=== PATIENT | female | born 1980 | race Two or more races ===

== ENCOUNTER 2023-05-02 18:25 | Observation (INO) | payer OTHER, SELFPAY ==
[2023-05-02 18:33] VITALS: BP 115/63; PULSE 69; RESP 18; TEMP 37.2; O2SAT 100; BMI 25.4
--- NOTE | 2023-05-02 18:43 | ED_ITS ---
HPI - Abdominal Pain General Chief Complaint: Abdominal Pain Stated Complaint: ABDOMINAL PAIN/THROWING UP Time Seen by Provider: 05/02/23 18:28 Source: patient Mode of arrival: Wheelchair Limitations: no limitations History of Present Illness HPI narrative: Patient complains of generalized abdominal pain, nausea and vomiting that began yesterday and worsened today. She lives in [place] and went to [place] ED this afternoon. She had an IV placed, got IVF and anti-emetics and had blood testing. She says that she got a CT but the said that she got abdominal xrays. They did not find anything requiring surgery but apparently offered admission and the patient declined. The said that as soon as the patient got into the car to go home, she vomited, so he brought the patient to our ED to be evaluated and treated. PSHx = cholecystectomy She denied prior history of similar symptoms - denied UC, Crohns, diverticulitis, other chronic GI conditions. Related Data Allergies Allergy/AdvReac Type Severity Reaction Status Date / Time codeine Allergy Intermediate Verified 05/02/23 18:36 ibuprofen Allergy Intermediate Verified 05/02/23 18:36 [facility] Social History Smoking status: Current every day smoker Exam Narrative Exam Narrative: Nurses notes and vital signs reviewed and patient is not hypoxic. AFEBRILE General: Uncomfortable. Skin: Warm, dry, no pallor noted. Eye: Pupils are equal, round and EOMI. No scleral icterus. Ears, Nose, Mouth, and Throat: Oral mucosa is dry Cardiovascular: Regular Rate and Rhythm without murmur, gallop or rub. Respiratory: No accessory muscle use or respiratory distress. Lungs are clear to auscultation, no wheezing, rales or rhonchi Back: No CVA tenderness Musculoskeletal: normal ROM, no calf or popliteal tenderness, no lower extremity edema/swelling GI: Abdomen is soft, non-distended. Normal bowel sounds. No masses appreciated. Diffuse tenderness to palpation. No rebound, guarding, or rigidity noted. Neurological: A&O x4. No cranial nerve dysfunction observed. No truncal ataxia. Moves all extremities. Sensation intact. Psychiatric: Cooperative and interactive. Normal mood and affect. Constitutional Vital Signs, click to edit/add: Last Vital Signs Temp 98.9 F 05/02/23 18:33 Pulse 69 05/02/23 18:33 Resp 18 05/02/23 18:33 BP 115/63 05/02/23 18:33 Pulse Ox 100 05/02/23 18:33 O2 Del Method Room Air 05/02/23 18:33 Course Vital Signs Vital signs: Vital Signs Temperature 98.9 F 05/02/23 18:33 Pulse Rate 69 05/02/23 18:33 Respiratory Rate 18 05/02/23 18:33 Blood Pressure 115/63 05/02/23 18:33 Pulse Oximetry 100 05/02/23 18:33 Oxygen Delivery Method Room Air 05/02/23 18:33 Temperature 98.9 F 05/02/23 18:33 Pulse Rate 69 05/02/23 18:33 Respiratory Rate 18 05/02/23 18:33 Blood Pressure 115/63 05/02/23 18:33 Pulse Oximetry 100 05/02/23 18:33 Oxygen Delivery Method Room Air 05/02/23 18:33 MDM - Abdominal Pain MDM Narrative Medical decision making narrative: I requested that we get a copy of the ED chart from [place]. In the meantime, peripheral IV was ordered to be established with blood to be drawn and sent for testing. She was ordered to receive NS IVF, IV Dilaudid and IV Zofran. Patient signed out to Dr Delgadillo at shift change. - DO Luz Marina Discharge Plan Discharge Chief Complaint: Abdominal Pain
[2023-05-02] MEDS: ONDANSETRON PF 4 MG/2 ML VIAL IV (19:18)
[2023-05-02] MEDS: 0.9 % SODIUM CHLORIDE 1,000 ML 999 ML IV (19:18)
[2023-05-02 19:20] LABS: Basophils Percent Auto 0.3 % (0.2-2.0); Eosinophils Percent Auto 0.1 % (0.9-7.0); Hematocrit 43.5 % (36.0-48.0); Hemoglobin 14.4 g/dL (12.0-16.0); Immature Granulocytes Abs Auto 0.08 10^3/uL (0.00-0.03); Immature Granulocytes Pct Auto 0.5 % (0.0-0.5); Lymphocytes Absolute Auto 2.1 10^3/uL (1.2-3.8); Lymphocytes Percent Auto 13.7 % (20.5-60.0); Mean Corpuscular HGB Conc 33.1 g/dL (29.9-35.2); Mean Corpuscular Hemoglobin 29.9 pg (26.7-34.0); Mean Corpuscular Volume 90.4 fL (81.0-99.0); Mean Platelet Volume 9.1 fL (9.5-13.5); Monocytes Absolute Auto 1.2 10^3/uL (0.3-0.8); Monocytes Percent Auto 7.7 % (1.7-12.0); Neutrophils Absolute Auto 11.9 10^3/uL (1.4-6.5); Neutrophils Percent Auto 77.7 % (43.0-75.0); Platelet Count 425 10^3/uL (150-450); Red Blood Count 4.81 10^6/uL (4.20-5.40); Red Cell Distribution Width 12.6 % (11.0-15.0); White Blood Count 15.4 10^3/uL (4.0-11.0)
[2023-05-02 19:37] LABS: Alanine Aminotransferase 20 U/L (14-59); Albumin Level 3.9 g/dL (3.4-5.0); Alkaline Phosphatase 64 U/L (46-116); Aspartate Amino Transferase 12 U/L (15-37); BUN Creatinine Ratio 18.8; Bilirubin Total 0.7 mg/dL (0.2-1.0); Calcium 8.8 mg/dL (8.5-10.1); Chloride 103 mmol/L (98-107); Estimated GFR (African America >60 (>=60); Estimated GFR (Non-African Ame >60 (>=60); Globulin 3.9 g/dL; Glucose 122 mg/dL (74-106); Sodium 141 mmol/L (136-145); Total Protein 7.8 g/dL (6.4-8.2)
[2023-05-02] MEDS: HYDROMORPHONE HCL 1 MG/ML CARTRIDGE IVP (19:55)
[2023-05-02 20:15] VITALS: BP 128/85; PULSE 64; RESP 18; TEMP 37.6; O2SAT 99
[2023-05-02 20:35] VITALS: BP 108/56
[2023-05-02] MEDS: POTASSIUM CHLORIDE/D5-0.9%NACL 1,000 ML 100 MEQ IV (20:52)
[2023-05-02 21:08] VITALS: BP 128/85; PULSE 65; RESP 20; TEMP 37.6; O2SAT 99; BMI 27.2
[2023-05-02 21:14] VITALS: PULSE 64; RESP 18; O2SAT 99
[2023-05-02] MEDS: MORPHINE SULFATE 2 MG/ML SYRINGE IV (23:05)
[2023-05-03] MEDS: ONDANSETRON PF 4 MG/2 ML VIAL IV (01:06)
[2023-05-03] MEDS: PROCHLORPERAZINE 10 MG/2 ML VIAL IV (02:55)
[2023-05-03] MEDS: MORPHINE SULFATE 2 MG/ML SYRINGE IV (02:55)
[2023-05-03 05:18] LABS: Basophils Absolute Auto 0.1 10^3/uL (0.0-0.1); Basophils Percent Auto 0.4 % (0.2-2.0); Hematocrit 39.2 % (36.0-48.0); Immature Granulocytes Abs Auto 0.05 10^3/uL (0.00-0.03); Immature Granulocytes Pct Auto 0.4 % (0.0-0.5); Lymphocytes Absolute Auto 2.3 10^3/uL (1.2-3.8); Lymphocytes Percent Auto 16.6 % (20.5-60.0); Mean Corpuscular HGB Conc 33.2 g/dL (29.9-35.2); Mean Corpuscular Hemoglobin 29.9 pg (26.7-34.0); Mean Corpuscular Volume 90.1 fL (81.0-99.0); Mean Platelet Volume 9.3 fL (9.5-13.5); Monocytes Absolute Auto 1.2 10^3/uL (0.3-0.8); Neutrophils Absolute Auto 10.1 10^3/uL (1.4-6.5); Neutrophils Percent Auto 73.6 % (43.0-75.0); Platelet Count 371 10^3/uL (150-450); Red Blood Count 4.35 10^6/uL (4.20-5.40); Red Cell Distribution Width 12.6 % (11.0-15.0); White Blood Count 13.7 10^3/uL (4.0-11.0)
[2023-05-03] MEDS: POTASSIUM CHLORIDE/D5-0.9%NACL 1,000 ML 125 MEQ IV (05:23)
[2023-05-03 05:43] LABS: Alanine Aminotransferase 17 U/L (14-59); Albumin Level 3.4 g/dL (3.4-5.0); Alkaline Phosphatase 52 U/L (46-116); Anion Gap 14.3; Aspartate Amino Transferase 13 U/L (15-37); BUN Creatinine Ratio 26.3; Bilirubin Total 0.7 mg/dL (0.2-1.0); Calcium 8.2 mg/dL (8.5-10.1); Carbon Dioxide 25.8 mmol/L (21.0-32.0); Chloride 106 mmol/L (98-107); Estimated GFR (African America >60 (>=60); Estimated GFR (Non-African Ame >60 (>=60); Globulin 3.3 g/dL; Glucose 156 mg/dL (74-106); Potassium 3.1 mmol/L (3.5-5.1); Sodium 143 mmol/L (136-145); Total Protein 6.7 g/dL (6.4-8.2)
[2023-05-03 05:46] VITALS: BP 137/82; PULSE 59; RESP 18; TEMP 37.4; O2SAT 100
[2023-05-03 06:30] LABS: Bilirubin Urine NEGATIVE (NEGATIVE); Blood Urine SMALL (NEGATIVE); Clarity Urine CLEAR (CLEAR); Color Urine YELLOW (YELLOW); Glucose Urine UA NEGATIVE (NEGATIVE); Ketones Urine 40 mg/dL (NEGATIVE); Leukocyte Esterase Urine TRACE (NEGATIVE); Nitrite Urine NEGATIVE (NEGATIVE); Protein Urine TRACE mg/dL (NEG/TRACE); pH Urine 7.5 (5.0-9.0)
[2023-05-03 06:33] LABS: Urine Microscopic Indicated YES
[2023-05-03 06:35] LABS: Bacteria Urine NONE SEEN #/HPF (NONE SEEN); RBC Urine 0-2 #/HPF (0-2); WBC Urine 0-2 #/HPF (NONE SEEN)
[2023-05-03 06:36] LABS: Cast Seen? NONE SEEN #/LPF (NONE SEEN); Crystals Seen? None Seen #/HPF (None Seen); Mucus Urine NONE SEEN (NONE SEEN); Squamous Epithelial Cell Urine MANY #/LPF (NONE/RARE)
[2023-05-03 06:42] LABS: Amphetamine Screen Urine NEGATIVE (NEGATIVE); Barbiturates Screen Urine NEGATIVE (NEGATIVE); Benzodiazepines Screen Urine NEGATIVE (NEGATIVE); Buprenorphine Screen Urine NEGATIVE (NEGATIVE); Cannabinoid Screen Urine POSITIVE (NEGATIVE); Cocaine Screen Urine NEGATIVE (NEGATIVE); Methadone Screen Urine NEGATIVE (NEGATIVE); Methamphetamines Screen Urine NEGATIVE (NEGATIVE); Opiate Screen Urine POSITIVE (NEGATIVE); Oxycodone Screen Urine NEGATIVE (NEGATIVE); Phencyclidine Screen Urine NEGATIVE (NEGATIVE); Tricyclic Antidepressant Urine NEGATIVE (NEGATIVE)
--- NOTE | 2023-05-03 06:44 | PC.NURSE ---
Patient called nurse into room, stating I have to sign out. My daughters were in a car accident. AMA paper signed iv removed.
--- NOTE | 2023-05-03 10:41 | P.HP_ITS ---
H&P: HPI History of Present Illness Chief complaint: ABDOMINAL PAIN/THROWING UP Narrative: 43 y/o female admitted with nausea and vomiting. Signed out AMA prior to being seen and history from chart. To ER in [place] earlier in day and given IV fluids and medication. CT and labs normal. Discharged home and had emesis on way home. To [facility] and again labs showed normal LFTs and lipase. WBC elevated likely from emesis. Records obtained from [place] and CT normal. Admitted for observation. Started IV fluids and zofran. [facility] Medical History (Updated 05/03/23 @ 10:44 by Garth Moses MD) Embolus ?I74.9 - Embolism and thrombosis of unspecified artery (ICD-10) Surgical History (Updated 05/03/23 @ 05:55 by Nona Enciso) History of cholecystectomy ?Z90.49 - Acquired absence of other specified parts of digestive tract (ICD- 10) Social History Smoking status: Current every day smoker Highest level of school completed/degree received: 9th grade Meds Home Medications and Allergies Allergies Allergy/AdvReac Type Severity Reaction Status Date / Time codeine Allergy Intermediate Verified 05/02/23 18:36 ibuprofen Allergy Intermediate Verified 05/02/23 18:36 Exam Constitutional Vital Signs, click to edit/add: Last Vital Signs Temp 99.3 F 05/03/23 05:46 Pulse 59 L 05/03/23 05:46 Resp 18 05/03/23 05:46 BP 137/82 05/03/23 05:46 Pulse Ox 100 05/03/23 05:46 O2 Del Method Room Air 05/03/23 05:46 Results Labs Labs: Short CBC 05/02/23 05/03/23 Range/Units 18:52 04:11 WBC 15.4 H 13.7 H (4.0-11.0) 10^3/uL Hgb 14.4 13.0 (12.0-16.0) g/dL Hct 43.5 39.2 (36.0-48.0) % Plt Count 425 371 (150-450) 10^3/uL BMP 05/02/23 05/03/23 18:52 04:11 Sodium 141 143 Potassium 3.0 L 3.1 L Chloride 103 106 Carbon Dioxide 27.0 25.8 BUN 9.0 10.0 Creatinine 0.48 L 0.38 L Glucose 122 H 156 H Calcium 8.8 8.2 L Liver Function 05/02/23 05/03/23 Range/Units 18:52 04:11 Total Bilirubin 0.7 0.7 (0.2-1.0) mg/dL AST 12 L 13 L (15-37) U/L ALT 20 17 (14-59) U/L Alkaline Phosphatase 64 52 (46-116) U/L Albumin 3.9 3.4 (3.4-5.0) g/dL Urine 05/02/23 Range/Units 06:20 Urine Color Yellow (YELLOW) Urine Clarity Clear (CLEAR) Urine pH 7.5 (5.0-9.0) Ur Specific [place]ner 1.020 (1.005-1.025) Urine Protein Trace (NEG/TRACE) mg/dL Urine Glucose (UA) Negative (NEGATIVE) mg/dL Assessment and Plan Assessment and Plan (1) Cyclic vomiting syndrome: Plan Drug screen positive for THC and likely cyclic vomiting. Was getting IV fluids and zofran. Patient informed nurse that her children were involved in MVA and she had to leave. Patient signed out AMA.
--- NOTE | 2023-05-04 10:06 | CM.DCFOLLOWU ---
Person spoke with: patient How are you feeling? much better How is your pain? no pain Did you understand your discharge instructions? N/A, left AMA due to her children being in a MVA Do you have any questions about your discharge instructions? N/A Were you given any prescriptions at discharge? no, Left AMA due to her children being in a MVA Were you able to get your prescriptions filled? N/A Do you understand how to take your medications as ordered? N/A Do you have any questions about your follow up appointment and do you plan to keep your follow up appointment? No questions Is there anything else that you would like to discuss? no Questions/Comments/Concerns/Other: Patient did ask about getting a doctor's excuse for work. Advised patient that I will look in to this and call her back to see if we are able to since she signed out AMA
== END 2023-05-03 06:54 | disposition left against medical advice (07) ==
LOC: ER 19:55 → ICU 20:46
PROVIDERS: Emergency Medicine; Nurse Practitioner Acute Care; Admitting Provider Family Medicine; Emergency Provider Internal Medicine; Visit Provider Family Medicine
DX: R11.15 Cyclical vomiting syndrome unrelated to migraine (principal); E87.6 Hypokalemia; F12.10 Cannabis abuse, uncomplicated; F17.210 Nicotine dependence, cigarettes, uncomplicated; Z90.49 Acquired absence of other specified parts of digestive tract; Z53.29 Procedure and treatment not carried out because of patient's decision for other reasons
CPT/HCPCS: 36415; 80053; 80307; 81001; 83690; 85025; 96361; 96365; 96366; 96375; 96376; 99285; G0378; J0780; J1170; J2270; J2405

== ENCOUNTER 2023-06-08 18:08 | Emergency (ER) | payer OTHER, SELFPAY ==
[2023-06-08 18:12] VITALS: BP 133/72; PULSE 88; RESP 18; TEMP 36.7; O2SAT 97; BMI 26.3
--- OUTSIDE RECORDS SUMMARY | 2023-06-08 18:17 | XMS_ITS | CCD ---
Author Name Unknown Address [address] [place] [address] Organization [facility] Care Team Providers Care [employer] Name Role Phone MARKER, DR FUENTES Consulting Unavailable [facility] Unavailable MARKER, DR FUENTES Admitting Unavailable MARKER, DR FUENTES Attending Unavailable AHDOOTMAKENZIE Consulting Unavailable PAY, DR TEIXEIRA Attending Unavailable PAY, DR TEIXEIRA Consulting Unavailable PAY, DR TEIXEIRA Admitting Unavailable [facility] Unavailable KARASIK, DR FENG Attending Unavailable KARASIK, DR FENG Admitting [facility]available [facility] [place] [facility] MISBAH BURK Attending Unavailable BHARGAVIMISBAH BRAGG Attending Unavailable BHARGAVIMISBAH BRAGG Referring Unavailable SERVICES, [facility] Unava ilable BHARGAVIMISBAH BRAGG Attending Unavailable BHARGAVIMISBAH BRAGG Referring Unavailable SERVICES, [facility] Unava ilable Allergies Allergy Classification Reported Allergen(s) Allergy Type Date of Onset Reaction(s) Facility NSAIDs (2 sources) Ibuprofen Drug Allergy 10-05-1997 [facility] Opioid Agonists (2 sources) traMADol Drug Allergy 09-26-2013 [facility] Unclassified (1 source) Tylenol-Codeine #3 Drug allergy (disorder) [facility] (1 source) Codeine; Translations: [CODEINE] Drug Allergy 05-02-2023 [facility] (1 source) Ibuprofen; Translations: [IBUPROFEN] Drug Allergy 08-29-2016 [facility] (1 source) traMADol; Translations: [TRAMADOL] Drug Allergy 08-29-2016 [facility] Problems Active Problems Problem Classification Problem Date Documented Da te Episodic/Chronic Abdominal pain (1 source) Abdominal pain Onset: 05-02-2023 Episodic Asthma (1 source) Unspecified asthma, uncomplicated; Translations: [UNSPECIFIED ASTHMA UNCOMPLICATED] Onset: 11-01-2020 Chronic Nausea and vomiting (3 sources) Nausea with vomiting, unspecified; Translations: [Nausea] Onset: 05-02-2023 Episodic Nonspecific chest pain (1 source) Other chest pain; Translations: [OTHER CHEST PAIN] Onset: 11-01-2020 Episodic Other lower respiratory disease (4 sources) Shortness of breath; Translations: [SHORTNESS OF BREATH] Onset: 10-30-2020 Episodic Substance-related disorders (1 source) Nicotine dependence, cigarettes, uncomplicated; Translations: [NICOTINE DEPEND CIGARETTES UNCOMP] Onset: 11-01-2020 Chronic Substance-related disorders (1 source) Cannabis use, unspecified, uncomplicated; Translations: [Cannabis use, unspecified, uncomplicated] Onset: 05-02-2023 Episodic Unclassified (1 source) Cyclical vomiting syndrome unrelated to migraine; Translations: [Cyclical vomiting syndrome unrelated to migraine] Onset: 05-02-2023 Unclassified (1 source) EMS Onset: 05-02-2023 Past or Other Problems Problem Classification Problem Date Documented Da te Episodic/Chronic Skin and subcutaneous tissue infections (4 sources) Cutaneous abscess of right lower limb; Translations: [CUTANEOUS ABSCESS RIGHT LOWER LIMB] Onset: 03-06-2020 Episodic Results Test Name Value Interpretation Reference Range Facil ity CBC AND AUTO DIFFon 05-02-19 ABSOLUTE BASOPHIL 0.0 X10E9/L Normal 0.0-0.2 [facility] Comment on above: Performed By: #### C BCA, CMP, 3040-3, 48583-6, 32010-8, 21719- 9 #### [facility] ([id number]) [address] [place] [address] 82741 ABSOLUTE NEUTROPHIL 11.9 X10E9/L High 1.5-6.6 [facility] Comment on above: Performed By: #### C BCA, CMP, 3040-3, 67926-2, 20920-0, 57074- 9 #### [facility] ([id number]) [address] [place] [address] [place] [address] Basophils/100 WBC (Bld) 0.2 % Normal [facility] Comment on above: Performed By: #### C MAIKEL, CMP, 3040-3, 66685-8, 87489-4, 28796- 9 #### [facility] ([id number]) [address] [place] [address] 45175 Eosinophils (Bld) [#/Vol] 0.0 10*3/uL Normal 0.0-0.4 [facility] Comment on above: Performed By: #### C MAIKEL, CMP, 3040-3, 95712-0, 71260-3, 55635- 9 #### [facility] ([id number]) [address] [place] [address] 04974 Eosinophils/100 WBC (Bld) 0.3 % Normal [facility] Comment on above: Performed By: #### C MAIKEL, CMP, 3040-3, 20466-0, 21392-2, 62036- 9 #### [facility] ([id number]) [address] [place] [address] 55352 Erythrocyte distribution width (RBC) [Ratio] 13.1 % Normal 11.5-15.0 [facility] Comment on above: Performed By: #### Arnie KO, CMP, 3040-3, 14362-4, 83854-7, 88181- 9 #### [facility] ([id number]) [address] [place] [address] 09285 Hematocrit (Bld) [Volume fraction] 44.1 % Normal 35-47 [facility] Comment on above: Performed By: #### Arnie KO, CMP, 3040-3, 12824-6, 35654-5, 63497- 9 #### [facility] ([id number]) [address] [place] [address] 10736 Hemoglobin (Bld) [Mass/Vol] 15.0 g/dL Normal 11.7-15.5 [facility] Comment on above: Performed By: #### C BCA, CMP, 3040-3, 82202-6, 56511-2, 85429- 9 #### [facility] ([id number]) [address] [place] [address] 67039 Lymphocytes (Bld) [#/Vol] 1.4 10*3/uL Normal 1.0-3.5 [facility] Comment on above: Performed By: #### C BCA, CMP, 3040-3, 22874-1, 09888-2, 70045- 9 #### [facility] ([id number]) [address] [place] [address] 87961 Lymphocytes/100 WBC (Bld) 9.8 % Normal [facility] Comment on above: Performed By: #### C BCA, CMP, 3040-3, 01963-5, 18178-5, 57646- 9 #### [facility] ([id number]) [address] [place] [address] 06420 MCH (RBC) [Entitic mass] 30.3 pg Normal 27-34 [facility] Comment on above: Performed By: #### C BCA, CMP, 3040-3, 36603-6, 34284-4, 71156- 9 #### [facility] ([id number]) [address] [place] [address] 19328 MCHC (RBC) [Mass/Vol] 34.0 g/dL Normal 32-36 [facility] Comment on above: Performed By: #### C BCA, CMP, 3040-3, 45523-5, 38228-0, 81848- 9 #### [facility] ([id number]) [address] [place] [address] 62559 MCV (RBC) [Entitic vol] 89 fL Normal 80-100 [facility] Comment on above: Performed By: #### C BCA, CMP, 3040-3, 40054-5, 88950-1, 07234- 9 #### [facility] ([id number]) [address] [place] [address] 76216 Monocytes (Bld) [#/Vol] 0.8 10*3/uL Normal 0-0.9 [facility] Comment on above: Performed By: #### C BCA, CMP, 3040-3, 65729-7, 59334-1, 87848- 9 #### [facility] ([id number]) [address] [place] [address] 00562 Monocytes/100 WBC (Bld) 5.4 % Normal [facility] Comment on above: Performed By: #### C BCA, CMP, 3040-3, 30807-6, 47918-8, 38285- 9 #### [facility] ([id number]) [address] [place] [address] 07320 Neutrophils/100 WBC (Bld) 84.3 % Normal [facility] Comment on above: Performed By: #### C BCA, CMP, 3040-3, 26602-9, 91719-2, 52972- 9 #### [facility] ([id number]) [address] [place] [address] 63191 Platelet mean volume (Bld) [Entitic vol] 6.9 fL Low 7-12 [facility] Comment on above: Performed By: #### C BCA, CMP, 3040-3, 40157-3, 56054-4, 25539- 9 #### [facility] ([id number]) [address] [place] [address] 11278 Platelets (Bld) [#/Vol] 433 10*3/uL Normal 150-450 [facility] Comment on above: Performed By: #### Arnie BCA, CMP, 3040-3, 18841-1, 54636-5, 33057- 9 #### [facility] ([id number]) [address] [place] [address] 79908 RBC COUNT 4.95 X10E12/L Normal 3.80-5.20 [facility] Comment on above: Performed By: #### C BCA, CMP, 3040-3, 76961-4, 92627-6, 70598- 9 #### [facility] ([id number]) [address] [place] [address] 11182 WBC (Bld) [#/Vol] 14.2 10*3/uL High 4.0-11.0 [facility] Comment on above: Performed By: #### C BCA, CMP, 3040-3, 72898-9, 13206-0, 98507- 9 #### [facility] ([id number]) [address] [place] [address] 23408 COMPREHENSIVE METABOLIC PANE Sumit 05-02-2023 Albumin [Mass/Vol] 4.5 g/dL Normal 3.2-5.3 [facility] Comment on above: Performed By: #### C BCA, CMP, 3040-3, 51452-5, 94308-1, 63824- 9 #### [facility] ([id number]) [address] [place] [address] 25829 ALP [Catalytic activity/Vol] 61 U/L Normal 39-130 [facility] Comment on above: Performed By: #### C BCA, CMP, 3040-3, 45409-7, 29691-6, 81326- 9 #### [facility] ([id number]) [address] [place] [address] 55300 ALT [Catalytic activity/Vol] 17 U/L Normal 0-31 [facility] Comment on above: Performed By: #### C BCA, CMP, 3040-3, 44344-3, 11788-0, 18385- 9 #### [facility] ([id number]) [address] [place] [address] 15442 Anion gap [Moles/Vol] 12 mmol/L Normal 5-15 [facility] Comment on above: Performed By: #### C BCA, CMP, 3040-3, 17474-8, 27879-7, 23270- 9 #### [facility] ([id number]) [address] [place] [address] 50147 AST [Catalytic activity/Vol] 21 U/L Normal 0-41 [facility] Comment on above: Performed By: #### C BCA, CMP, 3040-3, 42152-4, 11457-7, 07335- 9 #### [facility] ([id number]) [address] [place] [address] 31562 Bilirubin [Mass/Vol] 0.9 mg/dL Normal 0.3-1.2 [facility] Comment on above: Performed By: #### C BCA, CMP, 3040-3, 03567-2, 86589-2, 58075- 9 #### [facility] ([id number]) [address] [place] [address] 65260 Calcium [Mass/Vol] 8.9 mg/dL Normal 8.5-10.5 [facility] Comment on above: Performed By: #### C BCA, CMP, 3040-3, 98684-1, 70356-8, 45397- 9 #### [facility] ([id number]) [address] [place] [address] 84393 Chloride [Moles/Vol] 99 mmol/L Normal 98-109 [facility] Comment on above: Performed By: #### C BCA, CMP, 3040-3, 95996-9, 73846-2, 82508- 9 #### [facility] ([id number]) [address] [place] [address] 40735 CO2 [Moles/Vol] 23 mmol/L Normal 22-32 [facility] Comment on above: Performed By: #### C MAIKEL, CMP, 3040-3, 68805-1, 88334-4, 13071- 9 #### [facility] ([id number]) [address] [place] [address] 14742 Creatinine [Mass/Vol] 0.46 mg/dL Normal 0.40-1.00 [facility] Comment on above: Result Comment: METH OD TRACEABLE TO IDMS STANDARD Performed By: #### C MAIKEL, CMP, 3040-3, 61271-9, 45744-8, 94643-0 #### [facility] ([id number]) [address] [place] [address] 99383 eGFR (CKD-EPI) NON-RACE DEPENDENT >90 Normal >59 [facility] Comment on above: Result Comment: Reported eGFR is based on the CKD-EPI 2020 equation that does not use a race coefficient. Performed By: #### C MAIKEL, MICAH, 3040-3, 78284-6, 62301-2, 33342-9 #### [facility] ([id number]) [address] [place] [address] 44355 Glucose [Mass/Vol] 141 mg/dL High 65-99 [facility] Comment on above: Performed By: #### C MICAH KO, 3040-3, 77225-4, 70733-3, 76941- 9 #### [facility] ([id number]) [address] [place] [address] 25177 Potassium [Moles/Vol] 3.0 mmol/L Low 3.5-5.0 [facility] Comment on above: Performed By: #### C MAIKEL, CMP, 3040-3, 63439-4, 20118-6, 95109- 9 #### [facility] ([id number]) [address] [place] [address] 20755 Protein [Mass/Vol] 8.2 g/dL High 6.0-8.0 [facility] Comment on above: Performed By: #### C BCA, CMP, 3040-3, 75982-7, 04495-7, 07023- 9 #### [facility] ([id number]) [address] [place] [address] 53289 Sodium [Moles/Vol] 134 mmol/L Normal 134-146 [facility] Comment on above: Performed By: #### C BCA, CMP, 3040-3, 65540-2, 01619-8, 88657- 9 #### [facility] ([id number]) [address] [place] [address] 06264 Urea nitrogen [Mass/Vol] 14 mg/dL Normal 5-23 [facility] Comment on above: Performed By: #### C BCA, CMP, 3040-3, 52550-5, 11868-3, 25399- 9 #### [facility] ([id number]) [address] [place] [address] ABDOMEN AND PELVIS W CONT on 05-02-2023 CT ABDOMEN AND PELVIS W CONT CT ABDOMEN AND PELVIS W CONT Clinical history: Acute nonlocalized abdominal pain. Nausea vomiting. Technique: Spiral CT of the abdomen and pelvis was performed after the intravenous administration of contrast material. Sagittal and coronal reformatted imaging was performed. All CT scans at this facility use dose modulation, iterative reconstruction, and/or weight based dosing when appropriate to reduce radiation dose to as low as reasonably achievable. Comparisons: 05/22/2020. Findings: CT ABDOMEN: Minimal dependent atelectatic changes are present in the lung bases, left greater than right. There is no pneumoperitoneum. Changes of cholecystectomy again seen. The liver, spleen, adrenal glands and pancreas appear unremarkable. Fatty replacement of much of the pancreatic head and uncinate again seen. Kidneys are unremarkable. Renal collecting systems and ureters are not dilated. Abdominal aorta is not aneurysmal. There is no retroperitoneal nor mesenteric lymphadenopathy. No ascites. No dilated bowel loops. 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 No pelvic mass, fluid collection, nor lymphadenopathy. Appendix is normal. No acute fracture is identified. IMPRESSION: No acute finding in the abdomen nor pelvis. Finalized by Jalen Morales MD on 05/02/2023 12:53 PM Normal [facility] HCG ( test) IA.sawi d Ql (S)on 05-02-2023 SERUM Negative Normal NEG [facility] Comment on above: Performed By: #### C BCA, CMP, 3040-3, 49940-1, 60108-0, 84355- 9 #### [facility] ([id number]) [address] [place] [address] 81199 HCG ( test) Ql (U)o n 05-02-2023 Beta HCG ( test) Ql (U) Negative Normal NEG [facility] Comment on above: Performed By: #### 2 106-3 #### [facility] ([id number]) [address] [place] [address] 69254 LIPASEon 05-02-2023 Lipase [Catalytic activity/Vol] 22 U/L Normal 17-40 [facility] Comment on above: Performed By: #### C BCA, CMP, 3040-3, 44912-4, 69023-1, 50123- 9 #### [facility] ([id number]) [address] [place] [address] 75546 MAGNESIUMon 05-02-2023 Magnesium [Mass/Vol] 1.8 mg/dL Normal 1.8-2.6 [facility] Comment on above: Performed By: #### C BCA, CMP, 3040-3, 00719-7, 21739-9, 89996- 9 #### [facility] ([id number]) [address] [place] [address] 83468 TROPONIN Ion 05-02-2023 Troponin I.cardiac [Mass/Vol] 0.01 ng/mL Normal 0.00-0.04 [facility] Comment on above: Performed By: #### C BCA, CMP, 3040-3, 57932-4, 09968-5, 06949- 9 #### [facility] ([id number]) [address] [place] [address] [place] [address] URN MACROSCOPIC NURon 2023 BILIRUBIN TACO Negative Normal NEG [facility] Comment on above: Performed By: #### N UM #### [facility] ([id number]) [address] [place] [address] [place] [address] BLOOD/HGB TACO Small Abnormal NEG [facility] Comment on above: Performed By: #### N UM #### [facility] ([id number]) [address] [place] [address] [place] [address] GLUCOSE TACO Negative Normal NEG [facility] Comment on above: Performed By: #### N UM #### [facility] ([id number]) [address] [place] [address] [place] [address] KETONES TACO >=160 Abnormal NEG [facility] Comment on above: Performed By: #### N UM #### [facility] ([id number]) [address] [place] [address], [place] [address] LEUKOCYTE ESTERASE TACO Negative Normal NEG [facility] Comment on above: Performed By: #### N UM #### [facility] ([id number]) [address] [place] [address] [place] [address] NITRITE TACO Negative Normal NEG [facility] Comment on above: Performed By: #### N UM #### [facility] ([id number]) [address] [place] [address] [place] [address] PH TACO 6.0 Normal 5.0-8.5 [facility] Comment on above: Performed By: #### N UM #### [facility] ([id number]) [address] [place] [address] [place] [address] PROTEIN TACO Negative Normal NEG [facility] Comment on above: Performed By: #### N UM #### [facility] ([id number]) [address] [facility] [place] [address] SPECIFIC GRAVITY TACO <=1.005 Normal 1.003-1.035 [facility] Comment on above: Performed By: #### N UM #### [facility] ([id number]) [address] [facility], [place] [address] UROBILINOGEN TACO 0.2 eu/dL Normal <1.[address] [facility] Comment on above: Performed By: #### N UM #### [facility] ([id number]) [address] [facility], [place] [address] XR CHEST 1 VWon 05-02-2023 XR CHEST 1 VW XR CHEST 1 VW Portable chest: HISTORY: Cough and nausea. Single view of the chest was obtained. Cardiac and mediastinal contours are stable. There is no consolidation or effusion. No pneumothorax is seen. The osseous structures appear intact. IMPRESSION: No acute findings Finalized by Wolfgang Mcbride MD on 05/02/2023 11:43 AM Normal [facility] ASYMPTOMATIC COVID-19 ANTIGE Non 10-30-2020 EUA Statement SEE BELOW Normal [facility] Comment on above: Result Comment: This test has not been FDA cleared or approved, but has been authorized by the FDA under an Emergency Use Authorization (EUA) for use by authorized laboratories certified under CLIA that meet the requirements to perform moderate or high complexity testing. This test has been authorized only for the detection of proteins from SARS-CoV-2, not for any other viruses or pathogens. The emergency use of this test is authorized for the duration of the declaration that circumstances exist justifying the authorization of emergency use of in vitro diagnostic tests for detection and/or diagnosis of Covid-19 under section 564(b)(1) of the Act, 21 U.S.C. 360bbb-3(b)(1), unless the declaration is terminated or authorization is revoked sooner. Performed By: #### C VDAGA #### [facility] [address] [address] Ligia Burdick SARS-CoV-2 (COVID-19) RNA SHOAIB+probe Ql (Unsp spec) Negative Normal NEGATIVE [facility] Comment on above: Result Comment: Nega tive results are presumptive. They do not preclude infection and should not be used as the sole basis for treatment decisions. Additional confirmatory testing by a molecular method should be considered. Performed By: #### C VDAGA #### [facility] [address] [place] [address] Ligia Heavenly CBC AUTO DIFFon 10-30-2020 BASO # 0.1 103/ul Normal 0.0-0.1 [facility] Comment on above: Performed By: #### C BC #### [facility] [address] [place], [place] [address] Ligia Heavenly Basophils/100 WBC (Bld) 0.5 % Normal 0.2-2.0 [facility] Comment on above: Performed By: #### C BC #### [facility] [address] [place], [place] [address] Ligia Heavenly EO # 0.5 103/ul Normal 0.0-0.7 [facility] Comment on above: Performed By: #### C BC #### [facility] [address] [place], [place] [address] Ligia Heavenly Eosinophils/100 WBC (Bld) 5.2 % Normal 0.9-7.0 [facility] Comment on above: Performed By: #### C BC #### [facility] [address] [place], [place] [address] Ligia Heavenly Erythrocyte distribution width (RBC) [Ratio] 13.5 % Normal 11.0-15.0 [facility] Comment on above: Performed By: #### C BC #### [facility] [address] [place], [place] [address] Ligia Heavenly Hematocrit (Bld) [Volume fraction] 45.6 % Normal 36.0-48.0 [facility] Comment on above: Performed By: #### C BC #### [facility] [address] [place] [address] Ligia Heavenly Hemoglobin (Bld) [Mass/Vol] 15.0 g/dL Normal 12.0-16.0 [facility] Comment on above: Performed By: #### C BC #### [facility] [address] [id number] Ligia Heavenly IG # 0.03 10e3/ul Normal 0.00-0.03 [facility] Comment on above: Performed By: #### C BC #### [facility] [address] [address] Ligia Heavenly IG % 0.3 % Normal 0.0-0.5 [facility] Comment on above: Performed By: #### C BC #### [facility] [address] [place] [address] Ligia Heavenly LYMPH # 2.4 103/ul Normal 1.2-3.8 [facility] Comment on above: Performed By: #### C BC #### [facility] [address] [place] [address] Ligia Heavenly Lymphocytes/100 WBC (Bld) 23.5 % Normal 20.5-60.0 [facility] Comment on above: Performed By: #### C BC #### [facility] [address] [place], [place] [address] Ligia Heavenly MANUAL DIFF REQ NO Normal [facility] Comment on above: Performed By: #### C BC #### [facility] [address] [place], [place] [address] Ligia Heavenly MCH (RBC) [Entitic mass] 29.6 pg Normal 26.7-34.0 [facility] Comment on above: Performed By: #### C BC #### [facility] [address] [place] [address] Ligia Heavenly MCHC (RBC) [Mass/Vol] 32.9 g/dL Normal 29.9-35.2 [facility] Comment on above: Performed By: #### C BC #### [facility] [address] [place], [place] [address] Ligia Heavenly MCV (RBC) [Entitic vol] 90.1 fL Normal 81.0-99.0 [facility] Comment on above: Performed By: #### C BC #### [facility] [address] [address] Ligia Burdick MONO # 1.2 103/ul Critically high 0.3-0.8 [facility] Comment on above: Performed By: #### C BC #### [facility] [address] [place], [place] [address] Ligia Burdick Monocytes/100 WBC (Bld) 11.9 % Normal 1.7-12.0 [facility] Comment on above: Performed By: #### C BC #### [facility] [address] [place], [place] [address] Ligiaana Joen NEUT # 6.0 103/ul Normal 1.4-6.5 [facility] Comment on above: Performed By: #### C BC #### [facility] [address] [place] [address] Ligia Burdick Neutrophils/100 WBC (Bld) 58.6 % Normal 43.0-75.0 [facility] Comment on above: Performed By: #### C BC #### [facility] [address] [place] [address] Ligia Burdick Platelet mean volume (Bld) [Entitic vol] 9.4 fL Critically low 9.5-13.5 [facility] Comment on above: Performed By: #### C BC #### [facility] [address] [place], [place] [address] Ligiaana Joen PLT 283 103/ul Normal 150-450 [facility] Comment on above: Performed By: #### C BC #### [facility] [address] [place] [address] Ligia Heavenly RBC 5.06 106/ul Normal 4.20-5.40 [facility] Comment on above: Performed By: #### C BC #### [facility] [address] [place], [place] [address] Ligia Heavenly WBC 10.2 103/ul Normal 4.0-11.0 [facility] Comment on above: Performed By: #### C BC #### [facility] [address] [place], [place] [address] Ligia Joen D-DIMERon 10-30-2020 D-DIMER 0.32 mg/L FEU Normal 0.19-0.50 [facility] Comment on above: Performed By: #### D DIM #### [facility] [address] [place], [place] [address] Ligiaana Burdick D-DIMER COMMENTS SEE BELOW Normal [facility] Comment on above: Result Comment: Incr eases in D-Dimer concentration observed with thromboembolic events can be variable due to localization, size, and age of the thrombus. Therefore, a thromboembolic event cannot be diagnosed with certainty on the basis of the reference range. D-Dimers may also be elevated for a variety of disorders including: advanced age, , coronary disease, cancer, liver disease, infection, inflammation, hematoma, DIC, trauma, post-surgery, diabetes, thrombolytic or anticoagulant therapy, stress, and generalized hospitalization. Performed By: #### D DIM #### [facility] [address] [place], [place] [id number] Ligia Burdick LACTATE/LACTIC ACIDon 2020 Lactate [Moles/Vol] 1.6 mmol/L Normal 0.7-2.0 [facility] Comment on above: Performed By: #### L ACT #### [facility] [address] [place], [place] [id number] Ligia Burdick PROF 14(COMP METB)on 021 Albumin [Mass/Vol] 3.9 g/dL Normal 3.5-5.0 [facility] Comment on above: Performed By: #### H HONEY, CMP #### [facility] [address] [place], [place] [id number] Ligiaana Burdick Albumin/Globulin [Mass ratio] 1.0 {ratio} Normal [facility] Comment on above: Performed By: #### H HONEY, CMP #### [facility] [address] [place], [place] [id number] Ligia Heavenly ALP [Catalytic activity/Vol] 90 U/L Normal 38-126 [facility] Comment on above: Performed By: #### H HONEY, CMP #### [facility] [address] [place], [place] [id number] Ligia Heavenly ALT [Catalytic activity/Vol] 75 U/L Critically high 9-52 [facility] Comment on above: Performed By: #### H STROROE, CMP #### [facility] [address] [address] Ligia Heavenly Anion gap [Moles/Vol] 13.1 mmol/L Normal [facility] Comment on above: Performed By: #### H STROPN, CMP #### [facility] [address] [address] Ligia Heavenly AST [Catalytic activity/Vol] 43 U/L Critically high 14-36 [facility] Comment on above: Performed By: #### H STROROE, CMP #### [facility] [address] [address] Ligia Heavenly Bilirubin [Mass/Vol] 0.5 mg/dL Normal 0.2-1.3 [facility] Comment on above: Performed By: #### H HONEY, CMP #### [facility] [address] [place] [address] Ligia Heavenly Calcium [Mass/Vol] 8.7 mg/dL Normal 8.4-10.2 [facility] Comment on above: Performed By: #### H HONEY, CMP #### [facility] [address] [place] [address] Ligia Heavenly Chloride [Moles/Vol] 97 mmol/L Critically low 98-107 [facility] Comment on above: Performed By: #### H HONEY, CMP #### [facility] [address] [place] [address] Ligia Heavenly CO2 [Moles/Vol] 28.2 mmol/L Normal 22.0-30.0 [facility] Comment on above: Performed By: #### H STROPN, CMP #### [facility] [address] [place] [address] Ligia Heavenly Creatinine [Mass/Vol] 0.54 mg/dL Normal 0.52-1.04 [facility] Comment on above: Performed By: #### H STROPN, CMP #### [facility] [address] [address] Ligia Heavenly EGFR-AF MAURITANIAN Normal >=60 [facility] Comment on above: Performed By: #### H STROPN, CMP #### [facility] [address] [id number] Ligia Heavenly EGFR-NON AF MAURITANIAN Normal >=60 [facility] Comment on above: Performed By: #### H STROPN, CMP #### [facility] [address] [id number] Ligia Heavenly Globulin (S) [Mass/Vol] 4.0 g/dL Normal [facility] Comment on above: Performed By: #### H STROPN, CMP #### [facility] [address] [address] Ligia Heavenly Glucose [Mass/Vol] 113 mg/dL Critically high 74-106 [facility] Comment on above: Performed By: #### H STROPN, CMP #### [facility] [address] [address] Ligia Heavenly Potassium [Moles/Vol] 4.3 mmol/L Normal 3.4-5.0 [facility] Comment on above: Performed By: #### H STROPN, CMP #### [facility] [address] [address] Ligia Heavenly Protein [Mass/Vol] 7.9 g/dL Normal 6.1-8.2 [facility] Comment on above: Performed By: #### H STROPN, CMP #### [facility] [address] [address] Ligia Heavenly Sodium [Moles/Vol] 134 mmol/L Critically low 137-145 [facility] Comment on above: Performed By: #### H STROPN, CMP #### [facility] [address] [id number] Ligia Heavenly Urea nitrogen [Mass/Vol] 10.0 mg/dL Normal 7.0-17.0 [facility] Comment on above: Performed By: #### H STROPN, CMP #### [facility] [address] [id number] Ligia Heavenly Urea nitrogen/Creatinine [Mass ratio] 18.5 mg/mg Normal [facility] Comment on above: Performed By: #### H STROROE, CMP #### [facility] [address] [place], [place] [address] Ligia Burdick TROPONIN, HIGH SENSITIVITYon 10-30-2020 HSTROP >4.0 Normal 4.0-35.5 [facility] Comment on above: Result Comment: CUT- OFF POINTS HAVE BEEN ESTABLISHED BASED ON THE FOURTH UNIVERSAL DEFINITIONS OF MYOCARDIAL INFARCTION. THE UPPER REFERENCE LIMIT (URL) OF TROPONIN, DEFINED THE 99TH PERCENTILE OF cTnI DISTRIBUTION IN A REFERENCE POPULATION, HAS BEEN CONFIRMED THE DECISION THRESHOLD FOR MA DIAGNOSIS. Performed By: #### H STROROE, CMP #### [facility] [address] [place], [place] [address] Ligia Burdick XR CHEST 2 Von 10-30-2020 XR CHEST 2 V EXAM: XR CHEST 2 V HISTORY: COUGH COMPARISON: Chest x-ray dated 05/11/2016. TECHNIQUE: 2 views of the chest FINDINGS: No dense focal consolidation, pneumothorax or pleural effusion is seen. The heart size is normal. The visualized osseous structures appear unremarkable. IMPRESSION: No dense focal consolidation, pneumothorax or pleural effusion is seen. Electronically authenticated by: MAKENZIE ARREDONDO Date: 2020-10-29 23:52 Normal [facility] CULTURE WOUNDon 03-06-2020 CULTURE WOUND Specimen Comments: R HIP SWAB Culture Observations: Anaerobe present. Culture Observations: Evidence based practice by [facility] has demonstrated that Culture Observations: Finegoldia species are routinely susceptible to Piperacillin-Tazobact am, Culture Observations: Cefoxitin,Ertapenem,I mipenem,Metronidazole and Culture Observations: variably resistant to Clindamycin. Isolate 1 Finegoldia magna Moderate growth of Normal [facility] Comment on above: Performed By: #### W OUNDCX #### [facility] [address] [place], [place] [address] Ligia Burdick Encounters Encounter Date Encounter Type Care Provider Facility Start: 05-02-2023 End: 05-03-2023 Emergency department patient visit MISBAH BURK [facility] Start: 05-02-2023 End: 05-02-2023 Emergency department patient visit [facility] Start: 10-30-2020 End: 10-30-[address] FUENTES MARKER Facility:[facility] Start: 04-19-[address] JUNG KEEN Tyler lity:[facility] Start: 03-06-2020 End: 03-06-[address] TEIXEIRA PAY Facility:[facility] Payers Date Payer Category Payer Unknown [id number] 2.16.84 [id number] 1980 Unknown [id number] 2.16.84 [id number] 1980 Unknown [id number] 2.16.84 [id number] 1980 Unknown [id number] 2.16.84 [id number] 1982 Unknown [id number] 2.16.84 [id number] 1980 Unknown [id number] 2.16.84 [id number] 1957 Self-pay [id number] 1957 Unknown [id number] Summary Purpose Family History No Family History Records FoundNo Family History Records Found Advance Directives No Advanced Directives Records FoundNo Advanced Directives Records Found Additional Source Comments INFORMATION SOURCE (unrecogn ized section and content) DATE CREATED AUTHOR 11/02/2020 [facility] DATE CREATED AUTHOR 'S ORGANIZ ATION 05/03/2023 [facility] FOR RECORDS PERTAINING TO PATIENTS WHO ARE OR HAVE BEEN ENROLLED IN A CHEMICAL DEPENDENCY/SUBSTANCEABUSE PROGRAM, SOME INFORMATION MAY BE OMITTED. This clinical summary was aggregated from multiple sources. Caution should be exercised in using it in the provision of clinical care. This summary normalizes information from multiple sources, and as a consequence, information in this document may materially change the coding, format and clinical context of patient data. In addition, data may be omitted in some cases. CLINICAL DECISIONS SHOULD BE BASED ON THE PRIMARY CLINICAL RECORDS. [facility]. provides no warranty or guarantee of the accuracy or completeness of information in this document.
--- NOTE | 2023-06-08 19:33 | ED_ITS ---
HPI - General Adult General Chief complaint: Abdominal Pain Stated complaint: abdominal pain Time Seen by Provider: 06/08/23 19:28 Source: patient and family Mode of arrival: Wheelchair Limitations: no limitations History of Present Illness HPI narrative: This 43 year old female who was admitted to this facility approximately 6 weeks ago for cyclic vomiting presents for evaluation of epigastric abdominal pain wit h nausea and vomiting. The symptoms started last night. She states she has been having chills and sweats. She has vomited multiple times including 3 times in the waiting room while waiting to come back to a room. She has epigastric abdominal pain. She has not had any diarrhea. She denies any chest pain or shortness of breath.She denies the possibility of . She is status post cholecystectomy in the past. Related Data Home Medications Medication Instructions Recorded Confirmed No Known Home Medications 06/08/23 06/08/23 Allergies Allergy/AdvReac Type Severity Reaction Status Date / Time codeine Allergy Intermediate Verified 05/02/23 18:36 ibuprofen Allergy Intermediate Verified 05/02/23 18:36 Review of Systems ROS Status of ROS 10 or more systems reviewed and unremark able except as noted in history and below [facility] Medical History (Updated 06/08/23 @ 20:45 by Maya Holguin MD) Embolus ?I74.9 - Embolism and thrombosis of unspecified artery (ICD-10) Surgical History (Updated 05/03/23 @ 05:55 by Nona Enciso) History of cholecystectomy ?Z90.49 - Acquired absence of other specified parts of digestive tract (ICD- 10) Social History Smoking status: Current every day smoker Highest level of school completed/degree received: 9th grade Exam Narrative Exam Narrative: Nurses note and vital signs reviewed and patient is not hypoxic. General: Uncomfortable appearing female, no respiratory distress she appears flushed Skin: Skin is warm to the touch, slightly diaphoretic and flushed Head: Normocephalic, atraumatic Eye: Normal conjunctiva, no drainage, EOMI. PERRL. No sclerral icterus Ears, Nose, Mouth, and Throat: oral mucosa is moist. Cardiovascular: Regular Rate and Rhythm S1S2, Pulses are brisk and equal bilaterally Respiratory: Patient is in no distress, no accessory muscle use, lungs are clear to auscultation, no wheezing, rales or rhonchi Back: non-tender, no CVA tenderness bilaterally to percussion. GI: Abdomen is soft, nondistended with normal bowel sounds, there is epigastric abdominal tenderness to palpation, no peritoneal signs Musculoskeletal: The patient has no evidence of calf tenderness, no pitting edema, symmetrical pulses noted bilaterally Neurological: A&O x4, normal speech Psychiatric: anxious, moaning Constitutional Vital Signs, click to edit/add: Last Vital Signs Temp 98.1 F 06/08/23 18:12 Pulse 88 06/08/23 18:12 Resp 18 06/08/23 18:12 BP 133/72 06/08/23 18:12 Pulse Ox 97 06/08/23 18:12 O2 Del Method Room Air 06/08/23 18:12 Course Vital Signs Vital signs: Vital Signs Temperature 98.1 F 06/08/23 18:12 Pulse Rate 88 06/08/23 18:12 Respiratory Rate 18 06/08/23 18:12 Blood Pressure 133/72 06/08/23 18:12 Pulse Oximetry 97 06/08/23 18:12 Oxygen Delivery Method Room Air 06/08/23 18:12 Temperature 98.1 F 06/08/23 18:12 Pulse Rate 88 06/08/23 18:12 Respiratory Rate 18 06/08/23 18:12 Blood Pressure 133/72 06/08/23 18:12 Pulse Oximetry 97 06/08/23 18:12 Oxygen Delivery Method Room Air 06/08/23 18:12 Medical Decision Making [facility] Narrative Medical decision making narrative: This 43-year-old female with a history of cyclic vomiting who is s/p cholecystectomy presents for evaluation of nausea and vomiting that started last night. She had multiple episodes of vomiting overnight and stated she could not tolerate anything by mouth. She denies any chest pain or shortness of breath. She was having some chills. She has epigastric abdominal discomfort, the remainder of her abdominal exam was benign. An IV was placed and she was medicated with IV fluids, Zofran, Pepcid and 4 mg of morphine for her abdominal pain. Routine labs are reviewed. Her influenza testing is negative. Electrolytes are normal with the exception of a potassium of 3.1. She has a normal white count and hemoglobin. Lipase is normal and Positive hCG is negative for . On reevaluation she states she is feeling better. She is tolerating ice chips and requests to be discharged home. She will be discharged home with a prescription for Zofran and oral potassium replacement. Lab Data Labs: Lab Results 06/08/23 06/08/23 Range/Units 19:30 19:41 Sodium 134 L (136-145) mmol/L Potassium 3.1 L (3.5-5.1) mmol/L Chloride 94 L (98-107) mmol/L Carbon Dioxide 23.2 (21.0-32.0) mmol/L Anion Gap 19.9 BUN 20.0 H (7.0-18.0) mg/dL Creatinine 0.54 L (0.55-1.02) mg/dL Est GFR ( Amer) >60 (>=60) Est GFR (Non-Af Amer) >60 (>=60) BUN/Creatinine Ratio 37.0 Glucose 159 H (74-106) mg/dL Calcium 9.6 (8.5-10.1) mg/dL Total Bilirubin 0.9 (0.2-1.0) mg/dL AST 16 (15-37) U/L ALT 27 (14-59) U/L Alkaline Phosphatase 75 (46-116) U/L Total Protein 8.9 H (6.4-8.2) g/dL Albumin 4.5 (3.4-5.0) g/dL Globulin 4.4 g/dL Albumin/Globulin Ratio 1.0 Lipase 11.0 L (16.0-77.0) U/L Serum HCG, Qual Negative (NEGATIVE) Influenza Type A Ag Negative Influenza Type B Ag Negative Discharge Plan Discharge Chief Complaint: Abdominal Pain Clinical Impression: Gastroenteritis, Epigastric abdominal pain, Hypokalemia Patient Disposition: Home, Self-Care Time of Disposition Decision: 20:44 Condition: Good Prescriptions / Home Meds: No Action No Known Home Medications Instructions: Potassium Content of Foods List (ED), Hypokalemia (ED), Gastroenteritis (DC), Acute Nausea and Vomiting (ED), Epigastric Pain (ED) Stand Alone Forms: Portal Instructions Referrals: [facility] [Primary Care Provider] - 1 week
[2023-06-08] MEDS: 0.9 % SODIUM CHLORIDE 1,000 ML 1000 ML IV (19:53)
[2023-06-08] MEDS: FAMOTIDINE/PF 20 MG/2 ML VIAL IV (19:53)
[2023-06-08] MEDS: MORPHINE SULFATE 4 MG/ML VIAL IV (19:53)
[2023-06-08] MEDS: ONDANSETRON PF 4 MG/2 ML VIAL IV (19:53)
[2023-06-08 19:54] LABS: Alanine Aminotransferase 27 U/L (14-59); Albumin Level 4.5 g/dL (3.4-5.0); Alkaline Phosphatase 75 U/L (46-116); Anion Gap 19.9; Aspartate Amino Transferase 16 U/L (15-37); Bilirubin Total 0.9 mg/dL (0.2-1.0); Calcium 9.6 mg/dL (8.5-10.1); Carbon Dioxide 23.2 mmol/L (21.0-32.0); Chloride 94 mmol/L (98-107); Estimated GFR (African America >60 (>=60); Estimated GFR (Non-African Ame >60 (>=60); Globulin 4.4 g/dL; Glucose 159 mg/dL (74-106); Potassium 3.1 mmol/L (3.5-5.1); Sodium 134 mmol/L (136-145); Total Protein 8.9 g/dL (6.4-8.2)
[2023-06-08 19:55] LABS: HCG Qualitative NEGATIVE (NEGATIVE)
[2023-06-08 20:01] LABS: Influenza Virus A Antigen Negative; Influenza Virus B Antigen Negative; Internal Control Within Normal Limits
[2023-06-08 20:57] VITALS: BP 140/80; PULSE 60; RESP 18; O2SAT 97
== END 2023-06-08 21:00 | disposition home or self-care (01) ==
PROVIDERS: Emergency Provider Emergency Medicine
DX: E87.6 Hypokalemia (principal); K52.9 Noninfective gastroenteritis and colitis, unspecified; R10.13 Epigastric pain; Z90.49 Acquired absence of other specified parts of digestive tract
CPT/HCPCS: 36415; 80053; 80307; 81001; 83690; 84703; 87804; 96361; 96374; 96375; 99284; J2270; J2405

== ENCOUNTER 2023-06-09 23:21 | Emergency (ER) | payer OTHER, SELFPAY ==
[2023-06-09 23:26] VITALS: BP 108/67; PULSE 61; RESP 16; TEMP 36.9; O2SAT 97; BMI 26.3
[2023-06-09 23:32] VITALS: O2SAT 98
--- NOTE | 2023-06-09 23:43 | ED.ABDPAIN1 ---
HPI - Abdominal Pain General Chief Complaint: Abdominal Pain Stated Complaint: ABD PAIN Time Seen by Provider: 06/09/23 23:31 Source: patient Mode of arrival: ambulance Limitations: no limitations History of Present Illness HPI narrative: history of cyclical vomiting. Denies smoking marijuana. Seen last PM and treated for recurrent vomiting and discharged. Now returns stating she is not able to keep any thing down and has abdominal pain. No fever Related Data Home Medications Medication Instructions Recorded Confirmed No Known Home Medications 06/08/23 06/09/23 Allergies Allergy/AdvReac Type Severity Reaction Status Date / Time codeine Allergy Intermediate Verified 06/09/23 23:26 ibuprofen Allergy Intermediate Verified 06/09/23 23:26 Review of Systems ROS Status of ROS 10 or more systems reviewed and unremarkable except as noted in history and below [facility] Medical History (Updated 06/10/23 @ 01:52 by Hugo Delgadillo MD) Embolus ?I74.9 - Embolism and thrombosis of unspecified artery (ICD-10) Surgical History (Updated 05/03/23 @ 05:55 by Nona Enciso) History of cholecystectomy ?Z90.49 - Acquired absence of other specified parts of digestive tract (ICD-10) Social History Smoking status: Current every day smoker Highest level of school completed/degree received: 9th grade Exam Constitutional Vital Signs, click to edit/add: Last Vital Signs Temp 98.4 F 06/09/23 23:26 Pulse 61 06/09/23 23:26 Resp 16 06/09/23 23:26 BP 108/67 06/09/23 23:26 Pulse Ox 98 06/09/23 23:32 O2 Del Method Room Air 06/09/23 23:32 Common normals: average body habitus, oriented x3, no limitations, healthy appearing, alert and well nourished General appearance: in distress HENNV Common normals: normocephalic and head/scalp atraumatic Eye Common normals: PERRL, EOMs intact bilaterally and conjunctivae normal Respiratory Common normals: normal respiratory effort, no retractions, no use of accessory muscles and clear to auscultation bilaterally Cardio Common normals: regular rate, regular rhythm, S1 normal heart sound and S2 normal heart sound GI Common normals: Normal to inspection, nondistended, normoactive bowel sounds present, soft to palpation and non-tender Extremity Common normals: normal to inspection and full ROM Neuro Common normals: oriented x3, CN's II-XII intact bilaterally, moves all extremities and no focal motor deficits Psych Appearance: grossly normal Course Vital Signs Vital signs: Vital Signs Temperature 98.4 F 06/09/23 23:26 Pulse Rate 61 06/09/23 23:26 Respiratory Rate 16 06/09/23 23:26 Blood Pressure 108/67 06/09/23 23:26 Pulse Oximetry 97 06/09/23 23:26 Oxygen Delivery Method Room Air 06/09/23 23:26 Temperature 98.4 F 06/09/23 23:26 Pulse Rate 61 06/09/23 23:26 Respiratory Rate 16 06/09/23 23:26 Blood Pressure 108/67 06/09/23 23:26 Pulse Oximetry 98 06/09/23 23:32 Oxygen Delivery Method Room Air 06/09/23 23:32 MDM - Abdominal Pain MDM Narrative Medical decision making narrative: presents complaining of recurrent vomiting. when asked on admission she denied use of marijuana. Given zofran Enroute. Still felt nauseated. Given benadryl and reglan along with fluids in the department. Urine drug screen positive for marijuana and opiates. Patient then stated she had not used marijuana for one week. Her urine specimen was contaminated. Urine cx ordered. xray of the abdomen unremarkable. Patient re evaluated and stated she no longer felt nauseated but only had abdominal pain. Abdomen re examined and still benign. Patient informed I did not see any findings to support her need for pain medication. She then stated she was ready to go and requested zofran ODT prescription which was provided. Lab Data Labs: Lab Results 06/10/23 06/10/23 Range/Units 00:06 00:40 WBC 14.7 H (4.0-11.0) 10^3/uL RBC 5.20 (4.20-5.40) 10^6/uL Hgb 15.4 (12.0-16.0) g/dL Hct 46.2 (36.0-48.0) % MCV 88.8 (81.0-99.0) fL MCH 29.6 (26.7-34.0) pg MCHC 33.3 (29.9-35.2) g/dL RDW 12.5 (11.0-15.0) % Plt Count 359 (150-450) 10^3/uL MPV 9.7 (9.5-13.5) fL Seg Neuts % (Manual) 70.0 Band Neutrophils % 1.0 (0-5) % Lymphocytes % (Manual) 9.0 L (20.5-60.0) % Atypical Lymphs % (Man) 15.0 % Monocytes % (Manual) 5.0 (1.7-12.0) % Eosinophils % (Manual) 0.0 L (0.9-7.0) % Basophils % (Manual) 0.0 L (0.2-2.0) % Neutrophils # (Manual) 10.29 H (1.4-6.5) 10^3/uL Band Neutrophils # 0.1 (0.0-0.3) 10^3/uL Lymphocytes # (Manual) 1.32 (1.20-3.80) 10^3/uL Abs Atypical Lymphs Man 2.20 Monocytes # (Manual) 0.73 (0.30-0.80) 10^3/uL Eosinophils # (Manual) 0.00 (0.00-0.70) 10^3/uL Basophils # (Manual) 0.00 (0.00-0.10) 10^3/uL Sodium 138 (136-145) mmol/L Potassium 3.3 L (3.5-5.1) mmol/L Chloride 100 (98-107) mmol/L Carbon Dioxide 25.7 (21.0-32.0) mmol/L Anion Gap 15.6 BUN 14.0 (7.0-18.0) mg/dL Creatinine 0.43 L (0.55-1.02) mg/dL Est GFR ( Amer) >60 (>=60) Est GFR (Non-Af Amer) >60 (>=60) BUN/Creatinine Ratio 32.6 Glucose 101 (74-106) mg/dL Lactate 1.1 (0.4-2.0) mmol/L Calcium 8.9 (8.5-10.1) mg/dL Total Bilirubin 1.3 H (0.2-1.0) mg/dL AST 12 L (15-37) U/L ALT 18 (14-59) U/L Alkaline Phosphatase 62 (46-116) U/L Troponin I High Sens 5.6 (4.0-51.3) pg/mL Total Protein 8.0 (6.4-8.2) g/dL Albumin 4.1 (3.4-5.0) g/dL Globulin 3.9 g/dL Albumin/Globulin Ratio 1.1 Lipase 16.0 (16.0-77.0) U/L Urine Color Yellow (YELLOW) Urine Clarity Clear (CLEAR) Urine pH 6.5 (5.0-9.0) Ur Specific [place] 1.025 (1.005-1.025) Urine Protein 30 A (NEG/TRACE) mg/dL Urine Glucose (UA) Negative (NEGATIVE) mg/dL Urine Ketones >=80 A (NEGATIVE) mg/dL Urine Occult Blood Small A (NEGATIVE) Urine Nitrite Negative (NEGATIVE) Urine Bilirubin Negative (NEGATIVE) Urine Urobilinogen 2.0 A (0.2-1.0) EU/dL Ur Leukocyte Esterase Trace A (NEGATIVE) Urine RBC 0-2 (0-2) #/HPF Urine WBC 5-10 A (NONE SEEN) #/HPF Ur Squamous Epith Cells Moderate A (NONE/RARE) #/LPF Urine Crystals None seen (None Seen) #/HPF Urine Bacteria Moderate A (NONE SEEN) #/HPF Urine Casts None seen (NONE SEEN) #/LPF Urine Mucus Small A (NONE SEEN) Urine Trichomonas Seen A (NONE SEEN) Ur Culture Indicated? Yes Urine Opiates Screen Positive A (NEGATIVE) Ur Buprenorphine Scrn Negative (NEGATIVE) Ur Oxycodone Screen Negative (NEGATIVE) Urine Methadone Screen Negative (NEGATIVE) Ur Barbiturates Screen Negative (NEGATIVE) U Tricyclic Antidepress Negative (NEGATIVE) Ur Phencyclidine Scrn Negative (NEGATIVE) Ur Amphetamines Screen Negative (NEGATIVE) U Methamphetamines Scrn Negative (NEGATIVE) U Benzodiazepines Scrn Negative (NEGATIVE) Urine Cocaine Screen Negative (NEGATIVE) U Cannabinoids Screen Positive A (NEGATIVE) Discharge Plan Discharge Chief Complaint: Abdominal Pain Clinical Impression: Cyclic vomiting syndrome Patient Disposition: Home, Self-Care Prescriptions / Home Meds: No Action No Known Home Medications Instructions: Acute Nausea and Vomiting (ED) Stand Alone Forms: Portal Instructions Referrals: [facility] [Primary Care Provider] - 1 week Discharge Date/Time: 06/10/23 02:02
--- NOTE | 2023-06-09 23:46 | XR_ITS ---
The [address] [address] Patient Name: DAMION HOOPER MRN: [id number] date: 1980 Sex: F Assigned Patient Location: ER Current Patient Location: ED.MAIN Accession/Order Number: [id number] Exam Date: 06/09/2023 23:59 Report Date: 06/10/2023 20:55 At the request of: SHEMAR MENJIVAR Procedure: XR abdomen min 2V EXAM: KUB HISTORY: Low abdominal/suprapubic pain with nausea and vomiting. COMPARISON: None. TECHNIQUE: AP views of the abdomen and pelvis. FINDINGS: Prior cholecystectomy. No definite free intraperitoneal air, portal venous gas or pneumatosis. No dilated small or large bowel loops are identified. Soft tissues and osseous structures are grossly unremarkable. XR/XR abdomen min 2V IMPRESSION: Nonobstructive bowel gas pattern. Electronically authenticated by: LISA BEDOYA Date: 06/10/2023 20:55
[2023-06-09] MEDS: DIPHENHYDRAMINE HCL 50 MG/ML (1ML) VIAL 25 MG IV (23:57)
[2023-06-09] MEDS: 0.9 % SODIUM CHLORIDE 1,000 ML 999 ML IV (23:58)
[2023-06-09] MEDS: METOCLOPRAMIDE HCL 10 MG/2 ML VIAL IVP (23:58)
--- OUTSIDE RECORDS SUMMARY | 2023-06-10 00:03 | XMS_ITS | CCD ---
Author Name Unknown Address [address] [place] [address] Organization [facility] Care Team Providers Care Telephone Exchange Operator Name Role Phone MARKER, DR FUENTES Consulting Unavailable [facility] Unavailable MARKER, DR FUENTES Admitting Unavailable MARKER, DR FUENTES Attending Unavailable AHDOOTMAKENZIE Consulting Unavailable PAY, DR TEIXEIRA Attending Unavailable PAY, DR TEIXEIRA Consulting Unavailable PAY, DR TEIXEIRA Admitting Unavailable [facility] Unavailable KARASIK, DR FENG Attending Unavailable KARASIK, DR FENG Admitting [facility] MISBAH BURK Attending Unavailable BHARGAVIMISBAH BRAGG Attending Unavailable BHARGAVIMISBAH BRAGG Referring Unavailable SERVICES, [facility] Unava ilable BHARGAVIMISBAH BRAGG Attending Unavailable BHARGAVIMISBAH BRAGG Referring Unavailable SERVICES, [facility] Unava ilable Allergies Allergy Classification Reported Allergen(s) Allergy Type Date of Onset Reaction(s) Facility NSAIDs (2 sources) Ibuprofen Drug Allergy 10-05-1997 [facility] Opioid Agonists (2 sources) traMADol Drug Allergy 09-26-2013 [facility] Unclassified (1 source) Tylenol-Codeine #3 Drug allergy (disorder) [facility] (1 source) Codeine; Translations: [CODEINE] [...] ABSOLUTE BASOPHIL 0.0 X10E9/L Normal 0.0-0.2 [facility] Comment on above: Performed By: #### C BCA, CMP, 3040-3, 55795-1, 29805-7, 35639- 9 #### [facility] ([id number]) [address] [place] [address] 96371 ABSOLUTE NEUTROPHIL 11.9 X10E9/L High 1.5-6.6 [facility] Comment on above: Performed By: #### C BCA, CMP, 3040-3, 72060-7, 86661-4, 70279- 9 #### [facility] ([id number]) [address] [place] [address] [place] [address] Basophils/100 WBC (Bld) 0.2 % Normal [facility] Comment on above: Performed By: #### C MAIKEL, CMP, 3040-3, 92234-8, 18168-7, 70538- 9 #### [facility] ([id number]) [address] [place] [address] 71092 Eosinophils (Bld) [#/Vol] 0.0 10*3/uL Normal 0.0-0.4 [facility] Comment on above: Performed By: #### C MAIKEL, CMP, 3040-3, 56355-9, 21381-3, 31264- 9 #### [facility] ([id number]) [address] [place] [address] 45670 Eosinophils/100 WBC (Bld) 0.3 % Normal [facility] Comment on above: Performed By: #### C MAIKEL, CMP, 3040-3, 09795-1, 04659-5, 12321- 9 #### [facility] ([id number]) [address] [place] [address] 20233 Erythrocyte distribution width (RBC) [Ratio] 13.1 % Normal 11.5-15.0 [facility] Comment on above: Performed By: #### Arnie KO, CMP, 3040-3, 05688-8, 11597-8, 55518- 9 #### [facility] ([id number]) [address] [place] [address] 37840 Hematocrit (Bld) [Volume fraction] 44.1 % Normal 35-47 [facility] Comment on above: Performed By: #### Arnie KO, CMP, 3040-3, 98602-8, 46088-4, 87871- 9 #### [facility] ([id number]) [address] [place] [address] 33585 Hemoglobin (Bld) [Mass/Vol] 15.0 g/dL Normal 11.7-15.5 [facility] Comment on above: Performed By: #### C BCA, CMP, 3040-3, 73706-8, 67264-1, 03047- 9 #### [facility] ([id number]) [address] [place] [address] 81713 Lymphocytes (Bld) [#/Vol] 1.4 10*3/uL Normal 1.0-3.5 [facility] Comment on above: Performed By: #### C BCA, CMP, 3040-3, 19843-3, 74748-6, 32556- 9 #### [facility] ([id number]) [address] [place] [address] 07495 Lymphocytes/100 WBC (Bld) 9.8 % Normal [facility] Comment on above: Performed By: #### C BCA, CMP, 3040-3, 21077-4, 23070-1, 83835- 9 #### [facility] ([id number]) [address] [place] [address] 17513 MCH (RBC) [Entitic mass] 30.3 pg Normal 27-34 [facility] Comment on above: Performed By: #### C BCA, CMP, 3040-3, 74765-4, 39373-2, 71822- 9 #### [facility] ([id number]) [address] [place] [address] 98710 MCHC (RBC) [Mass/Vol] 34.0 g/dL Normal 32-36 [facility] Comment on above: Performed By: #### C BCA, CMP, 3040-3, 20685-4, 81914-7, 13527- 9 #### [facility] ([id number]) [address] [place] [address] 08380 MCV (RBC) [Entitic vol] 89 fL Normal 80-100 [facility] Comment on above: Performed By: #### C BCA, CMP, 3040-3, 89924-5, 87199-3, 29522- 9 #### [facility] ([id number]) [address] [place] [address] 48676 Monocytes (Bld) [#/Vol] 0.8 10*3/uL Normal 0-0.9 [facility] Comment on above: Performed By: #### C BCA, CMP, 3040-3, 82730-3, 52903-5, 18787- 9 #### [facility] ([id number]) [address] [place] [address] 95475 Monocytes/100 WBC (Bld) 5.4 % Normal [facility] Comment on above: Performed By: #### C BCA, CMP, 3040-3, 03736-0, 86418-2, 69113- 9 #### [facility] ([id number]) [address] [place] [address] 81242 Neutrophils/100 WBC (Bld) 84.3 % Normal [facility] Comment on above: Performed By: #### C BCA, CMP, 3040-3, 50882-5, 52430-8, 88140- 9 #### [facility] ([id number]) [address] [place] [address] 80368 Platelet mean volume (Bld) [Entitic vol] 6.9 fL Low 7-12 [facility] Comment on above: Performed By: #### C BCA, CMP, 3040-3, 69014-1, 69128-4, 99915- 9 #### [facility] ([id number]) [address] [place] [address] 41760 Platelets (Bld) [#/Vol] 433 10*3/uL Normal 150-450 [facility] Comment on above: Performed By: #### Arnie BCA, CMP, 3040-3, 45716-2, 92853-6, 97697- 9 #### [facility] ([id number]) [address] [place] [address] 95367 RBC COUNT 4.95 X10E12/L Normal 3.80-5.20 [facility] Comment on above: Performed By: #### C BCA, CMP, 3040-3, 92165-3, 72860-9, 15330- 9 #### [facility] ([id number]) [address] [place] [address] 45295 WBC (Bld) [#/Vol] 14.2 10*3/uL High 4.0-11.0 [facility] Comment on above: Performed By: #### C BCA, CMP, 3040-3, 44105-4, 90270-5, 32441- 9 #### [facility] ([id number]) [address] [place] [address] 03081 COMPREHENSIVE METABOLIC PANE Sumit 05-02-2023 Albumin [Mass/Vol] 4.5 g/dL Normal 3.2-5.3 [facility] Comment on above: Performed By: #### C BCA, CMP, 3040-3, 40507-1, 29583-9, 05156- 9 #### [facility] ([id number]) [address] [place] [address] 86583 ALP [Catalytic activity/Vol] 61 U/L Normal 39-130 [facility] Comment on above: Performed By: #### C BCA, CMP, 3040-3, 62102-3, 17652-0, 37929- 9 #### [facility] ([id number]) [address] [place] [address] 72353 ALT [Catalytic activity/Vol] 17 U/L Normal 0-31 [facility] Comment on above: Performed By: #### C BCA, CMP, 3040-3, 98656-1, 66840-9, 97367- 9 #### [facility] ([id number]) [address] [place] [address] 71131 Anion gap [Moles/Vol] 12 mmol/L Normal 5-15 [facility] Comment on above: Performed By: #### C BCA, CMP, 3040-3, 77465-3, 80000-4, 00054- 9 #### [facility] ([id number]) [address] [place] [address] 83895 AST [Catalytic activity/Vol] 21 U/L Normal 0-41 [facility] Comment on above: Performed By: #### C BCA, CMP, 3040-3, 77470-0, 70015-6, 28895- 9 #### [facility] ([id number]) [address] [place] [address] 05889 Bilirubin [Mass/Vol] 0.9 mg/dL Normal 0.3-1.2 [facility] Comment on above: Performed By: #### C BCA, CMP, 3040-3, 77341-7, 78512-4, 62115- 9 #### [facility] ([id number]) [address] [place] [address] 32287 Calcium [Mass/Vol] 8.9 mg/dL Normal 8.5-10.5 [facility] Comment on above: Performed By: #### C BCA, CMP, 3040-3, 55343-4, 67535-8, 86340- 9 #### [facility] ([id number]) [address] [place] [address] 03227 Chloride [Moles/Vol] 99 mmol/L Normal 98-109 [facility] Comment on above: Performed By: #### C BCA, CMP, 3040-3, 39449-6, 35249-0, 31503- 9 #### [facility] ([id number]) [address] [place] [address] 07363 CO2 [Moles/Vol] 23 mmol/L Normal 22-32 [facility] Comment on above: Performed By: #### C MAIKEL, CMP, 3040-3, 08015-2, 37189-0, 96419- 9 #### [facility] ([id number]) [address] [place] [address] 19211 Creatinine [Mass/Vol] 0.46 mg/dL Normal 0.40-1.00 [facility] Comment on above: Result Comment: METH OD TRACEABLE TO IDMS STANDARD Performed By: #### C MAIKEL, CMP, 3040-3, 91405-4, 18522-0, 74415-0 #### [facility] ([id number]) [address] [place] [address] 13568 eGFR (CKD-EPI) NON-RACE DEPENDENT >90 Normal >59 [facility] Comment on above: Result Comment: Reported eGFR is based on the CKD-EPI 2020 equation that does not use a race coefficient. Performed By: #### C MAIKEL, MICAH, 3040-3, 37350-5, 96445-3, 35050-3 #### [facility] ([id number]) [address] [place] [address] 99720 Glucose [Mass/Vol] 141 mg/dL High 65-99 [facility] Comment on above: Performed By: #### C MICAH KO, 3040-3, 06796-4, 33643-0, 09647- 9 #### [facility] ([id number]) [address] [place] [address] 02109 Potassium [Moles/Vol] 3.0 mmol/L Low 3.5-5.0 [facility] Comment on above: Performed By: #### C MAIKEL, CMP, 3040-3, 59734-2, 93773-0, 84582- 9 #### [facility] ([id number]) [address] [place] [address] 71361 Protein [Mass/Vol] 8.2 g/dL High 6.0-8.0 [facility] Comment on above: Performed By: #### C BCA, CMP, 3040-3, 56384-2, 00013-0, 06209- 9 #### [facility] ([id number]) [address] [place] [address] 13842 Sodium [Moles/Vol] 134 mmol/L Normal 134-146 [facility] Comment on above: Performed By: #### C BCA, CMP, 3040-3, 81779-5, 14808-5, 48456- 9 #### [facility] ([id number]) [address] [place] [address] 62730 Urea nitrogen [Mass/Vol] 14 mg/dL Normal 5-23 [facility] Comment on above: Performed By: #### C BCA, CMP, 3040-3, 72759-5, 01746-9, 81853- 9 #### [facility] ([id number]) [address] [place] [address] ABDOMEN AND PELVIS W CONT on [...] Morales MD on 05/02/2023 12:53 PM Normal [facility] HCG ( test) IA.sawi d Ql (S)on 05-02-2023 SERUM Negative Normal NEG [facility] Comment on above: Performed By: #### C BCA, CMP, 3040-3, 94619-0, 77693-1, 23816- 9 #### [facility] ([id number]) [address] [place] [address] 52546 HCG ( test) Ql (U)o n 05-02-2023 Beta HCG ( test) Ql (U) Negative Normal NEG [facility] Comment on above: Performed By: #### 2 106-3 #### [facility] ([id number]) [address] [place] [address] 60473 LIPASEon 05-02-2023 Lipase [Catalytic activity/Vol] 22 U/L Normal 17-40 [facility] Comment on above: Performed By: #### C BCA, CMP, 3040-3, 59053-3, 64988-9, 73512- 9 #### [facility] ([id number]) [address] [place] [address] 04984 MAGNESIUMon 05-02-2023 Magnesium [Mass/Vol] 1.8 mg/dL Normal 1.8-2.6 [facility] Comment on above: Performed By: #### C BCA, CMP, 3040-3, 81812-3, 24991-5, 86017- 9 #### [facility] ([id number]) [address] [place] [address] 13583 TROPONIN Ion 05-02-2023 Troponin I.cardiac [Mass/Vol] 0.01 ng/mL Normal 0.00-0.04 [facility] Comment on above: Performed By: #### C BCA, CMP, 3040-3, 40577-9, 44634-0, 23745- 9 #### [facility] ([id number]) [address] [place] [address] [place] [address] URN MACROSCOPIC NURon 2023 BILIRUBIN TACO Negative Normal NEG [facility] Comment on above: Performed By: #### N UM #### [facility] ([id number]) [address] [place] [address] [place] [address] BLOOD/HGB TACO Small Abnormal NEG [facility] Comment on above: Performed By: #### N UM #### [facility] ([id number]) [address] [place] [address] [place] [address] GLUCOSE TACO Negative Normal NEG [facility] Comment on above: Performed By: #### N UM #### [facility] ([id number]) [address] [place] [address] [place] [address] KETONES TACO >=160 Abnormal NEG [facility] Comment on above: Performed By: #### N UM #### [facility] ([id number]) [address] [place] [address], [place] [address] LEUKOCYTE ESTERASE TACO Negative Normal NEG [facility] Comment on above: Performed By: #### N UM #### [facility] ([id number]) [address] [place] [address] [place] [address] NITRITE TACO Negative Normal NEG [facility] Comment on above: Performed By: #### N UM #### [facility] ([id number]) [address] [place] [address] [place] [address] PH TACO 6.0 Normal 5.0-8.5 [facility] Comment on above: Performed By: #### N UM #### [facility] ([id number]) [address] [place] [address] [place] [address] PROTEIN TACO Negative Normal NEG [facility] Comment on above: Performed By: #### N UM #### [facility] ([id number]) [address] [facility], [place] [address] SPECIFIC GRAVITY TACO <=1.005 Normal 1.003-1.035 [facility] Comment on above: Performed By: #### N UM #### [facility] ([id number]) [address] [facility], [place] [address] UROBILINOGEN TACO 0.2 eu/dL Normal <1.1 [facility] Comment on above: Performed By: #### N UM #### [facility] ([id number]) [address] [facility], [place] [address] XR CHEST 1 VWon 05-02-2023 XR CHEST 1 VW XR CHEST 1 VW Portable chest: HISTORY: Cough and nausea. Single view of the chest was obtained. Cardiac and mediastinal contours are stable. There is no consolidation or effusion. No pneumothorax is seen. The osseous structures appear intact. IMPRESSION: No acute findings Finalized by Wolfgang Mcbride MD on 05/02/2023 11:43 AM Normal [facility] ASYMPTOMATIC COVID-19 ANTIGE Non 10-30-2020 EUA Statement SEE BELOW Normal [facility] Comment on above: Result Comment: This test [...] sooner. Performed By: #### C VDAGA #### [facility] [address] [address] Ligia Burdick SARS-CoV-2 (COVID-19) RNA SHOAIB+probe Ql (Unsp spec) Negative Normal NEGATIVE [facility] Comment on above: Result Comment: Nega tive results are presumptive. They do not preclude infection and should not be used as the sole basis for treatment decisions. Additional confirmatory testing by a molecular method should be considered. Performed By: #### C VDAGA #### [facility] [address] [place] [address] Ligia Heavenly CBC AUTO DIFFon 10-30-2020 BASO # 0.1 103/ul Normal 0.0-0.1 [facility] Comment on above: Performed By: #### C BC #### [facility] [address] [place], [place] [address] Ligia Heavenly Basophils/100 WBC (Bld) 0.5 % Normal 0.2-2.0 [facility] Comment on above: Performed By: #### C BC #### [facility] [address] [place], [place] [address] Ligia Heavenly EO # 0.5 103/ul Normal 0.0-0.7 [facility] Comment on above: Performed By: #### C BC #### [facility] [address] [place], [place] [address] Ligia Heavenly Eosinophils/100 WBC (Bld) 5.2 % Normal 0.9-7.0 [facility] Comment on above: Performed By: #### C BC #### [facility] [address] [place], [place] [address] Ligia Heavenly Erythrocyte distribution width (RBC) [Ratio] 13.5 % Normal 11.0-15.0 [facility] Comment on above: Performed By: #### C BC #### [facility] [address] [place], [place] [address] Ligia Heavenly Hematocrit (Bld) [Volume fraction] 45.6 % Normal 36.0-48.0 [facility] Comment on above: Performed By: #### C BC #### [facility] [address] [place] [address]66 Ligia Heavenly Hemoglobin (Bld) [Mass/Vol] 15.0 g/dL Normal 12.0-16.0 [facility] Comment on above: Performed By: #### C BC #### [facility] [address] [id number] Ligia Heavenly IG # 0.03 10e3/ul Normal 0.00-0.03 [facility] Comment on above: Performed By: #### C BC #### [facility] [address] [address] Ligia Heavenly IG % 0.3 % Normal 0.0-0.5 [facility] Comment on above: Performed By: #### C BC #### [facility] [address] [place] [address] Ligia Heavenly LYMPH # 2.4 103/ul Normal 1.2-3.8 [facility] Comment on above: Performed By: #### C BC #### [facility] [address] [place] [address] Ligia Heavenly Lymphocytes/100 WBC (Bld) 23.5 % Normal 20.5-60.0 [facility] Comment on above: Performed By: #### C BC #### [facility] [address] [place], [place] [address] Ligia Heavenly MANUAL DIFF REQ NO Normal [facility] Comment on above: Performed By: #### C BC #### [facility] [address] [place], [place] [address] Ligia Heavenly MCH (RBC) [Entitic mass] 29.6 pg Normal 26.7-34.0 [facility] Comment on above: Performed By: #### C BC #### [facility] [address] [place] [address] Ligia Heavenly MCHC (RBC) [Mass/Vol] 32.9 g/dL Normal 29.9-35.2 [facility] Comment on above: Performed By: #### C BC #### [facility] [address] [place], [place] [address] Ligia Heavenly MCV (RBC) [Entitic vol] 90.1 fL Normal 81.0-99.0 [facility] Comment on above: Performed By: #### C BC #### [facility] [address] [address] Ligia Burdick MONO # 1.2 103/ul Critically high 0.3-0.8 [facility] Comment on above: Performed By: #### C BC #### [facility] [address] [place], [place] [address] Ligia Burdick Monocytes/100 WBC (Bld) 11.9 % Normal 1.7-12.0 [facility] Comment on above: Performed By: #### C BC #### [facility] [address] [place], [place] [address] Ligiaana Joen NEUT # 6.0 103/ul Normal 1.4-6.5 [facility] Comment on above: Performed By: #### C BC #### [facility] [address] [place] [address] Ligia Burdick Neutrophils/100 WBC (Bld) 58.6 % Normal 43.0-75.0 [facility] Comment on above: Performed By: #### C BC #### [facility] [address] [place] [address] Ligia Burdick Platelet mean volume (Bld) [Entitic vol] 9.4 fL Critically low 9.5-13.5 [facility] Comment on above: Performed By: #### C BC #### [facility] [address] [place], [place] [address] Ligiaana Joen PLT 283 103/ul Normal 150-450 [facility] Comment on above: Performed By: #### C BC #### [facility] [address] [place] [address] Ligia Heavenly RBC 5.06 106/ul Normal 4.20-5.40 [facility] Comment on above: Performed By: #### C BC #### [facility] [address] [place], [place] [address] Lgiia Heavenly WBC 10.2 103/ul Normal 4.0-11.0 [facility] Comment on above: Performed By: #### C BC #### [facility] [address] [place], [place] [address] Ligia Joen D-DIMERon 10-30-2020 D-DIMER 0.32 mg/L FEU Normal 0.19-0.50 [facility] Comment on above: Performed By: #### D DIM #### [facility] [address] [place], [place] [address] Ligiaana Burdick D-DIMER COMMENTS SEE BELOW Normal [facility] Comment on above: Result Comment: Incr eases [...] hospitalization. Performed By: #### D DIM #### [facility] [address] [place], [place] [address] Ligia Burdick LACTATE/LACTIC ACIDon 2020 Lactate [Moles/Vol] 1.6 mmol/L Normal 0.7-2.0 [facility] Comment on above: Performed By: #### L ACT #### [facility] [address] [place], [place] [address] Ligia Burdick PROF 14(COMP METB)on 021 Albumin [Mass/Vol] 3.9 g/dL Normal 3.5-5.0 [facility] Comment on above: Performed By: #### H HONEY, CMP #### [facility] [address] [place], [place] [address] Ligiaana Burdick Albumin/Globulin [Mass ratio] 1.0 {ratio} Normal [facility] Comment on above: Performed By: #### H HONEY, CMP #### [facility] [address] [place], [place] [address] Ligia Heavenly ALP [Catalytic activity/Vol] 90 U/L Normal 38-126 [facility] Comment on above: Performed By: #### H HONEY, CMP #### [facility] [address] [place], [place] [address] Ligia Heavenly ALT [Catalytic activity/Vol] 75 U/L Critically high 9-52 [facility] Comment on above: Performed By: #### H STROROE, CMP #### [facility] [address] [address] Ligia Heavenly Anion gap [Moles/Vol] 13.1 mmol/L Normal [facility] Comment on above: Performed By: #### H STROPN, CMP #### [facility] [address] [address] Ligia Heavenly AST [Catalytic activity/Vol] 43 U/L Critically high 14-36 [facility] Comment on above: Performed By: #### H STROROE, CMP #### [facility] [address] [address] Ligia Heavenly Bilirubin [Mass/Vol] 0.5 mg/dL Normal 0.2-1.3 [facility] Comment on above: Performed By: #### H HONEY, CMP #### [facility] [address] [place] [address] Ligia Heavenly Calcium [Mass/Vol] 8.7 mg/dL Normal 8.4-10.2 [facility] Comment on above: Performed By: #### H HONEY, CMP #### [facility] [address] [place] [address] Ligia Heavenly Chloride [Moles/Vol] 97 mmol/L Critically low 98-107 [facility] Comment on above: Performed By: #### H HONEY, CMP #### [facility] [address] [place] [address] Ligia Heavenly CO2 [Moles/Vol] 28.2 mmol/L Normal 22.0-30.0 [facility] Comment on above: Performed By: #### H STROPN, CMP #### [facility] [address] [place] [address] Ligia Heavenly Creatinine [Mass/Vol] 0.54 mg/dL Normal 0.52-1.04 [facility] Comment on above: Performed By: #### H STROPN, CMP #### [facility] [address] [address] Ligia Heavenly EGFR-AF [facility] Normal >=[address] [facility] Comment on above: Performed By: #### H STROPN, CMP #### [facility] [address] [id number] Ligia Heavenly EGFR-NON AF [facility] Normal >=60 [facility] Comment on above: Performed By: #### H STROPN, CMP #### [facility] [address] [phone] Ligia Heavenly Globulin (S) [Mass/Vol] 4.0 g/dL Normal [facility] Comment on above: Performed By: #### H STROPN, CMP #### [facility] [address] [address] Ligia Heavenly Glucose [Mass/Vol] 113 mg/dL Critically high 74-106 [facility] Comment on above: Performed By: #### H STROPN, CMP #### [facility] [address] [address] Ligia Heavenly Potassium [Moles/Vol] 4.3 mmol/L Normal 3.4-5.0 [facility] Comment on above: Performed By: #### H STROPN, CMP #### [facility] [address] [address] Ligia Heavenly Protein [Mass/Vol] 7.9 g/dL Normal 6.1-8.2 [facility] Comment on above: Performed By: #### H STROPN, CMP #### [facility] [address] [address] Ligia Heavenly Sodium [Moles/Vol] 134 mmol/L Critically low 137-145 [facility] Comment on above: Performed By: #### H STROPN, CMP #### [facility] [address] [id number] Ligia Heavenly Urea nitrogen [Mass/Vol] 10.0 mg/dL Normal 7.0-17.0 [facility] Comment on above: Performed By: #### H STROPN, CMP #### [facility] [address] [id number] Ligia Heavenly Urea nitrogen/Creatinine [Mass ratio] 18.5 mg/mg Normal [facility] Comment on above: Performed By: #### H STROROE, CMP #### [facility] [address], [place] [address] Ligia Burdick TROPONIN, HIGH SENSITIVITYon 10-30-2020 HSTROP >4.0 Normal 4.0-35.5 [facility] Comment on above: Result Comment: CUT- OFF POINTS HAVE BEEN ESTABLISHED BASED ON THE FOURTH UNIVERSAL DEFINITIONS OF MYOCARDIAL INFARCTION. THE UPPER REFERENCE LIMIT (URL) OF TROPONIN, DEFINED THE 99TH PERCENTILE OF cTnI DISTRIBUTION IN A REFERENCE POPULATION, HAS BEEN CONFIRMED THE DECISION THRESHOLD FOR HI DIAGNOSIS. Performed By: #### H STROROE, CMP #### [facility] [address], [place] [address] Ligia Burdick XR CHEST 2 Von 10-30-2020 [...] MAKENZIE ARREDONDO Date: 2020-10-29 23:52 Normal [facility] CULTURE WOUNDon 03-06-2020 CULTURE WOUND Specimen Comments: R HIP SWAB Culture Observations: Anaerobe present. Culture Observations: Evidence based practice by [facility] has demonstrated that Culture Observations: Finegoldia species are routinely susceptible to Piperacillin-Tazobact am, Culture Observations: Cefoxitin,Ertapenem,I mipenem,Metronidazole and Culture Observations: variably resistant to Clindamycin. Isolate 1 Finegoldia magna Moderate growth of Normal [facility] Comment on above: Performed By: #### W OUNDCX #### [facility] [address], [place] [address] Ligia Burdick Encounters Encounter Date Encounter Type Care Provider Facility Start: 05-02-2023 End: 05-03-2023 Emergency department patient visit [facility] Start: 05-02-2023 End: 05-02-2023 Emergency department patient visit [facility] Start: 10-30-2020 End: 10-30-[address] FUENTES MARKER Facility:[facility] Start: 04-19-[address] JUNG KEEN Tyler lity:[facility] Start: 03-06-2020 End: 03-06-[address] TEIXEIRA PAY Facility:[facility] Payers Date Payer Category Payer Unknown [id number] 2.16.84 [id number] 1982 Unknown [id number] 2.16.84 [id number] 1982 Unknown [id number] 2.16.84 [id number] 1982 Unknown [id number] 2.16.84 [id number] 1982 Unknown [id number] 2.16.84 [id number] 1982 Unknown [id number] 2.16.84 [id number] 1959 Self-pay [id number] 1957 Unknown [id number] Summary Purpose Family History No Family History Records FoundNo Family History Records Found Advance Directives No Advanced Directives Records FoundNo Advanced Directives Records Found Additional Source Comments INFORMATION SOURCE (unrecogn ized section and content) DATE CREATED AUTHOR 11/02/2020 [facility] DATE CREATED AUTHOR 'S ORGANIZ ATION 05/03/2023 [facility] FOR RECORDS PERTAINING TO PATIENTS WHO ARE [...] BE BASED ON THE PRIMARY CLINICAL RECORDS. [facility] [employer] [facility]. provides no warranty or guarantee of the accuracy or completeness of information in this document.
[2023-06-10 00:22] LABS: Hematocrit 46.2 % (36.0-48.0); Hemoglobin 15.4 g/dL (12.0-16.0); Mean Corpuscular HGB Conc 33.3 g/dL (29.9-35.2); Mean Corpuscular Hemoglobin 29.6 pg (26.7-34.0); Mean Corpuscular Volume 88.8 fL (81.0-99.0); Mean Platelet Volume 9.7 fL (9.5-13.5); Platelet Count 359 10^3/uL (150-450); Red Cell Distribution Width 12.5 % (11.0-15.0); White Blood Count 14.7 10^3/uL (4.0-11.0)
[2023-06-10 00:44] LABS: Lactate/Lactic Acid 1.1 mmol/L (0.4-2.0)
--- NOTE | 2023-06-10 00:45 | PC.NURSE ---
Pt. had episode of emesis, Dr. Delgadillo notified. New orders received.
[2023-06-10 00:50] LABS: Alanine Aminotransferase 18 U/L (14-59); Albumin Globulin Ratio 1.1; Albumin Level 4.1 g/dL (3.4-5.0); Alkaline Phosphatase 62 U/L (46-116); Anion Gap 15.6; Aspartate Amino Transferase 12 U/L (15-37); BUN Creatinine Ratio 32.6; Bilirubin Total 1.3 mg/dL (0.2-1.0); Calcium 8.9 mg/dL (8.5-10.1); Carbon Dioxide 25.7 mmol/L (21.0-32.0); Chloride 100 mmol/L (98-107); Estimated GFR (African America >60 (>=60); Estimated GFR (Non-African Ame >60 (>=60); Globulin 3.9 g/dL; Glucose 101 mg/dL (74-106); Potassium 3.3 mmol/L (3.5-5.1); Sodium 138 mmol/L (136-145); Troponin I High Sensitivity 5.6 pg/mL (4.0-51.3)
[2023-06-10 00:54] LABS: Bilirubin Urine NEGATIVE (NEGATIVE); Blood Urine SMALL (NEGATIVE); Clarity Urine CLEAR (CLEAR); Color Urine YELLOW (YELLOW); Glucose Urine UA NEGATIVE (NEGATIVE); Ketones Urine >=80 mg/dL (NEGATIVE); Leukocyte Esterase Urine TRACE (NEGATIVE); Nitrite Urine NEGATIVE (NEGATIVE); Protein Urine 30 mg/dL (NEG/TRACE); Specific Gravity Urine 1.025 (1.005-1.025); pH Urine 6.5 (5.0-9.0)
[2023-06-10 00:55] LABS: Urine Microscopic Indicated YES
[2023-06-10 00:57] LABS: Band Neutrophils Absolute 0.1 10^3/uL (0.0-0.3); Segmented Neut Absolute Manual 10.29 10^3/uL (1.4-6.5)
[2023-06-10 00:58] LABS: Lymphocytes Absolute Manual 1.32 10^3/uL (1.20-3.80); Monocytes Absolute Manual 0.73 10^3/uL (0.30-0.80)
[2023-06-10] MEDS: ONDANSETRON PF 4 MG/2 ML VIAL IV (00:58)
[2023-06-10 01:02] LABS: Bacteria Urine MODERATE #/HPF (NONE SEEN); Cast Seen? NONE SEEN #/LPF (NONE SEEN); Crystals Seen? None Seen #/HPF (None Seen); Mucus Urine SMALL (NONE SEEN); RBC Urine 0-2 #/HPF (0-2); Squamous Epithelial Cell Urine MODERATE #/LPF (NONE/RARE); Trichomonas Urine SEEN (NONE SEEN); Urine Culture Indicated YES
[2023-06-10 01:04] LABS: Amphetamine Screen Urine NEGATIVE (NEGATIVE); Barbiturates Screen Urine NEGATIVE (NEGATIVE); Benzodiazepines Screen Urine NEGATIVE (NEGATIVE); Buprenorphine Screen Urine NEGATIVE (NEGATIVE); Cannabinoid Screen Urine POSITIVE (NEGATIVE); Cocaine Screen Urine NEGATIVE (NEGATIVE); Methadone Screen Urine NEGATIVE (NEGATIVE); Methamphetamines Screen Urine NEGATIVE (NEGATIVE); Opiate Screen Urine POSITIVE (NEGATIVE); Oxycodone Screen Urine NEGATIVE (NEGATIVE); Phencyclidine Screen Urine NEGATIVE (NEGATIVE); Tricyclic Antidepressant Urine NEGATIVE (NEGATIVE)
== END 2023-06-10 02:02 | disposition home or self-care (01) ==
PROVIDERS: Emergency Provider Internal Medicine
DX: R11.15 Cyclical vomiting syndrome unrelated to migraine (principal); R10.9 Unspecified abdominal pain; Z90.49 Acquired absence of other specified parts of digestive tract; F17.200 Nicotine dependence, unspecified, uncomplicated; F11.90 Opioid use, unspecified, uncomplicated
CPT/HCPCS: 36415; 74019; 80053; 80307; 81001; 83605; 83690; 84484; 85007; 85027; 87086; 96361; 96374; 96375; 99284

== ENCOUNTER 2023-07-27 19:03 | Emergency (ER) | payer OTHER, SELFPAY ==
[2023-07-27 19:05] VITALS: BP 136/75; PULSE 63; TEMP 37.9; O2SAT 98; BMI 28.1
--- OUTSIDE RECORDS SUMMARY | 2023-07-27 19:15 | XMS_ITS | CCD ---
Author Organization [facility] Care Team Providers Care Oracle Database Developer Name Role Phone MARKER, DR FUENTES Consulting Unavailable [facility] Care Unavailable MARKER, DR FUENTES Admitting Unavailable MARKER, DR FUENTES Attending Unavailable AHDOOTMAKENZIE Consulting Unavailable PAY, DR TEIXEIRA Attending Unavailable PAY, DR TEIXEIRA Consulting Unavailable PAY, DR TEIXEIRA Admitting Unavailable [facility] Care Unavailable KARASIK, DR FENG Attending Unavailable KARASIK, DR FENG Admitting Unavailable SERVICES, [facility] Unava ilable SABAS SHAW Attending Unavailable SERVICES, [facility] Unava ilable BHARGAVIMISBAH Attending Unavailable BHARGAVI, MISBAH Attending Unavailable BHARGAVI, AHMAD Referring Unavailable SERVICES, [facility] Un[facility] ilable BHARGAVI, AHSTACEYD Attending Unavailable BHARGAVI, AHMAD Referring Unavailable SERVICES, [facility] Unava ilable Allergies Allergy Classification Reported Allergen(s) Allergy Type Date of Onset Reaction(s) Facility NSAIDs (2 sources) Ibuprofen Drug Allergy 10-05-1997 [facility] Opioid Agonists (2 sources) traMADol Drug Allergy 09-26-2013 [facility] Unclassified (1 source) Tylenol-Codeine #3 Drug allergy (disorder) [facility] (1 source) Codeine; Translations: [CODEINE] Drug Allergy 05-02-2023 [facility] (1 source) Ibuprofen; Translations: [IBUPROFEN] Drug Allergy 08-29-2016 [facility] (1 source) traMADol; Translations: [TRAMADOL] Drug Allergy 08-29-2016 [facility] Problems Active Problems Problem Classification Problem Date Documented Da te Episodic/Chronic Abdominal pain (2 sources) Abdominal pain Onset: 07-26-2023 Episodic Asthma (1 source) Unspecified asthma, uncomplicated; [...] vomiting syndrome unrelated to migraine] Onset: 05-02-2023 Past or Other Problems Problem Classification Problem Date Documented Da te Episodic/Chronic Skin and subcutaneous tissue infections (4 sources) Cutaneous abscess of right lower limb; Translations: [CUTANEOUS ABSCESS RIGHT LOWER LIMB] Onset: 03-06-2020 Episodic Results Test Name Value Interpretation Reference Range Facil ity CBC AND AUTO DIFFon 07-26-19 ABSOLUTE BASOPHIL 0.1 X10E9/L Normal 0.0-0.2 [facility] Comment on above: Performed By: #### C BCA, CMP, 3040-3, 26980-3, 19875-1, 11306- 9 #### [facility] ([id number]) [address] [place] [address] 05497 ABSOLUTE NEUTROPHIL 9.8 X10E9/L High 1.5-6.6 [facility] Comment on above: Performed By: #### C BCA, CMP, 3040-3, 28127-8, 32564-6, 28994- 9 #### [facility] ([id number]) [address] [place] [address] 86844 Basophils/100 WBC (Bld) 0.6 % Normal [facility] Comment on above: Performed By: #### C BCA, CMP, 3040-3, 69056-6, 44340-4, 58439- 9 #### [facility] ([id number]) [address] [place] [address] 78359 Eosinophils (Bld) [#/Vol] 0.0 10*3/uL Normal 0.0-0.[address] [facility] Comment on above: Performed By: #### C BCA, CMP, 3040-3, 03905-4, 01285-7, 17009- 9 #### [facility] ([id number]) [address] [place] [address] 19753 Eosinophils/100 WBC (Bld) 0.1 % Normal [facility] Comment on above: Performed By: #### C BCA, CMP, 3040-3, 14524-7, 19357-8, 99786- 9 #### [facility] ([id number]) [address] [place] [address] 37308 Erythrocyte distribution width (RBC) [Ratio] 13.4 % Normal 11.5-15.[address] [facility] Comment on above: Performed By: #### C MAIKEL, CMP, 3040-3, 85519-5, 85711-5, 48293- 9 #### [facility] ([id number]) [address] [place] [address] 48941 Hematocrit (Bld) [Volume fraction] 44.6 % Normal 35-[address] [facility] Comment on above: Performed By: #### C BCA, CMP, 3040-3, 46061-7, 84041-2, 22743- 9 #### [facility] ([id number]) [address] [place] [address] 33007 Hemoglobin (Bld) [Mass/Vol] 15.0 g/dL Normal 11.7-15.[address] [facility] Comment on above: Performed By: #### C BCA, CMP, 3040-3, 72406-0, 62115-9, 15914- 9 #### [facility] ([id number]) [address] [place] [address] 42680 Lymphocytes (Bld) [#/Vol] 1.4 10*3/uL Normal 1.0-3.[address] [facility] Comment on above: Performed By: #### C BCA, CMP, 3040-3, 50830-1, 29253-9, 08458- 9 #### [facility] ([id number]) [address] [place] [address] 11362 Lymphocytes/100 WBC (Bld) 11.9 % Normal [facility] Comment on above: Performed By: #### C BCA, CMP, 3040-3, 30766-9, 24320-2, 91478- 9 #### [facility] ([id number]) [address] [place] [address] 71123 MCH (RBC) [Entitic mass] 30.2 pg Normal 27-[address] [facility] Comment on above: Performed By: #### C BCA, CMP, 3040-3, 38210-4, 42510-3, 78101- 9 #### [facility] ([id number]) [address] [place] [address] 20436 MCHC (RBC) [Mass/Vol] 33.7 g/dL Normal 32-[address] [facility] Comment on above: Performed By: #### C BCA, CMP, 3040-3, 10506-9, 83275-2, 70928- 9 #### [facility] ([id number]) [address] [place] [address] 29080 MCV (RBC) [Entitic vol] 90 fL Normal 80-[address] [facility] Comment on above: Performed By: #### C BCA, CMP, 3040-3, 76473-9, 83448-7, 98902- 9 #### [facility] ([id number]) [address] [place] [address] 77695 Monocytes (Bld) [#/Vol] 0.3 10*3/uL Normal 0-0.[address] [facility] Comment on above: Performed By: #### C BCA, CMP, 3040-3, 22922-8, 91530-9, 74906- 9 #### [facility] ([id number]) [address] [place] [address] 77352 Monocytes/100 WBC (Bld) 2.3 % Normal [facility] Comment on above: Performed By: #### C BCA, CMP, 3040-3, 93837-5, 51055-7, 14999- 9 #### [facility] ([id number]) [address] [place] [address] 36993 Neutrophils/100 WBC (Bld) 85.1 % Normal [facility] Comment on above: Performed By: #### C BCA, CMP, 3040-3, 85358-3, 69653-9, 29365- 9 #### [facility] ([id number]) [address] [place] [address] 96620 Platelet mean volume (Bld) [Entitic vol] 7.4 fL Normal 7-[address] [facility] Comment on above: Performed By: #### C BCA, CMP, 3040-3, 12033-5, 19032-0, 48895- 9 #### [facility] ([id number]) [address] [place] [address] 86848 Platelets (Bld) [#/Vol] 399 10*3/uL Normal 150-[address] [facility] Comment on above: Performed By: #### C BCA, CMP, 3040-3, 74328-9, 43292-6, 28145- 9 #### [facility] ([id number]) [address] [place] [address] 37712 RBC COUNT 4.97 X10E12/L Normal 3.80-5.[address] [facility] Comment on above: Performed By: #### C BCA, CMP, 3040-3, 89771-0, 71115-6, 41164- 9 #### [facility] ([id number]) [address] [place] [address] 58636 WBC (Bld) [#/Vol] 11.5 10*3/uL High 4.0-11.0 [facility] Comment on above: Performed By: #### C BCA, CMP, 3040-3, 82949-8, 41802-2, 72138- 9 #### [facility] ([id number]) [address] [place] [address] 22611 COMPREHENSIVE METABOLIC PANE Sumit 07-26-2023 Albumin [Mass/Vol] 4.1 g/dL Normal 3.2-5.3 [facility] Comment on above: Performed By: #### C BCA, CMP, 3040-3, 08854-6, 74129-8, 18031- 9 #### [facility] ([id number]) [address] [place] [address] 67976 ALP [Catalytic activity/Vol] 62 U/L Normal 39-[address] [facility] Comment on above: Performed By: #### C BCA, CMP, 3040-3, 96483-9, 00713-0, 08715- 9 #### [facility] ([id number]) [address] [place] [address] 85577 ALT [Catalytic activity/Vol] 12 U/L Normal 0-[address] [facility] Comment on above: Performed By: #### C BCA, CMP, 3040-3, 03083-8, 62770-5, 63737- 9 #### [facility] ([id number]) [address] [place] [address] 10644 Anion gap [Moles/Vol] 10 mmol/L Normal 5-[address] [facility] Comment on above: Performed By: #### C BCA, CMP, 3040-3, 77393-2, 11329-7, 24996- 9 #### [facility] ([id number]) [address] [place] [address] 70630 AST [Catalytic activity/Vol] 16 U/L Normal 0-[address] [facility] Comment on above: Performed By: #### C BCA, CMP, 3040-3, 86608-5, 39459-2, 42552- 9 #### [facility] ([id number]) [address] [place] [address] 48805 Bilirubin [Mass/Vol] 0.9 mg/dL Normal 0.3-1.[address] [facility] Comment on above: Performed By: #### C BCA, CMP, 3040-3, 71646-6, 99439-8, 67535- 9 #### [facility] ([id number]) [address] [place] [address] 17392 Calcium [Mass/Vol] 8.1 mg/dL Low 8.5-10.5 [facility] Comment on above: Performed By: #### C BCA, CMP, 3040-3, 75585-0, 78768-0, 61050- 9 #### [facility] ([id number]) [address] [place] [address] 77739 Chloride [Moles/Vol] 101 mmol/L Normal 98-[address] [facility] Comment on above: Performed By: #### C BCA, CMP, 3040-3, 27589-5, 75975-1, 86133- 9 #### [facility] ([id number]) [address] [place] [address] 76285 CO2 [Moles/Vol] 20 mmol/L Low 22-[address] [facility] Comment on above: Performed By: #### C BCA, CMP, 3040-3, 08100-6, 64597-9, 28537- 9 #### [facility] ([id number]) [address] [place] [address] 07539 Creatinine [Mass/Vol] 0.42 mg/dL Normal 0.40-1.[address] [facility] Comment on above: Result Comment: METH OD TRACEABLE TO IDMS STANDARD Performed By: #### C MAIKEL, CMP, 3040-3, 22231-1, 15259-7, 84450-0 #### [facility] ([id number]) [address] [place] [address] 64398 eGFR (CKD-EPI) NON-RACE DEPENDENT >90 Normal >[address] [facility] Comment on above: Result Comment: Reported eGFR is based on the CKD-EPI 2020 equation that does not use a race coefficient. Performed By: #### C MAIKEL, CMP, 3040-3, 37670-3, 63047-6, 37621-9 #### [facility] ([id number]) [address] [place] [address] 90529 Glucose [Mass/Vol] 140 mg/dL High 65-99 [facility] Comment on above: Performed By: #### C MAIKEL, CMP, 3040-3, 53983-6, 05001-0, 38310- 9 #### [facility] ([id number]) [address] [place] [address] 92324 Potassium [Moles/Vol] 3.2 mmol/L Low 3.5-5.[address] [facility] Comment on above: Performed By: #### C BCA, CMP, 3040-3, 84639-9, 85993-0, 55655- 9 #### [facility] ([id number]) [address] [place] [address] 88388 Protein [Mass/Vol] 7.3 g/dL Normal 6.0-8.0 [facility] Comment on above: Performed By: #### C BCA, CMP, 3040-3, 25976-5, 85736-6, 76332- 9 #### [facility] ([id number]) [address] [place] [address] 10254 Sodium [Moles/Vol] 131 mmol/L Low 134-146 [facility] Comment on above: Performed By: #### C BCA, CMP, 3040-3, 54279-3, 59231-2, 87328- 9 #### [facility] ([id number]) [address] [place] [address] 23465 Urea nitrogen [Mass/Vol] 12 mg/dL Normal 5-[address] [facility] Comment on above: Performed By: #### C BCA, CMP, 3040-3, 85577-2, 80957-0, 77158- 9 #### [facility] ([id number]) [address] [place] [address] 63087 LIPASEon 07-26-2023 Lipase [Catalytic activity/Vol] 19 U/L Normal 17-[address] [facility] Comment on above: Performed By: #### C BCA, CMP, 3040-3, 19001-0, 11549-7, 77431- 9 #### [facility] ([id number]) [address] [place] [address] 22800 Lactate (P cheryle) [Moles/Vol]o n 07-26-2023 LACTATE W/REFLEX 1.3 mmol/L Normal 0.4-2.0 [facility] Comment on above: Result Comment: Result did not trigger repeat Lactate, re-order if needed. Performed By: #### C BCA, CMP, 3040-3, 44359-1, 44868-4, 03045-3 #### [facility] ([id number]) [address] [place] [address] 39095 URN MACROSCOPIC NURon 2023 BILIRUBIN TACO Negative Normal NEG [facility] Comment on above: Performed By: #### C BCA, CMP, 3040-3, 84512-7, 98730-9, 54801- 9 #### [facility] ([id number]) [address] [place] [address] 29500 BLOOD/HGB TACO MODERATE Abnormal NEG [facility] Comment on above: Performed By: #### C BCA, CMP, 3040-3, 38044-5, 79198-6, 33901- 9 #### [facility] ([id number]) [address] [place] [address] 65961 GLUCOSE TACO Negative Normal NEG [facility] Comment on above: Performed By: #### C BCA, CMP, 3040-3, 01333-9, 30052-3, 06095- 9 #### [facility] ([id number]) [address] [place] [address] [place] [address] KETONES TACO >=160 Abnormal NEG [facility] Comment on above: Performed By: #### C BCA, CMP, 3040-3, 49293-6, 20397-5, 25709- 9 #### [facility] ([id number]) [address] [place] [address] 89567 LEUKOCYTE ESTERASE TACO Negative Normal NEG [facility] Comment on above: Performed By: #### C BCA, CMP, 3040-3, 39768-4, 89706-3, 96708- 9 #### [facility] ([id number]) [address] [place] [address] [place] [address] NITRITE TACO Negative Normal NEG [facility] Comment on above: Performed By: #### C BCA, CMP, 3040-3, 98242-8, 89655-5, 26843- 9 #### [facility] ([id number]) [address] [place] [address] 30644 PH TACO 6.0 Normal 5.0-8.[address] [facility] Comment on above: Performed By: #### C BCA, CMP, 3040-3, 14826-4, 52977-5, 15482- 9 #### [facility] ([id number]) [address] [place] [address] 03933 PROTEIN TACO 30 mg/dL Abnormal NEG [facility] Comment on above: Performed By: #### C BCA, CMP, 3040-3, 10810-2, 98467-3, 72398- 9 #### [facility] ([id number]) [address] [place] [address] 33274 SPECIFIC GRAVITY TAOC >=1.030 Normal 1.003-1.[address] [facility] Comment on above: Performed By: #### C BCA, CMP, 3040-3, 28885-5, 07979-7, 62144- 9 #### [facility] ([id number]) [address] [place] [address] 73808 UROBILINOGEN TACO 0.2 eu/dL Normal <1.1 [facility] Comment on above: Performed By: #### C BCA, CMP, 3040-3, 01363-4, 97232-2, 99846- 9 #### [facility] ([id number]) [address] [place] [address] 12277 CBC AND AUTO DIFFon 05-02-20 24 ABSOLUTE BASOPHIL 0.0 X10E9/L Normal 0.0-0.2 [facility] Comment on above: Performed By: #### C BCA, CMP, 3040-3, 46435-9, 89390-3, 76973- 9 #### [facility] ([id number]) [address] [place] [address] 96385 ABSOLUTE NEUTROPHIL 11.9 X10E9/L High 1.5-6.6 [facility] Comment on above: Performed By: #### C BCA, CMP, 3040-3, 01051-2, 12508-2, 31883- 9 #### [facility] ([id number]) [address] [place] [address] 31406 Basophils/100 WBC (Bld) 0.2 % Normal [facility] Comment on above: Performed By: #### C MAIKEL, CMP, 3040-3, 87918-3, 34290-0, 46100- 9 #### [facility] ([id number]) [address] [place] [address] 53183 Eosinophils (Bld) [#/Vol] 0.0 10*3/uL Normal 0.0-0.[address] [facility] Comment on above: Performed By: #### C MAIKEL, CMP, 3040-3, 49820-2, 95330-3, 41357- 9 #### [facility] ([id number]) [address] [place] [address] 19820 Eosinophils/100 WBC (Bld) 0.3 % Normal [facility] Comment on above: Performed By: #### Arnie KO, CMP, 0-3, 06055-8, 75118-7, 25378- 9 #### [facility] ([id number]) [address] [place] [address] 05739 Erythrocyte distribution width (RBC) [Ratio] 13.1 % Normal 11.5-15.[address] [facility] Comment on above: Performed By: #### Arnie KO, CMP, 3040-3, 09249-9, 47637-3, 05576- 9 #### [facility] ([id number]) [address] [place] [address] 11937 Hematocrit (Bld) [Volume fraction] 44.1 % Normal 35-[address] [facility] Comment on above: Performed By: #### Arnie BCA, CMP, 3040-3, 10698-1, 67705-3, 37070- 9 #### [facility] ([id number]) [address] [place] [address] 06311 Hemoglobin (Bld) [Mass/Vol] 15.0 g/dL Normal 11.7-15.[address] [facility] Comment on above: Performed By: #### C BCA, CMP, 3040-3, 04760-7, 99443-0, 66110- 9 #### [facility] ([id number]) [address] [place] [address] 37787 Lymphocytes (Bld) [#/Vol] 1.4 10*3/uL Normal 1.0-3.[address] [facility] Comment on above: Performed By: #### C BCA, CMP, 3040-3, 74975-0, 01891-6, 61933- 9 #### [facility] ([id number]) [address] [place] [address] 24744 Lymphocytes/100 WBC (Bld) 9.8 % Normal [facility] Comment on above: Performed By: #### C BCA, CMP, 3040-3, 00657-5, 06629-4, 08334- 9 #### [facility] ([id number]) [address] [place] [address] 09041 MCH (RBC) [Entitic mass] 30.3 pg Normal 27-[address] [facility] Comment on above: Performed By: #### C BCA, CMP, 3040-3, 44807-5, 24923-5, 06363- 9 #### [facility] ([id number]) [address] [place] [address] 04392 MCHC (RBC) [Mass/Vol] 34.0 g/dL Normal 32-[address] [facility] Comment on above: Performed By: #### C BCA, CMP, 3040-3, 72467-0, 21972-8, 03809- 9 #### [facility] ([id number]) [address] [place] [address] 69294 MCV (RBC) [Entitic vol] 89 fL Normal 80-[address] [facility] Comment on above: Performed By: #### C BCA, CMP, 3040-3, 34849-0, 22668-7, 28670- 9 #### [facility] ([id number]) [address] [place] [address] 29909 Monocytes (Bld) [#/Vol] 0.8 10*3/uL Normal 0-0.[address] [facility] Comment on above: Performed By: #### C BCA, CMP, 3040-3, 43869-5, 64327-0, 56345- 9 #### [facility] ([id number]) [address] [place] [address] 30371 Monocytes/100 WBC (Bld) 5.4 % Normal [facility] Comment on above: Performed By: #### C BCA, CMP, 3040-3, 06481-0, 86991-8, 24282- 9 #### [facility] ([id number]) [address] [place] [address] 22029 Neutrophils/100 WBC (Bld) 84.3 % Normal [facility] Comment on above: Performed By: #### C BCA, CMP, 3040-3, 25134-5, 62333-3, 70632- 9 #### [facility] ([id number]) [address] [place] [address] 36414 Platelet mean volume (Bld) [Entitic vol] 6.9 fL Low 7-[address] [facility] Comment on above: Performed By: #### C BCA, CMP, 3040-3, 86222-9, 02540-1, 80326- 9 #### [facility] ([id number]) [address] [place] [address] 40863 Platelets (Bld) [#/Vol] 433 10*3/uL Normal 150-[address] [facility] Comment on above: Performed By: #### C BCA, CMP, 3040-3, 16962-6, 23104-0, 26577- 9 #### [facility] ([id number]) [address] [place] [address] 76340 RBC COUNT 4.95 X10E12/L Normal 3.80-5.[address] [facility] Comment on above: Performed By: #### C BCA, CMP, 3040-3, 72794-7, 88227-5, 55474- 9 #### [facility] ([id number]) [address] [place] [address] 71662 WBC (Bld) [#/Vol] 14.2 10*3/uL High 4.0-11.0 [facility] Comment on above: Performed By: #### C BCA, CMP, 3040-3, 70092-5, 65185-6, 51733- 9 #### [facility] ([id number]) [address] [place] [address] 43965 COMPREHENSIVE METABOLIC PANE Sumit 05-02-2023 Albumin [Mass/Vol] 4.5 g/dL Normal 3.2-5.3 [facility] Comment on above: Performed By: #### C BCA, CMP, 3040-3, 22470-1, 45521-3, 66042- 9 #### [facility] ([id number]) [address] [place] [address] 19583 ALP [Catalytic activity/Vol] 61 U/L Normal 39-[address] [facility] Comment on above: Performed By: #### C BCA, CMP, 3040-3, 49163-7, 22407-9, 43196- 9 #### [facility] ([id number]) [address] [place] [address] 73754 ALT [Catalytic activity/Vol] 17 U/L Normal 0-[address] [facility] Comment on above: Performed By: #### C BCA, CMP, 3040-3, 33526-4, 54796-5, 91865- 9 #### [facility] ([id number]) [address] [place] [address] Anion gap [Moles/Vol] 12 mmol/L Normal 5-[address] [facility] Comment on above: Performed By: #### C BCA, CMP, 3040-3, 42664-1, 13462-3, 98318- 9 #### [facility] ([id number]) [address] [place] [address] 30238 AST [Catalytic activity/Vol] 21 U/L Normal 0-[address] [facility] Comment on above: Performed By: #### C BCA, CMP, 3040-3, 62897-4, 60765-0, 41423- 9 #### [facility] ([id number]) [address] [place] [address] 38729 Bilirubin [Mass/Vol] 0.9 mg/dL Normal 0.3-1.[address] [facility] Comment on above: Performed By: #### C BCA, CMP, 3040-3, 95677-4, 57296-8, 68271- 9 #### [facility] ([id number]) [address] [place] [address] 41049 Calcium [Mass/Vol] 8.9 mg/dL Normal 8.5-10.5 [facility] Comment on above: Performed By: #### C BCA, CMP, 3040-3, 39079-1, 64537-6, 36607- 9 #### [facility] ([id number]) [address] [place] [address] 21629 Chloride [Moles/Vol] 99 mmol/L Normal 98-[address] [facility] Comment on above: Performed By: #### C BCA, CMP, 3040-3, 13170-2, 50920-2, 02658- 9 #### [facility] ([id number]) [address] [place] [address] 09995 CO2 [Moles/Vol] 23 mmol/L Normal 22-[address] [facility] Comment on above: Performed By: #### C BCA, CMP, 3040-3, 91368-4, 45647-4, 69425- 9 #### [facility] ([id number]) [address] [place] [address] 61619 Creatinine [Mass/Vol] 0.46 mg/dL Normal 0.40-1.[address] [facility] Comment on above: Result Comment: METH OD TRACEABLE TO IDMS STANDARD Performed By: #### C MAIKEL, CMP, 3040-3, 66480-0, 52058-9, 09292-1 #### [facility] ([id number]) [address] [place] [address] 45858 eGFR (CKD-EPI) NON-RACE DEPENDENT >90 Normal >[address] [facility] Comment on above: Result Comment: Reported eGFR is based on the CKD-EPI 2020 equation that does not use a race coefficient. Performed By: #### C MAIKEL, CMP, 3040-3, 80076-1, 05791-0, 96260-1 #### [facility] ([id number]) [address] [place] [address] 38276 Glucose [Mass/Vol] 141 mg/dL High 65-99 [facility] Comment on above: Performed By: #### C MAIKEL, CMP, 3040-3, 69152-7, 29849-6, 85674- 9 #### [facility] ([id number]) [address] [place] [address] 99584 Potassium [Moles/Vol] 3.0 mmol/L Low 3.5-5.[address] [facility] Comment on above: Performed By: #### C BCA, CMP, 3040-3, 62191-0, 36688-1, 85014- 9 #### [facility] ([id number]) [address] [place] [address] 23936 Protein [Mass/Vol] 8.2 g/dL High 6.0-8.0 [facility] Comment on above: Performed By: #### C BCA, CMP, 3040-3, 13444-9, 86089-5, 92721- 9 #### [facility] ([id number]) [address] [place] [address] 30364 Sodium [Moles/Vol] 134 mmol/L Normal 134-146 [facility] Comment on above: Performed By: #### C BCA, CMP, 3040-3, 60525-1, 15406-5, 41045- 9 #### [facility] ([id number]) [address] [place] [address] 15778 Urea nitrogen [Mass/Vol] 14 mg/dL Normal 5-[address] [facility] Comment on above: Performed By: #### C BCA, CMP, 3040-3, 30454-3, 94619-0, 05158- 9 #### [facility] ([id number]) [address] [place] [address] ABDOMEN AND PELVIS W CONT on [...] Morales MD on 05/02/2023 12:53 PM Normal [facility] HCG ( test) IA.sawi d Ql (S)on 05-02-2023 SERUM Negative Normal NEG [facility] Comment on above: Performed By: #### C BCA, CMP, 3040-3, 84068-4, 38659-4, 83381- 9 #### [facility] ([id number]) [address] [place] [address] 41342 HCG ( test) Ql (U)o n 05-02-2023 Beta HCG ( test) Ql (U) Negative Normal NEG [facility] Comment on above: Performed By: #### 2 106-3 #### [facility] ([id number]) [address] [place] [address] 87069 LIPASEon 05-02-2023 Lipase [Catalytic activity/Vol] 22 U/L Normal 17-[address] [facility] Comment on above: Performed By: #### C BCA, CMP, 3040-3, 77544-7, 56197-3, 92325- 9 #### [facility] ([id number]) [address] [place] [address] 74647 MAGNESIUMon 05-02-2023 Magnesium [Mass/Vol] 1.8 mg/dL Normal 1.8-2.[address] [facility] Comment on above: Performed By: #### C BCA, CMP, 3040-3, 16447-3, 06557-0, 59818- 9 #### [facility] ([id number]) [address] [place] [address] 68766 TROPONIN Ion 05-02-2023 Troponin I.cardiac [Mass/Vol] 0.01 ng/mL Normal 0.00-0.[address] [facility] Comment on above: Performed By: #### C BCA, CMP, 3040-3, 77813-1, 45675-3, 00546- 9 #### [facility] ([id number]) [address] [place] [address], [place] [address] URN MACROSCOPIC NURon 2023 BILIRUBIN TACO Negative Normal NEG [facility] Comment on above: Performed By: #### N UM #### [facility] ([id number]) [address] [place] [address], [place] [address] BLOOD/HGB TACO Small Abnormal NEG [facility] Comment on above: Performed By: #### N UM #### [facility] ([id number]) [address] [place] [address] [place] [address] GLUCOSE TACO Negative Normal NEG [facility] Comment on above: Performed By: #### N UM #### [facility] ([id number]) [address] [place] [address] [place] [address] KETONES TACO >=160 Abnormal NEG [facility] Comment on above: Performed By: #### N UM #### [facility] ([id number]) [address] [place] [address], [place] [address] LEUKOCYTE ESTERASE TACO Negative Normal NEG [facility] Comment on above: Performed By: #### N UM #### [facility] ([id number]) [address] [place] [address] [place] [address] NITRITE TACO Negative Normal NEG [facility] Comment on above: Performed By: #### N UM #### [facility] ([id number]) [address] [place] [address] [place] [address] PH TACO 6.0 Normal 5.0-8.[address] [facility] Comment on above: Performed By: #### N UM #### [facility] ([id number]) [address] [place] [address] [place] [address] PROTEIN TACO Negative Normal NEG [facility] Comment on above: Performed By: #### N UM #### [facility] ([id number]) [address] [facility], [place] [address] SPECIFIC GRAVITY TACO <=1.005 Normal 1.003-1.[address] [facility] Comment on above: Performed By: #### N UM #### [facility] ([id number]) [address] [facility], [place] [address] UROBILINOGEN TACO 0.2 eu/dL Normal <1.1 [facility] Comment on above: Performed By: #### N UM #### [facility] ([id number]) [address] [facility], [place] [address] XR CHEST 1 VWon 05-02-2023 XR CHEST 1 VW XR CHEST 1 VW Portable chest: HISTORY: Cough and nausea. Single view of the chest was obtained. Cardiac and mediastinal contours are stable. There is no consolidation or effusion. No pneumothorax is seen. The osseous structures appear intact. IMPRESSION: No acute findings Finalized by Wolfgang Mcbride MD on 05/02/2023 11:43 AM Normal [facility] ASYMPTOMATIC COVID-19 ANTIGE Non 10-30-2020 EUA Statement SEE BELOW Normal [facility] Comment on above: Result Comment: This test [...] sooner. Performed By: #### C VDAGA #### [facility] [address] [place] [address] Ligiaana Joen SARS-CoV-2 (COVID-19) RNA SHOAIB+probe Ql (Unsp spec) Negative Normal NEGATIVE [facility] Comment on above: Result Comment: Nega tive results are presumptive. They do not preclude infection and should not be used as the sole basis for treatment decisions. Additional confirmatory testing by a molecular method should be considered. Performed By: #### C VDAGA #### [facility] [address] [place] [address] Ligia Heavenly CBC AUTO DIFFon 10-30-2020 BASO # 0.1 103/ul Normal 0.0-0.1 [facility] Comment on above: Performed By: #### C BC #### [facility] [address] [place], [place] [address] Ligia Heavenly Basophils/100 WBC (Bld) 0.5 % Normal 0.2-2.0 [facility] Comment on above: Performed By: #### C BC #### [facility] [address] [place] [address] Ligia Heavenly EO # 0.5 103/ul Normal 0.0-0.7 [facility] Comment on above: Performed By: #### C BC #### [facility] [address] [place], [place] [address] Ligia Heavenly Eosinophils/100 WBC (Bld) 5.2 % Normal 0.9-7.0 [facility] Comment on above: Performed By: #### C BC #### [facility] [address] [place], [place] [address] Ligia Heavenly Erythrocyte distribution width (RBC) [Ratio] 13.5 % Normal 11.0-15.0 [facility] Comment on above: Performed By: #### C BC #### [facility] [address] [place], [place] [address] Ligia Heavenly Hematocrit (Bld) [Volume fraction] 45.6 % Normal 36.0-48.0 [facility] Comment on above: Performed By: #### C BC #### [facility] [address] [place], [place] [address] Ligia Heavenly Hemoglobin (Bld) [Mass/Vol] 15.0 g/dL Normal 12.0-16.0 [facility] Comment on above: Performed By: #### C BC #### [facility] [address] [id number] Ligia Heavenly IG # 0.03 10e3/ul Normal 0.00-0.03 [facility] Comment on above: Performed By: #### C BC #### [facility] [address] [id number] Ligia Heavenly IG % 0.3 % Normal 0.0-0.5 [facility] Comment on above: Performed By: #### C BC #### [facility] [address] [address] Ligia Heavenly LYMPH # 2.4 103/ul Normal 1.2-3.8 [facility] Comment on above: Performed By: #### C BC #### [facility] [address] [place] [address] Ligia Heavenly Lymphocytes/100 WBC (Bld) 23.5 % Normal 20.5-60.0 [facility] Comment on above: Performed By: #### C BC #### [facility] [address] [place], [place] [address] Ligia Heavenly MANUAL DIFF REQ NO Normal [facility] Comment on above: Performed By: #### C BC #### [facility] [address] [place], [place] [address] Ligia Heavenly MCH (RBC) [Entitic mass] 29.6 pg Normal 26.7-34.0 [facility] Comment on above: Performed By: #### C BC #### [facility] [address] [place] [address] Ligia Heavenly MCHC (RBC) [Mass/Vol] 32.9 g/dL Normal 29.9-35.2 [facility] Comment on above: Performed By: #### C BC #### [facility] [address] [place], [place] [address] Ligia Heavenly MCV (RBC) [Entitic vol] 90.1 fL Normal 81.0-99.0 [facility] Comment on above: Performed By: #### C BC #### [facility] [address] [id number] Ligia Heavenly MONO # 1.2 103/ul Critically high 0.3-0.8 [facility] Comment on above: Performed By: #### C BC #### [facility] [address] [id number] Ligia Heavenly Monocytes/100 WBC (Bld) 11.9 % Normal 1.7-12.0 [facility] Comment on above: Performed By: #### C BC #### [facility] [address] [place], [place] [address] Ligia Heavenly NEUT # 6.0 103/ul Normal 1.4-6.5 [facility] Comment on above: Performed By: #### C BC #### [facility] [address] [place] [address] Ligia Heavenly Neutrophils/100 WBC (Bld) 58.6 % Normal 43.0-75.0 [facility] Comment on above: Performed By: #### C BC #### [facility] [address] [place], [place] [address] Ligiaana Joen Platelet mean volume (Bld) [Entitic vol] 9.4 fL Critically low 9.5-13.5 [facility] Comment on above: Performed By: #### C BC #### [facility] [address] [place], [place] [address] Ligia Heavenly PLT 283 103/ul Normal 150-450 [facility] Comment on above: Performed By: #### C BC #### [facility] [address] [place] [address] Ligia Heavenly RBC 5.06 106/ul Normal 4.20-5.40 [facility] Comment on above: Performed By: #### C BC #### [facility] [address] [place], [place] [address] Ligia Heavenly WBC 10.2 103/ul Normal 4.0-11.0 [facility] Comment on above: Performed By: #### C BC #### [facility] [address] [place], [place] [address] Ligia Heavenly D-DIMERon 10-30-2020 D-DIMER 0.32 mg/L FEU Normal 0.19-0.50 [facility] Comment on above: Performed By: #### D DIM #### [facility] [address] [place], [place] [address] Ligiaana Burdick D-DIMER COMMENTS SEE BELOW Normal [facility] Comment on above: Result Comment: Incr eases [...] hospitalization. Performed By: #### D DIM #### [facility] [address] [place], [place] [address] Ligia Burdick LACTATE/LACTIC ACIDon 2020 Lactate [Moles/Vol] 1.6 mmol/L Normal 0.7-2.0 [facility] Comment on above: Performed By: #### L ACT #### [facility] [address] [place], [place] [address] Ligia Burdick PROF 14(COMP METB)on 021 Albumin [Mass/Vol] 3.9 g/dL Normal 3.5-5.0 [facility] Comment on above: Performed By: #### H HONEY, CMP #### [facility] [address] [place], [place] [address] Ligiaana Burdick Albumin/Globulin [Mass ratio] 1.0 {ratio} Normal [facility] Comment on above: Performed By: #### H HONEY, CMP #### [facility] [address] [place], [place] [address] Ilgia Heavenly ALP [Catalytic activity/Vol] 90 U/L Normal 38-126 [facility] Comment on above: Performed By: #### H HONEY, CMP #### [facility] [address] [place], [place] [address] Ligia Burdick ALT [Catalytic activity/Vol] 75 U/L Critically high 9-52 [facility] Comment on above: Performed By: #### H STROPN, CMP #### [facility] [address] [place] [address] Ligia Heavenly Anion gap [Moles/Vol] 13.1 mmol/L Normal [facility] Comment on above: Performed By: #### H STROPN, CMP #### [facility] [address] [place] [address] Ligia Heavenly AST [Catalytic activity/Vol] 43 U/L Critically high 14-36 [facility] Comment on above: Performed By: #### H STROPN, CMP #### [facility] [address] [place] [address] Ligia Heavenly Bilirubin [Mass/Vol] 0.5 mg/dL Normal 0.2-1.3 [facility] Comment on above: Performed By: #### H STROROE, CMP #### [facility] [address] [place] [address] Ligia Heavenly Calcium [Mass/Vol] 8.7 mg/dL Normal 8.4-10.2 [facility] Comment on above: Performed By: #### H STROROE, CMP #### [facility] [address] [place] [address] Ligia Heavenly Chloride [Moles/Vol] 97 mmol/L Critically low 98-107 [facility] Comment on above: Performed By: #### H STROPN, CMP #### [facility] [address] [place] [address] Ligia Heavenly CO2 [Moles/Vol] 28.2 mmol/L Normal 22.0-30.0 [facility] Comment on above: Performed By: #### H STROPN, CMP #### [facility] [address] [place] [address] Ligia Heavenly Creatinine [Mass/Vol] 0.54 mg/dL Normal 0.52-1.04 [facility] Comment on above: Performed By: #### H STROPN, CMP #### [facility] [address] [place] [address] Ligia Heavenly EGFR-AF SWEDISH Normal >=60 [facility] Comment on above: Performed By: #### H STROPN, CMP #### [facility] [address] [address] Ligia Heavenly EGFR-NON AF SWEDISH Normal >=60 [facility] Comment on above: Performed By: #### H STROPN, CMP #### [facility] [address] [id number] Ligia Heavenly Globulin (S) [Mass/Vol] 4.0 g/dL Normal [facility] Comment on above: Performed By: #### H STROPN, CMP #### [facility] [address] [address] Ligia Heavenly Glucose [Mass/Vol] 113 mg/dL Critically high 74-106 [facility] Comment on above: Performed By: #### H STROROE, CMP #### [facility] [address] [address] Ligia Heavenly Potassium [Moles/Vol] 4.3 mmol/L Normal 3.4-5.0 [facility] Comment on above: Performed By: #### H STROPN, CMP #### [facility] [address] [address] Ligia Heavenly Protein [Mass/Vol] 7.9 g/dL Normal 6.1-8.2 [facility] Comment on above: Performed By: #### H STROPN, CMP #### [facility] [address] [address] Ligia Heavenly Sodium [Moles/Vol] 134 mmol/L Critically low 137-145 Th [facility] Comment on above: Performed By: #### H STROPN, CMP #### [facility] [address] [address] Ligia Heavenly Urea nitrogen [Mass/Vol] 10.0 mg/dL Normal 7.0-17.0 [facility] Comment on above: Performed By: #### H STROPN, CMP #### [facility] [address] [id number] Ligia Heavenly Urea nitrogen/Creatinine [Mass ratio] 18.5 mg/mg Normal [facility] Comment on above: Performed By: #### H STROROE, CMP #### [facility] [address] [place], [place] [address] Ligia Burdick TROPONIN, HIGH SENSITIVITYon 10-30-2020 HSTROP >4.0 Normal 4.0-35.5 [facility] Comment on above: Result Comment: CUT- OFF POINTS HAVE BEEN ESTABLISHED BASED ON THE FOURTH UNIVERSAL DEFINITIONS OF MYOCARDIAL INFARCTION. THE UPPER REFERENCE LIMIT (URL) OF TROPONIN, DEFINED THE 99TH PERCENTILE OF cTnI DISTRIBUTION IN A REFERENCE POPULATION, HAS BEEN CONFIRMED THE DECISION THRESHOLD FOR VA DIAGNOSIS. Performed By: #### H STROROE, CMP #### [facility] [address] [place], [place] [address] Ligia Burdick XR CHEST 2 Von 10-30-2020 [...] MAKENZIE ARREDONDO Date: 2020-10-29 23:52 Normal [facility] CULTURE WOUNDon 03-06-2020 CULTURE WOUND Specimen Comments: R HIP SWAB Culture Observations: Anaerobe present. Culture Observations: Evidence based practice by [facility] has demonstrated that Culture Observations: Finegoldia species are routinely susceptible to Piperacillin-Tazobact am, Culture Observations: Cefoxitin,Ertapenem,I mipenem,Metronidazole and Culture Observations: variably resistant to Clindamycin. Isolate 1 Finegoldia magna Moderate growth of Normal [facility] Comment on above: Performed By: #### W OUNDCX #### [facility] [address] [place], [place] [address] Ligia Burdick Encounters Encounter Date Encounter Type Care Provider Facility Start: 07-26-2023 End: 07-27-2023 Emergency department patient visit [facility] Start: 05-02-2023 End: 05-03-2023 Emergency department patient visit MISBAH BURK [facility] Start: 05-02-2023 End: 05-02-2023 Emergency department patient visit [facility] Start: 10-30-2020 End: 10-30-[address] ALFREDO RILEY Facility:[facility] Start: 04-19-[address] JUNG Scott lity:[facility] Start: 03-06-2020 End: 03-06-[address] PUNEET BARRIOS Facility:[facility] Payers Date Payer Category Payer Unknown [id number] 2.16.84 [id number] 1982 Unknown [id number] 2.16.84 [id number] 1982 Unknown [id number] 2.16.84 [id number] 1982 Unknown [id number] 2.16.8 [id number] 1982 Unknown [id number] 2.16.84 [id number] 1982 Unknown [id number] 2.16.84 [id number] 1982 Unknown [id number] 2.16.84 [id number] 1959 Self-pay [id number] 1957 Unknown [id number] Summary Purpose Family History No Family History Records FoundNo Family History Records Found Advance Directives No Advanced Directives Records FoundNo Advanced Directives Records Found Additional Source Comments INFORMATION SOURCE (unrecogn ized section and content) DATE CREATED AUTHOR 11/02/2020 [facility] DATE CREATED AUTHOR 'S ANTWONIZ ATDAGOBERTO 07/26/2023 [facility] FOR RECORDS PERTAINING TO PATIENTS WHO ARE [...] BE BASED ON THE PRIMARY CLINICAL RECORDS. [facility]. provides no warranty or guarantee of the accuracy or completeness of information in this document.
--- NOTE | 2023-07-27 19:23 | ED_ITS ---
HPI - Nausea/Vomiting/Diarrhea General Chief complaint: Nausea/Vomiting/Diarrhea Stated complaint: Nausea/Vomiting, Abdominal Pain Time Seen by Provider: 07/27/23 19:04 Source: patient Mode of arrival: Wheelchair History of Present Illness HPI Narrative: This 43 year old female with a history of cyclic vomiting syndrome who is seen in this emergency department In April 2023 and twice in May 2023 present for evaluation of nausea vomiting and epigastric abdominal pain that started last night. She has not had any diarrhea. She has not had a fever. She has not had a cough. She denies any chest pain or shortness of breath. I reviewed her labs from prior visits and she tested positive for opiates and marijuana. This test was done after she had been in this emergency department and received IV morphine.She denies the possibility of . Related Data Home Medications ?Medication ?Instructions ?Recorded ?Confirmed ondansetron 4 mg disintegrating 4 mg PO Q6H PRN nausea and vomiting 07/27/23 07/27/23 tablet prochlorperazine maleate 10 mg 10 mg PO BID 07/27/23 07/27/23 tablet Allergies Allergy/AdvReac Type Severity Reaction Status Date / Time codeine Allergy Intermediate Verified 06/09/23 23:26 ibuprofen Allergy Intermediate Verified 06/09/23 23:26 Review of Systems ROS Status of ROS 10 or more systems reviewed and unremark able except as noted in history and [facility] History (Updated 07/27/23 @ 22:47 by Maya Holguin MD) Embolus ?I74.9 - Embolism and thrombosis of unspecified artery (ICD-10) Surgical History (Updated 05/03/23 @ 05:55 by Nona Enciso) History of cholecystectomy ?Z90.49 - Acquired absence of other specified parts of digestive tract (ICD- 10) Social History Smoking status: Current every day smoker Highest level of school completed/degree received: 9th grade Exam Narrative Exam Narrative: Nurses note and vital signs reviewed; She has a low-grade fever and his tachypneic, chest normal pulse and she is not hypoxic with pulse ox of 98 percent on room air General: Nontoxic female, she is crying and holding her epigastrium, no respiratory distress, she is dry heaving during the exam Skin: Warm, dry, no pallor noted. There is no rash noted. Head: Normocephalic, atraumatic Eye: Normal conjunctiva, no drainage, EOMI. PERRL. No scleral icterus Ears, Nose, Mouth, and Throat: oral mucosa is moist. Nares patent. Cardiovascular: Regular Rate and Rhythm S1S2, pulses are brisk and equal bilaterally Respiratory: Patient is in no distress, no accessory muscle use, lungs are clear to auscultation, no wheezing, rales or rhonchi Back: non-tender, no CVA tenderness bilaterally to percussion. GI: Normal bowel sounds, soft, non-distended, epigastric and LUQ tenderness to palpation Musculoskeletal: The patient has no evidence of calf tenderness, no pitting edema, symmetrical pulses noted bilaterally Neurological: A&O x4, normal speech Psychiatric: Cooperative, crying, anxious Constitutional Vital Signs, click to edit/add: Last Vital Signs Temp 100.3 F 07/27/23 19:05 Pulse 63 07/27/23 19:05 Resp 22 H 07/27/23 19:05 BP 136/75 07/27/23 19:05 Pulse Ox 98 07/27/23 19:05 O2 Del Method Room Air 07/27/23 19:05 Course Vital Signs Vital signs: Vital Signs Temperature 100.3 F 07/27/23 19:05 Pulse Rate 63 07/27/23 19:05 Respiratory Rate 22 H 07/27/23 19:05 Blood Pressure 136/75 07/27/23 19:05 Pulse Oximetry 98 07/27/23 19:05 Oxygen Delivery Method Room Air 07/27/23 19:05 Temperature 100.3 F 07/27/23 19:05 Pulse Rate 63 07/27/23 19:05 Respiratory Rate 22 H 07/27/23 19:05 Blood Pressure 136/75 07/27/23 19:05 Pulse Oximetry 98 07/27/23 19:05 Oxygen Delivery Method Room Air 07/27/23 19:05 MDM - Nausea/Vomiting/Diarrhea MDM Narrative Medical decision making narrative: This 43-year-old female with a history of cyclic vomiting syndrome and ongoing marijuana use presents for evaluation of epigastric abdominal pain with nausea and vomiting. She has not had any diarrhea. She does admit that she has some rectal pain. She was noted to have a low-grade fever upon arrival. She had been having nausea and vomiting since yesterday. She was seen yesterday at [facility] and prescribed Zofran and Compazine. Her states that earlier today she started having strange movements of her jaw and mouth. She had an episode of this emergency Department as well that was consistent with tardive dyskinesia. She was given a dose of IV Benadryl with clinical improvement. She has had IV fluids, Zofran, Pepcid and morphine in this emergency department in the past without any significant side effects. An IV was placed and she was medicated as recently stated. She has no elevated white count at 20. Potassium is mildly low at 3.1. She has no BUN/creatinine. Chest x-ray was negative for acute findings, influenza testing was negative and CT scan of abdomen and pelvis was ordered due to the low-grade fever and elevated white count and it shows a proctitis. She was then given IV Unasyn, oral potassium and D5 LR to help clear her ketosis and help her recover. She was encouraged to quit using marijuana at all costs and follow closely with his family physician. Medical Records Medical records narrative: The [address] [address] XRay Report Signed Patient: DAMION HOOPER MR#: [id number] : 1980 Acct:[id number] Age/Sex: 43 / F ADM Date: 07/27/23 Loc: ER Attending Dr: Ordering Physician: Maya Holguin Date of Service: 07/27/23 Procedure(s): XR chest 2V Accession Number(s): [id number] cc: [facility] ; Maya Holguin~ The [address] [address] Patient Name: DAMION HOOPER MRN: [id number] date: 1980 Sex: F Assigned Patient Location: ER Current Patient Location: ER Accession/Order Number: [id number] Exam Date: 07/27/2023 20:17 Report Date: 07/27/2023 20:48 At the request of: MAYA HOLGUIN Procedure: XR chest 2V EXAM: XR chest 2V TECHNIQUE: PA and lateral view of the chest HISTORY: fever, cough COMPARISON: None. FINDINGS: The heart and mediastinum are unremarkable. The lung gentile are clear of any acute infiltrate, effusion or mass. No acute bony abnormality. XR/XR chest 2V IMPRESSION: No acute pulmonary disease. The [address] [address] [address] Scan Report Signed Patient: DAMION HOOPER MR#: [id number] : 1980 Acct:[id number] Age/Sex: 43 / F ADM Date: 07/27/23 Loc: ER Attending Dr: Ordering Physician: Maya Holguin Date of Service: 07/27/23 Procedure(s): CT abdomen pelvis w con Accession Number(s): [id number] cc: [facility] The [address] [address] Patient Name: DAMION HOOPER MRN: [id number] date: 1980 Sex: F Assigned Patient Location: ER Current Patient Location: ER Accession/Order Number: [id number] Exam Date: 07/27/2023 20:20 Report Date: 07/27/2023 20:54 At the request of: MAYA HOLGUIN Procedure: CT abdomen pelvis w con EXAM: CT abdomen pelvis w con TECHNIQUE: Axial CT images were obtained of the abdomen and pelvis with intravenous contrast. Sagittal and coronal reformatted images were also obtained. Dose reduction techniques were achieved by using automated exposure control and/or adjustment of mA and/or kV according to patient size and/or use of iterative reconstruction technique. HISTORY: fever, abd pain COMPARISON: 04/30/2014 FINDINGS: Lower chest: The lower lungs are clear. Liver: The liver is homogeneous with normal contours and normal size. Gallbladder: Status post cholecystectomy. No significant biliary dilatation. Pancreas: The pancreas is homogeneous without evidence for mass lesion or inflammation. Spleen: The spleen is unremarkable without evidence for mass lesion. Adrenal glands: The adrenal glands are unremarkable Kidneys and bladder: The kidneys are unremarkable with no evidence for mass lesion, hydronephrosis or inflammation. The ureters demonstrate normal caliber. The urinary bladder is unremarkable. GI Tract: Stomach is unremarkable. Visualized small bowel is unremarkable without evidence for obstruction or active inflammation. The appendix is unremarkable.Wall thickening of the rectosigmoid colon with [infiltration of pericolonic fat. Reproductive: Stable small cystic spaces of the myometrium of uterus. Lymph nodes: No retroperitoneal or abdominal lymphadenopathy. Vascular: The aorta is not dilated. Peritoneum: No free intraperitoneal air or fluid. No acute inflammation. Abdominal wall: Unremarkable without acute abnormality. Evaluation somewhat limited by breathing motion artifact throughout much of the exam. CT/CT abdomen pelvis w con IMPRESSION: Findings suggest an inflammatory or infectious proctocolitis. Electronically authenticated by: ZOILA CRISOSTOMO Date: 07/27/2023 20:54 Lab Data Attestation: I reviewed the patient's lab results. Labs: Lab Results 07/27/23 07/27/23 07/27/23 Range/Units 19:27 19:30 20:33 WBC 20.6 H (4.0-11.0) 10^3/uL RBC 5.01 (4.20-5.40) 10^6/uL Hgb 15.1 (12.0-16.0) g/dL Hct 44.8 (36.0-48.0) % MCV 89.4 (81.0-99.0) fL MCH 30.1 (26.7-34.0) pg MCHC 33.7 (29.9-35.2) g/dL RDW 12.4 (11.0-15.0) % Plt Count 378 (150-450) 10^3/uL MPV 9.5 (9.5-13.5) fL Neut % (Auto) 80.7 H (43.0-75.0) % Lymph % (Auto) 11.7 L (20.5-60.0) % Scurry % (Auto) 7.0 (1.7-12.0) % Eos % (Auto) 0.0 L (0.9-7.0) % Baso % (Auto) 0.2 (0.2-2.0) % Neut # (Auto) 16.6 H (1.4-6.5) 10^3/uL Lymph # (Auto) 2.4 (1.2-3.8) 10^3/uL Scurry # (Auto) 1.5 H (0.3-0.8) 10^3/uL Eos # (Auto) 0.0 (0.0-0.7) 10^3/uL Baso # (Auto) 0.1 (0.0-0.1) 10^3/uL Abs Immat Gran (auto) 0.09 H (0.00-0.03) 10^3/uL Imm/Tot Granulo (auto) 0.4 (0.0-0.5) % Sodium 135 L (136-145) mmol/L Potassium 3.1 L (3.5-5.1) mmol/L Chloride 98 (98-107) mmol/L Carbon Dioxide 26.4 (21.0-32.0) mmol/L Anion Gap 13.7 BUN 10.0 (7.0-18.0) mg/dL Creatinine 0.39 L (0.55-1.02) mg/dL Est GFR ( Amer) >60 (>=60) Est GFR (Non-Af Amer) >60 (>=60) BUN/Creatinine Ratio 25.6 Glucose 118 H (74-106) mg/dL Calcium 9.2 (8.5-10.1) mg/dL Total Bilirubin 0.9 (0.2-1.0) mg/dL AST 16 (15-37) U/L ALT 15 (14-59) U/L Alkaline Phosphatase 75 (46-116) U/L Total Protein 7.8 (6.4-8.2) g/dL Albumin 4.3 (3.4-5.0) g/dL Globulin 3.5 g/dL Albumin/Globulin Ratio 1.2 Lipase 16.0 (16.0-77.0) U/L Urine Color Yellow (YELLOW) Urine Clarity Clear (CLEAR) Urine pH 6.5 (5.0-9.0) Ur Specific Sutton 1.010 (1.005-1.025) Urine Protein Trace (NEG/TRACE) mg/dL Urine Glucose (UA) Negative (NEGATIVE) mg/dL Urine Ketones >=80 A (NEGATIVE) mg/dL Urine Occult Blood Moderate A (NEGATIVE) Urine Nitrite Negative (NEGATIVE) Urine Bilirubin Negative (NEGATIVE) Urine Urobilinogen 1.0 (0.2-1.0) EU/dL Ur Leukocyte Esterase Negative (NEGATIVE) Urine RBC 0-2 (0-2) #/HPF Urine WBC 0-2 A (NONE SEEN) #/HPF Ur Squamous Epith Cells Few A (NONE/RARE) #/LPF Urine Crystals None seen (None Seen) #/HPF Urine Bacteria None seen (NONE SEEN) #/HPF Urine Casts None seen (NONE SEEN) #/LPF Urine Mucus Small A (NONE SEEN) Urine Trichomonas Seen A (NONE SEEN) Urine Opiates Screen Positive A (NEGATIVE) Ur Buprenorphine Scrn Negative (NEGATIVE) Ur Oxycodone Screen Negative (NEGATIVE) Urine Methadone Screen Negative (NEGATIVE) Ur Barbiturates Screen Negative (NEGATIVE) U Tricyclic Antidepress Negative (NEGATIVE) Ur Phencyclidine Scrn Negative (NEGATIVE) Ur Amphetamines Screen Negative (NEGATIVE) U Methamphetamines Scrn Negative (NEGATIVE) U Benzodiazepines Scrn Negative (NEGATIVE) Urine Cocaine Screen Negative (NEGATIVE) U Cannabinoids Screen Positive A (NEGATIVE) Influenza Type A Ag Negative Influenza Type B Ag Negative Discharge Plan Discharge Stand Alone Forms: Portal Instructions Chief Complaint: Nausea/Vomiting/Diarrhea Clinical Impression: Acute proctitis, Cyclic vomiting syndrome, Hypokalemia, Marijuana abuse, continuous Patient Disposition: Home, Self-Care Time of Disposition Decision: 21:13 Condition: Good Prescriptions / Home Meds: No Action ondansetron 4 mg tablet,disintegrating 4 mg PO Q6H PRN (Reason: nausea and vomiting) prochlorperazine maleate 10 mg tablet 10 mg PO BID Print Language: Belarusian Instructions: Proctitis (ED), Potassium Content of Foods List (ED), Hypokalemia (ED), Cyclic Vomiting Syndrome (ED) Referrals: [facility] [Primary Care Provider] - 1 week
[2023-07-27 19:38] LABS: Basophils Absolute Auto 0.1 10^3/uL (0.0-0.1); Basophils Percent Auto 0.2 % (0.2-2.0); Hematocrit 44.8 % (36.0-48.0); Hemoglobin 15.1 g/dL (12.0-16.0); Immature Granulocytes Abs Auto 0.09 10^3/uL (0.00-0.03); Immature Granulocytes Pct Auto 0.4 % (0.0-0.5); Lymphocytes Absolute Auto 2.4 10^3/uL (1.2-3.8); Lymphocytes Percent Auto 11.7 % (20.5-60.0); Mean Corpuscular HGB Conc 33.7 g/dL (29.9-35.2); Mean Corpuscular Hemoglobin 30.1 pg (26.7-34.0); Mean Corpuscular Volume 89.4 fL (81.0-99.0); Mean Platelet Volume 9.5 fL (9.5-13.5); Monocytes Absolute Auto 1.5 10^3/uL (0.3-0.8); Neutrophils Absolute Auto 16.6 10^3/uL (1.4-6.5); Neutrophils Percent Auto 80.7 % (43.0-75.0); Platelet Count 378 10^3/uL (150-450); Red Blood Count 5.01 10^6/uL (4.20-5.40); Red Cell Distribution Width 12.4 % (11.0-15.0); White Blood Count 20.6 10^3/uL (4.0-11.0)
[2023-07-27] MEDS: 0.9 % SODIUM CHLORIDE 1,000 ML 1000 ML IV (19:40)
[2023-07-27] MEDS: ONDANSETRON PF 4 MG/2 ML VIAL IV ×2 (19:41→23:13)
[2023-07-27] MEDS: FAMOTIDINE/PF 20 MG/2 ML VIAL IV (19:41)
[2023-07-27] MEDS: MORPHINE SULFATE 4 MG/ML VIAL IV (19:41)
[2023-07-27 19:52] LABS: Influenza Virus A Antigen Negative; Influenza Virus B Antigen Negative; Internal Control Within Normal Limits
--- NOTE | 2023-07-27 19:53 | XR_ITS ---
The [address] [address] Patient Name: DAMION HOOPER MRN: [id number] date: 1980 Sex: F Assigned Patient Location: ER Current Patient Location: Accession/Order Number: [id number] Exam Date: 07/27/2023 20:17 Report Date: 07/27/2023 20:48 At the request of: ALFREDO MARKER Procedure: XR chest 2V EXAM: XR chest 2V TECHNIQUE: PA and lateral view of the chest HISTORY: fever, cough COMPARISON: None. FINDINGS: The heart and mediastinum are unremarkable. The lung gentile are clear of any acute infiltrate, effusion or mass. No acute bony abnormality. XR/XR chest 2V IMPRESSION: No acute pulmonary disease. Electronically authenticated by: ZOILA CRISOSTOMO Date: 07/27/2023 20:48
--- NOTE | 2023-07-27 19:53 | CT_ITS ---
[address] [address] Patient Name: DAMION HOOPER MRN: [id number] date: 1980 Sex: F Assigned Patient Location: ER Current Patient Location: Accession/Order Number: [id number] Exam Date: 07/27/2023 20:20 Report Date: 07/27/2023 20:54 At the request of: ALFREDO MARKER Procedure: CT abdomen pelvis w con EXAM: CT abdomen pelvis w con TECHNIQUE: Axial CT images were obtained of the abdomen and pelvis with intravenous contrast. Sagittal and coronal reformatted images were also obtained. Dose reduction techniques were achieved by using automated exposure control and/or adjustment of mA and/or kV according to patient size and/or use of iterative reconstruction technique. HISTORY: fever, abd pain COMPARISON: 04/30/2014 FINDINGS: Lower chest: The lower lungs are clear. Liver: The liver is homogeneous with normal contours and normal size. Gallbladder: Status post cholecystectomy. No significant biliary dilatation. Pancreas: The pancreas is homogeneous without evidence for mass lesion or inflammation. Spleen: The spleen is unremarkable without evidence for mass lesion. Adrenal glands: The adrenal glands are unremarkable Kidneys and bladder: The kidneys are unremarkable with no evidence for mass lesion, hydronephrosis or inflammation. The ureters demonstrate normal caliber. The urinary bladder is unremarkable. GI Tract: Stomach is unremarkable. Visualized small bowel is unremarkable without evidence for obstruction or active inflammation. The appendix is unremarkable.Wall thickening of the rectosigmoid colon with [infiltration of pericolonic fat. Reproductive: Stable small cystic spaces of the myometrium of uterus. Lymph nodes: No retroperitoneal or abdominal lymphadenopathy. Vascular: The aorta is not dilated. Peritoneum: No free intraperitoneal air or fluid. No acute inflammation. Abdominal wall: Unremarkable without acute abnormality. Evaluation somewhat limited by breathing motion artifact throughout much of the exam. CT/CT abdomen pelvis w con IMPRESSION: Findings suggest an inflammatory or infectious proctocolitis. Electronically authenticated by: ZOILA CRISOSTOMO Date: 07/27/2023 20:54
[2023-07-27 19:55] LABS: Alanine Aminotransferase 15 U/L (14-59); Albumin Globulin Ratio 1.2; Albumin Level 4.3 g/dL (3.4-5.0); Alkaline Phosphatase 75 U/L (46-116); Anion Gap 13.7; Aspartate Amino Transferase 16 U/L (15-37); BUN Creatinine Ratio 25.6; Bilirubin Total 0.9 mg/dL (0.2-1.0); Calcium 9.2 mg/dL (8.5-10.1); Carbon Dioxide 26.4 mmol/L (21.0-32.0); Chloride 98 mmol/L (98-107); Estimated GFR (African America >60 (>=60); Estimated GFR (Non-African Ame >60 (>=60); Globulin 3.5 g/dL; Glucose 118 mg/dL (74-106); Potassium 3.1 mmol/L (3.5-5.1); Sodium 135 mmol/L (136-145); Total Protein 7.8 g/dL (6.4-8.2)
[2023-07-27] MEDS: DIPHENHYDRAMINE HCL 50 MG/ML (1ML) VIAL 25 MG IV (20:34)
[2023-07-27] MEDS: ACETAMINOPHEN 325 MG TABLET 650 MG PO (20:34)
[2023-07-27 20:40] LABS: Bilirubin Urine NEGATIVE (NEGATIVE); Blood Urine MODERATE (NEGATIVE); Clarity Urine CLEAR (CLEAR); Color Urine YELLOW (YELLOW); Glucose Urine UA NEGATIVE (NEGATIVE); Ketones Urine >=80 mg/dL (NEGATIVE); Leukocyte Esterase Urine NEGATIVE (NEGATIVE); Nitrite Urine NEGATIVE (NEGATIVE); Protein Urine TRACE mg/dL (NEG/TRACE); pH Urine 6.5 (5.0-9.0)
[2023-07-27 20:48] LABS: Bacteria Urine NONE SEEN #/HPF (NONE SEEN); Cast Seen? NONE SEEN #/LPF (NONE SEEN); Crystals Seen? None Seen #/HPF (None Seen); Mucus Urine SMALL (NONE SEEN); RBC Urine 0-2 #/HPF (0-2); Squamous Epithelial Cell Urine FEW #/LPF (NONE/RARE); Trichomonas Urine SEEN (NONE SEEN); WBC Urine 0-2 #/HPF (NONE SEEN)
[2023-07-27 20:49] LABS: Amphetamine Screen Urine NEGATIVE (NEGATIVE); Barbiturates Screen Urine NEGATIVE (NEGATIVE); Benzodiazepines Screen Urine NEGATIVE (NEGATIVE); Buprenorphine Screen Urine NEGATIVE (NEGATIVE); Cannabinoid Screen Urine POSITIVE (NEGATIVE); Cocaine Screen Urine NEGATIVE (NEGATIVE); Methadone Screen Urine NEGATIVE (NEGATIVE); Methamphetamines Screen Urine NEGATIVE (NEGATIVE); Opiate Screen Urine POSITIVE (NEGATIVE); Oxycodone Screen Urine NEGATIVE (NEGATIVE); Phencyclidine Screen Urine NEGATIVE (NEGATIVE); Tricyclic Antidepressant Urine NEGATIVE (NEGATIVE)
[2023-07-27] MEDS: AMPICILLIN SODIUM/SULBACTAM NA 3 GM in 0.9 % SODIUM CHLORIDE 100 ML IV (21:28)
[2023-07-27] MEDS: POTASSIUM CHLORIDE 10 MEQ ER TABLET 20 MEQ PO (21:29)
[2023-07-27] MEDS: DEXTROSE 5%-LACTATED RINGERS 1,000 ML 500 ML IV (22:04)
== END 2023-07-27 23:24 | disposition home or self-care (01) ==
PROVIDERS: Emergency Provider Emergency Medicine
DX: E87.6 Hypokalemia (principal); K62.89 Other specified diseases of anus and rectum; R11.15 Cyclical vomiting syndrome unrelated to migraine; F12.10 Cannabis abuse, uncomplicated; Z79.899 Other long term (current) drug therapy; Z90.49 Acquired absence of other specified parts of digestive tract; F17.210 Nicotine dependence, cigarettes, uncomplicated
CPT/HCPCS: 36415; 71046; 74177; 80053; 80307; 81001; 83690; 85025; 87804; 96361; 96365; 96375; 96376; 99285; Q9967

== ENCOUNTER 2023-10-05 23:49 | Emergency (ER) | payer OTHER, SELFPAY ==
--- OUTSIDE RECORDS SUMMARY | 2023-10-05 23:54 | XMS_ITS | CCD ---
Author Organization [facility] Care Team Providers Care Personnel Manager Name Role Phone MARKER, DR FUENTES Consulting Unavailable [facility] Unavailable MARKER, DR FUENTES Admitting Unavailable MARKER, DR FUENTES Attending Unavailable AHDOOTMAKENZIE Consulting Unavailable PAY, DR TEIXEIRA Attending Unavailable PAY, DR TEIXEIRA Consulting Unavailable PAY, DR TEIXEIRA Admitting Unavailable [facility] Unavailable KARASIK, DR FENG Attending Unavailable KARASIK, DR FENG Admitting Unavailable SERVICES, [facility] SABAS SHAW Attending Unavailable SERVICES, [facility] HAL SINGH Attending Unavailable ANDREW VILLATORO Admitting Unavailable SERVICES, [facility] MISBAH BURK Attending Unavailable MISBAH BURK Attending Unavailable MISBAH BURK Referring Unavailable SERVICES, [facility] MISBAH BURK Attending Unavailable MISBAH BURK Referring Unavailable SERVICES, [facility] Allergies Allergy Classification Reported Allergen(s) Allergy Type Date of Onset Reaction(s) Facility NSAIDs (2 sources) Ibuprofen Drug Allergy 10-05-1997 [facility] Opioid Agonists (2 sources) traMADol Drug Allergy 09-26-2013 [facility] Unclassified (1 source) Tylenol-Codeine #3 Drug allergy (disorder) [facility] (1 source) Codeine; Translations: [CODEINE] Drug Allergy 05-02-2023 [facility] (1 source) Ibuprofen; Translations: [IBUPROFEN] Drug Allergy 08-29-2016 [facility] (1 source) Prochlorperazine ; Translations: [PROCHLORPERAZIN E] Drug Allergy 09-25-2023 [facility] (1 source) traMADol; Translations: [TRAMADOL] Drug Allergy 08-29-2016 [facility] Problems Active Problems Problem Classification Problem Date Documented Da te Episodic/Chronic Abdominal pain (2 sources) Abdominal pain Onset: 07-26-2023 Episodic Asthma (1 source) Unspecified asthma, uncomplicated; Translations: [UNSPECIFIED ASTHMA UNCOMPLICATED] Onset: 11-01-2020 Chronic Fluid and electrolyte disorders (2 sources) Hypokalemia; Translations: [Hypo-osmolality and hyponatremia] Onset: 09-25-2023 Episodic Nausea and vomiting (3 sources) Nausea with vomiting, unspecified; Translations: [Nausea] Onset: 05-02-2023 Episodic Nonspecific chest pain (1 source) Other chest pain; Translations: [OTHER CHEST PAIN] Onset: 11-01-2020 Episodic Other lower respiratory disease (4 sources) Shortness of breath; Translations: [SHORTNESS OF BREATH] Onset: 10-30-2020 Episodic Substance-related disorders (2 sources) Nicotine dependence, cigarettes, uncomplicated; Translations: [Cannabis abuse with other cannabis-induced disorder] Onset: 11-01-2020 Chronic Unclassified (1 source) Cyclical vomiting syndrome unrelated to migraine; Translations: [Cyclical vomiting syndrome unrelated to migraine] Onset: 05-02-2023 Past or Other Problems Problem Classification Problem Date Documented Da te Episodic/Chronic Skin and subcutaneous tissue infections (4 sources) Cutaneous abscess of right lower limb; Translations: [CUTANEOUS ABSCESS RIGHT LOWER LIMB] Onset: 03-06-2020 Episodic Substance-related disorders (1 source) Cannabis use, unspecified, uncomplicated; Translations: [Cannabis use, unspecified, uncomplicated] Onset: 05-02-2023 Episodic Results Test Name Value Interpretation Reference Range Facility CBC AND AUTO DIFFon 09-27-19 ABSOLUTE BASOPHIL 0.1 X10E9/L Normal 0.0-0.2 [facility] Comment on above: Performed By: #### C BCA, CMP, 3040-3, 30580-4, 42781-5, 59213- 9 #### [facility] ([id number]) [address] [place] [address], [place] [address] ABSOLUTE NEUTROPHIL 10.5 X10E9/L High 1.5-6.6 [facility] Comment on above: Performed By: #### C BCA, CMP, 3040-3, 23448-2, 40534-2, 88991- 9 #### [facility] ([id number]) [address] [place] [address] 51861 Basophils/100 WBC (Bld) 0.9 % Normal [facility] Comment on above: Performed By: #### C BCA, CMP, 3040-3, 06564-0, 71566-2, 43164- 9 #### [facility] ([id number]) [address] [place] [address] 41809 Eosinophils (Bld) [#/Vol] 0.0 10*3/uL Normal 0.0-0.4 [facility] Comment on above: Performed By: #### C BCA, CMP, 3040-3, 12169-2, 76492-5, 63197- 9 #### [facility] ([id number]) [address] [place] [address] 34037 Eosinophils/100 WBC (Bld) 0.0 % Normal [facility] Comment on above: Performed By: #### C MAIKEL, CMP, 3040-3, 44638-2, 85231-1, 14649- 9 #### [facility] ([id number]) [address] [place] [address] 93310 Erythrocyte distribution width (RBC) [Ratio] 13.0 % Normal 11.5-15.0 [facility] Comment on above: Performed By: #### C BCA, CMP, 3040-3, 33223-5, 85831-4, 86395- 9 #### [facility] ([id number]) [address] [place] [address] 37152 Hematocrit (Bld) [Volume fraction] 43.4 % Normal 35-47 [facility] Comment on above: Performed By: #### C BCA, CMP, 3040-3, 35215-4, 48565-4, 24025- 9 #### [facility] ([id number]) [address] [place] [address] 63981 Hemoglobin (Bld) [Mass/Vol] 14.5 g/dL Normal 11.7-15.5 [facility] Comment on above: Performed By: #### C BCA, CMP, 3040-3, 15224-0, 36544-8, 96142- 9 #### [facility] ([id number]) [address] [place] [address] 83748 Lymphocytes (Bld) [#/Vol] 2.9 10*3/uL Normal 1.0-3.5 [facility] Comment on above: Performed By: #### C BCA, CMP, 3040-3, 16161-3, 25912-7, 30884- 9 #### [facility] ([id number]) [address] [place] [address] 99396 Lymphocytes/100 WBC (Bld) 19.6 % Normal [facility] Comment on above: Performed By: #### C BCA, CMP, 3040-3, 08099-7, 90603-4, 33206- 9 #### [facility] ([id number]) [address] [place] [address] 19454 MCH (RBC) [Entitic mass] 29.7 pg Normal 27-34 [facility] Comment on above: Performed By: #### C BCA, CMP, 3040-3, 40796-9, 58542-1, 01912- 9 #### [facility] ([id number]) [address] [place] [address] 27129 MCHC (RBC) [Mass/Vol] 33.3 g/dL Normal 32-36 [facility] Comment on above: Performed By: #### C BCA, CMP, 3040-3, 83580-4, 00692-5, 25633- 9 #### [facility] ([id number]) [address] [place] [address] 17466 MCV (RBC) [Entitic vol] 89 fL Normal 80-100 [facility] Comment on above: Performed By: #### C BCA, CMP, 3040-3, 21437-2, 17854-5, 93165- 9 #### [facility] ([id number]) [address] [place] [address] 83555 Monocytes (Bld) [#/Vol] 1.2 10*3/uL High 0-0.9 [facility] Comment on above: Performed By: #### C BCA, CMP, 3040-3, 91997-9, 46350-5, 99928- 9 #### [facility] ([id number]) [address] [place] [address] 86624 Monocytes/100 WBC (Bld) 8.4 % Normal [facility] Comment on above: Performed By: #### C BCA, CMP, 3040-3, 61400-6, 29488-5, 12164- 9 #### [facility] ([id number]) [address] [place] [address] 63451 Neutrophils/100 WBC (Bld) 71.1 % Normal [facility] Comment on above: Performed By: #### Arnie BCA, CMP, 3040-3, 13032-4, 75122-5, 93733- 9 #### [facility] ([id number]) [address] [place] [address] 85195 Platelet mean volume (Bld) [Entitic vol] 8.0 fL Normal 7-12 [facility] Comment on above: Performed By: #### C BCA, CMP, 3040-3, 78630-9, 75838-7, 97788- 9 #### [facility] ([id number]) [address] [place] [address] 76973 Platelets (Bld) [#/Vol] 412 10*3/uL Normal 150-450 [facility] Comment on above: Performed By: #### C BCA, CMP, 3040-3, 07443-0, 05151-0, 79217- 9 #### [facility] ([id number]) [address] [place] [address] 58698 RBC COUNT 4.86 X10E12/L Normal 3.80-5.20 [facility] Comment on above: Performed By: #### C BCA, CMP, 3040-3, 72914-7, 11111-4, 37850- 9 #### [facility] ([id number]) [address] [place] [address] 37058 WBC (Bld) [#/Vol] 14.8 10*3/uL High 4.0-11.0 [facility] Comment on above: Performed By: #### C BCA, CMP, 3040-3, 13352-2, 67461-1, 99552- 9 #### [facility] ([id number]) [address] [place] [address] 35322 COMPREHENSIVE METABOLIC PANE Sumit 09-27-2023 Albumin [Mass/Vol] 4.2 g/dL Normal 3.2-5.3 [facility] Comment on above: Performed By: #### C BCA, CMP, 3040-3, 78856-2, 70518-2, 62995- 9 #### [facility] ([id number]) [address] [place] [address] 85499 ALP [Catalytic activity/Vol] 63 U/L Normal 39-130 [facility] Comment on above: Performed By: #### C BCA, CMP, 3040-3, 27447-9, 54102-4, 75450- 9 #### [facility] ([id number]) [address] [place] [address] 09987 ALT [Catalytic activity/Vol] 28 U/L Normal 0-31 [facility] Comment on above: Performed By: #### C BCA, CMP, 3040-3, 80260-7, 74164-8, 58189- 9 #### [facility] ([id number]) [address] [place] [address] 07525 Anion gap [Moles/Vol] 12 mmol/L Normal 5-15 [facility] Comment on above: Performed By: #### C BCA, CMP, 3040-3, 04737-0, 77804-9, 25471- 9 #### [facility] ([id number]) [address] [place] [address] 53652 AST [Catalytic activity/Vol] 23 U/L Normal 0-41 [facility] Comment on above: Performed By: #### C BCA, CMP, 3040-3, 93411-8, 48071-2, 99019- 9 #### [facility] ([id number]) [address] [place] [address] 72383 Bilirubin [Mass/Vol] 1.5 mg/dL High 0.3-1.2 [facility] Comment on above: Performed By: #### C BCA, CMP, 3040-3, 20307-6, 14448-3, 36996- 9 #### [facility] ([id number]) [address] [place] [address] 18764 Calcium [Mass/Vol] 8.5 mg/dL Normal 8.5-10.5 [facility] Comment on above: Performed By: #### C BCA, CMP, 3040-3, 56347-3, 13951-5, 46396- 9 #### [facility] ([id number]) [address] [place] [address] 70725 Chloride [Moles/Vol] 104 mmol/L Normal 98-109 [facility] Comment on above: Performed By: #### C BCA, CMP, 3040-3, 57721-9, 99697-8, 36045- 9 #### [facility] ([id number]) [address] [place] [address] 76390 CO2 [Moles/Vol] 21 mmol/L Low 22-32 [facility] Comment on above: Performed By: #### C BCA, CMP, 3040-3, 50088-3, 79897-0, 17850- 9 #### [facility] ([id number]) [address] [place] [address] 33559 Creatinine [Mass/Vol] 0.35 mg/dL Low 0.40-1.00 [facility] Comment on above: Result Comment: METH OD TRACEABLE TO IDMS STANDARD Performed By: #### C MAIKEL, CMP, 3040-3, 49314-2, 04343-8, 60940-3 #### [facility] ([id number]) [address] [place] [address] 73255 eGFR (CKD-EPI) NON-RACE DEPENDENT >90 Normal >59 [facility] Comment on above: Result Comment: Reported eGFR is based on the CKD-EPI 2020 equation that does not use a race coefficient. Performed By: #### C MAIKEL, CMP, 3040-3, 41638-9, 75943-9, 56613-0 #### [facility] ([id number]) [address] [place] [address] 76203 Glucose [Mass/Vol] 101 mg/dL High 65-99 [facility] Comment on above: Performed By: #### C BCA, CMP, 3040-3, 19057-1, 77299-5, 73676- 9 #### [facility] ([id number]) [address] [place] [address] 34314 Potassium [Moles/Vol] 3.3 mmol/L Low 3.5-5.0 [facility] Comment on above: Performed By: #### C BCA, CMP, 3040-3, 13217-4, 43417-9, 28918- 9 #### [facility] ([id number]) [address] [place] [address] 37119 Protein [Mass/Vol] 7.5 g/dL Normal 6.0-8.0 [facility] Comment on above: Performed By: #### C BCA, CMP, 3040-3, 83536-3, 15749-1, 60637- 9 #### [facility] ([id number]) [address] [place] [address] 81273 Sodium [Moles/Vol] 137 mmol/L Normal 134-146 [facility] Comment on above: Performed By: #### C BCA, CMP, 3040-3, 77692-2, 32077-5, 69133- 9 #### [facility] ([id number]) [address] [place] [address] 89735 Urea nitrogen [Mass/Vol] 9 mg/dL Normal 5-23 [facility] Comment on above: Performed By: #### C BCA, CMP, 3040-3, 79114-0, 80825-3, 48504- 9 #### [facility] ([id number]) [address] [place] [address] 37405 Glucose Glucometer (BldC) [M ass/Vol]on 09-27-2023 Glucose [Mass/Vol] 116 mg/dL High 65-99 [facility] MAGNESIUMon 09-27-2023 Magnesium [Mass/Vol] 2.2 mg/dL Normal 1.8-2.6 [facility] Comment on above: Performed By: #### C BCA, CMP, 3040-3, 35727-4, 24141-2, 58394- 9 #### [facility] ([id number]) [address] [place] [address] 40429 PHOSPHORUSon 09-27-2023 Phosphate [Mass/Vol] 2.3 mg/dL Low 2.4-4.9 [facility] Comment on above: Performed By: #### C BCA, CMP, 3040-3, 61128-9, 33713-1, 79265- 9 #### [facility] ([id number]) [address] [place] [address] 66486 Phosphate [Mass/Vol] 2.0 mg/dL Low 2.4-4.9 [facility] Comment on above: Performed By: #### C BCA, CMP, 3040-3, 61436-1, 33029-6, 03273- 9 #### [facility] ([id number]) [address] [place] [address] 11117 POTASSIUMon 09-27-2023 Potassium [Moles/Vol] 3.7 mmol/L Normal 3.5-5.0 [facility] Comment on above: Performed By: #### C BCA, CMP, 3040-3, 41630-3, 18420-8, 63903- 9 #### [facility] ([id number]) [address] [place] [address] 12603 CBC AND AUTO DIFFon 09-26-19 24 ABSOLUTE BASOPHIL 0.1 X10E9/L Normal 0.0-0.2 [facility] Comment on above: Performed By: #### C BCA, CMP, 3040-3, 47327-7, 91627-7, 69143- 9 #### [facility] ([id number]) [address] [place] [address] 27747 ABSOLUTE NEUTROPHIL 15.9 X10E9/L High 1.5-6.6 [facility] Comment on above: Performed By: #### C BCA, CMP, 3040-3, 92553-6, 97761-3, 05666- 9 #### [facility] ([id number]) [address] [place] [address] 80081 Basophils/100 WBC (Bld) 0.3 % Normal [facility] Comment on above: Performed By: #### C BCA, CMP, 3040-3, 19805-7, 63766-8, 40748- 9 #### [facility] ([id number]) [address] [place] [address] 77366 Eosinophils (Bld) [#/Vol] 0.0 10*3/uL Normal 0.0-0.4 [facility] Comment on above: Performed By: #### C BCA, CMP, 3040-3, 45944-0, 96497-8, 33865- 9 #### [facility] ([id number]) [address] [place] [address] 04275 Eosinophils/100 WBC (Bld) 0.0 % Normal [facility] Comment on above: Performed By: #### C BCA, CMP, 3040-3, 33902-5, 35868-2, 11428- 9 #### [facility] ([id number]) [address] [place] [address] 21793 Erythrocyte distribution width (RBC) [Ratio] 13.1 % Normal 11.5-15.0 [facility] Comment on above: Performed By: #### C BCA, CMP, 3040-3, 75619-6, 93553-0, 60699- 9 #### [facility] ([id number]) [address] [place] [address] 58396 Hematocrit (Bld) [Volume fraction] 41.0 % Normal 35-47 [facility] Comment on above: Performed By: #### C BCA, CMP, 3040-3, 14618-6, 59714-1, 64677- 9 #### [facility] ([id number]) [address] [place] [address] 85280 Hemoglobin (Bld) [Mass/Vol] 13.7 g/dL Normal 11.7-15.5 [facility] Comment on above: Performed By: #### C BCA, CMP, 3040-3, 68589-4, 64063-2, 44534- 9 #### [facility] ([id number]) [address] [place] [address] 02855 Lymphocytes (Bld) [#/Vol] 2.5 10*3/uL Normal 1.0-3.5 [facility] Comment on above: Performed By: #### C BCA, CMP, 3040-3, 14042-8, 02353-0, 98885- 9 #### [facility] ([id number]) [address] [place] [address] 46996 Lymphocytes/100 WBC (Bld) 12.7 % Normal [facility] Comment on above: Performed By: #### C BCA, CMP, 3040-3, 86939-7, 18937-6, 58109- 9 #### [facility] ([id number]) [address] [place] [address] 91371 MCH (RBC) [Entitic mass] 29.7 pg Normal 27-34 [facility] Comment on above: Performed By: #### C BCA, CMP, 3040-3, 99981-7, 14586-0, 68125- 9 #### [facility] ([id number]) [address] [place] [address] 45034 MCHC (RBC) [Mass/Vol] 33.4 g/dL Normal 32-36 [facility] Comment on above: Performed By: #### C BCA, CMP, 3040-3, 57075-1, 37284-6, 83173- 9 #### [facility] ([id number]) [address] [place] [address] 77559 MCV (RBC) [Entitic vol] 89 fL Normal 80-100 [facility] Comment on above: Performed By: #### C BCA, CMP, 3040-3, 19967-8, 27491-5, 19115- 9 #### [facility] ([id number]) [address] [place] [address] 60259 Monocytes (Bld) [#/Vol] 1.4 10*3/uL High 0-0.9 [facility] Comment on above: Performed By: #### C BCA, CMP, 3040-3, 39584-3, 68748-2, 75453- 9 #### [facility] ([id number]) [address] [place] [address] 81486 Monocytes/100 WBC (Bld) 7.2 % Normal [facility] Comment on above: Performed By: #### C BCA, CMP, 3040-3, 30268-9, 23419-1, 11547- 9 #### [facility] ([id number]) [address] [place] [address] 47732 Neutrophils/100 WBC (Bld) 79.8 % Normal [facility] Comment on above: Performed By: #### C BCA, CMP, 3040-3, 94815-6, 03335-5, 17651- 9 #### [facility] ([id number]) [address] [place] [address] 04417 Platelet mean volume (Bld) [Entitic vol] 8.1 fL Normal 7-12 [facility] Comment on above: Performed By: #### C BCA, CMP, 3040-3, 82977-4, 74549-1, 57982- 9 #### [facility] ([id number]) [address] [place] [address] 93221 Platelets (Bld) [#/Vol] 372 10*3/uL Normal 150-450 [facility] Comment on above: Performed By: #### C BCA, CMP, 3040-3, 66240-9, 31627-6, 49430- 9 #### [facility] ([id number]) [address] [place] [address] 69769 RBC COUNT 4.60 X10E12/L Normal 3.80-5.20 [facility] Comment on above: Performed By: #### C BCA, CMP, 3040-3, 27660-5, 79510-0, 06705- 9 #### [facility] ([id number]) [address] [place] [address] 86938 WBC (Bld) [#/Vol] 19.9 10*3/uL High 4.0-11.0 [facility] Comment on above: Performed By: #### C BCA, CMP, 3040-3, 34722-8, 39303-6, 36701- 9 #### [facility] ([id number]) [address] [place] [address] 36759 COMPREHENSIVE METABOLIC PANE [facility] 09-26-2023 Albumin [Mass/Vol] 4.1 g/dL Normal 3.2-5.3 [facility] Comment on above: Performed By: #### C BCA, CMP, 3040-3, 68034-4, 94931-5, 36823- 9 #### [facility] ([id number]) [address] [place] [address] 63302 ALP [Catalytic activity/Vol] 63 U/L Normal 39-130 [facility] Comment on above: Performed By: #### C BCA, CMP, 3040-3, 28658-1, 71266-1, 07432- 9 #### [facility] ([id number]) [address] [place] [address] 52766 ALT [Catalytic activity/Vol] 17 U/L Normal 0-31 [facility] Comment on above: Performed By: #### C BCA, CMP, 3040-3, 65085-3, 47123-7, 01202- 9 #### [facility] ([id number]) [address] [place] [address] 53578 Anion gap [Moles/Vol] 12 mmol/L Normal 5-15 [facility] Comment on above: Performed By: #### C BCA, CMP, 3040-3, 17417-8, 07294-3, 62206- 9 #### [facility] ([id number]) [address] [place] [address] 60476 AST [Catalytic activity/Vol] 18 U/L Normal 0-41 [facility] Comment on above: Performed By: #### C BCA, CMP, 3040-3, 62773-3, 66821-1, 71339- 9 #### [facility] ([id number]) [address] [place] [address] 50269 Bilirubin [Mass/Vol] 1.4 mg/dL High 0.3-1.2 [facility] Comment on above: Performed By: #### C BCA, CMP, 3040-3, 15159-0, 81430-4, 36384- 9 #### [facility] ([id number]) [address] [place] [address] 34424 Calcium [Mass/Vol] 8.2 mg/dL Low 8.5-10.5 [facility] Comment on above: Performed By: #### C BCA, CMP, 3040-3, 44210-0, 61761-5, 84781- 9 #### [facility] ([id number]) [address] [place] [address] 19680 Chloride [Moles/Vol] 102 mmol/L Normal 98-109 [facility] Comment on above: Performed By: #### C BCA, CMP, 3040-3, 27934-4, 97531-6, 24495- 9 #### [facility] ([id number]) [address] [place] [address] 19051 CO2 [Moles/Vol] 20 mmol/L Low 22-32 [facility] Comment on above: Performed By: #### C BCA, CMP, 3040-3, 55213-5, 94498-9, 66642- 9 #### [facility] ([id number]) [address] [place] [address] 28403 Creatinine [Mass/Vol] 0.32 mg/dL Low 0.40-1.00 [facility] Comment on above: Result Comment: METH OD TRACEABLE TO IDMS STANDARD Performed By: #### C BCA, CMP, 3040-3, 92836-6, 84075-5, 96130-4 #### [facility] ([id number]) [address] [place] [address] 30031 eGFR (CKD-EPI) NON-RACE DEPENDENT >90 Normal >59 [facility] Comment on above: Result Comment: Reported eGFR is based on the CKD-EPI 2020 equation that does not use a race coefficient. Performed By: #### C MAIKEL, CMP, 3040-3, 11384-9, 79212-2, 89104-9 #### [facility] ([id number]) [address] [place] [address] 90101 Glucose [Mass/Vol] 99 mg/dL Normal 65-99 [facility] Comment on above: Performed By: #### C MAIKEL, CMP, 3040-3, 90503-0, 41090-6, 65408- 9 #### [facility] ([id number]) [address] [place] [address] 41174 Potassium [Moles/Vol] 3.2 mmol/L Low 3.5-5.0 [facility] Comment on above: Performed By: #### C BCA, CMP, 3040-3, 33354-5, 73256-3, 16395- 9 #### [facility] ([id number]) [address] [place] [address] 13632 Protein [Mass/Vol] 7.3 g/dL Normal 6.0-8.0 [facility] Comment on above: Performed By: #### C BCA, CMP, 3040-3, 78988-3, 77931-9, 95116- 9 #### [facility] ([id number]) [address] [place] [address] 96883 Sodium [Moles/Vol] 134 mmol/L Normal 134-146 [facility] Comment on above: Performed By: #### C BCA, CMP, 3040-3, 92984-5, 87096-6, 39324- 9 #### [facility] ([id number]) [address] [place] [address] 26487 Urea nitrogen [Mass/Vol] 10 mg/dL Normal 5-23 [facility] Comment on above: Performed By: #### C BCA, CMP, 3040-3, 33402-0, 84444-4, 62313- 9 #### [facility] ([id number]) [address] [place] [address] 94870 DRUG SCREEN, URINEon 024 AMPHETAMINE/METHAMP Negative Normal NEG [facility] Comment on above: Result Comment: AMPH /METH screening cut off = 1000 ng/mL Performed By: #### C BCA, CMP, 3040-3, 28983-0, 56397-0, 13280-9 #### [facility] ([id number]) [address] [place] [address] 96850 BARBITURATES Negative Normal NEG [facility] Comment on above: Result Comment: Anitra iturates screening cut off value = 200 ng/mL Performed By: #### C BCA, CMP, 3040-3, 24878-3, 06296-0, 64397-0 #### [facility] ([id number]) [address] [place] [address] 40462 BENZODIAZEPINES Negative Normal NEG [facility] Comment on above: Result Comment: Art odiazepines screening cut off value = 200 ng/mL Performed By: #### C BCA, CMP, 3040-3, 09611-8, 57472-3, 84358-7 #### [facility] ([id number]) [address] [place] [address] 44917 CANNABINOIDS Positive Abnormal NEG [facility] Comment on above: Result Comment: Conf irmation available upon request. Cannabinoids/THC screening cut off value = 50 ng/mL Performed By: #### C BCA, CMP, 3040-3, 01396-1, 39711-7, 53293-4 #### [facility] ([id number]) [address] [place] [address] 65711 COCAINE METABOLITE Negative Normal NEG [facility] Comment on above: Result Comment: Coca ine screening cut off value = 300 ng/mL Performed By: #### C BCA, CMP, 3040-3, 56075-6, 90136-4, 56825-2 #### [facility] ([id number]) [address] [place] [address] ECSTASY Negative Normal NEG [facility] Comment on above: Result Comment: Ecst asy screening cut off value = 500 ng/mL This report is intended for use in clinical monitoring or management of patients. Performed By: #### C BCA, CMP, 3040-3, 41234-1, 75455-3, 98342-4 #### [facility] ([id number]) [address] [place], [place] [id number] METHADONE Negative Normal NEG [facility] Comment on above: Result Comment: Meth adone screening cut off value = 300 ng/mL. Performed By: #### C BCA, CMP, 3040-3, 11795-8, 83936-1, 21083-8 #### [facility] ([id number]) [address] [place] [address] 30227 OPIATES Positive Abnormal NEG [facility] Comment on above: Result Comment: Conf irmation available upon request. Opiates screening cut off value = 300 ng/mL NOTE: This test is used for the detection of codeine, hydrocodone (>1000 ng/mL), morphine and hydromorphone (>900 ng/mL) in urine. Performed By: #### C BCA, CMP, 3040-3, 73770-9, 78498-8, 08049-0 #### [facility] ([id number]) [address] [place] [address] 19088 OXYCODONE Negative Normal NEG [facility] Comment on above: Result Comment: Oxyc odone screening cut off value = 300 ng/mL NOTE: This test is used for the detection of oxycodone and oxymorphone in urine. Performed By: #### C BCA, CMP, 3040-3, 32162-5, 08438-5, 60460-9 #### [facility] ([id number]) [address] [place] [address] 05924 PHENCYCLIDINE Negative Normal NEG [facility] Comment on above: Result Comment: Phen cyclidine screening cut off value = 25 ng/mL Performed By: #### C BCA, CMP, 3040-3, 01952-3, 18776-6, 95470-1 #### [facility] ([id number]) [address] [place] [address] 42622 MAGNESIUMon 09-26-2023 Magnesium [Mass/Vol] 2.1 mg/dL Normal 1.8-2.6 [facility] Comment on above: Performed By: #### C BCA, CMP, 3040-3, 44696-9, 32290-7, 53375- 9 #### [facility] ([id number]) [address] [place] [address] 39704 PHOSPHORUSon 09-26-2023 Phosphate [Mass/Vol] 1.9 mg/dL Low 2.4-4.9 [facility] Comment on above: Performed By: #### C BCA, CMP, 3040-3, 25579-4, 09239-6, 28782- 9 #### [facility] ([id number]) [address] [place] [address] 00226 BLOOD CULTUREon 09-25-2023 Bacteria identified Aer cx Nom (Bld) SPECIMEN NOTES SUBOPTIMAL VOLUME OF BLOOD COLLECTED, RESULTS MAY BE AFFECTED. CULTURE RESULTS NO GROWTH 5 DAYS Normal [facility] Comment on above: Performed By: #### C BCA, CMP, 3040-3, 08574-2, 03789-2, 70843- 9 #### [facility] ([id number]) [address] [place] [address] 86905 Bacteria identified Aer cx Nom (Bld) CULTURE RESULTS NO GROWTH 5 DAYS Normal [facility] CBC AND AUTO DIFFon 09-25-19 ABSOLUTE BASOPHIL 0.1 X10E9/L Normal 0.0-0.2 [facility] Comment on above: Performed By: #### C MAIKEL, CMP, 3040-3, 09602-8, 10260-7, 14356- 9 #### [facility] ([id number]) [address] [place] [address] 56504 ABSOLUTE NEUTROPHIL 14.0 X10E9/L High 1.5-6.6 [facility] Comment on above: Performed By: #### C MAIKEL, CMP, 3040-3, 99388-7, 89997-6, 34076- 9 #### [facility] ([id number]) [address] [place] [address] 18331 Basophils/100 WBC (Bld) 0.5 % Normal [facility] Comment on above: Performed By: #### C BCA, CMP, 3040-3, 61780-8, 58023-2, 55565- 9 #### [facility] ([id number]) [address] [place] [address] 34942 Eosinophils (Bld) [#/Vol] 0.0 10*3/uL Normal 0.0-0.4 [facility] Comment on above: Performed By: #### C BCA, CMP, 3040-3, 69380-6, 17990-0, 20438- 9 #### [facility] ([id number]) [address] [place] [address] 03781 Eosinophils/100 WBC (Bld) 0.1 % Normal [facility] Comment on above: Performed By: #### C BCA, CMP, 3040-3, 91425-3, 38364-1, 20910- 9 #### [facility] ([id number]) [address] [place] [address] 41344 Erythrocyte distribution width (RBC) [Ratio] 13.1 % Normal 11.5-15.0 [facility] Comment on above: Performed By: #### C BCA, CMP, 3040-3, 50282-6, 25560-6, 25835- 9 #### [facility] ([id number]) [address] [place] [address] 53267 Hematocrit (Bld) [Volume fraction] 45.4 % Normal 35-47 [facility] Comment on above: Performed By: #### C BCA, CMP, 3040-3, 42689-3, 95335-8, 06628- 9 #### [facility] ([id number]) [address] [place] [address] 28204 Hemoglobin (Bld) [Mass/Vol] 15.6 g/dL High 11.7-15.5 [facility] Comment on above: Performed By: #### C BCA, CMP, 3040-3, 93734-3, 13279-2, 17898- 9 #### [facility] ([id number]) [address] [place] [address] 86761 Lymphocytes (Bld) [#/Vol] 2.1 10*3/uL Normal 1.0-3.5 [facility] Comment on above: Performed By: #### C BCA, CMP, 3040-3, 22721-1, 45977-2, 32865- 9 #### [facility] ([id number]) [address] [place] [address] 90529 Lymphocytes/100 WBC (Bld) 11.9 % Normal [facility] Comment on above: Performed By: #### C MAIKEL, CMP, 3040-3, 22859-0, 42817-7, 96058- 9 #### [facility] ([id number]) [address] [place] [address] 43314 MCH (RBC) [Entitic mass] 30.3 pg Normal 27-34 [facility] Comment on above: Performed By: #### C MAIKEL, CMP, 3040-3, 73115-1, 53777-8, 49260- 9 #### [facility] ([id number]) [address] [place] [address] 30590 MCHC (RBC) [Mass/Vol] 34.3 g/dL Normal 32-36 [facility] Comment on above: Performed By: #### C MAIKEL, CMP, 3040-3, 19121-3, 61446-7, 07837- 9 #### [facility] ([id number]) [address] [place] [address] 81599 MCV (RBC) [Entitic vol] 88 fL Normal 80-100 [facility] Comment on above: Performed By: #### Arnie KO, CMP, 3040-3, 20507-9, 74560-9, 11961- 9 #### [facility] ([id number]) [address] [place] [address] 84909 Monocytes (Bld) [#/Vol] 1.3 10*3/uL High 0-0.9 [facility] Comment on above: Performed By: #### Arnie KO, CMP, 3040-3, 02790-5, 35046-7, 19816- 9 #### [facility] ([id number]) [address] [place] [address] 93962 Monocytes/100 WBC (Bld) 7.3 % Normal [facility] Comment on above: Performed By: #### C BCA, CMP, 3040-3, 54485-5, 51326-9, 76091- 9 #### [facility] ([id number]) [address] [place] [address] 08299 Neutrophils/100 WBC (Bld) 80.2 % Normal [facility] Comment on above: Performed By: #### C BCA, CMP, 3040-3, 16471-7, 44582-6, 30035- 9 #### [facility] ([id number]) [address] [place] [address] 33471 Platelet mean volume (Bld) [Entitic vol] 7.7 fL Normal 7-12 [facility] Comment on above: Performed By: #### C BCA, CMP, 3040-3, 54009-4, 81009-2, 23670- 9 #### [facility] ([id number]) [address] [place] [address] 96850 Platelets (Bld) [#/Vol] 440 10*3/uL Normal 150-450 [facility] Comment on above: Performed By: #### C BCA, CMP, 3040-3, 69083-3, 02039-1, 45661- 9 #### [facility] ([id number]) [address] [place] [address] 42478 RBC COUNT 5.14 X10E12/L Normal 3.80-5.20 [facility] Comment on above: Performed By: #### C BCA, CMP, 3040-3, 30616-3, 46076-9, 65322- 9 #### [facility] ([id number]) [address] [place] [address] 42263 WBC (Bld) [#/Vol] 17.4 10*3/uL High 4.0-11.0 [facility] Comment on above: Performed By: #### C BCA, CMP, 3040-3, 39701-1, 36724-1, 47384- 9 #### [facility] ([id number]) [address] [place] [address] 44367 COMPREHENSIVE METABOLIC PANE Sumit 09-25-2023 Albumin [Mass/Vol] 4.8 g/dL Normal 3.2-5.3 [facility] Comment on above: Performed By: #### C BCA, CMP, 3040-3, 31269-4, 26752-1, 33688- 9 #### [facility] ([id number]) [address] [place] [address] 91104 ALP [Catalytic activity/Vol] 80 U/L Normal 39-130 [facility] Comment on above: Performed By: #### C BCA, CMP, 3040-3, 41769-3, 68618-8, 74083- 9 #### [facility] ([id number]) [address] [place] [address] 13453 ALT [Catalytic activity/Vol] 23 U/L Normal 0-31 [facility] Comment on above: Performed By: #### C BCA, CMP, 3040-3, 25318-6, 87497-8, 74148- 9 #### [facility] ([id number]) [address] [place] [address] 24672 Anion gap [Moles/Vol] 15 mmol/L Normal 5-15 [facility] Comment on above: Performed By: #### C BCA, CMP, 3040-3, 06616-3, 31390-2, 21127- 9 #### [facility] ([id number]) [address] [place] [address] 44604 AST [Catalytic activity/Vol] 22 U/L Normal 0-41 [facility] Comment on above: Performed By: #### C BCA, CMP, 3040-3, 72571-9, 00858-9, 22409- 9 #### [facility] ([id number]) [address] [place] [address] 25740 Bilirubin [Mass/Vol] 1.0 mg/dL Normal 0.3-1.2 [facility] Comment on above: Performed By: #### C BCA, CMP, 3040-3, 23900-7, 74556-0, 81825- 9 #### [facility] ([id number]) [address] [place] [address] 29509 Calcium [Mass/Vol] 9.0 mg/dL Normal 8.5-10.5 [facility] Comment on above: Performed By: #### C BCA, CMP, 3040-3, 14859-8, 78153-7, 55697- 9 #### [facility] ([id number]) [address] [place] [address] 53378 Chloride [Moles/Vol] 92 mmol/L Low 98-109 [facility] Comment on above: Performed By: #### C BCA, CMP, 3040-3, 25439-9, 54555-1, 66676- 9 #### [facility] ([id number]) [address] [place] [address] 00115 CO2 [Moles/Vol] 23 mmol/L Normal 22-32 [facility] Comment on above: Performed By: #### C BCA, CMP, 3040-3, 28966-5, 26864-4, 58024- 9 #### [facility] ([id number]) [address] [place] [address] 02592 Creatinine [Mass/Vol] 0.45 mg/dL Normal 0.40-1.00 [facility] Comment on above: Result Comment: METH OD TRACEABLE TO IDMS STANDARD Performed By: #### C BCA, CMP, 3040-3, 16061-4, 41892-2, 25651-5 #### [facility] ([id number]) [address] [place] [address] 07222 eGFR (CKD-EPI) NON-RACE DEPENDENT >90 Normal >59 [facility] Comment on above: Result Comment: Reported eGFR is based on the CKD-EPI 2020 equation that does not use a race coefficient. Performed By: #### C MAIKEL, CMP, 3040-3, 20857-7, 62182-9, 64454-8 #### [facility] ([id number]) [address] [place] [address] 20516 Glucose [Mass/Vol] 151 mg/dL High 65-99 [facility] Comment on above: Performed By: #### C MAIKEL, MICAH, 3040-3, 62703-2, 61150-7, 86933- 9 #### [facility] ([id number]) [address] [place] [address] 17046 Potassium [Moles/Vol] 2.6 mmol/L Critically low 3.5-5.0 [facility] Comment on above: Performed By: #### C MAIKEL, CMP, 3040-3, 89546-2, 09532-0, 61093- 9 #### [facility] ([id number]) [address] [place] [address] 49200 Protein [Mass/Vol] 8.7 g/dL High 6.0-8.0 [facility] Comment on above: Performed By: #### C MAIKEL, CMP, 3040-3, 03943-1, 01316-4, 73363- 9 #### [facility] ([id number]) [address] [place] [address] 43497 Sodium [Moles/Vol] 130 mmol/L Low 134-146 [facility] Comment on above: Performed By: #### C MAIKEL, CMP, 3040-3, 33863-5, 16913-5, 20531- 9 #### [facility] ([id number]) [address] [place] [address] 11047 Urea nitrogen [Mass/Vol] 17 mg/dL Normal 5-23 [facility] Comment on above: Performed By: #### C BCA, CMP, 3040-3, 41844-2, 38984-7, 91246- 9 #### [facility] ([id number]) [address] [place] [address] CT ABDOMEN AND PELVIS WO CON Ton 09-25-2023 CT ABDOMEN AND PELVIS WO CONT CT ABDOMEN AND PELVIS WO CONT CLINICAL INFORMATION: Abdominal pain, acute, nonlocalized. TECHNIQUE: CT Abdomen and Pelvis without intravenous contrast. All CT scans at this facility use dose modulation, iterative reconstruction, and/or weight based dosing when appropriate to reduce radiation dose to as low as reasonably achievable. COMPARISON: Comparison is made with 05/02/2023. FINDINGS: Noncontrast CT of the abdomen and pelvis demonstrates that the lung bases, liver, cholecystectomy clips, spleen, pancreas, adrenal glands, and kidneys are unremarkable. There is no renal calculus, hydronephrosis, or obvious ureteral dilatation. There is no bowel dilatation. The appendix appears unremarkable. There is no free intraperitoneal air, free intraperitoneal fluid, or obvious adenopathy. Some fluid attenuation within the uterus may be fluid within a bicornuate uterus. There is no obvious abscess or inflammatory change within the soft tissues. There is no obvious hernia or bony abnormality. Diverticuli are noted, especially within the sigmoid colon. IMPRESSION: * There is no obvious acute abdominal abnormality or significant change since 05/02/2023. 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 If there is a high index of clinical suspicion of pelvic pathology, ultrasound may be useful. Finalized by Ash Ramsay MD on 09/25/2023 6:01 PM Normal [facility] DRUG SCREEN, URINEon 024 AMPHETAMINE/METHAMP Negative Normal NEG [facility] Comment on above: Result Comment: AMPH /METH screening cut off = 1000 ng/mL Performed By: #### C BCA, CMP, 3040-3, 27200-6, 43092-1, 90893-1 #### [facility] ([id number]) [address] [place] [address] 78279 BARBITURATES Negative Normal NEG [facility] Comment on above: Result Comment: Anitra iturates screening cut off value = 200 ng/mL Performed By: #### C BCA, CMP, 3040-3, 69475-1, 46121-5, 48700-6 #### [facility] ([id number]) [address] [place] [address] 29019 BENZODIAZEPINES Negative Normal NEG [facility] Comment on above: Result Comment: Art odiazepines screening cut off value = 200 ng/mL Performed By: #### C BCA, CMP, 3040-3, 96313-3, 57428-7, 39727-0 #### [facility] ([id number]) [address] [place] [address] 09332 CANNABINOIDS Positive Abnormal NEG [facility] Comment on above: Result Comment: Conf irmation available upon request. Cannabinoids/THC screening cut off value = 50 ng/mL Performed By: #### C BCA, CMP, 3040-3, 15047-4, 82148-5, 60694-6 #### [facility] ([id number]) [address] [place] [address] 96121 COCAINE METABOLITE Negative Normal NEG [facility] Comment on above: Result Comment: Coca ine screening cut off value = 300 ng/mL Performed By: #### C BCA, CMP, 3040-3, 76801-0, 71224-9, 46695-9 #### [facility] ([id number]) [address] [place] [address] 81895 ECSTASY Negative Normal NEG [facility] Comment on above: Result Comment: Ecst asy screening cut off value = 500 ng/mL This report is intended for use in clinical monitoring or management of patients. Performed By: #### C BCA, CMP, 3040-3, 22944-2, 93355-8, 02947-7 #### [facility] ([id number]) [address] [place] [address] 07067 METHADONE Negative Normal NEG [facility] Comment on above: Result Comment: Meth adone screening cut off value = 300 ng/mL. Performed By: #### C BCA, CMP, 3040-3, 92023-5, 21243-4, 83229-6 #### [facility] ([id number]) [address] [place] [address] 23053 OPIATES Negative Normal NEG [facility] Comment on above: Result Comment: Opia gricelda screening cut off value = 300 ng/mL NOTE: This test is used for the detection of codeine, hydrocodone (>1000 ng/mL), morphine and hydromorphone (>900 ng/mL) in urine. Performed By: #### C MAIKEL, CMP, 3040-3, 65795-4, 56563-6, 83812-4 #### [facility] ([id number]) [address] [place] [address] 74148 OXYCODONE Negative Normal NEG [facility] Comment on above: Result Comment: Oxyc odone screening cut off value = 300 ng/mL NOTE: This test is used for the detection of oxycodone and oxymorphone in urine. Performed By: #### C BCA, CMP, 3040-3, 08882-2, 54598-1, 39630-5 #### [facility] ([id number]) [address] [place] [address] 00181 PHENCYCLIDINE Negative Normal NEG [facility] Comment on above: Result Comment: Phen cyclidine screening cut off value = 25 ng/mL Performed By: #### C BCA, CMP, 3040-3, 62710-5, 04373-3, 26225-8 #### [facility] ([id number]) [address] [place] [address] 48957 LIPASEon 09-25-2023 Lipase [Catalytic activity/Vol] 22 U/L Normal 17-40 [facility] Comment on above: Performed By: #### C MAIKEL, CMP, 3040-3, 59212-1, 31583-7, 15126- 9 #### [facility] ([id number]) [address] [place] [address] 62998 Lactate (P cheryle) [Moles/Vol]o n 09-25-2023 LACTATE W/REFLEX 1.2 mmol/L Normal 0.4-2.0 [facility] Comment on above: Result Comment: Result did not trigger repeat Lactate, re-order if needed. Performed By: #### C MAIKEL, CMP, 3040-3, 27152-9, 60988-6, 51929-9 #### [facility] ([id number]) [address] [place] [address] 30000 PHOSPHORUSon 09-25-2023 Phosphate [Mass/Vol] 2.0 mg/dL Low 2.4-4.9 [facility] Comment on above: Performed By: #### C MAIKEL, CMP, 3040-3, 26025-1, 42743-7, 51290- 9 #### [facility] ([id number]) [address] [place] [address] 28334 POTASSIUMon 09-25-2023 Potassium [Moles/Vol] 3.1 mmol/L Low 3.5-5.0 [facility] Comment on above: Performed By: #### C MAIKEL, CMP, 3040-3, 08051-2, 50907-6, 11449- 9 #### [facility] ([id number]) [address] [place] [address] 58159 Potassium [Moles/Vol] 2.8 mmol/L Low 3.5-5.0 [facility] Comment on above: Performed By: #### C MAIKEL, CMP, 3040-3, 84549-6, 60940-2, 29646- 9 #### [facility] ([id number]) [address] [place] [address] 31302 Procalcitonin IA [Mass/Vol]o n 09-25-2023 PROCALCITONIN <0.05 Normal <0.05 [facility] Comment on above: Result Comment: NOTE <0.50 ng/mL - Low risk of severe sepsis and/or septic shock. <2.00 ng/mL - Recommend retesting within 6-24 hours. >2.00 ng/mL - High risk of sepsis and/or septic shock. Performed By: #### C BCA, CMP, 3040-3, 67247-5, 34071-7, 04777-6 #### [facility] ([id number]) [address] [place] [address] 65656 URINALYSISon 09-25-2023 Bilirubin Ql (U) Negative Normal NEG [facility] Comment on above: Performed By: #### C BCA, CMP, 3040-3, 63719-1, 57141-2, 09798- 9 #### [facility] ([id number]) [address] [place] [address] 02192 BLOOD/HGB MODERATE Abnormal NEG [facility] Comment on above: Performed By: #### C BCA, CMP, 3040-3, 87122-5, 49748-2, 15018- 9 #### [facility] ([id number]) [address] [place] [address] 43100 Color (U) YELLOW Normal YELLOW [facility] Comment on above: Performed By: #### C BCA, CMP, 3040-3, 35178-9, 46551-1, 48875- 9 #### [facility] ([id number]) [address] [place] [address] 29803 Glucose Ql (U) Negative Normal NEG [facility] Comment on above: Performed By: #### C BCA, CMP, 3040-3, 18931-9, 04880-0, 23400- 9 #### [facility] ([id number]) [address] [place] [address] 85250 Ketones Ql (U) >80 Abnormal NEG [facility] Comment on above: Performed By: #### C BCA, CMP, 3040-3, 02108-9, 59951-6, 71898- 9 #### [facility] ([id number]) [address] [place] [address] 70036 Leukocyte esterase Test strip Ql (U) Negative Normal NEG [facility] Comment on above: Performed By: #### C BCA, CMP, 3040-3, 82828-3, 44294-5, 81787- 9 #### [facility] ([id number]) [address] [place] [address] 02506 Nitrite Ql (U) Negative Normal NEG [facility] Comment on above: Performed By: #### C BCA, CMP, 3040-3, 34638-5, 32242-3, 62801- 9 #### [facility] ([id number]) [address] [place] [address] 49093 pH (U) 6.5 [pH] Normal 5.0-8.5 [facility] Comment on above: Performed By: #### C BCA, CMP, 3040-3, 97060-8, 60465-1, 53856- 9 #### [facility] ([id number]) [address] [place] [address] 46095 Protein Ql (U) Negative Normal [facility] Comment on above: Performed By: #### C BCA, CMP, 3040-3, 03333-4, 45506-5, 44882- 9 #### [facility] ([id number]) [address] [place] [address] 85248 R.B.CELLS 5 to 10 Normal 0-5 [facility] Comment on above: Performed By: #### C BCA, CMP, 3040-3, 95495-5, 21399-1, 66302- 9 #### [facility] ([id number]) [address] [place] [address] 18164 Specific gravity (U) [Rel density] 1.010 Normal 1.003-1.035 [facility] Comment on above: Performed By: #### C MAIKEL, [facility], 3040-3, 04030-2, 25082-7, 67933- 9 #### [facility] ([id number]) [address] [place] [address] 31096 SQUAMOUS EPITHELIUM 2 to 5 Normal 0-5 [facility] Comment on above: Performed By: #### C MAIKEL, [facility], 3040-3, 80402-3, 90383-7, 48532- 9 #### [facility] ([id number]) [address] [place] [address] 12278 TURBIDITY CLEAR Normal CLEAR [facility] Comment on above: Performed By: #### Arnie KO, [facility], 3040-3, 90113-4, 54351-0, 13362- 9 #### [facility] ([id number]) [address] [place] [address] 56793 Urobilinogen Qn (U) 0.2 {Kingsley'U}/dL Normal <1.1 [facility] Comment on above: Performed By: #### Arnie KO, [facility], 3040-3, 48387-2, 55575-1, 26905- 9 #### [facility] ([id number]) [address] [place] [address] 19846 W.B.CELLS 0 /hpf Normal 0-5 [facility] Comment on above: Performed By: #### Arnie KO, MICAH, 3040-3, 64061-7, 28455-5, 16743- 9 #### [facility] ([id number]) [address] [place] [address] 99198 URINE CULTUREon 09-25-2023 Bacteria identified Cx Nom (U) CULTURE RESULTS 50-100,000 ORGANISMS/ML NORMAL UROGENITAL MINOR Normal [facility] Comment on above: Performed By: #### C BCA, CMP, 3040-3, 13039-0, 33508-0, 40505- 9 #### [facility] ([id number]) [address] [place] [address] 71920 CBC AND AUTO DIFFon 07-26-19 ABSOLUTE BASOPHIL 0.1 X10E9/L Normal 0.0-0.2 [facility] Comment on above: Performed By: #### C BCA, CMP, 3040-3, 13018-6, 06402-9, 88572- 9 #### [facility] ([id number]) [address] [place] [address] 34771 ABSOLUTE NEUTROPHIL 9.8 X10E9/L High 1.5-6.6 [facility] Comment on above: Performed By: #### C BCA, CMP, 3040-3, 05552-7, 92171-8, 59536- 9 #### [facility] ([id number]) [address] [place] [address] 22734 Basophils/100 WBC (Bld) 0.6 % Normal [facility] Comment on above: Performed By: #### C BCA, CMP, 3040-3, 92745-8, 99917-5, 00248- 9 #### [facility] ([id number]) [address] [place] [address] 48044 Eosinophils (Bld) [#/Vol] 0.0 10*3/uL Normal 0.0-0.4 [facility] Comment on above: Performed By: #### C BCA, CMP, 3040-3, 33560-2, 75857-7, 63903- 9 #### [facility] ([id number]) [address] [place] [address] 80592 Eosinophils/100 WBC (Bld) 0.1 % Normal [facility] Comment on above: Performed By: #### C BCA, CMP, 3040-3, 01949-3, 73036-3, 56054- 9 #### [facility] ([id number]) [address] [place] [address] 17434 Erythrocyte distribution width (RBC) [Ratio] 13.4 % Normal 11.5-15.0 [facility] Comment on above: Performed By: #### C BCA, CMP, 3040-3, 77096-5, 46738-0, 87071- 9 #### [facility] ([id number]) [address] [place] [address] 69315 Hematocrit (Bld) [Volume fraction] 44.6 % Normal 35-47 [facility] Comment on above: Performed By: #### C BCA, CMP, 3040-3, 69986-4, 02832-1, 06997- 9 #### [facility] ([id number]) [address] [place] [address] 02825 Hemoglobin (Bld) [Mass/Vol] 15.0 g/dL Normal 11.7-15.5 [facility] Comment on above: Performed By: #### C BCA, CMP, 3040-3, 66076-4, 22228-4, 34752- 9 #### [facility] ([id number]) [address] [place] [address] 34773 Lymphocytes (Bld) [#/Vol] 1.4 10*3/uL Normal 1.0-3.5 [facility] Comment on above: Performed By: #### C BCA, CMP, 3040-3, 97830-7, 27699-9, 02532- 9 #### [facility] ([id number]) [address] [place] [address] 66716 Lymphocytes/100 WBC (Bld) 11.9 % Normal [facility] Comment on above: Performed By: #### C BCA, CMP, 3040-3, 70208-6, 42050-8, 31007- 9 #### [facility] ([id number]) [address] [place] [address] 94506 MCH (RBC) [Entitic mass] 30.2 pg Normal 27-34 [facility] Comment on above: Performed By: #### C BCA, CMP, 3040-3, 16065-7, 91459-5, 91139- 9 #### [facility] ([id number]) [address] [place] [address] 78096 MCHC (RBC) [Mass/Vol] 33.7 g/dL Normal 32-36 [facility] Comment on above: Performed By: #### C BCA, CMP, 3040-3, 87941-2, 13682-9, 31757- 9 #### [facility] ([id number]) [address] [place] [address] 92399 MCV (RBC) [Entitic vol] 90 fL Normal 80-100 [facility] Comment on above: Performed By: #### C BCA, CMP, 3040-3, 11975-7, 77762-4, 31807- 9 #### [facility] ([id number]) [address] [place] [address] 18066 Monocytes (Bld) [#/Vol] 0.3 10*3/uL Normal 0-0.9 [facility] Comment on above: Performed By: #### C BCA, CMP, 3040-3, 12957-0, 30702-2, 56686- 9 #### [facility] ([id number]) [address] [place] [address] 15487 Monocytes/100 WBC (Bld) 2.3 % Normal [facility] Comment on above: Performed By: #### C BCA, CMP, 3040-3, 45428-3, 38363-4, 32174- 9 #### [facility] ([id number]) [address] [place] [address] 34104 Neutrophils/100 WBC (Bld) 85.1 % Normal [facility] Comment on above: Performed By: #### C BCA, CMP, 3040-3, 19913-9, 26288-3, 42204- 9 #### [facility] ([id number]) [address] [place] [address] 80258 Platelet mean volume (Bld) [Entitic vol] 7.4 fL Normal 7-12 [facility] Comment on above: Performed By: #### C BCA, CMP, 3040-3, 84498-5, 34815-0, 62874- 9 #### [facility] ([id number]) [address] [place] [address] 48684 Platelets (Bld) [#/Vol] 399 10*3/uL Normal 150-450 [facility] Comment on above: Performed By: #### C BCA, CMP, 3040-3, 75651-7, 19172-3, 96318- 9 #### [facility] ([id number]) [address] [place] [address] 86205 RBC COUNT 4.97 X10E12/L Normal 3.80-5.20 [facility] Comment on above: Performed By: #### C BCA, CMP, 3040-3, 17974-3, 07836-8, 29616- 9 #### [facility] ([id number]) [address] [place] [address] 77118 WBC (Bld) [#/Vol] 11.5 10*3/uL High 4.0-11.0 [facility] Comment on above: Performed By: #### C BCA, CMP, 3040-3, 60048-8, 33365-6, 73941- 9 #### [facility] ([id number]) [address] [place] [address] 41443 COMPREHENSIVE METABOLIC PANE Sumit 07-26-2023 Albumin [Mass/Vol] 4.1 g/dL Normal 3.2-5.3 [facility] Comment on above: Performed By: #### C BCA, CMP, 3040-3, 73794-7, 42234-2, 45402- 9 #### [facility] ([id number]) [address] [place] [address] 55516 ALP [Catalytic activity/Vol] 62 U/L Normal 39-130 [facility] Comment on above: Performed By: #### C BCA, CMP, 3040-3, 84654-5, 68076-6, 02515- 9 #### [facility] ([id number]) [address] [place] [address] 91167 ALT [Catalytic activity/Vol] 12 U/L Normal 0-31 [facility] Comment on above: Performed By: #### C BCA, CMP, 3040-3, 90655-4, 57808-0, 82399- 9 #### [facility] ([id number]) [address] [place] [address] 89535 Anion gap [Moles/Vol] 10 mmol/L Normal 5-15 [facility] Comment on above: Performed By: #### C BCA, CMP, 3040-3, 15609-2, 00480-6, 00556- 9 #### [facility] ([id number]) [address] [place] [address] 86348 AST [Catalytic activity/Vol] 16 U/L Normal 0-41 [facility] Comment on above: Performed By: #### C BCA, CMP, 3040-3, 26320-3, 72634-7, 87919- 9 #### [facility] ([id number]) [address] [place] [address] 79831 Bilirubin [Mass/Vol] 0.9 mg/dL Normal 0.3-1.2 [facility] Comment on above: Performed By: #### C BCA, CMP, 3040-3, 74954-6, 17982-5, 48250- 9 #### [facility] ([id number]) [address] [place] [address] 05450 Calcium [Mass/Vol] 8.1 mg/dL Low 8.5-10.5 [facility] Comment on above: Performed By: #### C BCA, CMP, 3040-3, 94922-1, 11672-4, 96559- 9 #### [facility] ([id number]) [address] [place] [address] 07896 Chloride [Moles/Vol] 101 mmol/L Normal 98-109 [facility] Comment on above: Performed By: #### C BCA, CMP, 3040-3, 78548-9, 12961-6, 53451- 9 #### [facility] ([id number]) [address] [place] [address] 84282 CO2 [Moles/Vol] 20 mmol/L Low 22-32 [facility] Comment on above: Performed By: #### C BCA, CMP, 3040-3, 65448-5, 14811-5, 86922- 9 #### [facility] ([id number]) [address] [place] [address] 02730 Creatinine [Mass/Vol] 0.42 mg/dL Normal 0.40-1.00 [facility] Comment on above: Result Comment: METH OD TRACEABLE TO IDMS STANDARD Performed By: #### C BCA, CMP, 3040-3, 43495-3, 92696-8, 20227-0 #### [facility] ([id number]) [address] [place] [address] 82958 eGFR (CKD-EPI) NON-RACE DEPENDENT >90 Normal >59 [facility] Comment on above: Result Comment: Reported eGFR is based on the CKD-EPI 2020 equation that does not use a race coefficient. Performed By: #### C BCA, CMP, 3040-3, 49168-4, 52466-5, 57103-3 #### [facility] ([id number]) [address] [place] [address] 61902 Glucose [Mass/Vol] 140 mg/dL High 65-99 [facility] Comment on above: Performed By: #### C BCA, CMP, 3040-3, 78054-5, 69183-7, 68606- 9 #### [facility] ([id number]) [address] [place] [address] 43162 Potassium [Moles/Vol] 3.2 mmol/L Low 3.5-5.0 [facility] Comment on above: Performed By: #### C MAIKEL, CMP, 3040-3, 35043-8, 79244-7, 50590- 9 #### [facility] ([id number]) [address] [place] [address] 41769 Protein [Mass/Vol] 7.3 g/dL Normal 6.0-8.0 [facility] Comment on above: Performed By: #### C BCA, CMP, 3040-3, 86299-0, 21398-8, 53500- 9 #### [facility] ([id number]) [address] [place] [address] 15964 Sodium [Moles/Vol] 131 mmol/L Low 134-146 [facility] Comment on above: Performed By: #### C BCA, CMP, 3040-3, 46750-8, 85816-0, 66631- 9 #### [facility] ([id number]) [address] [place] [address] 79653 Urea nitrogen [Mass/Vol] 12 mg/dL Normal 5-23 [facility] Comment on above: Performed By: #### C BCA, CMP, 3040-3, 91133-3, 38624-9, 79537- 9 #### [facility] ([id number]) [address] [place] [address] 52120 LIPASEon 07-26-2023 Lipase [Catalytic activity/Vol] 19 U/L Normal 17-40 [facility] Comment on above: Performed By: #### C MAIKEL, CMP, 3040-3, 94081-7, 86901-5, 10798- 9 #### [facility] ([id number]) [address] [place] [address] 83352 Lactate (P cheryle) [Moles/Vol]o n 07-26-2023 LACTATE W/REFLEX 1.3 mmol/L Normal 0.4-2.0 [facility] Comment on above: Result Comment: Result did not trigger repeat Lactate, re-order if needed. Performed By: #### C BCA, CMP, 3040-3, 62122-6, 65158-7, 67038-3 #### [facility] ([id number]) [address] [place] [address] 70697 URN MACROSCOPIC NURon 2023 BILIRUBIN TACO Negative Normal NEG [facility] Comment on above: Performed By: #### C MAIKEL, CMP, 3040-3, 60726-6, 75515-9, 26970- 9 #### [facility] ([id number]) [address] [place] [address] 95349 BLOOD/HGB TACO MODERATE Abnormal NEG [facility] Comment on above: Performed By: #### C BCA, CMP, 3040-3, 68254-4, 32839-1, 38482- 9 #### [facility] ([id number]) [address] [place] [address] 07516 GLUCOSE TACO Negative Normal NEG [facility] Comment on above: Performed By: #### C BCA, CMP, 3040-3, 00410-9, 24085-1, 73883- 9 #### [facility] ([id number]) [address] [place] [address] 94390 KETONES TACO >=160 Abnormal NEG [facility] Comment on above: Performed By: #### C BCA, CMP, 3040-3, 81290-1, 70226-6, 64162- 9 #### [facility] ([id number]) [address] [place] [address] 30670 LEUKOCYTE ESTERASE TACO Negative Normal NEG [facility] Comment on above: Performed By: #### C BCA, CMP, 3040-3, 95286-5, 41603-8, 02816- 9 #### [facility] ([id number]) [address] [place] [address] 94127 NITRITE TACO Negative Normal NEG [facility] Comment on above: Performed By: #### C BCA, CMP, 3040-3, 95711-2, 42454-2, 92889- 9 #### [facility] ([id number]) [address] [place] [address] 38107 PH TACO 6.0 Normal 5.0-8.5 [facility] Comment on above: Performed By: #### C BCA, CMP, 3040-3, 84559-9, 45443-4, 72847- 9 #### [facility] ([id number]) [address] [place] [address] 40434 PROTEIN TACO 30 mg/dL Abnormal NEG [facility] Comment on above: Performed By: #### C BCA, CMP, 3040-3, 51064-0, 02672-6, 17466- 9 #### [facility] ([id number]) [address] [place] [address] 11646 SPECIFIC GRAVITY TACO >=1.030 Normal 1.003-1.035 [facility] Comment on above: Performed By: #### C BCA, CMP, 3040-3, 97792-7, 37079-3, 24246- 9 #### [facility] ([id number]) [address] [place] [address] 63401 UROBILINOGEN TACO 0.2 eu/dL Normal <1.1 [facility] Comment on above: Performed By: #### C BCA, CMP, 3040-3, 57637-7, 20662-7, 13390- 9 #### [facility] ([id number]) [address] [place] [address] 82938 CBC AND AUTO DIFFon 05-02-19 ABSOLUTE BASOPHIL 0.0 X10E9/L Normal 0.0-0.2 [facility] Comment on above: Performed By: #### C BCA, CMP, 3040-3, 31402-6, 82503-1, 83311- 9 #### [facility] ([id number]) [address] [place] [address] 32614 ABSOLUTE NEUTROPHIL 11.9 X10E9/L High 1.5-6.6 [facility] Comment on above: Performed By: #### C BCA, CMP, 3040-3, 13449-6, 61276-8, 04081- 9 #### [facility] ([id number]) [address] [place] [address] 56146 Basophils/100 WBC (Bld) 0.2 % Normal [facility] Comment on above: Performed By: #### C BCA, CMP, 3040-3, 32635-7, 27503-7, 81627- 9 #### [facility] ([id number]) [address] [place] [address] 68516 Eosinophils (Bld) [#/Vol] 0.0 10*3/uL Normal 0.0-0.4 [facility] Comment on above: Performed By: #### C BCA, CMP, 3040-3, 28343-8, 11389-4, 30347- 9 #### [facility] ([id number]) [address] [place] [address] 86563 Eosinophils/100 WBC (Bld) 0.3 % Normal [facility] Comment on above: Performed By: #### C MAIKEL, CMP, 3040-3, 07692-3, 70383-4, 55625- 9 #### [facility] ([id number]) [address] [place] [address] 17365 Erythrocyte distribution width (RBC) [Ratio] 13.1 % Normal 11.5-15.0 [facility] Comment on above: Performed By: #### Arnie KO, [facility], 3040-3, 06622-3, 44217-5, 77248- 9 #### [facility] ([id number]) [address] [place] [address] 45821 Hematocrit (Bld) [Volume fraction] 44.1 % Normal 35-47 [facility] Comment on above: Performed By: #### C MAIKEL, [facility], 3040-3, 71684-8, 40958-0, 15419- 9 #### [facility] ([id number]) [address] [place] [address] 96434 Hemoglobin (Bld) [Mass/Vol] 15.0 g/dL Normal 11.7-15.5 [facility] Comment on above: Performed By: #### Arnie KO, CMP, 3040-3, 71359-1, 87148-0, 60274- 9 #### [facility] ([id number]) [address] [place] [address] 60023 Lymphocytes (Bld) [#/Vol] 1.4 10*3/uL Normal 1.0-3.5 [facility] Comment on above: Performed By: #### C MAIKEL, CMP, 3040-3, 42245-7, 55285-2, 60106- 9 #### [facility] ([id number]) [address] [place] [address] 47121 Lymphocytes/100 WBC (Bld) 9.8 % Normal [facility] Comment on above: Performed By: #### C BCA, CMP, 3040-3, 26204-1, 73048-1, 63048- 9 #### [facility] ([id number]) [address] [place] [address] 00088 MCH (RBC) [Entitic mass] 30.3 pg Normal 27-34 [facility] Comment on above: Performed By: #### C BCA, CMP, 3040-3, 92707-8, 12901-2, 91847- 9 #### [facility] ([id number]) [address] [place] [address] 16862 MCHC (RBC) [Mass/Vol] 34.0 g/dL Normal 32-36 [facility] Comment on above: Performed By: #### C BCA, CMP, 3040-3, 94788-7, 56101-5, 13698- 9 #### [facility] ([id number]) [address] [place] [address] 05305 MCV (RBC) [Entitic vol] 89 fL Normal 80-100 [facility] Comment on above: Performed By: #### C BCA, CMP, 3040-3, 07258-9, 99026-1, 49754- 9 #### [facility] ([id number]) [address] [place] [address] 18492 Monocytes (Bld) [#/Vol] 0.8 10*3/uL Normal 0-0.9 [facility] Comment on above: Performed By: #### C BCA, CMP, 3040-3, 46683-8, 21743-2, 01386- 9 #### [facility] ([id number]) [address] [place] [address] 29128 Monocytes/100 WBC (Bld) 5.4 % Normal [facility] Comment on above: Performed By: #### C BCA, CMP, 3040-3, 07124-9, 94788-1, 20561- 9 #### [facility] ([id number]) [address] [place] [address] 85922 Neutrophils/100 WBC (Bld) 84.3 % Normal [facility] Comment on above: Performed By: #### C BCA, CMP, 3040-3, 18795-8, 15466-9, 38711- 9 #### [facility] ([id number]) [address] [place] [address] 68608 Platelet mean volume (Bld) [Entitic vol] 6.9 fL Low 7-12 [facility] Comment on above: Performed By: #### C BCA, CMP, 3040-3, 39275-3, 04709-9, 88668- 9 #### [facility] ([id number]) [address] [place] [address] 05575 Platelets (Bld) [#/Vol] 433 10*3/uL Normal 150-450 [facility] Comment on above: Performed By: #### C BCA, CMP, 3040-3, 45316-7, 55666-7, 95817- 9 #### [facility] ([id number]) [address] [place] [address] 91281 RBC COUNT 4.95 X10E12/L Normal 3.80-5.20 [facility] Comment on above: Performed By: #### C BCA, CMP, 3040-3, 38158-7, 12766-8, 02377- 9 #### [facility] ([id number]) [address] [place] [address] 56832 WBC (Bld) [#/Vol] 14.2 10*3/uL High 4.0-11.0 [facility] Comment on above: Performed By: #### C BCA, CMP, 3040-3, 17650-9, 00647-3, 61526- 9 #### [facility] ([id number]) [address] [place] [address] 93608 COMPREHENSIVE METABOLIC PANE Sumit 05-02-2023 Albumin [Mass/Vol] 4.5 g/dL Normal 3.2-5.3 [facility] Comment on above: Performed By: #### C BCA, CMP, 3040-3, 25251-2, 83685-4, 39340- 9 #### [facility] ([id number]) [address] [place] [address] 92630 ALP [Catalytic activity/Vol] 61 U/L Normal 39-130 [facility] Comment on above: Performed By: #### C BCA, CMP, 3040-3, 94292-8, 56770-3, 86958- 9 #### [facility] ([id number]) [address] [place] [address] 99959 ALT [Catalytic activity/Vol] 17 U/L Normal 0-31 [facility] Comment on above: Performed By: #### C BCA, CMP, 3040-3, 86086-0, 77165-2, 93629- 9 #### [facility] ([id number]) [address] [place] [address] 27089 Anion gap [Moles/Vol] 12 mmol/L Normal 5-15 [facility] Comment on above: Performed By: #### C BCA, CMP, 3040-3, 14283-6, 03750-9, 22751- 9 #### [facility] ([id number]) [address] [place] [address] 34015 AST [Catalytic activity/Vol] 21 U/L Normal 0-41 [facility] Comment on above: Performed By: #### C BCA, CMP, 3040-3, 13762-2, 53363-0, 88850- 9 #### [facility] ([id number]) [address] [place] [address], [place] [address] Bilirubin [Mass/Vol] 0.9 mg/dL Normal 0.3-1.2 [facility] Comment on above: Performed By: #### C BCA, CMP, 3040-3, 47361-9, 13127-6, 34509- 9 #### [facility] ([id number]) [address] [place] [address] 74157 Calcium [Mass/Vol] 8.9 mg/dL Normal 8.5-10.5 [facility] Comment on above: Performed By: #### C BCA, CMP, 3040-3, 87927-8, 68318-9, 52402- 9 #### [facility] ([id number]) [address] [place] [address] 75154 Chloride [Moles/Vol] 99 mmol/L Normal 98-109 [facility] Comment on above: Performed By: #### C BCA, CMP, 3040-3, 24871-8, 21556-2, 01190- 9 #### [facility] ([id number]) [address] [place] [address] 76331 CO2 [Moles/Vol] 23 mmol/L Normal 22-32 [facility] Comment on above: Performed By: #### C BCA, CMP, 3040-3, 93432-1, 99742-9, 75128- 9 #### [facility] ([id number]) [address] [place] [address] 83100 Creatinine [Mass/Vol] 0.46 mg/dL Normal 0.40-1.00 [facility] Comment on above: Result Comment: METH OD TRACEABLE TO IDMS STANDARD Performed By: #### C BCA, CMP, 3040-3, 20867-4, 76881-4, 59720-7 #### [facility] ([id number]) [address] [place] [address] 63401 eGFR (CKD-EPI) NON-RACE DEPENDENT >90 Normal >59 [facility] Comment on above: Result Comment: Reported eGFR is based on the CKD-EPI 2020 equation that does not use a race coefficient. Performed By: #### C MAIKEL, CMP, 3040-3, 49830-8, 78408-1, 78509-4 #### [facility] ([id number]) [address] [place] [address] 70905 Glucose [Mass/Vol] 141 mg/dL High 65-99 [facility] Comment on above: Performed By: #### C MAIKEL, CMP, 3040-3, 18922-1, 24811-4, 83185- 9 #### [facility] ([id number]) [address] [place] [address] 42006 Potassium [Moles/Vol] 3.0 mmol/L Low 3.5-5.0 [facility] Comment on above: Performed By: #### C MAIKEL, CMP, 3040-3, 44263-8, 62906-7, 91673- 9 #### [facility] ([id number]) [address] [place] [address] 90788 Protein [Mass/Vol] 8.2 g/dL High 6.0-8.0 [facility] Comment on above: Performed By: #### C MAIKEL, CMP, 3040-3, 76116-1, 67863-6, 16022- 9 #### [facility] ([id number]) [address] [place] [address] 98377 Sodium [Moles/Vol] 134 mmol/L Normal 134-146 [facility] Comment on above: Performed By: #### C BCA, CMP, 3040-3, 11453-5, 29186-1, 74666- 9 #### [facility] ([id number]) [address] [place] [address] 00553 Urea nitrogen [Mass/Vol] 14 mg/dL Normal 5-23 [facility] Comment on above: Performed By: #### C BCA, CMP, 3040-3, 44974-3, 19185-8, 30901- 9 #### [facility] ([id number]) [address] [place] [address] CT ABDOMEN AND PELVIS W CONT on [...] Morales MD on 05/02/2023 12:53 PM Normal [facility] HCG ( test) IA.rapi d Ql (S)on 05-02-2023 SERUM Negative Normal NEG [facility] Comment on above: Performed By: #### C BCA, CMP, 3040-3, 99792-9, 10192-8, 14594- 9 #### [facility] ([id number]) [address] [place] [address] 82260 HCG ( test) Ql (U)o n 05-02-2023 Beta HCG ( test) Ql (U) Negative Normal NEG [facility] Comment on above: Performed By: #### 2 106-3 #### [facility] ([id number]) [address] [place] [address] 36985 LIPASEon 05-02-2023 Lipase [Catalytic activity/Vol] 22 U/L Normal 17-40 [facility] Comment on above: Performed By: #### C BCA, CMP, 3040-3, 00416-9, 11621-8, 58584- 9 #### [facility] ([id number]) [address] [place] [address] 35537 MAGNESIUMon 05-02-2023 Magnesium [Mass/Vol] 1.8 mg/dL Normal 1.8-2.6 [facility] Comment on above: Performed By: #### C BCA, CMP, 3040-3, 96143-5, 39803-3, 88780- 9 #### [facility] ([id number]) [address] [place] [address] 02400 TROPONIN Ion 05-02-2023 Troponin I.cardiac [Mass/Vol] 0.01 ng/mL Normal 0.00-0.04 [facility] Comment on above: Performed By: #### C BCA, CMP, 3040-3, 24056-7, 29259-5, 42886- 9 #### [facility] ([id number]) [address] [place] [address] 26044 URN MACROSCOPIC NURon 2023 BILIRUBIN TACO Negative Normal NEG [facility] Comment on above: Performed By: #### N UM #### [facility] ([id number]) [address] [place] [address] 52997 BLOOD/HGB TACO Small Abnormal NEG [facility] Comment on above: Performed By: #### N UM #### [facility] ([id number]) [address] [place] [address] 36298 GLUCOSE TACO Negative Normal NEG [facility] Comment on above: Performed By: #### N UM #### [facility] ([id number]) [address] [place] [address] 21061 KETONES TACO >=160 Abnormal NEG [facility] Comment on above: Performed By: #### N UM #### [facility] ([id number]) [address] [place] [address] 90348 LEUKOCYTE ESTERASE TACO Negative Normal NEG [facility] Comment on above: Performed By: #### N UM #### [facility] ([id number]) [address] [place] [address] [id number] NITRITE TACO Negative Normal NEG [facility] Comment on above: Performed By: #### N UM #### [facility] ([id number]) [address] [place] [address] [id number] PH TACO 6.0 Normal 5.0-8.5 [facility] Comment on above: Performed By: #### N UM #### [facility] ([id number]) [address] [place] [address] 53826 PROTEIN TACO Negative Normal NEG [facility] Comment on above: Performed By: #### N UM #### [facility] ([id number]) [address] [place] [address] 46572 SPECIFIC GRAVITY TACO <=1.005 Normal 1.003-1.035 [facility] Comment on above: Performed By: #### N UM #### [facility] ([id number]) [address] [place] [address] [id number] UROBILINOGEN TACO 0.2 eu/dL Normal <1.1 [facility] Comment on above: Performed By: #### N UM #### [facility] ([id number]) [address] [place] [address] [id number] XR CHEST 1 VWon 05-02-2023 XR CHEST 1 VW XR CHEST 1 VW Portable chest: HISTORY: Cough and nausea. Single view of the chest was obtained. Cardiac and mediastinal contours are stable. There is no consolidation or effusion. No pneumothorax is seen. The osseous structures appear intact. IMPRESSION: No acute findings Finalized by Wolfgang Mcbride MD on 05/02/2023 11:43 AM Normal [facility] ASYMPTOMATIC COVID-19 ANTIGE Non 10-30-2020 EUA Statement SEE BELOW Normal [facility] Comment on above: Result Comment: This [...] sooner. Performed By: #### C VDAGA #### [facility] [address] [place] [address] Ligia Burdick SARS-CoV-2 (COVID-19) RNA SHOAIB+probe Ql (Unsp spec) Negative Normal NEGATIVE [facility] Comment on above: Result Comment: Nega tive results are presumptive. They do not preclude infection and should not be used as the sole basis for treatment decisions. Additional confirmatory testing by a molecular method should be considered. Performed By: #### C VDAGA #### [facility] [address] [place], [place] [address] Ligia Burdick CBC AUTO DIFFon 10-30-2020 BASO # 0.1 103/ul Normal 0.0-0.1 [facility] Comment on above: Performed By: #### C BC #### [facility] [address] [place], [place] [address] Ligia Burdick Basophils/100 WBC (Bld) 0.5 % Normal 0.2-2.0 [facility] Comment on above: Performed By: #### C BC #### [facility] [address] [place], [place] [id number] Ligia Heavenly EO # 0.5 103/ul Normal 0.0-0.7 [facility] Comment on above: Performed By: #### C BC #### [facility] [address] [place], [place] [id number] Ligia Heavenly Eosinophils/100 WBC (Bld) 5.2 % Normal 0.9-7.0 [facility] Comment on above: Performed By: #### C BC #### [facility] [address] [place] [address] Ligia Heavenly Erythrocyte distribution width (RBC) [Ratio] 13.5 % Normal 11.0-15.0 [facility] Comment on above: Performed By: #### C BC #### [facility] [address] [place] [address] Ligia Heavenly Hematocrit (Bld) [Volume fraction] 45.6 % Normal 36.0-48.0 [facility] Comment on above: Performed By: #### C BC #### [facility] [address] [place] [address] Ligia Heavenly Hemoglobin (Bld) [Mass/Vol] 15.0 g/dL Normal 12.0-16.0 [facility] Comment on above: Performed By: #### C BC #### [facility] [address] [place] [address] Ligia Heavenly IG # 0.03 10e3/ul Normal 0.00-0.03 [facility] Comment on above: Performed By: #### C BC #### [facility] [address] [place] [address] Ligia Heavenly IG % 0.3 % Normal 0.0-0.5 [facility] Comment on above: Performed By: #### C BC #### [facility] [address] [place] [address] Ligia Heavenly LYMPH # 2.4 103/ul Normal 1.2-3.8 [facility] Comment on above: Performed By: #### C BC #### [facility] [address] [place] [id number] Ligia Heavenly Lymphocytes/100 WBC (Bld) 23.5 % Normal 20.5-60.0 [facility] Comment on above: Performed By: #### C BC #### [facility] [address] [place] [id number] Ligia Heavenly MANUAL DIFF REQ NO Normal [facility] Comment on above: Performed By: #### C BC #### [facility] [address] [place], [place] [id number] Ligia Heavenly MCH (RBC) [Entitic mass] 29.6 pg Normal 26.7-34.0 [facility] Comment on above: Performed By: #### C BC #### [facility] [address] [place], [place] [id number] Ligia Heavenly MCHC (RBC) [Mass/Vol] 32.9 g/dL Normal 29.9-35.2 [facility] Comment on above: Performed By: #### C BC #### [facility] [address] [place], [place] [id number] Ligia Heavenly MCV (RBC) [Entitic vol] 90.1 fL Normal 81.0-99.0 [facility] Comment on above: Performed By: #### C BC #### [facility] [address] [place], [place] [id number] Ligia Heavenly MONO # 1.2 103/ul Critically high 0.3-0.8 [facility] Comment on above: Performed By: #### C BC #### [facility] [address] [place], [place] [id number] Ligia Heavenly Monocytes/100 WBC (Bld) 11.9 % Normal 1.7-12.0 [facility] Comment on above: Performed By: #### C BC #### [facility] [address] [place], [place] [id number] Ligia Heavenly NEUT # 6.0 103/ul Normal 1.4-6.5 [facility] Comment on above: Performed By: #### C BC #### [facility] [address] [place] [address] Ligia Burdick Neutrophils/100 WBC (Bld) 58.6 % Normal 43.0-75.0 [facility] Comment on above: Performed By: #### C BC #### [facility] [address] [place], [place] [id number] Ligia Burdick Platelet mean volume (Bld) [Entitic vol] 9.4 fL Critically low 9.5-13.5 [facility] Comment on above: Performed By: #### C BC #### [facility] [address] [place], [place] [id number] Ligia Burdick PLT 283 103/ul Normal 150-450 [facility] Comment on above: Performed By: #### C BC #### [facility] [address] [place] [address] Ligia Burdick RBC 5.06 106/ul Normal 4.20-5.40 [facility] Comment on above: Performed By: #### C BC #### [facility] [address] [place] [address] Ligia Burdick WBC 10.2 103/ul Normal 4.0-11.0 [facility] Comment on above: Performed By: #### C BC #### [facility] [address] [place], [place] [id number] Ligia Burdick D-DIMERon 10-30-2020 D-DIMER 0.32 mg/L FEU Normal 0.19-0.[address] [facility] Comment on above: Performed By: #### D DIM #### [facility] [address] [place] [address] Ligiaana Burdick D-DIMER COMMENTS SEE BELOW Normal [facility] Comment on above: Result Comment: Incr eases [...] hospitalization. Performed By: #### D DIM #### [facility] [address] [id number] Ligia Heavenly LACTATE/LACTIC ACIDon 2020 Lactate [Moles/Vol] 1.6 mmol/L Normal 0.7-2.0 [facility] Comment on above: Performed By: #### L ACT #### [facility] [address] [id number] Ligia Burdick PROF 14(COMP METB)on Albumin [Mass/Vol] 3.9 g/dL Normal 3.5-5.0 [facility] Comment on above: Performed By: #### H HONEY, CMP #### [facility] [address] [id number] Ligia Heavenly Albumin/Globulin [Mass ratio] 1.0 {ratio} Normal [facility] Comment on above: Performed By: #### H HONEY, CMP #### [facility] [address] [id number] Ligia Heavenly ALP [Catalytic activity/Vol] 90 U/L Normal 38-126 [facility] Comment on above: Performed By: #### H HONEY, CMP #### [facility] [address] [place], [place] [id number] Ligia Heavenly ALT [Catalytic activity/Vol] 75 U/L Critically high 9-52 [facility] Comment on above: Performed By: #### H HONEY, CMP #### [facility] [address] [id number] Ligia Heavenly Anion gap [Moles/Vol] 13.1 mmol/L Normal [facility] Comment on above: Performed By: #### H HONEY, CMP #### [facility] [address] [place], [place] [id number] Ligia Heavenly AST [Catalytic activity/Vol] 43 U/L Critically high 14-36 [facility] Comment on above: Performed By: #### H HONEY, CMP #### [facility] [address] [id number] Ligia Heavenly Bilirubin [Mass/Vol] 0.5 mg/dL Normal 0.2-1.3 [facility] Comment on above: Performed By: #### H STROPN, CMP #### [facility] [address] [address] Ligia Heavenly Calcium [Mass/Vol] 8.7 mg/dL Normal 8.4-10.2 [facility] Comment on above: Performed By: #### H STROPN, CMP #### [facility] [address] [place] [address] Ligia Heavenly Chloride [Moles/Vol] 97 mmol/L Critically low 98-107 [facility] Comment on above: Performed By: #### H STROROE, CMP #### [facility] [address] [place] [address] Ligia Heavenly CO2 [Moles/Vol] 28.2 mmol/L Normal 22.0-30.0 [facility] Comment on above: Performed By: #### H STROPN, CMP #### [facility] [address] [place] [address] Ligia Heavenly Creatinine [Mass/Vol] 0.54 mg/dL Normal 0.52-1.04 [facility] Comment on above: Performed By: #### H STROROE, CMP #### [facility] [address] [place] [address] Ligia Heavenly EGFR-AF BELGIAN Normal >=60 [facility] Comment on above: Performed By: #### H STROPN, CMP #### [facility] [address] [place] [address] Ligia Heavenly EGFR-NON AF BELGIAN Normal >=60 [facility] Comment on above: Performed By: #### H STROPN, CMP #### [facility] [address] [place] [address] Ligia Heavenly Globulin (S) [Mass/Vol] 4.0 g/dL Normal [facility] Comment on above: Performed By: #### H STROPN, CMP #### [facility] [address] [place] [address] Ligia Heavenly Glucose [Mass/Vol] 113 mg/dL Critically high 74-106 [facility] Comment on above: Performed By: #### H STROPN, CMP #### [facility] [address] [address] Ligia Heavenly Potassium [Moles/Vol] 4.3 mmol/L Normal 3.4-5.0 [facility] Comment on above: Performed By: #### H STROPN, CMP #### [facility] [address] [id number] Ligia Heavenly Protein [Mass/Vol] 7.9 g/dL Normal 6.1-8.2 [facility] Comment on above: Performed By: #### H STROPN, CMP #### [facility] [address] [place] [address] Ligia Heavenly Sodium [Moles/Vol] 134 mmol/L Critically low 137-145 [facility] Comment on above: Performed By: #### H STROPN, CMP #### [facility] [address] [place] [address] Ligia Heavenly Urea nitrogen [Mass/Vol] 10.0 mg/dL Normal 7.0-17.0 [facility] Comment on above: Performed By: #### H STROROE, CMP #### [facility] [address] [place] [address] Ligia Ehavenly Urea nitrogen/Creatinine [Mass ratio] 18.5 mg/mg Normal [facility] Comment on above: Performed By: #### H STROPN, CMP #### [facility] [address] [place] [address] Ligia Heavenly TROPONIN, HIGH SENSITIVITYon 10-30-2020 HSTROP >4.0 Normal 4.0-35.5 [facility] Comment on above: Result Comment: CUT- OFF POINTS HAVE BEEN ESTABLISHED BASED ON THE FOURTH UNIVERSAL DEFINITIONS OF MYOCARDIAL INFARCTION. THE UPPER REFERENCE LIMIT (URL) OF TROPONIN, DEFINED THE 99TH PERCENTILE OF cTnI DISTRIBUTION IN A REFERENCE POPULATION, HAS BEEN CONFIRMED THE DECISION THRESHOLD FOR OK DIAGNOSIS. Performed By: #### H STROPN, CMP #### [facility] [address] [place], [place] [id number] Ligia Heavenly XR CHEST 2 Von 10-30-2020 XR CHEST [...] MAKENZIE ARREDONDO Date: 2020-10-29 23:52 Normal [facility] CULTURE WOUNDon 03-06-2020 CULTURE WOUND Specimen Comments: R HIP SWAB Culture Observations: Anaerobe present. Culture Observations: Evidence based practice by [facility] has demonstrated that Culture Observations: Finegoldia species are routinely susceptible to Piperacillin-Tazobac mireles, Culture Observations: Cefoxitin,Ertapenem, Imipenem,Metronidazo le and Culture Observations: variably resistant to Clindamycin. Isolate 1 Farhatia magna Moderate growth of Normal [facility] Comment on above: Performed By: #### W OUNDCX #### [facility] [address] [address] Ligia Burdick Encounters Encounter Date Encounter Type Care Provider Facility Start: 09-25-2023 End: 09-27-2023 ambulatory [facility] Start: 07-26-2023 End: 07-26-2023 Emergency department patient visit [facility] Start: 05-02-2023 End: 05-03-2023 Emergency department patient visit [facility] Start: 05-02-2023 End: 05-02-2023 Emergency department patient visit [facility] Start: 10-30-2020 End: 10-30-[address] FUENTES MARKER Facility:[facility] Start: 04-19-[address] JUNG KEEN [facility]ity:[facility] Start: 03-06-2020 End: 03-06-[address] TEIXEIRA PAY Facility:[facility] Payers Date Payer Category Payer Unknown [id number] 2.16.84 [id number] 1980 Unknown [id number] 2.16.84 [id number] 1980 Unknown [id number] 2.16.84 [id number] 1982 Unknown [id number] 2.16.8 [id number] 1982 Unknown [id number] 2.16.8 [id number] 1982 Unknown [id number] 2.16.84 [id number] 1982 Unknown [id number] 2.16.84 [id number] 1982 Unknown [id number] 2.16.84 [id number] 1957 Self-pay [id number] 1957 Unknown [id number] Summary Purpose Family History No Family History Records FoundNo Family History Records Found Advance Directives No Advanced Directives Records FoundNo Advanced Directives Records Found Additional Source Comments INFORMATION SOURCE (unrecogn ized section and content) DATE CREATED AUTHOR [facility]02/2020 [facility] DATE CREATED AUTHOR AUTHOR'S ORGANIZ ATDAGOBERTO 10/02/2023 [facility] FOR RECORDS PERTAINING TO PATIENTS WHO ARE [...] BE BASED ON THE PRIMARY CLINICAL RECORDS. [employer] provides no warranty or guarantee of the accuracy or completeness of information in this document.
[2023-10-06 00:12] VITALS: BP 124/86; PULSE 83; TEMP 36.8; O2SAT 98; BMI 27.3
--- NOTE | 2023-10-06 00:38 | ED.DENTAL1 ---
HPI - Dental/Oral General Chief complaint: Dental/Oral Stated complaint: RIGHT SIDE FACE/EAR PAIN Time Seen by Provider: 10/06/23 00:08 Source: patient Mode of arrival: walk-in History of Present Illness HPI Narrative: This 43-year-old female presents for evaluation of dental pain. The patient has a broken and decayed tooth #28. She states it has been broken for a period of time but just started bothering her. She has pain in the right dental area radiating into her right ear. She does have a dental appointment in 1 month in [facility]. She denies any difficulty breathing or swallowing. She has no chest pain or shortness of breath. Related Data Home Medications ?Medication ?Instructions ?Recorded ?Confirmed ondansetron 4 mg disintegrating 4 mg PO Q6H PRN nausea and vomiting 07/27/23 07/27/23 tablet prochlorperazine maleate 10 mg 10 mg PO BID 07/27/23 07/27/23 tablet Allergies Allergy/AdvReac Type Severity Reaction Status Date / Time codeine Allergy Intermediate Verified 06/09/23 23:26 ibuprofen Allergy Intermediate Verified 06/09/23 23:26 Review of Systems ROS Status of ROS 10 or more systems reviewed and unremarkable except as noted in history and below [facility] Medical History (Updated 10/06/23 @ 00:43 by Maya Holguin MD) Embolus ?I74.9 - Embolism and thrombosis of unspecified artery (ICD-10) Surgical History (Updated 05/03/23 @ 05:55 by Nona Enciso) History of cholecystectomy ?Z90.49 - Acquired absence of other specified parts of digestive tract (ICD-10) Social History Smoking status: Current every day smoker Highest level of school completed/degree received: 9th grade Exam Narrative Exam Narrative: Vital signs and Nursing Notes reviewed: No signs or The patient is afebrile with a normal pulse, normal blood pressure, she is not hypoxic with pulse ox of 98% on room air General: Awake, alert, oriented, mildly uncomfortable appearing female holding the right side of her jaw. No respiratory distress HEENT: Normocephalic atraumatic, mucous membranes are moist and pink, eyes are clear, normal conjunctiva, vision is grossly intact, tooth #24 is broken at the posterior aspect of the tooth with moderate decay noted. There is mild gingival erythema without any periapical abscess. There is no sign of necrotizing gingivitis. There is no pooling of secretions. Tympanic membrane was cerumen impacted and unable to be visualized. Neck: Supple, no meningeal signs, no anterior or posterior cervical lymphadenopathy Chest: Lungs are clear to auscultation with good air entry, there is no wheezing rhonchi or rales appreciated no accessory muscle use, patient is speaking in complete sentences-no chest wall tenderness to palpation CVS: Regular rate and rhythm S1-S2, no murmurs rubs or gallops, pulses are brisk and equal bilaterally Extremities: Moving all extremities, no lower extremity tenderness or swelling noted, negative Homans' sign, pulses are brisk and equal bilaterally Skin: Normal in appearance without rash,pallor, petechiae or purpura Neuro: No focal deficits Constitutional Vital Signs, click to edit/add: Last Vital Signs Temp 98.3 F 10/06/23 00:12 Pulse 83 10/06/23 00:12 Resp 16 10/06/23 00:12 BP 124/86 10/06/23 00:12 Pulse Ox 98 10/06/23 00:12 O2 Del Method Room Air 10/06/23 00:12 Course Vital Signs Vital signs: Vital Signs Temperature 98.3 F 10/06/23 00:12 Pulse Rate 83 10/06/23 00:12 Respiratory Rate 16 10/06/23 00:12 Blood Pressure 124/86 10/06/23 00:12 Pulse Oximetry 98 10/06/23 00:12 Oxygen Delivery Method Room Air 10/06/23 00:12 Temperature 98.3 F 10/06/23 00:12 Pulse Rate 83 10/06/23 00:12 Respiratory Rate 16 10/06/23 00:12 Blood Pressure 124/86 10/06/23 00:12 Pulse Oximetry 98 10/06/23 00:12 Oxygen Delivery Method Room Air 10/06/23 00:12 MDM - Dental/Oral MDM Narrative Medical decision making narrative: This 43-year-old female who is seen here frequently for hyperemesis syndrome presents for evaluation of dental pain. She has pain and a broken tooth #24 with radiation into her right ear. She has a dental appointment in 1 month. There is no periapical abscess appreciated. There is no florid dental infection. No sign of any necrotizing gingivitis. The tooth was tender to percussion and she was given a dose of Hewitt in the emergency department and a dose of amoxicillin. She will be discharged home with 2 Hewitt and a prescription for amoxicillin to use for the next 10 days. Discharge Plan Discharge Stand Alone Forms: Portal Instructions Chief Complaint: Dental/Oral Clinical Impression: Toothache, Dental caries, Fracture of tooth Patient Disposition: Home, Self-Care Time of Disposition Decision: 00:43 Condition: Good Prescriptions / Home Meds: No Action ondansetron 4 mg tablet,disintegrating 4 mg PO Q6H PRN (Reason: nausea and vomiting) prochlorperazine maleate 10 mg tablet 10 mg PO BID Print Language: [place] Islander Instructions: Toothache (ED) Referrals: [facility] [Primary Care Provider] - 1 week
[2023-10-06] MEDS: ONDANSETRON 4 MG RAPDIS TABLET SL (01:00)
[2023-10-06] MEDS: HYDROCODONE/ACET 5-325 MG TABLET 2 TAB PO (01:00)
[2023-10-06] MEDS: AMOXICILLIN 500 MG CAPSULE PO (01:00)
[2023-10-06] MEDS: BENZOCAINE 30 ML, lidocaine HCL 15 ML MM (01:01)
[2023-10-06] MEDS: HYDROCODONE/ACET 5-325 MG TABLET 1 TAB PO (01:01)
== END 2023-10-06 01:05 | disposition home or self-care (01) ==
PROVIDERS: Emergency Provider Emergency Medicine
DX: S02.5XXA Fracture of tooth (traumatic), initial encounter for closed fracture (principal); K02.9 Dental caries, unspecified; K08.89 Other specified disorders of teeth and supporting structures; X58.XXXA Exposure to other specified factors, initial encounter; F17.200 Nicotine dependence, unspecified, uncomplicated
CPT/HCPCS: 99284; Q0162

== ENCOUNTER 2024-02-01 16:13 | Observation (INO) | payer SELFPAY ==
[2024-02-01] VITALS (38 sets, daily range): BP systolic 103–151; BP diastolic 59–106; PULSE 66–116; TEMP 36.3–36.8; O2SAT 93–100; BMI 27.4; BMI 27.0
--- NOTE | 2024-02-01 16:43 | ECG_ITS ---
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
--- NOTE | 2024-02-01 16:49 | ED.GENADUL1 ---
HPI HPI - General Adult General Chief complaint: Abdominal Pain Stated complaint: Abdominal Pain Time Seen by Provider: 02/01/24 16:41 Source: patient Mode of arrival: ambulance History of Present Illness HPI narrative: Patient is a 43-year-old female who is presenting with acute onset of periumbilical pain with no radiation that started approxi-1 hour prior to arrival. Patient lives at home with family. No heavy lifting, twisting or turning. Patient does not have her gallbladder, she does have her appendix. Patient has her gallbladder, ovaries and uterus. Patient states there is no way that she is , she does not want a test before she has a CT of the abdomen pelvis. This was witnessed by Neha ACOSTA and Bernice Pointworthy. Patient has no fever or chills. Patient has no symptoms this morning. Patient states she is having a normal bowel movement and no urinary symptoms. No flank pain or back pain. No other acute complaints no fall, no trauma.. No headache, neck pain, chest pain, shortness of breath, fever, chills. All systems are negative except as noted/marked. All systems reviewed and otherwise negative. Nurses note and vital signs reviewed and patient is not hypoxic. General: The patient appears mild to severe distress with moaning, yelling secondary to pain. Patient is resting uncomfortably on cart. Patient is not toxic, lethargic, or listless Skin: Warm, dry, no pallor noted. There is no rash noted. No petechiae, purpura. Head: Normocephalic, atraumatic Eye: Normal conjunctiva, no drainage, EOMI. PERRL Ears, Nose, Mouth, and Throat: oral mucosa is moist. Nares patent. Mouth without vesicles. Cardiovascular: Regular Rate and Rhythm, no murmur, gallop, rub Respiratory: Patient is in no distress, no accessory muscle use, lungs are clear to auscultation, no wheezing, rales or rhonchi Back: non-tender, no CVA tenderness bilaterally to percussion. No CT LS midline pain GI: Patient's abdomen is not rigid firm or distended, no tympany, however patient is having severe periumbilical tenderness to palpation, moderate right lower quadrant tenderness to palpation, no flank pain bilateral, no suprapubic tenderness to palpation. Otherwise no midepigastric, right upper quadrant or left upper quadrant tenderness to palpation, no masses appreciated. No rebound, guarding, or rigidity noted. No distention Musculoskeletal: Patient has full range of motion of all of the extremities, no motor, sensory, or focal neurological deficits Neurological: A&O x4, normal speech Psychiatric: Cooperative Related Data Home Medications ?Medication ?Instructions ?Recorded ?Confirmed ondansetron 4 mg disintegrating 4 mg PO Q6H PRN nausea and vomiting 07/27/23 07/27/23 tablet prochlorperazine maleate 10 mg 10 mg PO BID 07/27/23 07/27/23 tablet Allergies Allergy/AdvReac Type Severity Reaction Status Date / Time codeine Allergy Intermediate Verified 06/09/23 23:26 ibuprofen Allergy Intermediate Verified 06/09/23 23:26 Opioid HPI Opioid Management Most Recent Opioid Data: Last Pain Scale 10 02/01/24 17:02 02/01/24 Last MAR Pain Assessment 02/01/24 17:02 Ur Phencyclidine Scrn Negative (NEGATIVE) 02/01/24 18:45 02/01/24 PFSH PFSH Medical History (Updated 02/01/24 @ 19:58 by Marcus Moran MD) Embolus ?I74.9 - Embolism and thrombosis of unspecified artery (ICD-10) Surgical History (Updated 05/03/23 @ 05:55 by Nona Enciso) History of cholecystectomy ?Z90.49 - Acquired absence of other specified parts of digestive tract (ICD-10) Social History Smoking status: Current every day smoker Highest level of school completed/degree received: 9th grade Exam Constitutional Vital Signs, click to edit/add: Last Vital Signs Temp 97.3 F L 02/01/24 16:14 Pulse 74 02/01/24 18:40 Resp 19 02/01/24 18:40 BP 128/85 02/01/24 18:31 Pulse Ox 97 02/01/24 18:31 O2 Del Method Room Air 02/01/24 17:06 Course Vital Signs Vital signs: Vital Signs Temperature 97.3 F L 02/01/24 16:14 Pulse Rate 69 02/01/24 16:14 Respiratory Rate 22 H 02/01/24 16:14 Blood Pressure 120/89 02/01/24 16:14 Pulse Oximetry 96 02/01/24 16:14 Oxygen Delivery Method Room Air 02/01/24 16:14 Temperature 97.3 F L 02/01/24 16:14 Pulse Rate 74 02/01/24 18:40 Respiratory Rate 19 02/01/24 18:40 Blood Pressure 128/85 02/01/24 18:31 Pulse Oximetry 97 02/01/24 18:31 Oxygen Delivery Method Room Air 02/01/24 17:06 Medical Decision Making MDM Narrative Medical decision making narrative: Patient initially was displaying pain out of proportion, yelling, moaning, very histrionic. IV, labs, and a CT of the abdomen pelvis with IV contrast without waiting for any lab work to return will be done. 1709 patient returned from x-ray, patient was feeling better after Dilaudid has been given to her. See 1 L of normal saline that was started by EMS staff. Patient was given a dose of Zofran and Toradol from EMS staff. Patient was given 1 mg of Dilaudid from [place] before CT of the abdomen pelvis. Patient is starting to intermittently have moaning again, patient was given IM 20 mg of Bentyl. We have called [place] [facility] at 1700 to have a stat read done on the CT, [facility] [place] [facility] to get a stat read on this reading. 1899 patient will be admitted for intractable abdominal pain nausea. Patient CT report shows no significant acute findings. Patient's lab work shows no significant findings, patient was given oral potassium to drink and IV magnesium. After doing a chart review, it is seen the patient has been admitted several times in the past for cyclic nausea and vomiting secondary to marijuana use. I did speak to hospitalist Lis WALDEN and patient will be admitted for observation to . She asked that I order a urine drug screen which I did as well. 1929 patient is having intractable pain, intermittent moaning and yelling, possible intestinal cramping. Patient was given a dose of 2 mg Valium IV. Lab Data Lab results reviewed: Yes I reviewed the patient's lab results Labs: Lab Results 02/01/24 02/01/24 02/01/24 Range/Units 16:32 17:14 18:45 WBC 12.4 H (4.0-11.0) 10^3/uL RBC 4.55 (4.20-5.40) 10^6/uL Hgb 13.6 (12.0-16.0) g/dL Hct 40.7 (36.0-48.0) % MCV 89.5 (81.0-99.0) fL MCH 29.9 (26.7-34.0) pg MCHC 33.4 (29.9-35.2) g/dL RDW 13.0 (11.0-15.0) % Plt Count 411 (150-450) 10^3/uL MPV 9.5 (9.5-13.5) fL Neut % (Auto) 85.0 H (43.0-75.0) % Lymph % (Auto) 12.0 L (20.5-60.0) % [place] % (Auto) 2.4 (1.7-12.0) % Eos % (Auto) 0.0 L (0.9-7.0) % Baso % (Auto) 0.4 (0.2-2.0) % Neut # (Auto) 10.6 H (1.4-6.5) 10^3/uL Lymph # (Auto) 1.5 (1.2-3.8) 10^3/uL [place] # (Auto) 0.3 (0.3-0.8) 10^3/uL Eos # (Auto) 0.0 (0.0-0.7) 10^3/uL Baso # (Auto) 0.1 (0.0-0.1) 10^3/uL Abs Immat Gran (auto) 0.03 (0.00-0.03) 10^3/uL Imm/Tot Granulo (auto) 0.2 (0.0-0.5) % PT 11.4 (9.0-11.6) sec INR 1.08 APTT 28.7 (22.3-36.2) sec VBG pH 7.442 H (7.330-7.430) VBG pCO2 37.5 L (40.0-52.0) mmHg Sodium 137 (136-145) mmol/L Potassium 3.4 L (3.5-5.1) mmol/L Chloride 101 (98-107) mmol/L Carbon Dioxide 24.1 (21.0-32.0) mmol/L Anion Gap 15.3 BUN 10.0 (7.0-18.0) mg/dL Creatinine 0.38 L (0.55-1.02) mg/dL Est GFR ( Amer) >60 (>=60 mL/min/1.73m^2) Est GFR (Non-Af Amer) >60 (>=60 mL/min/1.73m^2) BUN/Creatinine Ratio 26.3 Glucose 141 H (74-106) mg/dL Lactate 1.6 (0.4-2.0) mmol/L Calcium 8.6 (8.5-10.1) mg/dL Magnesium 1.7 L (1.8-2.4) mg/dL Total Bilirubin 0.4 (0.2-1.0) mg/dL AST 17 (15-37) U/L ALT 26 (14-59) U/L Alkaline Phosphatase 75 (46-116) U/L Troponin I High Sens 7.2 (4.0-51.3) pg/mL Total Protein 7.1 (6.4-8.2) g/dL Albumin 3.5 (3.4-5.0) g/dL Globulin 3.6 g/dL Albumin/Globulin Ratio 1.0 Lipase 11.0 L (16.0-77.0) U/L Urine HCG, Qual Negative (NEGATIVE) Urine Opiates Screen Positive A (NEGATIVE) Ur Buprenorphine Scrn Negative (NEGATIVE) Ur Oxycodone Screen Negative (NEGATIVE) Urine Methadone Screen Negative (NEGATIVE) Ur Barbiturates Screen Negative (NEGATIVE) U Tricyclic Antidepress Negative (NEGATIVE) Ur Phencyclidine Scrn Negative (NEGATIVE) Ur Amphetamines Screen Negative (NEGATIVE) U Methamphetamines Scrn Negative (NEGATIVE) U Benzodiazepines Scrn Negative (NEGATIVE) Urine Cocaine Screen Negative (NEGATIVE) U Cannabinoids Screen Positive A (NEGATIVE) Imaging Data CT scan - pelvis: Radiologist's impression: ITS Impressions Abdomen/Pelvis CT 02/01/24 16:56 IMPRESSION: 1. Normal appendix. No inflammatory changes within the abdomen or the pelvis. No evidence of bowel obstruction or significant ileus. 2. 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 This could be further assessed with ultrasonography if clinically warranted. Electronically authenticated by: RUDDY CARABALLO Date: 02/01/2024 18:31 Discharge Plan Discharge Chief Complaint: Abdominal Pain Clinical Impression: Marijuana abuse, continuous, Hypokalemia, Abdominal pain, Nausea & vomiting, Hypomagnesemia Prescriptions / Home Meds: No Action ondansetron 4 mg tablet,disintegrating 4 mg PO Q6H PRN (Reason: nausea and vomiting) prochlorperazine maleate 10 mg tablet 10 mg PO BID Print Language: Hungarian Referrals: EROS GREEN [Physician] - 1 week
--- NOTE | 2024-02-01 16:56 | CT_ITS ---
The [address] [address] Patient Name: DAMION HOOPER MRN: [id number] date: 1980 Sex: F Assigned Patient Location: ER Current Patient Location: Accession/Order Number: [id number] Exam Date: 02/01/2024 16:48 Report Date: 02/01/2024 18:31 At the request of: PUNEET BARRIOS Procedure: CT abdomen pelvis w con EXAM: CT abdomen pelvis w con HISTORY: Severe abdominal pain. Vomiting. COMPARISON: 07/27/2023. TECHNIQUE: Enhanced helical acquisition obtained through the abdomen and the pelvis. FINDINGS: Dependent atelectasis within the included lung bases. The pleural spaces are clear. Prior cholecystectomy. No significant biliary ductal dilatation. The liver, spleen, pancreas, adrenal glands and the kidneys are unremarkable. No enlarged lymph nodes within the abdomen or the pelvis. 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 Normal appendix. Moderate stool burden within the colon. Small fat-containing umbilical hernia. CT/CT abdomen pelvis w con IMPRESSION: 1. Normal appendix. No inflammatory changes within the abdomen or the pelvis. No evidence of bowel obstruction or significant ileus. 2. 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 This could be further assessed with ultrasonography if clinically warranted. Electronically authenticated by: RUDDY CARABALLO Date: 02/01/2024 18:31
[2024-02-01 16:58] LABS: Basophils Absolute Auto 0.1 10^3/uL (0.0-0.1); Basophils Percent Auto 0.4 % (0.2-2.0); Hematocrit 40.7 % (36.0-48.0); Hemoglobin 13.6 g/dL (12.0-16.0); Immature Granulocytes Abs Auto 0.03 10^3/uL (0.00-0.03); Immature Granulocytes Pct Auto 0.2 % (0.0-0.5); Lymphocytes Absolute Auto 1.5 10^3/uL (1.2-3.8); Mean Corpuscular HGB Conc 33.4 g/dL (29.9-35.2); Mean Corpuscular Hemoglobin 29.9 pg (26.7-34.0); Mean Corpuscular Volume 89.5 fL (81.0-99.0); Mean Platelet Volume 9.5 fL (9.5-13.5); Monocytes Absolute Auto 0.3 10^3/uL (0.3-0.8); Monocytes Percent Auto 2.4 % (1.7-12.0); Neutrophils Absolute Auto 10.6 10^3/uL (1.4-6.5); Platelet Count 411 10^3/uL (150-450); Red Blood Count 4.55 10^6/uL (4.20-5.40); White Blood Count 12.4 10^3/uL (4.0-11.0)
[2024-02-01 17:00] LABS: PCO2 VBG 37.5 mmHg (40.0-52.0); pH VBG 7.442 (7.330-7.430)
--- OUTSIDE RECORDS SUMMARY | 2024-02-01 17:01 | XMS_ITS | CCD ---
Author Organization [facility] RF nano ion [facility] Care Team Providers Care Backpackers Manager Name Role Phone MARKER, DR FUENTES Consulting Unavailable [facility] Care Unavailable MARKER, DR FUENTES Admitting Unavailable MARKER, DR FUENTES Attending Unavailable AHDOOTMAKENZIE Consulting Unavailable PAY, DR TEIXEIRA Attending Unavailable PAY, DR TEIXEIRA Consulting Unavailable PAY, DR TEIXEIRA Admitting Unavailable [facility] Primary Care Unavailable KARASIK, DR FENG Attending Unavailable KARASIK, DR FENG Admitting Unavailable SERVICES, [facility] Unava ilable SABAS SHAW Attending Unavailable SERVICES, [facility] HAL SINGH Attending Unavailable ANDREW VILLATORO Admitting Unavailable SERVICES, [facility] DANISH AGUILAR Attending Unavailable ANMAURICE Admitting Unavailable AGUILAR, DANISH Attending Unavailable AGUILARDANISH CHAVEZ Referring Unavailable SERVICES, [facility] Un[facility] SERVICES, [facility] BHARGAVI AHMAD Attending Unavailable BHARGAVI, YOOND Attending Unavailable BHARGAVI, AHMAD Referring Unavailable SERVICES, [facility] BHARGAVI, AHMAD Attending Unavailable BHARGAVI, AHMAD Referring Unavailable SERVICES, [facility] Allergies Allergy Classification Reported Allergen(s) Allergy Type Date of Onset Reaction(s) Facility NSAIDs (2 sources) Ibuprofen Drug Allergy 10-05-1997 [facility] Opioid Agonists (2 sources) traMADol Drug Allergy 09-26-2013 [facility] Unclassified (1 source) Tylenol-Codeine #3 Drug allergy (disorder) [facility] (1 source) Codeine; Translations: [CODEINE] Drug Allergy 05-02-2023 [facility] (1 source) Ibuprofen; Translations: [IBUPROFEN] Drug Allergy 08-29-2016 [facility] (1 source) Prochlorperazine ; Translations: [PROCHLORPERAZIN E] Drug Allergy 09-25-2023 [facility] (1 source) traMADol; Translations: [TRAMADOL] Drug Allergy 08-29-2016 [facility] Problems Active Problems Problem Classification Problem Date Documented Da te Episodic/Chronic Asthma (1 source) Unspecified asthma, uncomplicated; Translations: [UNSPECIFIED ASTHMA UNCOMPLICATED] Onset: 11-01-2020 Chronic Fluid and electrolyte disorders (2 sources) Hypokalemia; Translations: [Hypo-osmolality and hyponatremia] Onset: 09-25-2023 Episodic Nausea and vomiting (3 sources) Vomiting; Translations: [Nausea with vomiting, unspecified] Onset: 05-02-2023 Episodic Nonspecific chest pain (1 [...] (2 sources) Abdominal pain Onset: 07-26-2023 Episodic Skin and subcutaneous tissue infections (4 sources) Cutaneous abscess of right lower limb; Translations: [CUTANEOUS ABSCESS RIGHT LOWER LIMB] Onset: 03-06-2020 Episodic Substance-related disorders (1 source) Cannabis use, unspecified, uncomplicated; Translations: [Cannabis use, unspecified, uncomplicated] Onset: 05-02-2023 Episodic Results Test Name Value Interpretation Reference Range Facility CBC AND AUTO DIFFon 12-23-19 ABSOLUTE BASOPHIL 0.1 X10E9/L Normal 0.0-0.2 [facility] Comment on above: Performed By: #### C BCA, CMP, 3040-3, 26743-3, 05191-5, 18924- 9 #### [facility] ([id number]) [address] [place] [address] 67916 ABSOLUTE NEUTROPHIL 11.9 X10E9/L High 1.5-6.6 [facility] Comment on above: Performed By: #### C BCA, CMP, 3040-3, 17591-2, 64683-4, 29273- 9 #### [facility] ([id number]) [address] [place] [address] 40515 Basophils/100 WBC (Bld) 0.6 % Normal [facility] Comment on above: Performed By: #### C BCA, CMP, 3040-3, 38944-6, 14461-1, 91849- 9 #### [facility] ([id number]) [address] [place] [address] 36335 Eosinophils (Bld) [#/Vol] 0.0 10*3/uL Normal 0.0-0.4 [facility] Comment on above: Performed By: #### C BCA, CMP, 3040-3, 26849-6, 39708-0, 63403- 9 #### [facility] ([id number]) [address] [place] [address] 05842 Eosinophils/100 WBC (Bld) 0.0 % Normal [facility] Comment on above: Performed By: #### C BCA, CMP, 3040-3, 65190-4, 96698-0, 40924- 9 #### [facility] ([id number]) [address] [place] [address] 38885 Erythrocyte distribution width (RBC) [Ratio] 12.9 % Normal 11.5-15.0 [facility] Comment on above: Performed By: #### C BCA, CMP, 3040-3, 38451-2, 34037-7, 90119- 9 #### [facility] ([id number]) [address] [place] [address] 01738 Hematocrit (Bld) [Volume fraction] 43.5 % Normal 35-47 [facility] Comment on above: Performed By: #### C BCA, CMP, 3040-3, 97207-6, 59108-0, 58855- 9 #### [facility] ([id number]) [address] [place] [address] 75067 Hemoglobin (Bld) [Mass/Vol] 14.6 g/dL Normal 11.7-15.5 [facility] Comment on above: Performed By: #### C BCA, CMP, 3040-3, 52095-3, 46379-2, 23605- 9 #### [facility] ([id number]) [address] [place] [address] 11187 Lymphocytes (Bld) [#/Vol] 2.6 10*3/uL Normal 1.0-3.5 [facility] Comment on above: Performed By: #### C BCA, CMP, 3040-3, 24983-4, 35249-2, 54328- 9 #### [facility] ([id number]) [address] [place] [address] 88442 Lymphocytes/100 WBC (Bld) 16.3 % Normal [facility] Comment on above: Performed By: #### Arnie BCA, CMP, 3040-3, 25448-7, 61768-9, 83710- 9 #### [facility] ([id number]) [address] [place] [address] 34908 MCH (RBC) [Entitic mass] 29.6 pg Normal 27-34 [facility] Comment on above: Performed By: #### C BCA, CMP, 3040-3, 26459-3, 88092-5, 10000- 9 #### [facility] ([id number]) [address] [place] [address] 85366 MCHC (RBC) [Mass/Vol] 33.5 g/dL Normal 32-36 [facility] Comment on above: Performed By: #### C BCA, CMP, 3040-3, 97845-9, 44396-2, 84168- 9 #### [facility] ([id number]) [address] [place] [address] 93787 MCV (RBC) [Entitic vol] 88 fL Normal 80-100 [facility] Comment on above: Performed By: #### C BCA, CMP, 3040-3, 64974-3, 85176-6, 32155- 9 #### [facility] ([id number]) [address] [place] [address] 35164 Monocytes (Bld) [#/Vol] 1.1 10*3/uL High 0-0.9 [facility] Comment on above: Performed By: #### C BCA, CMP, 3040-3, 98098-0, 08206-7, 96099- 9 #### [facility] ([id number]) [address] [place] [address] 40984 Monocytes/100 WBC (Bld) 6.9 % Normal [facility] Comment on above: Performed By: #### C BCA, CMP, 3040-3, 00753-1, 65128-6, 47944- 9 #### [facility] ([id number]) [address] [place] [address] 06799 Neutrophils/100 WBC (Bld) 76.2 % Normal [facility] Comment on above: Performed By: #### C BCA, CMP, 3040-3, 54739-3, 85119-7, 16502- 9 #### [facility] ([id number]) [address] [place] [address] 01546 Platelet mean volume (Bld) [Entitic vol] 7.5 fL Normal 7-12 [facility] Comment on above: Performed By: #### C BCA, CMP, 3040-3, 91359-6, 38177-7, 22767- 9 #### [facility] ([id number]) [address] [place] [address] 08510 Platelets (Bld) [#/Vol] 426 10*3/uL Normal 150-450 [facility] Comment on above: Performed By: #### C BCA, CMP, 3040-3, 59319-8, 52659-4, 72286- 9 #### [facility] ([id number]) [address] [place] [address] 44818 RBC COUNT 4.92 X10E12/L Normal 3.80-5.20 [facility] Comment on above: Performed By: #### C BCA, CMP, 3040-3, 65131-2, 81940-1, 71494- 9 #### [facility] ([id number]) [address] [place] [address] 77390 WBC (Bld) [#/Vol] 15.6 10*3/uL High 4.0-11.0 [facility] Comment on above: Performed By: #### C BCA, CMP, 3040-3, 93918-1, 57723-0, 91493- 9 #### [facility] ([id number]) [address] [place] [address] 23200 COMPREHENSIVE METABOLIC PANE Sumit 12-23-2023 Albumin [Mass/Vol] 4.2 g/dL Normal 3.2-5.3 [facility] Comment on above: Performed By: #### C BCA, CMP, 3040-3, 88307-6, 27775-6, 18071- 9 #### [facility] ([id number]) [address] [place] [address] 82252 ALP [Catalytic activity/Vol] 68 U/L Normal 39-130 [facility] Comment on above: Performed By: #### C BCA, CMP, 3040-3, 69890-8, 60729-8, 44168- 9 #### [facility] ([id number]) [address] [place] [address] 55398 ALT [Catalytic activity/Vol] 30 U/L Normal 0-31 [facility] Comment on above: Performed By: #### C BCA, CMP, 3040-3, 51167-6, 57985-3, 68231- 9 #### [facility] ([id number]) [address] [place] [address] 54532 Anion gap [Moles/Vol] 15 mmol/L Normal 5-15 [facility] Comment on above: Performed By: #### C BCA, CMP, 3040-3, 12580-9, 40290-6, 31754- 9 #### [facility] ([id number]) [address] [place] [address] 84239 AST [Catalytic activity/Vol] 19 U/L Normal 0-41 [facility] Comment on above: Performed By: #### C BCA, CMP, 3040-3, 11103-4, 36708-8, 56086- 9 #### [facility] ([id number]) [address] [place] [address] 71589 Bilirubin [Mass/Vol] 1.3 mg/dL High 0.3-1.2 [facility] Comment on above: Performed By: #### C BCA, CMP, 3040-3, 45787-1, 90669-7, 17957- 9 #### [facility] ([id number]) [address] [place] [address] 10130 Calcium [Mass/Vol] 8.6 mg/dL Normal 8.5-10.5 [facility] Comment on above: Performed By: #### C BCA, CMP, 3040-3, 41962-7, 23539-6, 12248- 9 #### [facility] ([id number]) [address] [place] [address] 08408 Chloride [Moles/Vol] 101 mmol/L Normal 98-109 [facility] Comment on above: Performed By: #### C BCA, CMP, 3040-3, 53326-0, 18621-2, 91468- 9 #### [facility] ([id number]) [address] [place] [address] 08087 CO2 [Moles/Vol] 19 mmol/L Low 22-32 [facility] Comment on above: Performed By: #### C BCA, CMP, 3040-3, 92368-4, 73873-7, 60172- 9 #### [facility] ([id number]) [address] [place] [address] 29977 Creatinine [Mass/Vol] 0.42 mg/dL Normal 0.40-1.00 [facility] Comment on above: Result Comment: METH OD TRACEABLE TO IDMS STANDARD Performed By: #### C BCA, CMP, 3040-3, 61679-2, 04579-9, 93782-0 #### [facility] ([id number]) [address] [place] [address] 30158 eGFR (CKD-EPI) NON-RACE DEPENDENT >90 Normal >59 [facility] Comment on above: Result Comment: Reported eGFR is based on the CKD-EPI 2020 equation that does not use a race coefficient. Performed By: #### C BCA, CMP, 3040-3, 56436-1, 49436-9, 54696-7 #### [facility] ([id number]) [address] [place] [address] 09150 Glucose [Mass/Vol] 97 mg/dL Normal 65-99 [facility] Comment on above: Performed By: #### C BCA, CMP, 3040-3, 99811-5, 41119-3, 23217- 9 #### [facility] ([id number]) [address] [place] [address] 09364 Potassium [Moles/Vol] 3.1 mmol/L Low 3.5-5.0 [facility] Comment on above: Performed By: #### C BCA, CMP, 3040-3, 63091-7, 91855-2, 26851- 9 #### [facility] ([id number]) [address] [place] [address] 86639 Protein [Mass/Vol] 7.6 g/dL Normal 6.0-8.0 [facility] Comment on above: Performed By: #### C BCA, CMP, 3040-3, 82338-6, 73362-1, 92765- 9 #### [facility] ([id number]) [address] [place] [address] 96178 Sodium [Moles/Vol] 135 mmol/L Normal 134-146 [facility] Comment on above: Performed By: #### C BCA, CMP, 3040-3, 97228-2, 83965-0, 65955- 9 #### [facility] ([id number]) [address] [place] [address] 27143 Urea nitrogen [Mass/Vol] 10 mg/dL Normal 5-23 [facility] Comment on above: Performed By: #### C BCA, CMP, 3040-3, 41179-0, 67051-1, 13800- 9 #### [facility] ([id number]) [address] [place] [address] 67331 MAGNESIUMon 12-23-2023 Magnesium [Mass/Vol] 2.1 mg/dL Normal 1.8-2.6 [facility] Comment on above: Performed By: #### C BCA, CMP, 3040-3, 53999-6, 34328-7, 31877- 9 #### [facility] ([id number]) [address] [place] [address] 22054 CBC AND AUTO DIFFon 12-22-19 24 ABSOLUTE BASOPHIL 0.0 X10E9/L Normal 0.0-0.2 [facility] Comment on above: Performed By: #### C BCA, CMP, 3040-3, 69928-3, 52382-1, 90176- 9 #### [facility] ([id number]) [address] [place] [address] 18620 ABSOLUTE NEUTROPHIL 12.9 X10E9/L High 1.5-6.6 [facility] Comment on above: Performed By: #### C BCA, CMP, 3040-3, 04969-3, 24572-3, 87198- 9 #### [facility] ([id number]) [address] [place] [address] 43367 Basophils/100 WBC (Bld) 0.3 % Normal [facility] Comment on above: Performed By: #### C BCA, CMP, 3040-3, 51427-4, 76121-5, 21489- 9 #### [facility] ([id number]) [address] [place] [address] 89298 Eosinophils (Bld) [#/Vol] 0.0 10*3/uL Normal 0.0-0.4 [facility] Comment on above: Performed By: #### C BCA, CMP, 3040-3, 99748-6, 96445-5, 99583- 9 #### [facility] ([id number]) [address] [place] [address] 73462 Eosinophils/100 WBC (Bld) 0.0 % Normal [facility] Comment on above: Performed By: #### C BCA, CMP, 3040-3, 11848-3, 25797-4, 71267- 9 #### [facility] ([id number]) [address] [place] [address] 49548 Erythrocyte distribution width (RBC) [Ratio] 12.8 % Normal 11.5-15.0 [facility] Comment on above: Performed By: #### C BCA, CMP, 3040-3, 24293-5, 13316-7, 18498- 9 #### [facility] ([id number]) [address] [place] [address] 23694 Hematocrit (Bld) [Volume fraction] 41.6 % Normal 35-47 [facility] Comment on above: Performed By: #### C BCA, CMP, 3040-3, 44967-6, 51195-1, 58793- 9 #### [facility] ([id number]) [address] [place] [address] 25354 Hemoglobin (Bld) [Mass/Vol] 13.7 g/dL Normal 11.7-15.5 [facility] Comment on above: Performed By: #### C BCA, CMP, 3040-3, 14092-7, 23180-8, 56331- 9 #### [facility] ([id number]) [address] [place] [address] 80679 Lymphocytes (Bld) [#/Vol] 2.1 10*3/uL Normal 1.0-3.5 [facility] Comment on above: Performed By: #### C BCA, CMP, 3040-3, 51038-7, 14720-8, 11121- 9 #### [facility] ([id number]) [address] [place] [address] 89448 Lymphocytes/100 WBC (Bld) 12.9 % Normal [facility] Comment on above: Performed By: #### C BCA, CMP, 3040-3, 09386-8, 27645-0, 59140- 9 #### [facility] ([id number]) [address] [place] [address] 15304 MCH (RBC) [Entitic mass] 29.3 pg Normal 27-34 [facility] Comment on above: Performed By: #### C BCA, CMP, 3040-3, 03867-6, 08212-7, 43154- 9 #### [facility] ([id number]) [address] [place] [address] 00529 MCHC (RBC) [Mass/Vol] 32.9 g/dL Normal 32-36 [facility] Comment on above: Performed By: #### C BCA, CMP, 3040-3, 86474-1, 59210-0, 57730- 9 #### [facility] ([id number]) [address] [place] [address] 72974 MCV (RBC) [Entitic vol] 89 fL Normal 80-100 [facility] Comment on above: Performed By: #### C BCA, CMP, 3040-3, 37087-2, 08863-6, 46334- 9 #### [facility] ([id number]) [address] [place] [address] 68944 Monocytes (Bld) [#/Vol] 1.1 10*3/uL High 0-0.9 [facility] Comment on above: Performed By: #### C BCA, CMP, 3040-3, 92776-5, 34972-2, 11691- 9 #### [facility] ([id number]) [address] [place] [address] 76383 Monocytes/100 WBC (Bld) 7.0 % Normal [facility] Comment on above: Performed By: #### C BCA, CMP, 3040-3, 92611-8, 09652-5, 02439- 9 #### [facility] ([id number]) [address] [place] [address] 83232 Neutrophils/100 WBC (Bld) 79.8 % Normal [facility] Comment on above: Performed By: #### C BCA, CMP, 3040-3, 79856-6, 44813-2, 91364- 9 #### [facility] ([id number]) [address] [place] [address] 42308 Platelet mean volume (Bld) [Entitic vol] 7.8 fL Normal 7-12 [facility] Comment on above: Performed By: #### C BCA, CMP, 3040-3, 11866-5, 39476-3, 92302- 9 #### [facility] ([id number]) [address] [place] [address] 32423 Platelets (Bld) [#/Vol] 374 10*3/uL Normal 150-450 [facility] Comment on above: Performed By: #### C BCA, CMP, 3040-3, 11150-1, 06222-8, 11730- 9 #### [facility] ([id number]) [address] [place] [address] 29221 RBC COUNT 4.68 X10E12/L Normal 3.80-5.20 [facility] Comment on above: Performed By: #### C BCA, CMP, 3040-3, 76866-9, 19453-3, 71991- 9 #### [facility] ([id number]) [address] [place] [address] 61396 WBC (Bld) [#/Vol] 16.2 10*3/uL High 4.0-11.0 [facility] Comment on above: Performed By: #### C BCA, CMP, 3040-3, 15651-5, 23162-5, 20091- 9 #### [facility] ([id number]) [address] [place] [address] 76667 COMPREHENSIVE METABOLIC PANE Sumit 12-22-2023 Albumin [Mass/Vol] 4.2 g/dL Normal 3.2-5.3 [facility] Comment on above: Performed By: #### C BCA, CMP, 3040-3, 36848-0, 36615-0, 42965- 9 #### [facility] ([id number]) [address] [place] [address] 90780 ALP [Catalytic activity/Vol] 72 U/L Normal 39-130 [facility] Comment on above: Performed By: #### C BCA, CMP, 3040-3, 36959-2, 71445-1, 85721- 9 #### [facility] ([id number]) [address] [place] [address] 51082 ALT [Catalytic activity/Vol] 35 U/L High 0-31 [facility] Comment on above: Performed By: #### C BCA, CMP, 3040-3, 41112-6, 78213-1, 11024- 9 #### [facility] ([id number]) [address] [place] [address] 92811 Anion gap [Moles/Vol] 12 mmol/L Normal 5-15 [facility] Comment on above: Performed By: #### C BCA, CMP, 3040-3, 14597-7, 84878-7, 01247- 9 #### [facility] ([id number]) [address] [place] [address] 68527 AST [Catalytic activity/Vol] 26 U/L Normal 0-41 [facility] Comment on above: Performed By: #### C BCA, CMP, 3040-3, 54839-7, 21208-1, 24918- 9 #### [facility] ([id number]) [address] [place] [address] 18805 Bilirubin [Mass/Vol] 1.1 mg/dL Normal 0.3-1.2 [facility] Comment on above: Performed By: #### C BCA, CMP, 3040-3, 40342-2, 96513-2, 78903- 9 #### [facility] ([id number]) [address] [place] [address] 85519 Calcium [Mass/Vol] 8.5 mg/dL Normal 8.5-10.5 [facility] Comment on above: Performed By: #### C BCA, CMP, 3040-3, 79650-4, 72525-4, 22006- 9 #### [facility] ([id number]) [address] [place] [address] 35060 Chloride [Moles/Vol] 98 mmol/L Normal 98-109 [facility] Comment on above: Performed By: #### C BCA, CMP, 3040-3, 96257-7, 88822-8, 28460- 9 #### [facility] ([id number]) [address] [place] [address] 41297 CO2 [Moles/Vol] 23 mmol/L Normal 22-32 [facility] Comment on above: Performed By: #### C BCA, CMP, 3040-3, 27713-4, 39052-7, 68630- 9 #### [facility] ([id number]) [address] [place] [address] 19222 Creatinine [Mass/Vol] 0.39 mg/dL Low 0.40-1.00 [facility] Comment on above: Result Comment: METH OD TRACEABLE TO IDMS STANDARD Performed By: #### C BCA, CMP, 3040-3, 51924-9, 43093-0, 75340-0 #### [facility] ([id number]) [address] [place] [address] 08036 eGFR (CKD-EPI) NON-RACE DEPENDENT >90 Normal >59 [facility] Comment on above: Result Comment: Reported eGFR is based on the CKD-EPI 2021 equation that does not use a race coefficient. Performed By: #### C BCA, CMP, 3040-3, 04233-0, 05975-6, 07679-0 #### [facility] ([id number]) [address] [place] [address] 23906 Glucose [Mass/Vol] 115 mg/dL High 65-99 [facility] Comment on above: Performed By: #### C BCA, CMP, 3040-3, 01441-8, 62890-7, 31061- 9 #### [facility] ([id number]) [address] [place] [address] 89230 Potassium [Moles/Vol] 2.9 mmol/L Low 3.5-5.0 [facility] Comment on above: Performed By: #### C BCA, CMP, 3040-3, 31161-6, 91228-3, 80307- 9 #### [facility] ([id number]) [address] [place] [address] 87039 Protein [Mass/Vol] 7.6 g/dL Normal 6.0-8.0 [facility] Comment on above: Performed By: #### C BCA, CMP, 3040-3, 96463-6, 07561-8, 92335- 9 #### [facility] ([id number]) [address] [place] [address] 64391 Sodium [Moles/Vol] 133 mmol/L Low 134-146 [facility] Comment on above: Performed By: #### C BCA, CMP, 3040-3, 49817-5, 98226-3, 63822- 9 #### [facility] ([id number]) [address] [place] [address] 95944 Urea nitrogen [Mass/Vol] 9 mg/dL Normal 5-23 [facility] Comment on above: Performed By: #### C BCA, CMP, 3040-3, 94005-6, 21281-1, 79574- 9 #### [facility] ([id number]) [address] [place] [address] 06446 Glucose Glucometer (dC) [M ass/Vol]on 12-22-2023 Glucose [Mass/Vol] 93 mg/dL Normal 65-99 [facility] Glucose [Mass/Vol] 103 mg/dL High 65-99 [facility] Glucose [Mass/Vol] 94 mg/dL Normal 65-99 [facility] MAGNESIUMon 12-22-2023 Magnesium [Mass/Vol] 2.0 mg/dL Normal 1.8-2.6 [facility] Comment on above: Performed By: #### C BCA, CMP, 3040-3, 62705-6, 80041-0, 37549- 9 #### [facility] ([id number]) [address] [place] [address] POTASSIUMon 12-22-2023 Potassium [Moles/Vol] 3.3 mmol/L Low 3.5-5.0 [facility] Comment on above: Performed By: #### C BCA, CMP, 3040-3, 55471-8, 16827-9, 24538- 9 #### [facility] ([id number]) [address] [place] [address] 79872 CBC AND AUTO DIFFon 12-21-19 ABSOLUTE BASOPHIL 0.1 X10E9/L Normal 0.0-0.2 [facility] Comment on above: Performed By: #### C BCA, CMP, 3040-3, 79435-4, 87317-5, 41240- 9 #### [facility] ([id number]) [address] [place] [address] 11459 ABSOLUTE NEUTROPHIL 8.2 X10E9/L High 1.5-6.6 [facility] Comment on above: Performed By: #### C BCA, CMP, 3040-3, 19133-6, 51784-2, 60036- 9 #### [facility] ([id number]) [address] [place] [address] 13187 Basophils/100 WBC (Bld) 0.6 % Normal [facility] Comment on above: Performed By: #### C BCA, CMP, 3040-3, 04868-7, 90669-2, 45185- 9 #### [facility] ([id number]) [address] [place] [address] Eosinophils (Bld) [#/Vol] 0.0 10*3/uL Normal 0.0-0.4 [facility] Comment on above: Performed By: #### C MAIKEL, CMP, 3040-3, 74108-8, 38407-2, 13702- 9 #### [facility] ([id number]) [address] [place] [address] 89587 Eosinophils/100 WBC (Bld) 0.2 % Normal [facility] Comment on above: Performed By: #### C MAIKEL, [facility], 3040-3, 52170-7, 37583-8, 75902- 9 #### [facility] ([id number]) [address] [place] [address] 71657 Erythrocyte distribution width (RBC) [Ratio] 13.3 % Normal 11.5-15.0 [facility] Comment on above: Performed By: #### C MAIKEL, [facility], 3040-3, 46156-9, 45378-1, 02553- 9 #### [facility] ([id number]) [address] [place] [address] 59386 Hematocrit (Bld) [Volume fraction] 46.3 % Normal 35-47 [facility] Comment on above: Performed By: #### Arnie KO, CMP, 3040-3, 05809-9, 04303-7, 58160- 9 #### [facility] ([id number]) [address] [place] [address] 03965 Hemoglobin (Bld) [Mass/Vol] 15.2 g/dL Normal 11.7-15.5 [facility] Comment on above: Performed By: #### C MAIKEL, CMP, 3040-3, 93325-8, 37272-6, 82265- 9 #### [facility] ([id number]) [address] [place] [address] 83841 Lymphocytes (Bld) [#/Vol] 3.3 10*3/uL Normal 1.0-3.5 [facility] Comment on above: Performed By: #### C BCA, CMP, 3040-3, 39991-1, 12205-0, 97177- 9 #### [facility] ([id number]) [address] [place] [address] 88034 Lymphocytes/100 WBC (Bld) 26.8 % Normal [facility] Comment on above: Performed By: #### C BCA, CMP, 3040-3, 12102-4, 98925-5, 24835- 9 #### [facility] ([id number]) [address] [place] [address] 10139 MCH (RBC) [Entitic mass] 29.6 pg Normal 27-34 [facility] Comment on above: Performed By: #### C BCA, CMP, 3040-3, 10295-8, 75629-5, 04540- 9 #### [facility] ([id number]) [address] [place] [address] 39844 MCHC (RBC) [Mass/Vol] 32.9 g/dL Normal 32-36 [facility] Comment on above: Performed By: #### C BCA, CMP, 3040-3, 97400-9, 68113-0, 83481- 9 #### [facility] ([id number]) [address] [place] [address] 41776 MCV (RBC) [Entitic vol] 90 fL Normal 80-100 [facility] Comment on above: Performed By: #### C BCA, CMP, 3040-3, 72787-8, 73936-6, 80822- 9 #### [facility] ([id number]) [address] [place] [address] 15034 Monocytes (Bld) [#/Vol] 0.7 10*3/uL Normal 0-0.9 [facility] Comment on above: Performed By: #### C BCA, CMP, 3040-3, 31474-2, 58897-3, 88275- 9 #### [facility] ([id number]) [address] [place] [address] 95134 Monocytes/100 WBC (Bld) 5.9 % Normal [facility] Comment on above: Performed By: #### C BCA, CMP, 3040-3, 72094-0, 70804-2, 63669- 9 #### [facility] ([id number]) [address] [place] [address] 27817 Neutrophils/100 WBC (Bld) 66.5 % Normal [facility] Comment on above: Performed By: #### C BCA, CMP, 3040-3, 45357-7, 73209-2, 94321- 9 #### [facility] ([id number]) [address] [place] [address] 74628 Platelet mean volume (Bld) [Entitic vol] 7.5 fL Normal 7-12 [facility] Comment on above: Performed By: #### C BCA, CMP, 3040-3, 23435-8, 23790-2, 04500- 9 #### [facility] ([id number]) [address] [place] [address] 46618 Platelets (Bld) [#/Vol] 484 10*3/uL High 150-450 [facility] Comment on above: Performed By: #### C BCA, CMP, 3040-3, 76679-8, 73030-3, 84936- 9 #### [facility] ([id number]) [address] [place] [address] 15280 RBC COUNT 5.15 X10E12/L Normal 3.80-5.20 [facility] Comment on above: Performed By: #### Arnie BCA, CMP, 3040-3, 78210-0, 98208-7, 35907- 9 #### [facility] ([id number]) [address] [place] [address] 62003 WBC (Bld) [#/Vol] 12.3 10*3/uL High 4.0-11.0 [facility] Comment on above: Performed By: #### C BCA, CMP, 3040-3, 99392-8, 93627-2, 95354- 9 #### [facility] ([id number]) [address] [place] [address] 13759 COMPREHENSIVE METABOLIC PANE Sumit 12-21-2023 Albumin [Mass/Vol] 4.5 g/dL Normal 3.2-5.3 [facility] Comment on above: Performed By: #### C BCA, CMP, 3040-3, 44310-7, 78903-7, 14252- 9 #### [facility] ([id number]) [address] [place] [address] 51200 ALP [Catalytic activity/Vol] 84 U/L Normal 39-130 [facility] Comment on above: Performed By: #### C BCA, CMP, 3040-3, 91395-0, 83206-6, 44072- 9 #### [facility] ([id number]) [address] [place] [address] 58497 ALT [Catalytic activity/Vol] 56 U/L High 0-31 [facility] Comment on above: Performed By: #### C BCA, CMP, 3040-3, 24939-0, 76445-1, 92893- 9 #### [facility] ([id number]) [address] [place] [address] 97348 Anion gap [Moles/Vol] 14 mmol/L Normal 5-15 [facility] Comment on above: Performed By: #### C BCA, CMP, 3040-3, 98980-2, 55858-0, 43946- 9 #### [facility] ([id number]) [address] [place] [address] 02864 AST [Catalytic activity/Vol] 78 U/L High 0-41 [facility] Comment on above: Performed By: #### C BCA, CMP, 3040-3, 95000-7, 50222-8, 70773- 9 #### [facility] ([id number]) [address] [place] [address] 46648 Bilirubin [Mass/Vol] 0.8 mg/dL Normal 0.3-1.2 [facility] Comment on above: Performed By: #### C BCA, CMP, 3040-3, 57953-9, 85917-8, 14775- 9 #### [facility] ([id number]) [address] [place] [address] 76003 Calcium [Mass/Vol] 9.0 mg/dL Normal 8.5-10.5 [facility] Comment on above: Performed By: #### C BCA, CMP, 3040-3, 06965-5, 51810-5, 96217- 9 #### [facility] ([id number]) [address] [place] [address] 43155 Chloride [Moles/Vol] 101 mmol/L Normal 98-109 [facility] Comment on above: Performed By: #### C BCA, CMP, 3040-3, 04121-6, 24223-1, 67304- 9 #### [facility] ([id number]) [address] [place] [address] 90010 CO2 [Moles/Vol] 20 mmol/L Low 22-32 [facility] Comment on above: Performed By: #### C BCA, CMP, 3040-3, 74424-7, 41851-1, 05402- 9 #### [facility] ([id number]) [address] [place] [address] 06883 Creatinine [Mass/Vol] 0.47 mg/dL Normal 0.40-1.00 [facility] Comment on above: Result Comment: METH OD TRACEABLE TO IDMS STANDARD Performed By: #### C MAIKEL, MICAH, 3040-3, 42501-2, 95383-2, 24307-2 #### [facility] ([id number]) [address] [place] [address] 03611 eGFR (CKD-EPI) NON-RACE DEPENDENT >90 Normal >59 [facility] Comment on above: Result Comment: Reported eGFR is based on the CKD-EPI 2020 equation that does not use a race coefficient. Performed By: #### C MAIKEL, MICAH, 3040-3, 72020-6, 85398-0, 82418-5 #### [facility] ([id number]) [address] [place] [address] 06403 Glucose [Mass/Vol] 182 mg/dL High 65-99 [facility] Comment on above: Performed By: #### C MAIKEL, MICAH, 3040-3, 19126-3, 87042-6, 64135- 9 #### [facility] ([id number]) [address] [place] [address] 13756 Potassium [Moles/Vol] 3.2 mmol/L Low 3.5-5.0 [facility] Comment on above: Performed By: #### C MAIKEL, MICAH, 3040-3, 99142-5, 94751-9, 58707- 9 #### [facility] ([id number]) [address] [place] [address] 85548 Protein [Mass/Vol] 8.2 g/dL High 6.0-8.0 [facility] Comment on above: Performed By: #### C MAIKEL, CMP, 3040-3, 56793-0, 47680-9, 21471- 9 #### [facility] ([id number]) [address] [place] [address] 74808 Sodium [Moles/Vol] 135 mmol/L Normal 134-146 [facility] Comment on above: Performed By: #### C BCA, CMP, 3040-3, 65043-0, 75510-5, 44845- 9 #### [facility] ([id number]) [address] [place] [address] Urea nitrogen [Mass/Vol] 19 mg/dL Normal 5-23 [facility] Comment on above: Performed By: #### C BCA, CMP, 3040-3, 75046-7, 45924-5, 20922- 9 #### [facility] ([id number]) [address] [place] [address] CT ABDOMEN AND PELVIS W CONT on 12-21-2023 CT ABDOMEN AND PELVIS W CONT CT ABDOMEN AND PELVIS W CONT CT ABDOMEN AND PELVIS W CONT CLINICAL HISTORY: Abdominal pain, vomiting COMPARISON: 09/25/2023 TECHNIQUE: * CT abdomen and pelvis was performed with the administration of intravenous contrast. Coronal and sagittal reformatted images were generated and reviewed. Automated exposure control was utilized. * All CT scans at this facility use dose modulation, iterative reconstruction, and/or weight based dosing when appropriate to reduce radiation dose to as low as reasonably achievable. FINDINGS: Minimal basilar dependent atelectasis. No pleural or pericardial effusion. No intra-abdominal free air or free fluid. Small hiatal hernia. Noncirrhotic liver morphology with no focal hepatic lesion. Cholecystectomy. Spleen, pancreas, and adrenal glands appear unremarkable. No nephrolithiasis, hydronephrosis, or suspicious renal lesion. No pelvic free fluid. Similar appearance of the uterus, with fundal fluid-attenuating structures measuring up to 2.0 cm. These correlate with anechoic lesions seen on ultrasound dated 01/12/2015, and possibly reflect cystic fibroids. No adnexal asymmetry. No obstruction. Normal appendix. The large bowel is underdistended, though demonstrates microcystic subjective pancolonic wall thickening. No abdominal or pelvic lymphadenopathy. Nonaneurysmal abdominal aorta. No acute osseous abnormality. IMPRESSION: * Somewhat subjective pancolonic wall thickening, likely due to underdistention, however warranting correlation with any clinical colitis. * No convincing acute abnormality otherwise. * Small hiatal hernia. Approved by Resident: Michelet Ruiz MD on 12/21/2023 5:57 AM I, Trent Trivedi MD have personally reviewed the image(s) and agree with and/or edited the report Finalized by Trent Trivedi MD on 12/21/2023 6:15 AM Normal [facility] DRUG SCREEN, URINEon 024 AMPHETAMINE/METHAMP Negative Normal NEG [facility] Comment on above: Result Comment: AMPH /METH screening cut off = 1000 ng/mL Performed By: #### C BCA, CMP, 3040-3, 50379-7, 82503-1, 73497-3 #### [facility] ([id number]) [address] [place], [place] [id number] BARBITURATES Negative Normal NEG [facility] Comment on above: Result Comment: Anitra iturates screening cut off value = 200 ng/mL Performed By: #### C BCA, CMP, 3040-3, 65080-6, 04369-6, 29828-8 #### [facility] ([id number]) [address] [place] [address] 75089 BENZODIAZEPINES Negative Normal NEG [facility] Comment on above: Result Comment: Art odiazepines screening cut off value = 200 ng/mL Performed By: #### C BCA, CMP, 3040-3, 96613-8, 32969-8, 55290-1 #### [facility] ([id number]) [address] [place] [address] 02347 CANNABINOIDS Positive Abnormal NEG [facility] Comment on above: Result Comment: Conf irmation available upon request. Cannabinoids/THC screening cut off value = 50 ng/mL Performed By: #### C BCA, CMP, 3040-3, 23897-3, 98266-9, 88048-8 #### [facility] ([id number]) [address] [place] [address] 99878 COCAINE METABOLITE Negative Normal NEG [facility] Comment on above: Result Comment: Coca ine screening cut off value = 300 ng/mL Performed By: #### C BCA, CMP, 3040-3, 73605-8, 42822-3, 51937-4 #### [facility] ([id number]) [address] [place] [address] 53945 ECSTASY Negative Normal NEG [facility] Comment on above: Result Comment: Ecst asy screening cut off value = 500 ng/mL This report is intended for use in clinical monitoring or management of patients. Performed By: #### C BCA, CMP, 3040-3, 14926-9, 46990-2, 05689-6 #### [facility] ([id number]) [address] [place] [address] 28387 METHADONE Negative Normal NEG [facility] Comment on above: Result Comment: Meth adone screening cut off value = 300 ng/mL. Performed By: #### C BCA, CMP, 3040-3, 57340-6, 30165-6, 44179-9 #### [facility] ([id number]) [address] [place] [address] 95322 OPIATES Negative Normal NEG [facility] Comment on above: Result Comment: Opia gricelda screening cut off value = 300 ng/mL NOTE: This test is used for the detection of codeine, hydrocodone (>1000 ng/mL), morphine and hydromorphone (>900 ng/mL) in urine. Performed By: #### C BCA, CMP, 3040-3, 55081-7, 54356-6, 39198-5 #### [facility] ([id number]) [address] [place] [address] 61880 OXYCODONE Negative Normal NEG [facility] Comment on above: Result Comment: Oxyc odone screening cut off value = 300 ng/mL NOTE: This test is used for the detection of oxycodone and oxymorphone in urine. Performed By: #### C BCA, CMP, 3040-3, 48670-7, 49405-4, 15917-9 #### [facility] ([id number]) [address] [place] [address] 42896 PHENCYCLIDINE Negative Normal NEG [facility] Comment on above: Result Comment: Phen cyclidine screening cut off value = 25 ng/mL Performed By: #### C BCA, CMP, 3040-3, 82240-0, 63458-3, 08657-9 #### [facility] ([id number]) [address] [place] [address] 84583 Glucose Glucometer (BldC) [M ass/Vol]on 12-21-2023 Glucose [Mass/Vol] 118 mg/dL High 65-99 [facility] Glucose [Mass/Vol] 129 mg/dL High 65-99 [facility] Glucose [Mass/Vol] 138 mg/dL High 65-99 [facility] HCG ( test) Ql (U)o n 12-21-2023 Beta HCG ( test) Ql (U) Negative Normal NEG [facility] Comment on above: Performed By: #### C BCA, CMP, 3040-3, 63819-2, 34723-9, 35070- 9 #### [facility] ([id number]) [address] [place] [address] 10796 LIPASEon 12-21-2023 Lipase [Catalytic activity/Vol] 49 U/L High 17-40 [facility] Comment on above: Performed By: #### C BCA, CMP, 3040-3, 55343-0, 70281-7, 02673- 9 #### [facility] ([id number]) [address] [place] [address] 94989 MAGNESIUMon 12-21-2023 Magnesium [Mass/Vol] 2.3 mg/dL Normal 1.8-2.6 [facility] Comment on above: Performed By: #### C BCA, CMP, 3040-3, 42961-6, 21269-9, 99273- 9 #### [facility] ([id number]) [address] [place] [address] 42252 Magnesium [Mass/Vol] 1.7 mg/dL Low 1.8-2.6 [facility] Comment on above: Performed By: #### C BCA, CMP, 3040-3, 07753-5, 64939-3, 27837- 9 #### [facility] ([id number]) [address] [place] [address] 85608 POTASSIUMon 12-21-2023 Potassium [Moles/Vol] 3.6 mmol/L Normal 3.5-5.0 [facility] Comment on above: Performed By: #### C BCA, CMP, 3040-3, 49343-7, 35711-9, 81343- 9 #### [facility] ([id number]) [address] [place] [address] 11131 THYROID PROFILEon 12-21-2023 Free T4 [Mass/Vol] 1.14 ng/dL Normal 0.61-1.60 [facility] Comment on above: Performed By: #### C BCA, CMP, 3040-3, 74657-6, 05674-5, 67802- 9 #### [facility] ([id number]) [address] [place] [address] 89543 TSH 0.28 uIU/mL Low 0.49-4.67 [facility] Comment on above: Performed By: #### C BCA, CMP, 3040-3, 34065-6, 91527-2, 57159- 9 #### [facility] ([id number]) [address] [place] [address] 56206 URN MACROSCOPIC NURon 2023 BILIRUBIN TACO Small Abnormal NEG [facility] Comment on above: Performed By: #### C BCA, CMP, 3040-3, 20859-1, 53738-2, 48803- 9 #### [facility] ([id number]) [address] [place] [address] 86708 BLOOD/HGB TACO MODERATE Abnormal NEG [facility] Comment on above: Performed By: #### C BCA, CMP, 3040-3, 03368-3, 88852-3, 68724- 9 #### [facility] ([id number]) [address] [place] [address] 79845 GLUCOSE TACO Negative Normal NEG [facility] Comment on above: Performed By: #### C BCA, CMP, 3040-3, 09148-4, 84494-6, 70874- 9 #### [facility] ([id number]) [address] [place] [address] 19486 KETONES TACO >=160 Abnormal NEG [facility] Comment on above: Performed By: #### C BCA, CMP, 3040-3, 66787-6, 99149-6, 70009- 9 #### [facility] ([id number]) [address] [place] [address] 98559 LEUKOCYTE ESTERASE TACO Negative Normal NEG [facility] Comment on above: Performed By: #### C BCA, CMP, 3040-3, 20004-2, 91195-3, 81596- 9 #### [facility] ([id number]) [address] [place] [address] 54919 NITRITE TACO Negative Normal NEG [facility] Comment on above: Performed By: #### C BCA, CMP, 3040-3, 96714-4, 95717-7, 25334- 9 #### [facility] ([id number]) [address] [place] [address] 37700 PH TACO 6.0 Normal 5.0-8.5 [facility] Comment on above: Performed By: #### C BCA, CMP, 3040-3, 81422-2, 71421-2, 80717- 9 #### [facility] ([id number]) [address] [place] [address] 08745 PROTEIN TACO 100 mg/dL Abnormal NEG [facility] Comment on above: Performed By: #### C BCA, CMP, 3040-3, 53213-9, 73750-0, 42106- 9 #### [facility] ([id number]) [address] [place] [address] 32832 SPECIFIC GRAVITY TACO >=1.030 Normal 1.003-1.035 [facility] Comment on above: Performed By: #### C BCA, CMP, 3040-3, 84289-1, 37005-3, 24121- 9 #### [facility] ([id number]) [address] [place] [address] 86769 UROBILINOGEN TACO 0.2 eu/dL Normal <1.1 [facility] Comment on above: Performed By: #### C BCA, CMP, 3040-3, 52735-3, 70250-5, 72639- 9 #### [facility] ([id number]) [address] [place] [address] 27857 CBC AND AUTO DIFFon 09-26- 24 ABSOLUTE BASOPHIL 0.1 X10E9/L Normal 0.0-0.2 [facility] Comment on above: Performed By: #### C BCA, CMP, 3040-3, 10599-7, 79283-4, 70625- 9 #### [facility] ([id number]) [address] [place] [address] 88691 ABSOLUTE NEUTROPHIL 10.5 X10E9/L High 1.5-6.6 [facility] Comment on above: Performed By: #### C BCA, CMP, 3040-3, 66675-6, 28647-5, 84203- 9 #### [facility] ([id number]) [address] [place] [address] 80932 Basophils/100 WBC (Bld) 0.9 % Normal [facility] Comment on above: Performed By: #### C BCA, CMP, 3040-3, 94787-2, 67331-1, 49667- 9 #### [facility] ([id number]) [address] [place] [address] 85379 Eosinophils (Bld) [#/Vol] 0.0 10*3/uL Normal 0.0-0.4 [facility] Comment on above: Performed By: #### C BCA, CMP, 3040-3, 58492-2, 99600-2, 89028- 9 #### [facility] ([id number]) [address] [place] [address] 52937 Eosinophils/100 WBC (Bld) 0.0 % Normal [facility] Comment on above: Performed By: #### Arnie BCA, CMP, 3040-3, 61511-9, 07992-0, 93061- 9 #### [facility] ([id number]) [address] [place] [address] 96656 Erythrocyte distribution width (RBC) [Ratio] 13.0 % Normal 11.5-15.0 [facility] Comment on above: Performed By: #### Arnie BCA, CMP, 3040-3, 33169-4, 63679-6, 74820- 9 #### [facility] ([id number]) [address] [place] [address] 11093 Hematocrit (Bld) [Volume fraction] 43.4 % Normal 35-47 [facility] Comment on above: Performed By: #### C BCA, CMP, 3040-3, 10107-9, 33916-8, 73439- 9 #### [facility] ([id number]) [address] [place] [address] 75520 Hemoglobin (Bld) [Mass/Vol] 14.5 g/dL Normal 11.7-15.5 [facility] Comment on above: Performed By: #### C BCA, CMP, 3040-3, 60591-6, 74152-9, 73642- 9 #### [facility] ([id number]) [address] [place] [address] 06939 Lymphocytes (Bld) [#/Vol] 2.9 10*3/uL Normal 1.0-3.5 [facility] Comment on above: Performed By: #### C BCA, CMP, 3040-3, 57334-5, 28519-5, 51824- 9 #### [facility] ([id number]) [address] [place] [address] 37001 Lymphocytes/100 WBC (Bld) 19.6 % Normal [facility] Comment on above: Performed By: #### C BCA, CMP, 3040-3, 06128-8, 26289-9, 66394- 9 #### [facility] ([id number]) [address] [place] [address] 80144 MCH (RBC) [Entitic mass] 29.7 pg Normal 27-34 [facility] Comment on above: Performed By: #### C BCA, CMP, 3040-3, 30480-7, 98716-3, 90585- 9 #### [facility] ([id number]) [address] [place] [address] 94598 MCHC (RBC) [Mass/Vol] 33.3 g/dL Normal 32-36 [facility] Comment on above: Performed By: #### C BCA, CMP, 3040-3, 47841-0, 66791-1, 12935- 9 #### [facility] ([id number]) [address] [place] [address] 03961 MCV (RBC) [Entitic vol] 89 fL Normal 80-100 [facility] Comment on above: Performed By: #### C BCA, CMP, 3040-3, 00726-6, 50382-8, 38501- 9 #### [facility] ([id number]) [address] [place] [address] 00756 Monocytes (Bld) [#/Vol] 1.2 10*3/uL High 0-0.9 [facility] Comment on above: Performed By: #### C BCA, CMP, 3040-3, 75553-4, 26091-2, 59697- 9 #### [facility] ([id number]) [address] [place] [address] 62492 Monocytes/100 WBC (Bld) 8.4 % Normal [facility] Comment on above: Performed By: #### Arnie BCA, CMP, 3040-3, 30687-9, 08263-5, 68839- 9 #### [facility] ([id number]) [address] [place] [address] 98593 Neutrophils/100 WBC (Bld) 71.1 % Normal [facility] Comment on above: Performed By: #### Arnie BCA, CMP, 3040-3, 21622-5, 40682-9, 83317- 9 #### [facility] ([id number]) [address] [place] [address] 66772 Platelet mean volume (Bld) [Entitic vol] 8.0 fL Normal 7-12 [facility] Comment on above: Performed By: #### Arnie BCA, CMP, 3040-3, 07748-1, 62668-8, 37671- 9 #### [facility] ([id number]) [address] [place] [address] 40499 Platelets (Bld) [#/Vol] 412 10*3/uL Normal 150-450 [facility] Comment on above: Performed By: #### Arnie BCA, CMP, 3040-3, 57766-4, 72773-1, 56450- 9 #### [facility] ([id number]) [address] [place] [address] 21116 RBC COUNT 4.86 X10E12/L Normal 3.80-5.20 [facility] Comment on above: Performed By: #### C BCA, CMP, 3040-3, 18260-6, 43796-1, 36131- 9 #### [facility] ([id number]) [address] [place] [address] 43057 WBC (Bld) [#/Vol] 14.8 10*3/uL High 4.0-11.0 [facility] Comment on above: Performed By: #### C BCA, CMP, 3040-3, 62353-0, 62850-8, 08356- 9 #### [facility] ([id number]) [address] [place] [address] 62518 COMPREHENSIVE METABOLIC PANE Sumit 09-27-2023 Albumin [Mass/Vol] 4.2 g/dL Normal 3.2-5.3 [facility] Comment on above: Performed By: #### C BCA, CMP, 3040-3, 30261-4, 29639-6, 84788- 9 #### [facility] ([id number]) [address] [place] [address] 95713 ALP [Catalytic activity/Vol] 63 U/L Normal 39-130 [facility] Comment on above: Performed By: #### C BCA, CMP, 3040-3, 50305-1, 52005-0, 76522- 9 #### [facility] ([id number]) [address] [place] [address] 53646 ALT [Catalytic activity/Vol] 28 U/L Normal 0-31 [facility] Comment on above: Performed By: #### C BCA, CMP, 3040-3, 47154-3, 73220-7, 75269- 9 #### [facility] ([id number]) [address] [place] [address] 57826 Anion gap [Moles/Vol] 12 mmol/L Normal 5-15 [facility] Comment on above: Performed By: #### C BCA, CMP, 3040-3, 16049-1, 26814-7, 10686- 9 #### [facility] ([id number]) [address] [place] [address] 92263 AST [Catalytic activity/Vol] 23 U/L Normal 0-41 [facility] Comment on above: Performed By: #### C BCA, CMP, 3040-3, 50100-7, 45170-1, 21676- 9 #### [facility] ([id number]) [address] [place] [address] 49948 Bilirubin [Mass/Vol] 1.5 mg/dL High 0.3-1.2 [facility] Comment on above: Performed By: #### C BCA, CMP, 3040-3, 94353-8, 88975-3, 77218- 9 #### [facility] ([id number]) [address] [place] [address] 48246 Calcium [Mass/Vol] 8.5 mg/dL Normal 8.5-10.5 [facility] Comment on above: Performed By: #### C BCA, CMP, 3040-3, 73830-6, 29080-7, 81906- 9 #### [facility] ([id number]) [address] [place] [address] 91546 Chloride [Moles/Vol] 104 mmol/L Normal 98-109 [facility] Comment on above: Performed By: #### C BCA, CMP, 3040-3, 38592-3, 07136-6, 26420- 9 #### [facility] ([id number]) [address] [place] [address] 23778 CO2 [Moles/Vol] 21 mmol/L Low 22-32 [facility] Comment on above: Performed By: #### C BCA, CMP, 3040-3, 89406-9, 48525-9, 28936- 9 #### [facility] ([id number]) [address] [place] [address] 17906 Creatinine [Mass/Vol] 0.35 mg/dL Low 0.40-1.00 [facility] Comment on above: Result Comment: METH OD TRACEABLE TO IDMS STANDARD Performed By: #### C MAIKEL, CMP, 3040-3, 18180-9, 31084-1, 23681-1 #### [facility] ([id number]) [address] [place] [address] 49606 eGFR (CKD-EPI) NON-RACE DEPENDENT >90 Normal >59 [facility] Comment on above: Result Comment: Reported eGFR is based on the CKD-EPI 2020 equation that does not use a race coefficient. Performed By: #### C MICAH KO, 3040-3, 85675-8, 56494-5, 74759-3 #### [facility] ([id number]) [address] [place] [address] 54169 Glucose [Mass/Vol] 101 mg/dL High 65-99 [facility] Comment on above: Performed By: #### C MICAH KO, 3040-3, 08011-6, 06617-3, 90466- 9 #### [facility] ([id number]) [address] [place] [address] 13344 Potassium [Moles/Vol] 3.3 mmol/L Low 3.5-5.0 [facility] Comment on above: Performed By: #### C MAIKEL, CMP, 3040-3, 39588-9, 01716-5, 81420- 9 #### [facility] ([id number]) [address] [place] [address] 49382 Protein [Mass/Vol] 7.5 g/dL Normal 6.0-8.0 [facility] Comment on above: Performed By: #### C BCA, CMP, 3040-3, 06572-7, 76043-9, 40216- 9 #### [facility] ([id number]) [address] [place] [address] 68479 Sodium [Moles/Vol] 137 mmol/L Normal 134-146 [facility] Comment on above: Performed By: #### C BCA, CMP, 3040-3, 15391-5, 70330-4, 06348- 9 #### [facility] ([id number]) [address] [place] [address] 35055 Urea nitrogen [Mass/Vol] 9 mg/dL Normal 5-23 [facility] Comment on above: Performed By: #### C BCA, CMP, 3040-3, 84164-0, 97819-7, 96934- 9 #### [facility] ([id number]) [address] [place] [address] 15347 Glucose Glucometer (BldC) [M ass/Vol]on 09-27-2023 Glucose [Mass/Vol] 116 mg/dL High 65-99 [facility] MAGNESIUMon 09-27-2023 Magnesium [Mass/Vol] 2.2 mg/dL Normal 1.8-2.6 [facility] Comment on above: Performed By: #### C BCA, CMP, 3040-3, 16043-6, 86650-3, 76132- 9 #### [facility] ([id number]) [address] [place] [address] 93581 PHOSPHORUSon 09-27-2023 Phosphate [Mass/Vol] 2.3 mg/dL Low 2.4-4.9 [facility] Comment on above: Performed By: #### C BCA, CMP, 3040-3, 19958-6, 56003-5, 65513- 9 #### [facility] ([id number]) [address] [place] [address] 04120 Phosphate [Mass/Vol] 2.0 mg/dL Low 2.4-4.9 [facility] Comment on above: Performed By: #### C BCA, CMP, 3040-3, 53765-0, 08153-7, 11521- 9 #### [facility] ([id number]) [address] [place] [address] 84266 POTASSIUMon 09-27-2023 Potassium [Moles/Vol] 3.7 mmol/L Normal 3.5-5.0 [facility] Comment on above: Performed By: #### C BCA, CMP, 3040-3, 93106-9, 98652-2, 68963- 9 #### [facility] ([id number]) [address] [place] [address] 11479 CBC AND AUTO DIFFon 09-26-19 ABSOLUTE BASOPHIL 0.1 X10E9/L Normal 0.0-0.2 [facility] Comment on above: Performed By: #### C BCA, CMP, 3040-3, 75839-7, 28788-2, 81573- 9 #### [facility] ([id number]) [address] [place] [address] 43293 ABSOLUTE NEUTROPHIL 15.9 X10E9/L High 1.5-6.6 [facility] Comment on above: Performed By: #### C BCA, CMP, 3040-3, 67493-8, 04165-9, 36884- 9 #### [facility] ([id number]) [address] [place] [address] 48573 Basophils/100 WBC (Bld) 0.3 % Normal [facility] Comment on above: Performed By: #### C BCA, CMP, 3040-3, 29104-9, 74686-4, 26773- 9 #### [facility] ([id number]) [address] [place] [address] 03869 Eosinophils (Bld) [#/Vol] 0.0 10*3/uL Normal 0.0-0.4 [facility] Comment on above: Performed By: #### C BCA, CMP, 3040-3, 41416-8, 17885-7, 33205- 9 #### [facility] ([id number]) [address] [place] [address] 94862 Eosinophils/100 WBC (Bld) 0.0 % Normal [facility] Comment on above: Performed By: #### C BCA, CMP, 3040-3, 16302-7, 48773-6, 07814- 9 #### [facility] ([id number]) [address] [place] [address] 22411 Erythrocyte distribution width (RBC) [Ratio] 13.1 % Normal 11.5-15.0 [facility] Comment on above: Performed By: #### C MAIKEL, CMP, 3040-3, 66309-4, 86975-8, 52507- 9 #### [facility] ([id number]) [address] [place] [address] 10068 Hematocrit (Bld) [Volume fraction] 41.0 % Normal 35-47 [facility] Comment on above: Performed By: #### C BCA, CMP, 3040-3, 73002-9, 87304-1, 54507- 9 #### [facility] ([id number]) [address] [place] [address] 10095 Hemoglobin (Bld) [Mass/Vol] 13.7 g/dL Normal 11.7-15.5 [facility] Comment on above: Performed By: #### C BCA, CMP, 3040-3, 93007-6, 42940-9, 85995- 9 #### [facility] ([id number]) [address] [place] [address] 51541 Lymphocytes (Bld) [#/Vol] 2.5 10*3/uL Normal 1.0-3.5 [facility] Comment on above: Performed By: #### C BCA, CMP, 3040-3, 39817-9, 14266-3, 06249- 9 #### [facility] ([id number]) [address] [place] [address] 39737 Lymphocytes/100 WBC (Bld) 12.7 % Normal [facility] Comment on above: Performed By: #### C BCA, CMP, 3040-3, 37060-7, 19288-9, 04522- 9 #### [facility] ([id number]) [address] [place] [address] 27505 MCH (RBC) [Entitic mass] 29.7 pg Normal 27-34 [facility] Comment on above: Performed By: #### C BCA, CMP, 3040-3, 84547-0, 35668-2, 08824- 9 #### [facility] ([id number]) [address] [place] [address] 69586 MCHC (RBC) [Mass/Vol] 33.4 g/dL Normal 32-36 [facility] Comment on above: Performed By: #### C BCA, CMP, 3040-3, 31697-0, 58874-3, 19999- 9 #### [facility] ([id number]) [address] [place] [address] 49636 MCV (RBC) [Entitic vol] 89 fL Normal 80-100 [facility] Comment on above: Performed By: #### C BCA, CMP, 3040-3, 86788-3, 90450-5, 65752- 9 #### [facility] ([id number]) [address] [place] [address] 23280 Monocytes (Bld) [#/Vol] 1.4 10*3/uL High 0-0.9 [facility] Comment on above: Performed By: #### C BCA, CMP, 3040-3, 75060-9, 66566-4, 70054- 9 #### [facility] ([id number]) [address] [place] [address] 07281 Monocytes/100 WBC (Bld) 7.2 % Normal [facility] Comment on above: Performed By: #### C BCA, CMP, 3040-3, 98612-7, 50610-5, 01547- 9 #### [facility] ([id number]) [address] [place] [address] 08593 Neutrophils/100 WBC (Bld) 79.8 % Normal [facility] Comment on above: Performed By: #### C BCA, CMP, 3040-3, 59223-5, 97571-4, 73112- 9 #### [facility] ([id number]) [address] [place] [address] 86903 Platelet mean volume (Bld) [Entitic vol] 8.1 fL Normal 7-12 [facility] Comment on above: Performed By: #### C BCA, CMP, 3040-3, 51358-9, 90827-9, 47949- 9 #### [facility] ([id number]) [address] [place] [address] 28262 Platelets (Bld) [#/Vol] 372 10*3/uL Normal 150-450 [facility] Comment on above: Performed By: #### C BCA, CMP, 3040-3, 63227-1, 10911-6, 65451- 9 #### [facility] ([id number]) [address] [place] [address] 02972 RBC COUNT 4.60 X10E12/L Normal 3.80-5.20 [facility] Comment on above: Performed By: #### C BCA, CMP, 3040-3, 61808-9, 36932-3, 29926- 9 #### [facility] ([id number]) [address] [place] [address] 42524 WBC (Bld) [#/Vol] 19.9 10*3/uL High 4.0-11.0 [facility] Comment on above: Performed By: #### C BCA, CMP, 3040-3, 91358-4, 94313-4, 41584- 9 #### [facility] ([id number]) [address] [place] [address] 45575 COMPREHENSIVE METABOLIC PANE Sumit 09-26-2023 Albumin [Mass/Vol] 4.1 g/dL Normal 3.2-5.3 [facility] Comment on above: Performed By: #### C BCA, CMP, 3040-3, 44904-0, 09787-8, 93906- 9 #### [facility] ([id number]) [address] [place] [address] 83909 ALP [Catalytic activity/Vol] 63 U/L Normal 39-130 [facility] Comment on above: Performed By: #### C BCA, CMP, 3040-3, 05961-4, 85795-0, 86864- 9 #### [facility] ([id number]) [address] [place] [address] 05117 ALT [Catalytic activity/Vol] 17 U/L Normal 0-31 [facility] Comment on above: Performed By: #### C BCA, CMP, 3040-3, 70794-5, 74750-4, 15283- 9 #### [facility] ([id number]) [address] [place] [address] 81219 Anion gap [Moles/Vol] 12 mmol/L Normal 5-15 [facility] Comment on above: Performed By: #### C BCA, CMP, 3040-3, 15941-3, 20111-8, 84669- 9 #### [facility] ([id number]) [address] [place] [address] 55898 AST [Catalytic activity/Vol] 18 U/L Normal 0-41 [facility] Comment on above: Performed By: #### C BCA, CMP, 3040-3, 89510-5, 62430-0, 61401- 9 #### [facility] ([id number]) [address] [place] [address] 29831 Bilirubin [Mass/Vol] 1.4 mg/dL High 0.3-1.2 [facility] Comment on above: Performed By: #### C BCA, CMP, 3040-3, 87818-9, 85724-8, 66723- 9 #### [facility] ([id number]) [address] [place] [address] 38703 Calcium [Mass/Vol] 8.2 mg/dL Low 8.5-10.5 [facility] Comment on above: Performed By: #### C BCA, CMP, 3040-3, 59692-5, 34557-7, 65197- 9 #### [facility] ([id number]) [address] [place] [address] 20830 Chloride [Moles/Vol] 102 mmol/L Normal 98-109 [facility] Comment on above: Performed By: #### C BCA, CMP, 3040-3, 69933-8, 08050-3, 97266- 9 #### [facility] ([id number]) [address] [place] [address] 10509 CO2 [Moles/Vol] 20 mmol/L Low 22-32 [facility] Comment on above: Performed By: #### C BCA, CMP, 3040-3, 72854-4, 73358-4, 21942- 9 #### [facility] ([id number]) [address] [place] [address] 46869 Creatinine [Mass/Vol] 0.32 mg/dL Low 0.40-1.00 [facility] Comment on above: Result Comment: METH OD TRACEABLE TO IDMS STANDARD Performed By: #### C BCA, CMP, 3040-3, 68427-4, 47554-7, 14442-5 #### [facility] ([id number]) [address] [place] [address] 85841 eGFR (CKD-EPI) NON-RACE DEPENDENT >90 Normal >59 [facility] Comment on above: Result Comment: Reported eGFR is based on the CKD-EPI 2020 equation that does not use a race coefficient. Performed By: #### C BCA, CMP, 3040-3, 73409-2, 36220-6, 75741-4 #### [facility] ([id number]) [address] [place] [address] 83884 Glucose [Mass/Vol] 99 mg/dL Normal 65-99 [facility] Comment on above: Performed By: #### C BCA, CMP, 3040-3, 56246-5, 25426-7, 64655- 9 #### [facility] ([id number]) [address] [place] [address] 62149 Potassium [Moles/Vol] 3.2 mmol/L Low 3.5-5.0 [facility] Comment on above: Performed By: #### C BCA, CMP, 3040-3, 66937-6, 50819-8, 53329- 9 #### [facility] ([id number]) [address] [place] [address] 50492 Protein [Mass/Vol] 7.3 g/dL Normal 6.0-8.0 [facility] Comment on above: Performed By: #### C BCA, CMP, 3040-3, 00606-6, 52633-2, 77620- 9 #### [facility] ([id number]) [address] [place] [address] 83882 Sodium [Moles/Vol] 134 mmol/L Normal 134-146 [facility] Comment on above: Performed By: #### C BCA, CMP, 3040-3, 51051-9, 16370-4, 76534- 9 #### [facility] ([id number]) [address] [place] [address] 14647 Urea nitrogen [Mass/Vol] 10 mg/dL Normal 5-23 [facility] Comment on above: Performed By: #### C BCA, CMP, 3040-3, 07193-1, 94502-7, 74479- 9 #### [facility] ([id number]) [address] [place], [place] [address] DRUG SCREEN, URINEon 024 AMPHETAMINE/METHAMP Negative Normal NEG [facility] Comment on above: Result Comment: AMPH /METH screening cut off = 1000 ng/mL Performed By: #### C BCA, CMP, 3040-3, 43699-5, 62648-6, 42440-5 #### [facility] ([id number]) [address] [place] [address] BARBITURATES Negative Normal NEG [facility] Comment on above: Result Comment: Anitra iturates screening cut off value = 200 ng/mL Performed By: #### C BCA, CMP, 3040-3, 06868-0, 69259-0, 05750-2 #### [facility] ([id number]) [address] [place], [place] [address] BENZODIAZEPINES Negative Normal NEG [facility] Comment on above: Result Comment: Art odiazepines screening cut off value = 200 ng/mL Performed By: #### C BCA, CMP, 3040-3, 87611-7, 80722-4, 51431-5 #### [facility] ([id number]) [address] [place], [place] [address] CANNABINOIDS Positive Abnormal NEG [facility] Comment on above: Result Comment: Conf irmation available upon request. Cannabinoids/THC screening cut off value = 50 ng/mL Performed By: #### C BCA, CMP, 3040-3, 05210-1, 50036-2, 22247-3 #### [facility] ([id number]) [address] [place] [address] 00197 COCAINE METABOLITE Negative Normal NEG [facility] Comment on above: Result Comment: Coca ine screening cut off value = 300 ng/mL Performed By: #### C MICAH KO, 3040-3, 12602-7, 68805-6, 58074-7 #### [facility] ([id number]) [address] [place] [address] 46562 ECSTASY Negative Normal NEG [facility] Comment on above: Result Comment: Ecst asy screening cut off value = 500 ng/mL This report is intended for use in clinical monitoring or management of patients. Performed By: #### C MICAH KO, 3040-3, 79616-0, 21634-6, 65058-5 #### [facility] ([id number]) [address] [place] [address] 73716 METHADONE Negative Normal [facility] Comment on above: Result Comment: Meth adone screening cut off value = 300 ng/mL. Performed By: #### C MICAH KO, 3040-3, 48172-2, 43788-2, 42682-8 #### [facility] ([id number]) [address] [place] [address] 71378 OPIATES Positive Abnormal NEG [facility] Comment on above: Result Comment: Conf irmation available upon request. Opiates screening cut off value = 300 ng/mL NOTE: This test is used for the detection of codeine, hydrocodone (>1000 ng/mL), morphine and hydromorphone (>900 ng/mL) in urine. Performed By: #### C MICAH KO, 3040-3, 39628-1, 30784-3, 22747-0 #### [facility] ([id number]) [address] [place] [address] 26761 OXYCODONE Negative Normal NEG [facility] Comment on above: Result Comment: Oxyc odone screening cut off value = 300 ng/mL NOTE: This test is used for the detection of oxycodone and oxymorphone in urine. Performed By: #### C BCA, CMP, 3040-3, 50535-8, 57942-2, 78448-9 #### [facility] ([id number]) [address] [place] [address] 84711 PHENCYCLIDINE Negative Normal NEG [facility] Comment on above: Result Comment: Phen cyclidine screening cut off value = 25 ng/mL Performed By: #### C BCA, CMP, 3040-3, 78340-3, 47805-5, 92979-3 #### [facility] ([id number]) [address] [place] [address] 86783 MAGNESIUMon 09-26-2023 Magnesium [Mass/Vol] 2.1 mg/dL Normal 1.8-2.6 [facility] Comment on above: Performed By: #### C BCA, CMP, 3040-3, 76653-1, 73854-4, 30991- 9 #### [facility] ([id number]) [address] [place] [address] 68625 PHOSPHORUSon 09-26-2023 Phosphate [Mass/Vol] 1.9 mg/dL Low 2.4-4.9 [facility] Comment on above: Performed By: #### C BCA, CMP, 3040-3, 38391-7, 21005-1, 82562- 9 #### [facility] ([id number]) [address] [place] [address] 35298 BLOOD CULTUREon 09-25-2023 Bacteria identified Aer cx Nom (Bld) SPECIMEN NOTES SUBOPTIMAL VOLUME OF BLOOD COLLECTED, RESULTS MAY BE AFFECTED. CULTURE RESULTS NO GROWTH 5 DAYS Normal [facility] Comment on above: Performed By: #### C BCA, CMP, 3040-3, 35236-4, 58740-1, 27483- 9 #### [facility] ([id number]) [address] [place] [address] 96026 Bacteria identified Aer cx Nom (Bld) CULTURE RESULTS NO GROWTH 5 DAYS Normal [facility] CBC AND AUTO DIFFon 09-25-19 24 ABSOLUTE BASOPHIL 0.1 X10E9/L Normal 0.0-0.2 [facility] Comment on above: Performed By: #### C BCA, CMP, 3040-3, 77274-1, 17092-4, 69985- 9 #### [facility] ([id number]) [address] [place] [address] 08874 ABSOLUTE NEUTROPHIL 14.0 X10E9/L High 1.5-6.6 [facility] Comment on above: Performed By: #### C BCA, CMP, 3040-3, 92730-7, 84961-5, 22322- 9 #### [facility] ([id number]) [address] [place] [address] 68884 Basophils/100 WBC (Bld) 0.5 % Normal [facility] Comment on above: Performed By: #### C BCA, CMP, 3040-3, 14978-5, 82164-3, 68066- 9 #### [facility] ([id number]) [address] [place] [address] 40094 Eosinophils (Bld) [#/Vol] 0.0 10*3/uL Normal 0.0-0.4 [facility] Comment on above: Performed By: #### C BCA, CMP, 3040-3, 21662-7, 76348-9, 58899- 9 #### [facility] ([id number]) [address] [place] [address] 33187 Eosinophils/100 WBC (Bld) 0.1 % Normal [facility] Comment on above: Performed By: #### C BCA, CMP, 3040-3, 81041-9, 39283-7, 44527- 9 #### [facility] ([id number]) [address] [place] [address] 89691 Erythrocyte distribution width (RBC) [Ratio] 13.1 % Normal 11.5-15.0 [facility] Comment on above: Performed By: #### C BCA, CMP, 3040-3, 64822-5, 39757-9, 06900- 9 #### [facility] ([id number]) [address] [place] [address] 53358 Hematocrit (Bld) [Volume fraction] 45.4 % Normal 35-47 [facility] Comment on above: Performed By: #### C BCA, CMP, 3040-3, 50660-5, 12450-8, 43910- 9 #### [facility] ([id number]) [address] [place] [address] 67021 Hemoglobin (Bld) [Mass/Vol] 15.6 g/dL High 11.7-15.5 [facility] Comment on above: Performed By: #### C BCA, CMP, 3040-3, 07132-1, 41149-2, 64094- 9 #### [facility] ([id number]) [address] [place] [address] 04025 Lymphocytes (Bld) [#/Vol] 2.1 10*3/uL Normal 1.0-3.5 [facility] Comment on above: Performed By: #### C BCA, CMP, 3040-3, 47997-1, 81326-4, 97092- 9 #### [facility] ([id number]) [address] [place] [address] 09905 Lymphocytes/100 WBC (Bld) 11.9 % Normal [facility] Comment on above: Performed By: #### Arnie BCA, CMP, 3040-3, 47424-9, 54146-1, 24060- 9 #### [facility] ([id number]) [address] [place] [address] 80697 MCH (RBC) [Entitic mass] 30.3 pg Normal 27-34 [facility] Comment on above: Performed By: #### C BCA, CMP, 3040-3, 07836-4, 54345-7, 09677- 9 #### [facility] ([id number]) [address] [place] [address] 43670 MCHC (RBC) [Mass/Vol] 34.3 g/dL Normal 32-36 [facility] Comment on above: Performed By: #### C BCA, CMP, 3040-3, 46379-7, 14756-0, 61000- 9 #### [facility] ([id number]) [address] [place] [address] 10723 MCV (RBC) [Entitic vol] 88 fL Normal 80-100 [facility] Comment on above: Performed By: #### C BCA, CMP, 3040-3, 09310-7, 17395-4, 47426- 9 #### [facility] ([id number]) [address] [place] [address] 97487 Monocytes (Bld) [#/Vol] 1.3 10*3/uL High 0-0.9 [facility] Comment on above: Performed By: #### C BCA, CMP, 3040-3, 52694-6, 97327-7, 87383- 9 #### [facility] ([id number]) [address] [place] [address] 01140 Monocytes/100 WBC (Bld) 7.3 % Normal [facility] Comment on above: Performed By: #### C BCA, CMP, 3040-3, 60969-1, 39260-5, 99792- 9 #### [facility] ([id number]) [address] [place] [address] 84047 Neutrophils/100 WBC (Bld) 80.2 % Normal [facility] Comment on above: Performed By: #### C BCA, CMP, 3040-3, 06580-4, 62616-7, 51182- 9 #### [facility] ([id number]) [address] [place] [address] 70728 Platelet mean volume (Bld) [Entitic vol] 7.7 fL Normal 7-12 [facility] Comment on above: Performed By: #### C BCA, CMP, 3040-3, 94013-6, 17986-3, 46164- 9 #### [facility] ([id number]) [address] [place] [address] 12770 Platelets (Bld) [#/Vol] 440 10*3/uL Normal 150-450 [facility] Comment on above: Performed By: #### Arnie BCA, CMP, 3040-3, 76944-5, 31606-5, 09547- 9 #### [facility] ([id number]) [address] [place] [address] 90255 RBC COUNT 5.14 X10E12/L Normal 3.80-5.20 [facility] Comment on above: Performed By: #### C BCA, CMP, 3040-3, 63469-9, 42223-1, 44879- 9 #### [facility] ([id number]) [address] [place] [address] 71370 WBC (Bld) [#/Vol] 17.4 10*3/uL High 4.0-11.0 [facility] Comment on above: Performed By: #### C BCA, CMP, 3040-3, 49363-6, 02159-2, 69563- 9 #### [facility] ([id number]) [address] [place] [address] 55440 COMPREHENSIVE METABOLIC PANE Sumit 09-25-2023 Albumin [Mass/Vol] 4.8 g/dL Normal 3.2-5.3 [facility] Comment on above: Performed By: #### C BCA, CMP, 3040-3, 64858-5, 95775-3, 97736- 9 #### [facility] ([id number]) [address] [place] [address] 77658 ALP [Catalytic activity/Vol] 80 U/L Normal 39-130 [facility] Comment on above: Performed By: #### C BCA, CMP, 3040-3, 00620-2, 48884-0, 93890- 9 #### [facility] ([id number]) [address] [place] [address] 06324 ALT [Catalytic activity/Vol] 23 U/L Normal 0-31 [facility] Comment on above: Performed By: #### C BCA, CMP, 3040-3, 08911-3, 11280-1, 41042- 9 #### [facility] ([id number]) [address] [place] [address] 57611 Anion gap [Moles/Vol] 15 mmol/L Normal 5-15 [facility] Comment on above: Performed By: #### C BCA, CMP, 3040-3, 37670-2, 62738-9, 20723- 9 #### [facility] ([id number]) [address] [place] [address] 25745 AST [Catalytic activity/Vol] 22 U/L Normal 0-41 [facility] Comment on above: Performed By: #### C BCA, CMP, 3040-3, 13493-9, 26971-1, 48955- 9 #### [facility] ([id number]) [address] [place] [address] 60371 Bilirubin [Mass/Vol] 1.0 mg/dL Normal 0.3-1.2 [facility] Comment on above: Performed By: #### C BCA, CMP, 3040-3, 35129-8, 28449-9, 67396- 9 #### [facility] ([id number]) [address] [place] [address] 47232 Calcium [Mass/Vol] 9.0 mg/dL Normal 8.5-10.5 [facility] Comment on above: Performed By: #### C BCA, CMP, 3040-3, 63109-6, 88179-0, 30080- 9 #### [facility] ([id number]) [address] [place] [address] 60154 Chloride [Moles/Vol] 92 mmol/L Low 98-109 [facility] Comment on above: Performed By: #### C BCA, CMP, 3040-3, 73770-7, 83708-5, 37140- 9 #### [facility] ([id number]) [address] [place] [address] 14541 CO2 [Moles/Vol] 23 mmol/L Normal 22-32 [facility] Comment on above: Performed By: #### C BCA, CMP, 3040-3, 61106-7, 01071-2, 72806- 9 #### [facility] ([id number]) [address] [place] [address] 62745 Creatinine [Mass/Vol] 0.45 mg/dL Normal 0.40-1.00 [facility] Comment on above: Result Comment: METH OD TRACEABLE TO IDMS STANDARD Performed By: #### C BCA, CMP, 3040-3, 56124-2, 76232-3, 46112-5 #### [facility] ([id number]) [address] [place] [address] 14994 eGFR (CKD-EPI) NON-RACE DEPENDENT >90 Normal >59 [facility] Comment on above: Result Comment: Reported eGFR is based on the CKD-EPI 2020 equation that does not use a race coefficient. Performed By: #### C BCA, CMP, 3040-3, 57303-4, 56607-0, 36220-4 #### [facility] ([id number]) [address] [place] [address] 22960 Glucose [Mass/Vol] 151 mg/dL High 65-99 [facility] Comment on above: Performed By: #### C BCA, CMP, 3040-3, 13429-9, 65243-3, 60726- 9 #### [facility] ([id number]) [address] [place] [address] 73201 Potassium [Moles/Vol] 2.6 mmol/L Critically low 3.5-5.0 [facility] Comment on above: Performed By: #### C BCA, CMP, 3040-3, 47661-1, 16773-4, 37045- 9 #### [facility] ([id number]) [address] [place] [address] 07386 Protein [Mass/Vol] 8.7 g/dL High 6.0-8.0 [facility] Comment on above: Performed By: #### C BCA, CMP, 3040-3, 94577-2, 73515-5, 10185- 9 #### [facility] ([id number]) [address] [place] [address] 78184 Sodium [Moles/Vol] 130 mmol/L Low 134-146 [facility] Comment on above: Performed By: #### C BCA, CMP, 3040-3, 13365-1, 08969-1, 98855- 9 #### [facility] ([id number]) [address] [place] [address] 15324 Urea nitrogen [Mass/Vol] 17 mg/dL Normal 5-23 [facility] Comment on above: Performed By: #### C BCA, CMP, 3040-3, 34588-6, 19626-3, 21148- 9 #### [facility] ([id number]) [address] [place] [address] [place] [address] [address] ABDOMEN AND PELVIS WO CON Ton [...] Ramsay MD on 09/25/2023 6:01 PM Normal [facility] DRUG SCREEN, URINEon 024 AMPHETAMINE/METHAMP Negative Normal NEG [facility] Comment on above: Result Comment: AMPH /METH screening cut off = 1000 ng/mL Performed By: #### C BCA CMP, 3040-3, 47142-6, 24535-3, 16788-8 #### [facility] ([id number]) [address] [place] [address] [place] [address] BARBITURATES Negative Normal NEG [facility] Comment on above: Result Comment: Anitra iturates screening cut off value = 200 ng/mL Performed By: #### C BCA, CMP, 3040-3, 38358-9, 62746-9, 40696-4 #### [facility] ([id number]) [address] [place] [address] 40634 BENZODIAZEPINES Negative Normal NEG [facility] Comment on above: Result Comment: Art odiazepines screening cut off value = 200 ng/mL Performed By: #### C BCA, CMP, 3040-3, 44706-3, 89291-5, 92108-7 #### [facility] ([id number]) [address] [place] [address] 55741 CANNABINOIDS Positive Abnormal NEG [facility] Comment on above: Result Comment: Conf irmation available upon request. Cannabinoids/THC screening cut off value = 50 ng/mL Performed By: #### C BCA, CMP, 3040-3, 72850-7, 29606-4, 52369-6 #### [facility] ([id number]) [address] [place] [address] 69018 COCAINE METABOLITE Negative Normal NEG [facility] Comment on above: Result Comment: Coca ine screening cut off value = 300 ng/mL Performed By: #### C BCA, CMP, 3040-3, 39570-7, 45789-6, 65490-5 #### [facility] ([id number]) [address] [place] [address] 93477 ECSTASY Negative Normal NEG [facility] Comment on above: Result Comment: Ecst asy screening cut off value = 500 ng/mL This report is intended for use in clinical monitoring or management of patients. Performed By: #### C BCA, CMP, 3040-3, 78014-2, 67963-1, 18022-1 #### [facility] ([id number]) [address] [place] [address] 85101 METHADONE Negative Normal NEG [facility] Comment on above: Result Comment: Meth adone screening cut off value = 300 ng/mL. Performed By: #### C BCA, CMP, 3040-3, 01114-0, 17369-3, 05286-7 #### [facility] ([id number]) [address] [place] [address] 03918 OPIATES Negative Normal NEG [facility] Comment on above: Result Comment: Opia gricelda screening cut off value = 300 ng/mL NOTE: This test is used for the detection of codeine, hydrocodone (>1000 ng/mL), morphine and hydromorphone (>900 ng/mL) in urine. Performed By: #### C BCA, CMP, 3040-3, 22401-9, 25578-3, 53710-3 #### [facility] ([id number]) [address] [place] [address] 53972 OXYCODONE Negative Normal NEG [facility] Comment on above: Result Comment: Oxyc odone screening cut off value = 300 ng/mL NOTE: This test is used for the detection of oxycodone and oxymorphone in urine. Performed By: #### C MAIKEL, CMP, 3040-3, 26549-2, 68843-9, 69539-6 #### [facility] ([id number]) [address] [place] [address] 34238 PHENCYCLIDINE Negative Normal NEG [facility] Comment on above: Result Comment: Phen cyclidine screening cut off value = 25 ng/mL Performed By: #### C MAIKEL, CMP, 3040-3, 24567-8, 92887-3, 13853-0 #### [facility] ([id number]) [address] [place] [address] 42856 LIPASEon 09-25-2023 Lipase [Catalytic activity/Vol] 22 U/L Normal 17-40 [facility] Comment on above: Performed By: #### C BCA, CMP, 3040-3, 98907-6, 99970-0, 63080- 9 #### [facility] ([id number]) [address] [place] [address] 32539 Lactate (P cheryle) [Moles/Vol]o n 09-25-2023 LACTATE W/REFLEX 1.2 mmol/L Normal 0.4-2.0 [facility] Comment on above: Result Comment: Result did not trigger repeat Lactate, re-order if needed. Performed By: #### C MAIKEL, MICAH, 3040-3, 65236-2, 96094-3, 39767-5 #### [facility] ([id number]) [address] [place] [address] 92513 PHOSPHORUSon 09-25-2023 Phosphate [Mass/Vol] 2.0 mg/dL Low 2.4-4.9 [facility] Comment on above: Performed By: #### C MAIKEL, MICAH, 3040-3, 38426-3, 48058-0, 28439- 9 #### [facility] ([id number]) [address] [place] [address] 91886 POTASSIUMon 09-25-2023 Potassium [Moles/Vol] 3.1 mmol/L Low 3.5-5.0 [facility] Comment on above: Performed By: #### C MAIKEL, MICAH, 3040-3, 65618-9, 61362-6, 46839- 9 #### [facility] ([id number]) [address] [place] [address] 67351 Potassium [Moles/Vol] 2.8 mmol/L Low 3.5-5.0 [facility] Comment on above: Performed By: #### C MAIKEL, CMP, 3040-3, 07758-9, 62240-3, 67378- 9 #### [facility] ([id number]) [address] [place] [address] 81235 Procalcitonin IA [Mass/Vol]o n 09-25-2023 PROCALCITONIN <0.05 Normal <0.05 [facility] Comment on above: Result Comment: NOTE <0.50 ng/mL - Low risk of severe sepsis and/or septic shock. <2.00 ng/mL - Recommend retesting within 6-24 hours. >2.00 ng/mL - High risk of sepsis and/or septic shock. Performed By: #### C BCA, CMP, 3040-3, 11937-6, 74421-9, 64016-8 #### [facility] ([id number]) [address] [place] [address] 74194 URINALYSISon 09-25-2023 Bilirubin Ql (U) Negative Normal NEG [facility] Comment on above: Performed By: #### C BCA, CMP, 3040-3, 06782-4, 86035-7, 16246- 9 #### [facility] ([id number]) [address] [place] [address] 93721 BLOOD/HGB MODERATE Abnormal NEG [facility] Comment on above: Performed By: #### C BCA, CMP, 3040-3, 62213-2, 46220-1, 75947- 9 #### [facility] ([id number]) [address] [place] [address] 99825 Color (U) YELLOW Normal YELLOW [facility] Comment on above: Performed By: #### C BCA, CMP, 3040-3, 07546-8, 53110-5, 71177- 9 #### [facility] ([id number]) [address] [place] [address] 94689 Glucose Ql (U) Negative Normal [facility] Comment on above: Performed By: #### C BCA, CMP, 3040-3, 60446-4, 94161-6, 34705- 9 #### [facility] ([id number]) [address] [place] [address] 16999 Ketones Ql (U) >80 Abnormal NEG [facility] Comment on above: Performed By: #### C BCA, CMP, 3040-3, 69947-2, 05362-8, 28653- 9 #### [facility] ([id number]) [address] [place] [address] 87758 Leukocyte esterase Test strip Ql (U) Negative Normal NEG [facility] Comment on above: Performed By: #### C BCA, CMP, 3040-3, 05215-5, 22378-5, 35876- 9 #### [facility] ([id number]) [address] [place] [address] 73535 Nitrite Ql (U) Negative Normal NEG [facility] Comment on above: Performed By: #### C BCA, CMP, 3040-3, 73119-8, 78330-9, 40268- 9 #### [facility] ([id number]) [address] [place] [address] 66616 pH (U) 6.5 [pH] Normal 5.0-8.5 [facility] Comment on above: Performed By: #### C BCA, CMP, 3040-3, 34955-2, 36837-3, 45350- 9 #### [facility] ([id number]) [address] [place] [address] 50772 Protein Ql (U) Negative Normal NEG [facility] Comment on above: Performed By: #### C BCA, CMP, 3040-3, 48890-5, 69391-6, 69177- 9 #### [facility] ([id number]) [address] [place] [address] 25153 R.B.CELLS 5 to 10 Normal 0-5 [facility] Comment on above: Performed By: #### C BCA, CMP, 3040-3, 65978-2, 62901-2, 43739- 9 #### [facility] ([id number]) [address] [place] [address] 88817 Specific gravity (U) [Rel density] 1.010 Normal 1.003-1.035 [facility] Comment on above: Performed By: #### C BCA, CMP, 3040-3, 29838-9, 91129-6, 03327- 9 #### [facility] ([id number]) [address] [place] [address] [place] [address] SQUAMOUS EPITHELIUM 2 to 5 Normal 0-5 [facility] Comment on above: Performed By: #### C BCA, CMP, 3040-3, 97752-2, 39309-8, 74824- 9 #### [facility] ([id number]) [address] [place] [address] [place] [address] TURBIDITY CLEAR Normal CLEAR [facility] Comment on above: Performed By: #### C BCA, CMP, 3040-3, 40454-5, 95083-1, 91752- 9 #### [facility] ([id number]) [address] [place] [address] 88052 Urobilinogen Qn (U) 0.2 {Kingsley'U}/dL Normal <1.1 [facility] Comment on above: Performed By: #### C BCA, CMP, 3040-3, 07219-4, 50249-5, 85614- 9 #### [facility] ([id number]) [address] [place] [address] [place] [address] W.B.CELLS 0 /hpf Normal 0-5 [facility] Comment on above: Performed By: #### C BCA, CMP, 3040-3, 28060-9, 32665-8, 88524- 9 #### [facility] ([id number]) [address] [place] [address] [place] [address] URINE CULTUREon 09-25-2023 Bacteria identified Cx Nom (U) CULTURE RESULTS 50-100,000 ORGANISMS/ML NORMAL UROGENITAL MINOR Normal [facility] Comment on above: Performed By: #### C BCA, CMP, 3040-3, 25815-2, 52908-4, 46427- 9 #### [facility] ([id number]) [address] [place] [address] 25539 CBC AND AUTO DIFFon 07-26-19 ABSOLUTE BASOPHIL 0.1 X10E9/L Normal 0.0-0.2 [facility] Comment on above: Performed By: #### C BCA, CMP, 3040-3, 62654-6, 62184-2, 40269- 9 #### [facility] ([id number]) [address] [place] [address] 09395 ABSOLUTE NEUTROPHIL 9.8 X10E9/L High 1.5-6.6 [facility] Comment on above: Performed By: #### C BCA, CMP, 3040-3, 28675-1, 94776-2, 52628- 9 #### [facility] ([id number]) [address] [place] [address] 89039 Basophils/100 WBC (Bld) 0.6 % Normal [facility] Comment on above: Performed By: #### C BCA, CMP, 3040-3, 13354-4, 20469-0, 81914- 9 #### [facility] ([id number]) [address] [place] [address] 13139 Eosinophils (Bld) [#/Vol] 0.0 10*3/uL Normal 0.0-0.4 [facility] Comment on above: Performed By: #### C BCA, CMP, 3040-3, 54188-1, 11141-6, 11181- 9 #### [facility] ([id number]) [address] [place] [address] 11711 Eosinophils/100 WBC (Bld) 0.1 % Normal [facility] Comment on above: Performed By: #### C BCA, CMP, 3040-3, 63216-0, 08882-0, 54568- 9 #### [facility] ([id number]) [address] [place] [address] 01667 Erythrocyte distribution width (RBC) [Ratio] 13.4 % Normal 11.5-15.0 [facility] Comment on above: Performed By: #### C BCA, CMP, 3040-3, 11760-1, 50701-7, 97078- 9 #### [facility] ([id number]) [address] [place] [address] 38279 Hematocrit (Bld) [Volume fraction] 44.6 % Normal 35-47 [facility] Comment on above: Performed By: #### C BCA, CMP, 3040-3, 20341-5, 86347-2, 68797- 9 #### [facility] ([id number]) [address] [place] [address] 10339 Hemoglobin (Bld) [Mass/Vol] 15.0 g/dL Normal 11.7-15.5 [facility] Comment on above: Performed By: #### C BCA, CMP, 3040-3, 47554-4, 27809-3, 13896- 9 #### [facility] ([id number]) [address] [place] [address] 35658 Lymphocytes (Bld) [#/Vol] 1.4 10*3/uL Normal 1.0-3.5 [facility] Comment on above: Performed By: #### C BCA, CMP, 3040-3, 62403-5, 30557-1, 23787- 9 #### [facility] ([id number]) [address] [place] [address] 63492 Lymphocytes/100 WBC (Bld) 11.9 % Normal [facility] Comment on above: Performed By: #### C BCA, CMP, 3040-3, 91719-1, 56512-9, 67018- 9 #### [facility] ([id number]) [address] [place] [address] 54685 MCH (RBC) [Entitic mass] 30.2 pg Normal 27-34 [facility] Comment on above: Performed By: #### C BCA, CMP, 3040-3, 43382-3, 70045-7, 07412- 9 #### [facility] ([id number]) [address] [place] [address] 88679 MCHC (RBC) [Mass/Vol] 33.7 g/dL Normal 32-36 [facility] Comment on above: Performed By: #### C BCA, CMP, 3040-3, 79273-3, 50933-6, 46305- 9 #### [facility] ([id number]) [address] [place] [address] 47163 MCV (RBC) [Entitic vol] 90 fL Normal 80-100 [facility] Comment on above: Performed By: #### C BCA, CMP, 3040-3, 36712-2, 30036-4, 65924- 9 #### [facility] ([id number]) [address] [place] [address] 53435 Monocytes (Bld) [#/Vol] 0.3 10*3/uL Normal 0-0.9 [facility] Comment on above: Performed By: #### C BCA, CMP, 3040-3, 83370-4, 51338-8, 32372- 9 #### [facility] ([id number]) [address] [place] [address] 02798 Monocytes/100 WBC (Bld) 2.3 % Normal [facility] Comment on above: Performed By: #### C BCA, CMP, 3040-3, 13494-9, 23812-1, 09707- 9 #### [facility] ([id number]) [address] [place] [address] 92259 Neutrophils/100 WBC (Bld) 85.1 % Normal [facility] Comment on above: Performed By: #### C BCA, CMP, 3040-3, 56382-7, 43746-7, 97910- 9 #### [facility] ([id number]) [address] [place] [address] 90592 Platelet mean volume (Bld) [Entitic vol] 7.4 fL Normal 7-12 [facility] Comment on above: Performed By: #### C BCA, CMP, 3040-3, 22975-7, 90936-5, 08836- 9 #### [facility] ([id number]) [address] [place] [address] 33598 Platelets (Bld) [#/Vol] 399 10*3/uL Normal 150-450 [facility] Comment on above: Performed By: #### C BCA, CMP, 3040-3, 20494-5, 53033-7, 11178- 9 #### [facility] ([id number]) [address] [place] [address] 78152 RBC COUNT 4.97 X10E12/L Normal 3.80-5.20 [facility] Comment on above: Performed By: #### C BCA, CMP, 3040-3, 75103-6, 29871-1, 52977- 9 #### [facility] ([id number]) [address] [place] [address] 59766 WBC (Bld) [#/Vol] 11.5 10*3/uL High 4.0-11.0 [facility] Comment on above: Performed By: #### C BCA, CMP, 3040-3, 91374-9, 30571-1, 85529- 9 #### [facility] ([id number]) [address] [place] [address] 71607 COMPREHENSIVE METABOLIC PANE Sumit 07-26-2023 Albumin [Mass/Vol] 4.1 g/dL Normal 3.2-5.3 [facility] Comment on above: Performed By: #### C BCA, CMP, 3040-3, 88443-8, 10410-8, 41529- 9 #### [facility] ([id number]) [address] [place] [address] 88072 ALP [Catalytic activity/Vol] 62 U/L Normal 39-130 [facility] Comment on above: Performed By: #### C BCA, CMP, 3040-3, 65059-5, 50574-7, 20488- 9 #### [facility] ([id number]) [address] [place] [address] 67914 ALT [Catalytic activity/Vol] 12 U/L Normal 0-31 [facility] Comment on above: Performed By: #### C BCA, CMP, 3040-3, 53674-7, 38687-7, 70373- 9 #### [facility] ([id number]) [address] [place] [address] 07918 Anion gap [Moles/Vol] 10 mmol/L Normal 5-15 [facility] Comment on above: Performed By: #### C BCA, CMP, 3040-3, 55310-2, 21145-6, 55971- 9 #### [facility] ([id number]) [address] [place] [address] 33525 AST [Catalytic activity/Vol] 16 U/L Normal 0-41 [facility] Comment on above: Performed By: #### C BCA, CMP, 3040-3, 71894-4, 48560-3, 72256- 9 #### [facility] ([id number]) [address] [place] [address] 25081 Bilirubin [Mass/Vol] 0.9 mg/dL Normal 0.3-1.2 [facility] Comment on above: Performed By: #### C BCA, CMP, 3040-3, 74287-4, 18023-3, 64216- 9 #### [facility] ([id number]) [address] [place] [address] 23013 Calcium [Mass/Vol] 8.1 mg/dL Low 8.5-10.5 [facility] Comment on above: Performed By: #### C BCA, CMP, 3040-3, 28529-0, 41794-9, 68364- 9 #### [facility] ([id number]) [address] [place] [address] 84991 Chloride [Moles/Vol] 101 mmol/L Normal 98-109 [facility] Comment on above: Performed By: #### C MAIKEL, CMP, 3040-3, 57383-2, 00938-8, 68736- 9 #### [facility] ([id number]) [address] [place] [address] 10776 CO2 [Moles/Vol] 20 mmol/L Low 22-32 [facility] Comment on above: Performed By: #### C MAIKEL, MICAH, 3040-3, 81146-4, 69960-2, 40945- 9 #### [facility] ([id number]) [address] [place] [address] 27743 Creatinine [Mass/Vol] 0.42 mg/dL Normal 0.40-1.00 [facility] Comment on above: Result Comment: METH OD TRACEABLE TO IDMS STANDARD Performed By: #### C MAIKEL, MICAH, 3040-3, 80090-7, 18228-0, 50974-0 #### [facility] ([id number]) [address] [place] [address] 28403 eGFR (CKD-EPI) NON-RACE DEPENDENT >90 Normal >59 [facility] Comment on above: Result Comment: Reported eGFR is based on the CKD-EPI 2020 equation that does not use a race coefficient. Performed By: #### C MAIKEL, CMP, 3040-3, 73474-1, 11476-9, 42439-9 #### [facility] ([id number]) [address] [place] [address] 50003 Glucose [Mass/Vol] 140 mg/dL High 65-99 [facility] Comment on above: Performed By: #### C BCA, CMP, 3040-3, 89754-0, 05943-7, 81059- 9 #### [facility] ([id number]) [address] [place] [address] 65470 Potassium [Moles/Vol] 3.2 mmol/L Low 3.5-5.0 [facility] Comment on above: Performed By: #### C BCA, CMP, 3040-3, 61088-6, 52717-1, 21233- 9 #### [facility] ([id number]) 08 [place] [address] 38201 Protein [Mass/Vol] 7.3 g/dL Normal 6.0-8.0 [facility] Comment on above: Performed By: #### C BCA, CMP, 3040-3, 88491-0, 87143-0, 75747- 9 #### [facility] ([id number]) [address] [place] [address] 65255 Sodium [Moles/Vol] 131 mmol/L Low 134-146 [facility] Comment on above: Performed By: #### C BCA, CMP, 3040-3, 79200-3, 84112-1, 07170- 9 #### [facility] ([id number]) [address] [place] [address] 53063 Urea nitrogen [Mass/Vol] 12 mg/dL Normal 5-23 [facility] Comment on above: Performed By: #### C BCA, CMP, 3040-3, 41636-8, 99942-7, 03278- 9 #### [facility] ([id number]) [address] [place] [address] 99576 LIPASEon 07-26-2023 Lipase [Catalytic activity/Vol] 19 U/L Normal 17-40 [facility] Comment on above: Performed By: #### C BCA, CMP, 3040-3, 71408-5, 77560-1, 52987- 9 #### [facility] ([id number]) [address] [place] [address] 44709 Lactate (P cheryle) [Moles/Vol]o n 07-26-2023 LACTATE W/REFLEX 1.3 mmol/L Normal 0.4-2.0 [facility] Comment on above: Result Comment: Result did not trigger repeat Lactate, re-order if needed. Performed By: #### C BCA, CMP, 3040-3, 49975-0, 43228-6, 24864-9 #### [facility] ([id number]) [address] [place] [address] 28250 URN MACROSCOPIC NURon 2023 BILIRUBIN TACO Negative Normal NEG [facility] Comment on above: Performed By: #### C BCA, CMP, 3040-3, 04433-3, 92935-1, 16303- 9 #### [facility] ([id number]) [address] [place] [address] 95661 BLOOD/HGB TACO MODERATE Abnormal NEG [facility] Comment on above: Performed By: #### C BCA, CMP, 3040-3, 92149-9, 48184-9, 34096- 9 #### [facility] ([id number]) [address] [place] [address] 13820 GLUCOSE TACO Negative Normal NEG [facility] Comment on above: Performed By: #### C BCA, CMP, 3040-3, 39425-3, 63206-7, 89754- 9 #### [facility] ([id number]) [address] [place] [address] 93151 KETONES TACO >=160 Abnormal NEG [facility] Comment on above: Performed By: #### C BCA, CMP, 3040-3, 82850-9, 52666-2, 89092- 9 #### [facility] ([id number]) [address] [place] [address] 15570 LEUKOCYTE ESTERASE TACO Negative Normal NEG [facility] Comment on above: Performed By: #### C BCA, CMP, 3040-3, 37015-0, 95172-7, 28174- 9 #### [facility] ([id number]) [address] [place] [address] 48361 NITRITE TACO Negative Normal NEG [facility] Comment on above: Performed By: #### C BCA, CMP, 3040-3, 47754-9, 79904-4, 52230- 9 #### [facility] ([id number]) [address] [place] [address] 00623 PH TACO 6.0 Normal 5.0-8.5 [facility] Comment on above: Performed By: #### C BCA, CMP, 3040-3, 35794-2, 49070-5, 64115- 9 #### [facility] ([id number]) [address] [place] [address] 26630 PROTEIN TACO 30 mg/dL Abnormal NEG [facility] Comment on above: Performed By: #### C BCA, CMP, 3040-3, 11248-0, 88983-7, 42106- 9 #### [facility] ([id number]) [address] [place] [address] 22349 SPECIFIC GRAVITY TACO >=1.030 Normal 1.003-1.035 [facility] Comment on above: Performed By: #### C BCA, CMP, 3040-3, 14654-0, 61608-4, 54181- 9 #### [facility] ([id number]) [address] [place] [address] 83042 UROBILINOGEN TACO 0.2 eu/dL Normal <1.1 [facility] Comment on above: Performed By: #### C BCA, CMP, 3040-3, 47120-6, 17976-5, 38770- 9 #### [facility] ([id number]) [address] [place] [address] 55233 CBC AND AUTO DIFFon 05-02-19 ABSOLUTE BASOPHIL 0.0 X10E9/L Normal 0.0-0.2 [facility] Comment on above: Performed By: #### C BCA, CMP, 3040-3, 78769-8, 67401-6, 15485- 9 #### [facility] ([id number]) [address] [place] [address] 82459 ABSOLUTE NEUTROPHIL 11.9 X10E9/L High 1.5-6.6 [facility] Comment on above: Performed By: #### C BCA, CMP, 3040-3, 55529-5, 11012-3, 04987- 9 #### [facility] ([id number]) [address] [place] [address] 40041 Basophils/100 WBC (Bld) 0.2 % Normal [facility] Comment on above: Performed By: #### C BCA, CMP, 3040-3, 14671-0, 62691-3, 39757- 9 #### [facility] ([id number]) [address] [place] [address] 20750 Eosinophils (Bld) [#/Vol] 0.0 10*3/uL Normal 0.0-0.4 [facility] Comment on above: Performed By: #### C BCA, CMP, 3040-3, 37240-3, 46050-6, 82093- 9 #### [facility] ([id number]) [address] [place] [address] 33438 Eosinophils/100 WBC (Bld) 0.3 % Normal [facility] Comment on above: Performed By: #### C BCA, CMP, 3040-3, 86494-9, 23970-0, 33112- 9 #### [facility] ([id number]) [address] [place] [address] 75939 Erythrocyte distribution width (RBC) [Ratio] 13.1 % Normal 11.5-15.0 [facility] Comment on above: Performed By: #### C MAIKEL, MICAH, 3040-3, 52816-2, 17757-6, 86749- 9 #### [facility] ([id number]) [address] [place] [address] 48228 Hematocrit (Bld) [Volume fraction] 44.1 % Normal 35-47 [facility] Comment on above: Performed By: #### C MAIKEL, MICAH, 3040-3, 56901-7, 05072-4, 49679- 9 #### [facility] ([id number]) [address] [place] [address] 57102 Hemoglobin (Bld) [Mass/Vol] 15.0 g/dL Normal 11.7-15.5 [facility] Comment on above: Performed By: #### C MAIKEL, MICAH, 3040-3, 76462-0, 95204-5, 68967- 9 #### [facility] ([id number]) [address] [place] [address] 07854 Lymphocytes (Bld) [#/Vol] 1.4 10*3/uL Normal 1.0-3.5 [facility] Comment on above: Performed By: #### C MAIKEL, CMP, 3040-3, 99830-0, 50027-1, 61415- 9 #### [facility] ([id number]) [address] [place] [address] 79147 Lymphocytes/100 WBC (Bld) 9.8 % Normal [facility] Comment on above: Performed By: #### C MAKIEL, CMP, 3040-3, 03083-0, 37426-5, 95774- 9 #### [facility] ([id number]) [address] [place] [address] 74737 MCH (RBC) [Entitic mass] 30.3 pg Normal 27-34 [facility] Comment on above: Performed By: #### C BCA, CMP, 3040-3, 92456-3, 17982-1, 66938- 9 #### [facility] ([id number]) [address] [place] [address] 54085 MCHC (RBC) [Mass/Vol] 34.0 g/dL Normal 32-36 [facility] Comment on above: Performed By: #### C BCA, CMP, 3040-3, 66740-7, 60853-8, 12955- 9 #### [facility] ([id number]) [address] [place] [address] 36516 MCV (RBC) [Entitic vol] 89 fL Normal 80-100 [facility] Comment on above: Performed By: #### C BCA, CMP, 3040-3, 85054-8, 33166-7, 25974- 9 #### [facility] ([id number]) [address] [place] [address] 73227 Monocytes (Bld) [#/Vol] 0.8 10*3/uL Normal 0-0.9 [facility] Comment on above: Performed By: #### C BCA, CMP, 3040-3, 57873-8, 01457-2, 07465- 9 #### [facility] ([id number]) [address] [place] [address] 93198 Monocytes/100 WBC (Bld) 5.4 % Normal [facility] Comment on above: Performed By: #### C BCA, CMP, 3040-3, 08475-8, 73345-7, 23926- 9 #### [facility] ([id number]) [address] [place] [address] 34597 Neutrophils/100 WBC (Bld) 84.3 % Normal [facility] Comment on above: Performed By: #### C BCA, CMP, 3040-3, 26991-2, 46805-6, 96583- 9 #### [facility] ([id number]) [address] [place] [address] 59992 Platelet mean volume (Bld) [Entitic vol] 6.9 fL Low 7-12 [facility] Comment on above: Performed By: #### C BCA, CMP, 3040-3, 20295-2, 24918-0, 37587- 9 #### [facility] ([id number]) [address] [place] [address] 40866 Platelets (Bld) [#/Vol] 433 10*3/uL Normal 150-450 [facility] Comment on above: Performed By: #### C BCA, CMP, 3040-3, 96728-0, 52747-2, 29401- 9 #### [facility] ([id number]) [address] [place] [address] 01319 RBC COUNT 4.95 X10E12/L Normal 3.80-5.20 [facility] Comment on above: Performed By: #### C BCA, CMP, 3040-3, 96509-4, 90359-0, 73188- 9 #### [facility] ([id number]) [address] [place] [address] 66150 WBC (Bld) [#/Vol] 14.2 10*3/uL High 4.0-11.0 [facility] Comment on above: Performed By: #### C BCA, CMP, 3040-3, 05874-2, 35062-6, 89469- 9 #### [facility] ([id number]) [address] [place] [address] 05055 COMPREHENSIVE METABOLIC PANE Sumit 05-02-2023 Albumin [Mass/Vol] 4.5 g/dL Normal 3.2-5.3 [facility] Comment on above: Performed By: #### C BCA, CMP, 3040-3, 70513-1, 86208-9, 86989- 9 #### [facility] ([id number]) [address] [place] [address] 39119 ALP [Catalytic activity/Vol] 61 U/L Normal 39-130 [facility] Comment on above: Performed By: #### C BCA, CMP, 3040-3, 66198-1, 11897-8, 18323- 9 #### [facility] ([id number]) [address] [place] [address] 64825 ALT [Catalytic activity/Vol] 17 U/L Normal 0-31 [facility] Comment on above: Performed By: #### C BCA, CMP, 3040-3, 23622-5, 67100-3, 78502- 9 #### [facility] ([id number]) [address] [place] [address] 68112 Anion gap [Moles/Vol] 12 mmol/L Normal 5-15 [facility] Comment on above: Performed By: #### C BCA, CMP, 3040-3, 70893-1, 13760-4, 32382- 9 #### [facility] ([id number]) [address] [place] [address] 65165 AST [Catalytic activity/Vol] 21 U/L Normal 0-41 [facility] Comment on above: Performed By: #### C BCA, CMP, 3040-3, 88796-4, 50565-6, 55575- 9 #### [facility] ([id number]) [address] [place] [address] 36277 Bilirubin [Mass/Vol] 0.9 mg/dL Normal 0.3-1.2 [facility] Comment on above: Performed By: #### C BCA, CMP, 3040-3, 87092-7, 27398-6, 40515- 9 #### [facility] ([id number]) [address] [place] [address] 90305 Calcium [Mass/Vol] 8.9 mg/dL Normal 8.5-10.5 [facility] Comment on above: Performed By: #### C BCA, CMP, 3040-3, 11468-9, 46775-1, 97332- 9 #### [facility] ([id number]) [address] [place] [address] 94536 Chloride [Moles/Vol] 99 mmol/L Normal 98-109 [facility] Comment on above: Performed By: #### C BCA, CMP, 3040-3, 59932-1, 30464-5, 53898- 9 #### [facility] ([id number]) [address] [place] [address] 38266 CO2 [Moles/Vol] 23 mmol/L Normal 22-32 [facility] Comment on above: Performed By: #### C BCA, CMP, 3040-3, 87966-0, 01778-6, 09588- 9 #### [facility] ([id number]) [address] [place] [address] 97474 Creatinine [Mass/Vol] 0.46 mg/dL Normal 0.40-1.00 [facility] Comment on above: Result Comment: METH OD TRACEABLE TO IDMS STANDARD Performed By: #### C BCA, CMP, 3040-3, 57868-2, 52112-8, 01398-5 #### [facility] ([id number]) [address] [place] [address] 42039 eGFR (CKD-EPI) NON-RACE DEPENDENT >90 Normal >59 [facility] Comment on above: Result Comment: Reported eGFR is based on the CKD-EPI 2020 equation that does not use a race coefficient. Performed By: #### C BCA, CMP, 3040-3, 83786-8, 66366-8, 80239-4 #### [facility] ([id number]) [address] [place] [address] Glucose [Mass/Vol] 141 mg/dL High 65-99 [facility] Comment on above: Performed By: #### C BCA, CMP, 3040-3, 96727-2, 32803-3, 47344- 9 #### [facility] ([id number]) [address] [place] [address] 82354 Potassium [Moles/Vol] 3.0 mmol/L Low 3.5-5.0 [facility] Comment on above: Performed By: #### C MAIKEL, CMP, 3040-3, 07970-4, 44240-9, 07734- 9 #### [facility] ([id number]) [address] [place] [address] 55368 Protein [Mass/Vol] 8.2 g/dL High 6.0-8.0 [facility] Comment on above: Performed By: #### C BCA, CMP, 3040-3, 82282-7, 94023-3, 75233- 9 #### [facility] ([id number]) [address] [place] [address] 14017 Sodium [Moles/Vol] 134 mmol/L Normal 134-146 [facility] Comment on above: Performed By: #### C BCA, CMP, 3040-3, 02065-9, 84382-6, 91918- 9 #### [facility] ([id number]) [address] [place] [address] 96377 Urea nitrogen [Mass/Vol] 14 mg/dL Normal 5-23 [facility] Comment on above: Performed By: #### C BCA, CMP, 3040-3, 21459-0, 33999-7, 94238- 9 #### [facility] ([id number]) [address] [place] [address] ABDOMEN AND PELVIS W CONT on [...] Morales MD on 05/02/2023 12:53 PM Normal [facility] HCG ( test) IA.rapi d Ql (S)on 05-02-2023 SERUM Negative Normal NEG [facility] Comment on above: Performed By: #### C MICAH KO, 3040-3, 11870-4, 15487-6, 89293- 9 #### [facility] ([id number]) [address] [place] [address] 46817 HCG ( test) Ql (U)o n 05-02-2023 Beta HCG ( test) Ql (U) Negative Normal NEG [facility] Comment on above: Performed By: #### 2 106-3 #### [facility] ([id number]) [address] [place] [address] 49521 LIPASEon 05-02-2023 Lipase [Catalytic activity/Vol] 22 U/L Normal 17-40 [facility] Comment on above: Performed By: #### C MICAH KO, 3040-3, 41267-3, 82833-7, 45566- 9 #### [facility] ([id number]) [address] [place] [address] 29313 MAGNESIUMon 05-02-2023 Magnesium [Mass/Vol] 1.8 mg/dL Normal 1.8-2.6 [facility] Comment on above: Performed By: #### C MAIKEL, CMP, 3040-3, 99949-9, 67789-8, 90073- 9 #### [facility] ([id number]) [address] [place] [address] 79314 TROPONIN Ion 05-02-2023 Troponin I.cardiac [Mass/Vol] 0.01 ng/mL Normal 0.00-0.04 [facility] Comment on above: Performed By: #### C BCA, CMP, 3040-3, 01835-7, 30679-7, 61571- 9 #### [facility] ([id number]) [address] [place] [address] 68653 URN MACROSCOPIC NURon 2023 BILIRUBIN TACO Negative Normal NEG [facility] Comment on above: Performed By: #### N UM #### [facility] ([id number]) [address] [place] [address] 39798 BLOOD/HGB TACO Small Abnormal NEG [facility] Comment on above: Performed By: #### N UM #### [facility] ([id number]) [address] [place] [address] 59420 GLUCOSE TACO Negative Normal NEG [facility] Comment on above: Performed By: #### N UM #### [facility] ([id number]) [address] [place] [address] [place] [address] KETONES TACO >=160 Abnormal NEG [facility] Comment on above: Performed By: #### N UM #### [facility] ([id number]) [address] [place] [address] 07991 LEUKOCYTE ESTERASE TACO Negative Normal NEG [facility] Comment on above: Performed By: #### N UM #### [facility] ([id number]) [address] [place] [address] 10754 NITRITE TACO Negative Normal NEG [facility] Comment on above: Performed By: #### N UM #### [facility] ([id number]) [address] [place] [address] 48105 PH TACO 6.0 Normal 5.0-8.5 [facility] Comment on above: Performed By: #### N UM #### [facility] ([id number]) [address] [place] [address] 78238 PROTEIN TACO Negative Normal NEG [facility] Comment on above: Performed By: #### N UM #### [facility] ([id number]) [address] [place] [address] 02273 SPECIFIC GRAVITY TACO <=1.005 Normal 1.003-1.035 [facility] Comment on above: Performed By: #### N UM #### [facility] ([id number]) [address] [place] [address] 49896 UROBILINOGEN TACO 0.2 eu/dL Normal <1.1 [facility] Comment on above: Performed By: #### N UM #### [facility] ([id number]) [address] [place] [address] 51863 XR CHEST 1 VWon 05-02-2023 XR CHEST 1 VW XR CHEST 1 VW Portable chest: HISTORY: Cough and nausea. Single view of the chest was obtained. Cardiac and mediastinal contours are stable. There is no consolidation or effusion. No pneumothorax is seen. The osseous structures appear intact. IMPRESSION: No acute findings Finalized by Wolfgang Mcbride MD on 05/02/2023 11:43 AM Normal [facility] ASYMPTOMATIC COVID-19 ANTIGE Non 10-30-2020 EUA Statement SEE BELOW Normal [facility] Comment on above: Result Comment: [...] sooner. Performed By: #### C VDAGA #### [facility] [address] [place] [address] Ligia Burdick SARS-CoV-2 (COVID-19) RNA SHOAIB+probe Ql (Unsp spec) Negative Normal NEGATIVE [facility] Comment on above: Result Comment: Nega tive results are presumptive. They do not preclude infection and should not be used as the sole basis for treatment decisions. Additional confirmatory testing by a molecular method should be considered. Performed By: #### C VDAGA #### [facility] [address] [place] [address] Ligia Burdick CBC AUTO DIFFon 10-30-2020 BASO # 0.1 103/ul Normal 0.0-0.1 [facility] Comment on above: Performed By: #### C BC #### [facility] [address] [place], [place] [address] Ligia Heavenly Basophils/100 WBC (Bld) 0.5 % Normal 0.2-2.0 [facility] Comment on above: Performed By: #### C BC #### [facility] [address] [place] [address] Ligia Heavenly EO # 0.5 103/ul Normal 0.0-0.7 [facility] Comment on above: Performed By: #### C BC #### [facility] [address] [place] [address] Ligia Heavenly Eosinophils/100 WBC (Bld) 5.2 % Normal 0.9-7.0 [facility] Comment on above: Performed By: #### C BC #### [facility] [address] [place] [address] Ligia Heavenly Erythrocyte distribution width (RBC) [Ratio] 13.5 % Normal 11.0-15.0 [facility] Comment on above: Performed By: #### C BC #### [facility] [address] [place] [address] Ligia Heavenly Hematocrit (Bld) [Volume fraction] 45.6 % Normal 36.0-48.0 [facility] Comment on above: Performed By: #### C BC #### [facility] [address] [place] [address] Ligia Heavenly Hemoglobin (Bld) [Mass/Vol] 15.0 g/dL Normal 12.0-16.0 [facility] Comment on above: Performed By: #### C BC #### [facility] [address] [place] [address] Ligia Heavenly IG # 0.03 10e3/ul Normal 0.00-0.03 [facility] Comment on above: Performed By: #### C BC #### [facility] [address] [place] [address] Ligia Heavenly IG % 0.3 % Normal 0.0-0.5 [facility] Comment on above: Performed By: #### C BC #### [facility] [address] [place] [address] Ligia Heavenly LYMPH # 2.4 103/ul Normal 1.2-3.8 [facility] Comment on above: Performed By: #### C BC #### [facility] [address] [place], [place] [address] Ligia Heavenly Lymphocytes/100 WBC (Bld) 23.5 % Normal 20.5-60.0 [facility] Comment on above: Performed By: #### C BC #### [facility] [address] [place] [address] Ligia Heavenly MANUAL DIFF REQ NO Normal [facility] Comment on above: Performed By: #### C BC #### [facility] [address] [place], [place] [address] Ligia Burdick MCH (RBC) [Entitic mass] 29.6 pg Normal 26.7-34.0 [facility] Comment on above: Performed By: #### C BC #### [facility] [address] [place], [place] [address] Ligia Burdick MCHC (RBC) [Mass/Vol] 32.9 g/dL Normal 29.9-35.2 [facility] Comment on above: Performed By: #### C BC #### [facility] [address] [place], [place] [address] Ligia Burdick MCV (RBC) [Entitic vol] 90.1 fL Normal 81.0-99.0 [facility] Comment on above: Performed By: #### C BC #### [facility] [address] [place] [address] Ligia Burdick MONO # 1.2 103/ul Critically high 0.3-0.8 [facility] Comment on above: Performed By: #### C BC #### [facility] [address] [place] [address] Ligia Burdick Monocytes/100 WBC (Bld) 11.9 % Normal 1.7-12.0 [facility] Comment on above: Performed By: #### C BC #### [facility] [address] [place], [place] [address] Ligia Burdick NEUT # 6.0 103/ul Normal 1.4-6.5 [facility] Comment on above: Performed By: #### C BC #### [facility] [address] [place], [place] [address] Ligia Heavenly Neutrophils/100 WBC (Bld) 58.6 % Normal 43.0-75.0 [facility] Comment on above: Performed By: #### C BC #### [facility] [address] [place], [place] [address] Ligia Heavenly Platelet mean volume (Bld) [Entitic vol] 9.4 fL Critically low 9.5-13.5 [facility] Comment on above: Performed By: #### C BC #### [facility] [address] [place] [address] Ligia Joen PLT 283 103/ul Normal 150-450 [facility] Comment on above: Performed By: #### C BC #### [facility] [address] [place], [place] [address] Ligia Heavenly RBC 5.06 106/ul Normal 4.20-5.40 [facility] Comment on above: Performed By: #### C BC #### [facility] [address] [place] [address] Ligiaana Joen WBC 10.2 103/ul Normal 4.0-11.0 [facility] Comment on above: Performed By: #### C BC #### [facility] [address] [place] [address] Ligia Burdick D-DIMERon 10-30-2020 D-DIMER 0.32 mg/L FEU Normal 0.19-0.50 [facility] Comment on above: Performed By: #### D DIM #### [facility] [address] [place], [place] [id number] Ligiaana Burdick D-DIMER COMMENTS SEE BELOW Normal [facility] Comment on above: Result Comment: Incr [...] hospitalization. Performed By: #### D DIM #### [facility] [address] [place], [place] [id number] Ligia Burdick LACTATE/LACTIC ACIDon 2020 Lactate [Moles/Vol] 1.6 mmol/L Normal 0.7-2.0 [facility] Comment on above: Performed By: #### L ACT #### [facility] [address] [id number] Ligia Heavenly PROF 14(COMP METB)on 021 Albumin [Mass/Vol] 3.9 g/dL Normal 3.5-5.0 [facility] Comment on above: Performed By: #### H HONEY, CMP #### [facility] [address] [id number] Ligia Heavenly Albumin/Globulin [Mass ratio] 1.0 {ratio} Normal [facility] Comment on above: Performed By: #### H HONEY, CMP #### [facility] [address] [address] Ligia Heavenly ALP [Catalytic activity/Vol] 90 U/L Normal 38-126 [facility] Comment on above: Performed By: #### H HONEY, CMP #### [facility] [address] [place] [address] Ligia Heavenly ALT [Catalytic activity/Vol] 75 U/L Critically high 9-52 [facility] Comment on above: Performed By: #### H HONEY, CMP #### [facility] [address] [address] Ligia Heavenly Anion gap [Moles/Vol] 13.1 mmol/L Normal [facility] Comment on above: Performed By: #### H HONEY, CMP #### [facility] [address] [address] Ligia Heavenly AST [Catalytic activity/Vol] 43 U/L Critically high 14-36 [facility] Comment on above: Performed By: #### H HONEY, CMP #### [facility] [address] [place], [place] [id number] Ligia Heavenly Bilirubin [Mass/Vol] 0.5 mg/dL Normal 0.2-1.3 [facility] Comment on above: Performed By: #### H HONEY, CMP #### [facility] [address] [id number] Ligia Heavenly Calcium [Mass/Vol] 8.7 mg/dL Normal 8.4-10.2 [facility] Comment on above: Performed By: #### H HONEY, CMP #### [facility] [address] [address] Ligia Heavenly Chloride [Moles/Vol] 97 mmol/L Critically low 98-107 [facility] Comment on above: Performed By: #### H HONEY, CMP #### [facility] [address] [address] Ligia Heavenly CO2 [Moles/Vol] 28.2 mmol/L Normal 22.0-30.0 [facility] Comment on above: Performed By: #### H HONEY, CMP #### [facility] [address] [address] Ligia Heavenly Creatinine [Mass/Vol] 0.54 mg/dL Normal 0.52-1.04 [facility] Comment on above: Performed By: #### H HONEY, CMP #### [facility] [address] [place] [address] Ligia Heavenly EGFR-AF [place] Normal >=60 [facility] Comment on above: Performed By: #### H HONEY, CMP #### [facility] [address] [place] [address] Ligia Heavenly EGFR-NON AF [place] Normal >=60 [facility] Comment on above: Performed By: #### H HONEY, CMP #### [facility] [address] [place] [address] Ligia Heavenly Globulin (S) [Mass/Vol] 4.0 g/dL Normal [facility] Comment on above: Performed By: #### H HONEY, CMP #### [facility] [address] [place] [address] Ligia Heavenly Glucose [Mass/Vol] 113 mg/dL Critically high 74-106 [facility] Comment on above: Performed By: #### H HONEY, CMP #### [facility] [address] [place] [address] Ligia Hevaenly Potassium [Moles/Vol] 4.3 mmol/L Normal 3.4-5.0 [facility] Comment on above: Performed By: #### H STROROE, CMP #### [facility] [address] [place], [place] [address] Ligia Heavenly Protein [Mass/Vol] 7.9 g/dL Normal 6.1-8.2 [facility] Comment on above: Performed By: #### H HNOEY, CMP #### [facility] [address] [place], [place] [address] Ligia Heavenly Sodium [Moles/Vol] 134 mmol/L Critically low 137-145 [facility] Comment on above: Performed By: #### H HONEY, CMP #### [facility] [address] [place], [place] [address] Ligia Heavenly Urea nitrogen [Mass/Vol] 10.0 mg/dL Normal 7.0-17.0 [facility] Comment on above: Performed By: #### H HONEY, CMP #### [facility] [address] [place], [place] [address] Ligia Heavenly Urea nitrogen/Creatinine [Mass ratio] 18.5 mg/mg Normal [facility] Comment on above: Performed By: #### H HONEY, CMP #### [facility] [address] [place], [place] [address] Ligia Heavenly TROPONIN, HIGH SENSITIVITYon 10-30-2020 HSTROP >4.0 Normal 4.0-35.5 [facility] Comment on above: Result Comment: CUT- OFF POINTS HAVE BEEN ESTABLISHED BASED ON THE FOURTH UNIVERSAL DEFINITIONS OF MYOCARDIAL INFARCTION. THE UPPER REFERENCE LIMIT (URL) OF TROPONIN, DEFINED THE 99TH PERCENTILE OF cTnI DISTRIBUTION IN A REFERENCE POPULATION, HAS BEEN CONFIRMED THE DECISION THRESHOLD FOR [place] DIAGNOSIS. Performed By: #### H HONEY, CMP #### [facility] [address] [place], [place] [address] Ligia Heavenly XR CHEST 2 Von 10-30-2020 [...] MAKENZIE ARREDONDO Date: 2020-10-29 23:52 Normal [facility] CULTURE WOUNDon 03-06-2020 CULTURE WOUND Specimen Comments: R HIP SWAB Culture Observations: Anaerobe present. Culture Observations: Evidence based practice by [facility] has demonstrated that Culture Observations: Finegoldia species are routinely susceptible to Piperacillin-Tazobac mireles, Culture Observations: Cefoxitin,Ertapenem, Imipenem,Metronidazo le and Culture Observations: variably resistant to Clindamycin. Isolate 1 Farhatia magna Moderate growth of Normal [facility] Comment on above: Performed By: #### W OUNDCX #### [facility] [address] [place], [place] [address] Ligia Burdick Encounters Encounter Date Encounter Type Care Provider Facility Start: 12-21-2023 End: 12-24-2023 Emergency department patient visit [facility] Start: 12-21-2023 End: 12-23-2023 [facility] Start: 09-25-2023 End: 09-27-2023 ambulatory [facility] Start: 07-26-2023 End: 07-26-2023 Emergency department patient visit [facility] Start: 05-02-2023 End: 05-03-2023 Emergency department patient visit YOONMark BHARGAVI [facility] Start: 05-02-2023 End: 05-02-2023 Emergency department patient visit [facility] Start: 10-30-2020 End: 10-30-[address] FUENTES MARKER Facility:[facility] Start: 04-19-[address] JUNG KEEN [facility]ack[facility] lity:[facility] Start: 03-06-2020 End: 03-06-[address] TEIXEIRA PAY Facility:[facility] Payers Date Payer Category Payer Unknown [id number] 2.16.84 [id number] 1980 Unknown [id number] 2.16.84 [id number] 1982 Unknown [id number] 2.16.84 [id number] 1982 Unknown [id number] 2.16.8 [id number] 1982 Unknown [id number] 2.16.8 [id number] 1982 Unknown [id number] 2.16.8 [id number] 1982 Unknown [id number] 2.16.84 [id number] 1982 Unknown [id number] 2.16.84 [id number] 1982 Unknown [id number] 2.16.84 [id number] 1957 Self-pay [id number] 1957 Unknown [id number] Summary Purpose Family History No Family History Records FoundNo Family History Records Found Advance Directives No Advanced Directives Records FoundNo Advanced Directives Records Found Additional Source Comments INFORMATION SOURCE (unrecogn ized section and content) DATE CREATED AUTHOR 11/02/2020 [facility] DATE CREATED AUTHOR AUTHOR'S VANESSA ATDAGOBERTO 12/24/2023 [facility] FOR RECORDS PERTAINING TO PATIENTS WHO [...] BE BASED ON THE PRIMARY CLINICAL RECORDS. [employer] provides no warranty or guarantee of the accuracy or completeness of information in this document.
[2024-02-01] MEDS: HYDROMORPHONE HCL 1 MG/ML CARTRIDGE IV (17:02)
[2024-02-01] MEDS: ONDANSETRON PF 4 MG/2 ML VIAL IV ×2 (17:03→22:58)
[2024-02-01] MEDS: DICYCLOMINE HCL 20 MG/2 ML VIAL IM (17:19)
[2024-02-01 17:29] LABS: Lactate/Lactic Acid 1.6 mmol/L (0.4-2.0)
[2024-02-01 17:32] LABS: Alanine Aminotransferase 26 U/L (14-59); Albumin Level 3.5 g/dL (3.4-5.0); Alkaline Phosphatase 75 U/L (46-116); Anion Gap 15.3; Aspartate Amino Transferase 17 U/L (15-37); BUN Creatinine Ratio 26.3; Bilirubin Total 0.4 mg/dL (0.2-1.0); Calcium 8.6 mg/dL (8.5-10.1); Carbon Dioxide 24.1 mmol/L (21.0-32.0); Chloride 101 mmol/L (98-107); Estimated GFR (African America >60 (>=60 mL/min/1.73m^2); Estimated GFR (Non-African Ame >60 (>=60 mL/min/1.73m^2); Globulin 3.6 g/dL; Glucose 141 mg/dL (74-106); Magnesium 1.7 mg/dL (1.8-2.4); Potassium 3.4 mmol/L (3.5-5.1); Sodium 137 mmol/L (136-145); Total Protein 7.1 g/dL (6.4-8.2); Troponin I High Sensitivity 7.2 pg/mL (4.0-51.3)
[2024-02-01 17:55] LABS: INR 1.08; Partial Thromboplastin Time 28.7 sec (22.3-36.2); Prothrombin Time 11.4 sec (9.0-11.6)
[2024-02-01] MEDS: MAGNESIUM SULFATE IN WATER 2 GM/50 ML PREMIX 3.3 GM IV (18:31)
[2024-02-01 19:14] LABS: HCG Qualitative Urine* NEGATIVE (NEGATIVE); Internal Control Within Normal Limits
--- NOTE | 2024-02-01 19:18 | PC.NURSE ---
patient resting in bed with eyes closed at this time. She is arousable, but promptly closes eyes again. Lips are very dry and crusted, attempted to clean, was only able to get some of the dried skin off. Patient was able to lick her lips upon being asked, but they are still dry. Mouth is moist inside.
[2024-02-01 19:36] LABS: Amphetamine Screen Urine NEGATIVE (NEGATIVE); Barbiturates Screen Urine NEGATIVE (NEGATIVE); Benzodiazepines Screen Urine NEGATIVE (NEGATIVE); Buprenorphine Screen Urine NEGATIVE (NEGATIVE); Cannabinoid Screen Urine POSITIVE (NEGATIVE); Cocaine Screen Urine NEGATIVE (NEGATIVE); Methadone Screen Urine NEGATIVE (NEGATIVE); Methamphetamines Screen Urine NEGATIVE (NEGATIVE); Opiate Screen Urine POSITIVE (NEGATIVE); Oxycodone Screen Urine NEGATIVE (NEGATIVE); Phencyclidine Screen Urine NEGATIVE (NEGATIVE); Tricyclic Antidepressant Urine NEGATIVE (NEGATIVE)
[2024-02-01] MEDS: DIAZEPAM 10 MG/2 ML SYRINGE 2 MG IV (19:50)
[2024-02-01] MEDS: POTASSIUM BICARBONATE/CIT 25 MEQ TABLET EFF 50 MEQ PO (19:50)
--- OUTSIDE RECORDS SUMMARY | 2024-02-01 20:14 | XMS_ITS | CCD ---
Author Organization [facility] [employer] [facility] Care Team Providers Care Service Tester Name Role Phone MARKER, DR FUENTES Consulting Unavailable [facility] Care Unavailable MARKER, DR FUENTES Admitting Unavailable MARKER, DR FUENTES Attending Unavailable AHDOOTMAKENZIE Consulting Unavailable PAY, DR TEIXEIRA Attending Unavailable PAY, DR TEIXEIRA Consulting Unavailable PAY, DR TEIXEIRA Admitting Unavailable [facility] Primary Care Unavailable KARASIK, DR FENG Attending Unavailable KARASIK, DR FENG Admitting Unavailable SERVICES, [facility] SABAS SHAW Attending Unavailable SERVICES, [facility] HAL SINGH Attending Unavailable ANDREW VILLATORO Admitting Unavailable SERVICES, [facility] DANISH AGUILAR Attending Unavailable ANMAURICE Admitting Unavailable AGUILAR, DANISH Attending Unavailable AGUILARDANISH CHAVEZ Referring Unavailable SERVICES, [facility] SERVICES, [facility] BHARGAVI AHMAD Attending Unavailable BHARGAVI, YOOND Attending Unavailable BHARGAVI, AHMAD Referring Unavailable SERVICES, [facility] BHARGAVI, AHMAD Attending Unavailable BHARGAVI, AHMAD Referring Unavailable SERVICES, [facility] Allergies Allergy Classification Reported Allergen(s) Allergy Type Date of Onset Reaction(s) Facility NSAIDs (2 sources) Ibuprofen Drug Allergy 10-05-1997 [facility] Opioid Agonists (2 sources) traMADol Drug Allergy 09-26-2013 [facility] Unclassified (1 source) Tylenol-Codeine #3 Drug allergy (disorder) [facility] (1 source) Codeine; Translations: [CODEINE] [...] 12-23-19 ABSOLUTE BASOPHIL 0.1 X10E9/L Normal 0.0-0.2 [facility] Comment on above: Performed By: #### C BCA, CMP, 3040-3, 26052-0, 54094-9, 89859- 9 #### [facility] ([id number]) [address] [place] [address] 11367 ABSOLUTE NEUTROPHIL 11.9 X10E9/L High 1.5-6.6 [facility] Comment on above: Performed By: #### C BCA, CMP, 3040-3, 23299-7, 53342-0, 69212- 9 #### [facility] ([id number]) [address] [place] [address] 58437 Basophils/100 WBC (Bld) 0.6 % Normal [facility] Comment on above: Performed By: #### C BCA, CMP, 3040-3, 27189-1, 07408-3, 49305- 9 #### [facility] ([id number]) [address] [place] [address] 60553 Eosinophils (Bld) [#/Vol] 0.0 10*3/uL Normal 0.0-0.4 [facility] Comment on above: Performed By: #### C BCA, CMP, 3040-3, 08344-6, 77913-7, 27924- 9 #### [facility] ([id number]) [address] [place] [address] 90790 Eosinophils/100 WBC (Bld) 0.0 % Normal [facility] Comment on above: Performed By: #### C BCA, CMP, 3040-3, 24809-6, 42076-1, 72817- 9 #### [facility] ([id number]) [address] [place] [address] 32936 Erythrocyte distribution width (RBC) [Ratio] 12.9 % Normal 11.5-15.0 [facility] Comment on above: Performed By: #### C BCA, CMP, 3040-3, 17519-9, 45422-7, 69103- 9 #### [facility] ([id number]) [address] [place] [address] 82060 Hematocrit (Bld) [Volume fraction] 43.5 % Normal 35-47 [facility] Comment on above: Performed By: #### C BCA, CMP, 3040-3, 50118-1, 23281-3, 21903- 9 #### [facility] ([id number]) [address] [place] [address] 96016 Hemoglobin (Bld) [Mass/Vol] 14.6 g/dL Normal 11.7-15.5 [facility] Comment on above: Performed By: #### C BCA, CMP, 3040-3, 00736-5, 58095-0, 22169- 9 #### [facility] ([id number]) [address] [place] [address] 18232 Lymphocytes (Bld) [#/Vol] 2.6 10*3/uL Normal 1.0-3.5 [facility] Comment on above: Performed By: #### C BCA, CMP, 3040-3, 33388-0, 71680-0, 46265- 9 #### [facility] ([id number]) [address] [place] [address] 37173 Lymphocytes/100 WBC (Bld) 16.3 % Normal [facility] Comment on above: Performed By: #### Arnie BCA, CMP, 3040-3, 78513-1, 21250-1, 80660- 9 #### [facility] ([id number]) [address] [place] [address] 00784 MCH (RBC) [Entitic mass] 29.6 pg Normal 27-34 [facility] Comment on above: Performed By: #### C BCA, CMP, 3040-3, 69855-1, 78773-4, 94036- 9 #### [facility] ([id number]) [address] [place] [address] 48830 MCHC (RBC) [Mass/Vol] 33.5 g/dL Normal 32-36 [facility] Comment on above: Performed By: #### C BCA, CMP, 3040-3, 98133-6, 82941-4, 81987- 9 #### [facility] ([id number]) [address] [place] [address] 22237 MCV (RBC) [Entitic vol] 88 fL Normal 80-100 [facility] Comment on above: Performed By: #### C BCA, CMP, 3040-3, 72581-7, 28019-1, 88619- 9 #### [facility] ([id number]) [address] [place] [address] 70948 Monocytes (Bld) [#/Vol] 1.1 10*3/uL High 0-0.9 [facility] Comment on above: Performed By: #### C BCA, CMP, 3040-3, 52028-4, 91245-2, 39639- 9 #### [facility] ([id number]) [address] [place] [address] 25042 Monocytes/100 WBC (Bld) 6.9 % Normal [facility] Comment on above: Performed By: #### C BCA, CMP, 3040-3, 67083-6, 96626-7, 13866- 9 #### [facility] ([id number]) [address] [place] [address] 17645 Neutrophils/100 WBC (Bld) 76.2 % Normal [facility] Comment on above: Performed By: #### C BCA, CMP, 3040-3, 51332-5, 43452-4, 31180- 9 #### [facility] ([id number]) [address] [place] [address] 07096 Platelet mean volume (Bld) [Entitic vol] 7.5 fL Normal 7-12 [facility] Comment on above: Performed By: #### C BCA, CMP, 3040-3, 60421-2, 79211-7, 23195- 9 #### [facility] ([id number]) [address] [place] [address] 56333 Platelets (Bld) [#/Vol] 426 10*3/uL Normal 150-450 [facility] Comment on above: Performed By: #### C BCA, CMP, 3040-3, 48832-1, 18256-2, 92335- 9 #### [facility] ([id number]) [address] [place] [address] 34711 RBC COUNT 4.92 X10E12/L Normal 3.80-5.20 [facility] Comment on above: Performed By: #### C BCA, CMP, 3040-3, 05942-6, 68771-8, 65157- 9 #### [facility] ([id number]) [address] [place] [address] 71661 WBC (Bld) [#/Vol] 15.6 10*3/uL High 4.0-11.0 [facility] Comment on above: Performed By: #### C BCA, CMP, 3040-3, 68153-6, 32140-3, 92327- 9 #### [facility] ([id number]) [address] [place] [address] 41613 COMPREHENSIVE METABOLIC PANE Sumit 12-23-2023 Albumin [Mass/Vol] 4.2 g/dL Normal 3.2-5.3 [facility] Comment on above: Performed By: #### C BCA, CMP, 3040-3, 38593-3, 40208-0, 62434- 9 #### [facility] ([id number]) [address] [place] [address] 03657 ALP [Catalytic activity/Vol] 68 U/L Normal 39-130 [facility] Comment on above: Performed By: #### C BCA, CMP, 3040-3, 79352-7, 54786-2, 32081- 9 #### [facility] ([id number]) [address] [place] [address] 88830 ALT [Catalytic activity/Vol] 30 U/L Normal 0-31 [facility] Comment on above: Performed By: #### C BCA, CMP, 3040-3, 04773-7, 23142-5, 54648- 9 #### [facility] ([id number]) [address] [place] [address] 99745 Anion gap [Moles/Vol] 15 mmol/L Normal 5-15 [facility] Comment on above: Performed By: #### C BCA, CMP, 3040-3, 46815-1, 57199-4, 65117- 9 #### [facility] ([id number]) [address] [place] [address] 13187 AST [Catalytic activity/Vol] 19 U/L Normal 0-41 [facility] Comment on above: Performed By: #### C BCA, CMP, 3040-3, 44686-1, 36145-7, 91729- 9 #### [facility] ([id number]) [address] [place] [address] 87587 Bilirubin [Mass/Vol] 1.3 mg/dL High 0.3-1.2 [facility] Comment on above: Performed By: #### C BCA, CMP, 3040-3, 24291-5, 13536-2, 21227- 9 #### [facility] ([id number]) [address] [place] [address] 29385 Calcium [Mass/Vol] 8.6 mg/dL Normal 8.5-10.5 [facility] Comment on above: Performed By: #### C BCA, CMP, 3040-3, 23870-5, 75935-1, 80648- 9 #### [facility] ([id number]) [address] [place] [address] 42293 Chloride [Moles/Vol] 101 mmol/L Normal 98-109 [facility] Comment on above: Performed By: #### C BCA, CMP, 3040-3, 43479-0, 48670-0, 81968- 9 #### [facility] ([id number]) [address] [place] [address] 45686 CO2 [Moles/Vol] 19 mmol/L Low 22-32 [facility] Comment on above: Performed By: #### C BCA, CMP, 3040-3, 32360-9, 74512-6, 17772- 9 #### [facility] ([id number]) [address] [place] [address] 96044 Creatinine [Mass/Vol] 0.42 mg/dL Normal 0.40-1.00 [facility] Comment on above: Result Comment: METH OD TRACEABLE TO IDMS STANDARD Performed By: #### C BCA, CMP, 3040-3, 13961-3, 50446-8, 99111-8 #### [facility] ([id number]) [address] [place] [address] 65301 eGFR (CKD-EPI) NON-RACE DEPENDENT >90 Normal >59 [facility] Comment on above: Result Comment: Reported eGFR is based on the CKD-EPI 2020 equation that does not use a race coefficient. Performed By: #### C BCA, CMP, 3040-3, 85416-5, 40944-6, 57274-4 #### [facility] ([id number]) [address] [place] [address] 47328 Glucose [Mass/Vol] 97 mg/dL Normal 65-99 [facility] Comment on above: Performed By: #### C BCA, CMP, 3040-3, 89437-4, 16169-0, 92461- 9 #### [facility] ([id number]) [address] [place] [address] 82656 Potassium [Moles/Vol] 3.1 mmol/L Low 3.5-5.0 [facility] Comment on above: Performed By: #### C BCA, CMP, 3040-3, 31853-3, 32388-2, 96300- 9 #### [facility] ([id number]) [address] [place] [address] 18208 Protein [Mass/Vol] 7.6 g/dL Normal 6.0-8.0 [facility] Comment on above: Performed By: #### C BCA, CMP, 3040-3, 82852-6, 91907-4, 00757- 9 #### [facility] ([id number]) [address] [place] [address] 68538 Sodium [Moles/Vol] 135 mmol/L Normal 134-146 [facility] Comment on above: Performed By: #### C BCA, CMP, 3040-3, 35496-3, 88898-3, 68438- 9 #### [facility] ([id number]) [address] [place] [address] 29591 Urea nitrogen [Mass/Vol] 10 mg/dL Normal 5-23 [facility] Comment on above: Performed By: #### C BCA, CMP, 3040-3, 95664-2, 02420-0, 20294- 9 #### [facility] ([id number]) [address] [place] [address] 15576 MAGNESIUMon 12-23-2023 Magnesium [Mass/Vol] 2.1 mg/dL Normal 1.8-2.6 [facility] Comment on above: Performed By: #### C BCA, CMP, 3040-3, 84531-7, 16395-7, 39635- 9 #### [facility] ([id number]) [address] [place] [address] 70001 CBC AND AUTO DIFFon 12-22-19 24 ABSOLUTE BASOPHIL 0.0 X10E9/L Normal 0.0-0.2 [facility] Comment on above: Performed By: #### C BCA, CMP, 3040-3, 66328-6, 14553-8, 75091- 9 #### [facility] ([id number]) [address] [place] [address] 07813 ABSOLUTE NEUTROPHIL 12.9 X10E9/L High 1.5-6.6 [facility] Comment on above: Performed By: #### C BCA, CMP, 3040-3, 87929-0, 28649-1, 20871- 9 #### [facility] ([id number]) [address] [place] [address] 56202 Basophils/100 WBC (Bld) 0.3 % Normal [facility] Comment on above: Performed By: #### C BCA, CMP, 3040-3, 44411-2, 16600-9, 23939- 9 #### [facility] ([id number]) [address] [place] [address] 29955 Eosinophils (Bld) [#/Vol] 0.0 10*3/uL Normal 0.0-0.4 [facility] Comment on above: Performed By: #### C BCA, CMP, 3040-3, 90718-5, 08129-5, 08184- 9 #### [facility] ([id number]) [address] [place] [address] 14037 Eosinophils/100 WBC (Bld) 0.0 % Normal [facility] Comment on above: Performed By: #### C BCA, CMP, 3040-3, 77400-9, 09178-8, 29179- 9 #### [facility] ([id number]) [address] [place] [address] 21529 Erythrocyte distribution width (RBC) [Ratio] 12.8 % Normal 11.5-15.0 [facility] Comment on above: Performed By: #### C BCA, CMP, 3040-3, 43249-3, 42913-9, 38628- 9 #### [facility] ([id number]) [address] [place] [address] 65948 Hematocrit (Bld) [Volume fraction] 41.6 % Normal 35-47 [facility] Comment on above: Performed By: #### C BCA, CMP, 3040-3, 53931-8, 04338-3, 06251- 9 #### [facility] ([id number]) [address] [place] [address] 66845 Hemoglobin (Bld) [Mass/Vol] 13.7 g/dL Normal 11.7-15.5 [facility] Comment on above: Performed By: #### C BCA, CMP, 3040-3, 04616-9, 18996-4, 30264- 9 #### [facility] ([id number]) [address] [place] [address] 06443 Lymphocytes (Bld) [#/Vol] 2.1 10*3/uL Normal 1.0-3.5 [facility] Comment on above: Performed By: #### C BCA, CMP, 3040-3, 95802-2, 71824-1, 18075- 9 #### [facility] ([id number]) [address] [place] [address] 06235 Lymphocytes/100 WBC (Bld) 12.9 % Normal [facility] Comment on above: Performed By: #### C BCA, CMP, 3040-3, 10510-6, 94655-3, 09964- 9 #### [facility] ([id number]) [address] [place] [address] 40012 MCH (RBC) [Entitic mass] 29.3 pg Normal 27-34 [facility] Comment on above: Performed By: #### C BCA, CMP, 3040-3, 20445-8, 05874-7, 62794- 9 #### [facility] ([id number]) [address] [place] [address] 07834 MCHC (RBC) [Mass/Vol] 32.9 g/dL Normal 32-36 [facility] Comment on above: Performed By: #### C BCA, CMP, 3040-3, 64112-1, 82183-1, 04671- 9 #### [facility] ([id number]) [address] [place] [address] 15246 MCV (RBC) [Entitic vol] 89 fL Normal 80-100 [facility] Comment on above: Performed By: #### C BCA, CMP, 3040-3, 09720-3, 41030-5, 13113- 9 #### [facility] ([id number]) [address] [place] [address] 80236 Monocytes (Bld) [#/Vol] 1.1 10*3/uL High 0-0.9 [facility] Comment on above: Performed By: #### C BCA, CMP, 3040-3, 02928-1, 50769-6, 19719- 9 #### [facility] ([id number]) [address] [place] [address] 67132 Monocytes/100 WBC (Bld) 7.0 % Normal [facility] Comment on above: Performed By: #### C BCA, CMP, 3040-3, 52844-0, 83611-1, 97523- 9 #### [facility] ([id number]) [address] [place] [address] 74898 Neutrophils/100 WBC (Bld) 79.8 % Normal [facility] Comment on above: Performed By: #### C BCA, CMP, 3040-3, 03270-7, 75767-0, 68569- 9 #### [facility] ([id number]) [address] [place] [address] 88801 Platelet mean volume (Bld) [Entitic vol] 7.8 fL Normal 7-12 [facility] Comment on above: Performed By: #### C BCA, CMP, 3040-3, 93256-7, 17908-9, 65912- 9 #### [facility] ([id number]) [address] [place] [address] 10682 Platelets (Bld) [#/Vol] 374 10*3/uL Normal 150-450 [facility] Comment on above: Performed By: #### C BCA, CMP, 3040-3, 05870-3, 43461-7, 32031- 9 #### [facility] ([id number]) [address] [place] [address] 30878 RBC COUNT 4.68 X10E12/L Normal 3.80-5.20 [facility] Comment on above: Performed By: #### C BCA, CMP, 3040-3, 06750-4, 23907-6, 14300- 9 #### [facility] ([id number]) [address] [place] [address] 80328 WBC (Bld) [#/Vol] 16.2 10*3/uL High 4.0-11.0 [facility] Comment on above: Performed By: #### C BCA, CMP, 3040-3, 64772-9, 29162-5, 41888- 9 #### [facility] ([id number]) [address] [place] [address] 54538 COMPREHENSIVE METABOLIC PANE Sumit 12-22-2023 Albumin [Mass/Vol] 4.2 g/dL Normal 3.2-5.3 [facility] Comment on above: Performed By: #### C BCA, CMP, 3040-3, 74557-4, 29726-8, 15894- 9 #### [facility] ([id number]) [address] [place] [address] 69420 ALP [Catalytic activity/Vol] 72 U/L Normal 39-130 [facility] Comment on above: Performed By: #### C BCA, CMP, 3040-3, 97394-7, 56051-4, 05530- 9 #### [facility] ([id number]) [address] [place] [address] 31536 ALT [Catalytic activity/Vol] 35 U/L High 0-31 [facility] Comment on above: Performed By: #### C BCA, CMP, 3040-3, 18294-4, 18832-0, 82736- 9 #### [facility] ([id number]) [address] [place] [address] 42152 Anion gap [Moles/Vol] 12 mmol/L Normal 5-15 [facility] Comment on above: Performed By: #### C BCA, CMP, 3040-3, 47282-7, 78260-8, 73165- 9 #### [facility] ([id number]) [address] [place] [address] 91587 AST [Catalytic activity/Vol] 26 U/L Normal 0-41 [facility] Comment on above: Performed By: #### C BCA, CMP, 3040-3, 02025-4, 90348-9, 37267- 9 #### [facility] ([id number]) [address] [place] [address] 02628 Bilirubin [Mass/Vol] 1.1 mg/dL Normal 0.3-1.2 [facility] Comment on above: Performed By: #### C BCA, CMP, 3040-3, 89959-7, 66027-0, 39967- 9 #### [facility] ([id number]) [address] [place] [address] 75837 Calcium [Mass/Vol] 8.5 mg/dL Normal 8.5-10.5 [facility] Comment on above: Performed By: #### C BCA, CMP, 3040-3, 62692-6, 39796-9, 98987- 9 #### [facility] ([id number]) [address] [place] [address] 67991 Chloride [Moles/Vol] 98 mmol/L Normal 98-109 [facility] Comment on above: Performed By: #### C BCA, CMP, 3040-3, 20034-8, 35026-5, 95855- 9 #### [facility] ([id number]) [address] [place] [address] 40480 CO2 [Moles/Vol] 23 mmol/L Normal 22-32 [facility] Comment on above: Performed By: #### C BCA, CMP, 3040-3, 56166-6, 21157-2, 97469- 9 #### [facility] ([id number]) [address] [place] [address] 90393 Creatinine [Mass/Vol] 0.39 mg/dL Low 0.40-1.00 [facility] Comment on above: Result Comment: METH OD TRACEABLE TO IDMS STANDARD Performed By: #### C BCA, CMP, 3040-3, 17220-9, 10832-5, 41309-7 #### [facility] ([id number]) [address] [place] [address] 27137 eGFR (CKD-EPI) NON-RACE DEPENDENT >90 Normal >59 [facility] Comment on above: Result Comment: Reported eGFR is based on the CKD-EPI 2021 equation that does not use a race coefficient. Performed By: #### C BCA, CMP, 3040-3, 74719-9, 23844-1, 66704-0 #### [facility] ([id number]) [address] [place] [address] 41833 Glucose [Mass/Vol] 115 mg/dL High 65-99 [facility] Comment on above: Performed By: #### C BCA, CMP, 3040-3, 24588-6, 74276-1, 44202- 9 #### [facility] ([id number]) [address] [place] [address] 51492 Potassium [Moles/Vol] 2.9 mmol/L Low 3.5-5.0 [facility] Comment on above: Performed By: #### C BCA, CMP, 3040-3, 24495-3, 62417-6, 46759- 9 #### [facility] ([id number]) [address] [place] [address] 67051 Protein [Mass/Vol] 7.6 g/dL Normal 6.0-8.0 [facility] Comment on above: Performed By: #### C BCA, CMP, 3040-3, 83351-2, 36075-1, 14893- 9 #### [facility] ([id number]) [address] [place] [address] 62450 Sodium [Moles/Vol] 133 mmol/L Low 134-146 [facility] Comment on above: Performed By: #### C BCA, CMP, 3040-3, 13558-5, 21745-3, 14405- 9 #### [facility] ([id number]) [address] [place] [address] 07045 Urea nitrogen [Mass/Vol] 9 mg/dL Normal 5-23 [facility] Comment on above: Performed By: #### C BCA, CMP, 3040-3, 30667-4, 83149-4, 04372- 9 #### [facility] ([id number]) [address] [place] [address] 37618 Glucose Glucometer (dC) [M ass/Vol]on 12-22-2023 Glucose [Mass/Vol] 93 mg/dL Normal 65-99 [facility] Glucose [Mass/Vol] 103 mg/dL High 65-99 [facility] Glucose [Mass/Vol] 94 mg/dL Normal 65-99 [facility] MAGNESIUMon 12-22-2023 Magnesium [Mass/Vol] 2.0 mg/dL Normal 1.8-2.6 [facility] Comment on above: Performed By: #### C BCA, CMP, 3040-3, 61451-6, 68681-3, 44408- 9 #### [facility] ([id number]) [address] [place] [address] 10695 POTASSIUMon 12-22-2023 Potassium [Moles/Vol] 3.3 mmol/L Low 3.5-5.0 [facility] Comment on above: Performed By: #### C BCA, CMP, 3040-3, 75602-0, 42761-4, 60785- 9 #### [facility] ([id number]) [address] [place] [address] 38110 CBC AND AUTO DIFFon 12-21-19 ABSOLUTE BASOPHIL 0.1 X10E9/L Normal 0.0-0.2 [facility] Comment on above: Performed By: #### C BCA, CMP, 3040-3, 06681-0, 03158-2, 32788- 9 #### [facility] ([id number]) [address] [place] [address] 16174 ABSOLUTE NEUTROPHIL 8.2 X10E9/L High 1.5-6.6 [facility] Comment on above: Performed By: #### C BCA, CMP, 3040-3, 22472-8, 79187-6, 09754- 9 #### [facility] ([id number]) [address] [place] [address] 37475 Basophils/100 WBC (Bld) 0.6 % Normal [facility] Comment on above: Performed By: #### C BCA, CMP, 3040-3, 13847-5, 04838-8, 38791- 9 #### [facility] ([id number]) [address] [place] [address] Eosinophils (Bld) [#/Vol] 0.0 10*3/uL Normal 0.0-0.4 [facility] Comment on above: Performed By: #### C MAIKEL, CMP, 3040-3, 11652-9, 51026-4, 56420- 9 #### [facility] ([id number]) [address] [place] [address] 23839 Eosinophils/100 WBC (Bld) 0.2 % Normal [facility] Comment on above: Performed By: #### C MAIKEL, [facility], 3040-3, 79923-3, 01341-3, 27154- 9 #### [facility] ([id number]) [address] [place] [address] 90182 Erythrocyte distribution width (RBC) [Ratio] 13.3 % Normal 11.5-15.0 [facility] Comment on above: Performed By: #### C MAIKEL, [facility], 3040-3, 32675-3, 99433-0, 47256- 9 #### [facility] ([id number]) [address] [place] [address] 92004 Hematocrit (Bld) [Volume fraction] 46.3 % Normal 35-47 [facility] Comment on above: Performed By: #### Arnie KO, CMP, 3040-3, 52144-9, 16925-3, 06350- 9 #### [facility] ([id number]) [address] [place] [address] 92757 Hemoglobin (Bld) [Mass/Vol] 15.2 g/dL Normal 11.7-15.5 [facility] Comment on above: Performed By: #### C MAIKEL, CMP, 3040-3, 43676-2, 51360-4, 97382- 9 #### [facility] ([id number]) [address] [place] [address] 39447 Lymphocytes (Bld) [#/Vol] 3.3 10*3/uL Normal 1.0-3.5 [facility] Comment on above: Performed By: #### C BCA, CMP, 3040-3, 28771-0, 11086-1, 59922- 9 #### [facility] ([id number]) [address] [place] [address] 04231 Lymphocytes/100 WBC (Bld) 26.8 % Normal [facility] Comment on above: Performed By: #### C BCA, CMP, 3040-3, 14033-2, 88212-0, 54947- 9 #### [facility] ([id number]) [address] [place] [address] 65496 MCH (RBC) [Entitic mass] 29.6 pg Normal 27-34 [facility] Comment on above: Performed By: #### C BCA, CMP, 3040-3, 06722-0, 32506-4, 75821- 9 #### [facility] ([id number]) [address] [place] [address] 30785 MCHC (RBC) [Mass/Vol] 32.9 g/dL Normal 32-36 [facility] Comment on above: Performed By: #### C BCA, CMP, 3040-3, 85715-8, 69412-5, 78797- 9 #### [facility] ([id number]) [address] [place] [address] 71280 MCV (RBC) [Entitic vol] 90 fL Normal 80-100 [facility] Comment on above: Performed By: #### C BCA, CMP, 3040-3, 64965-6, 76526-9, 04454- 9 #### [facility] ([id number]) [address] [place] [address] 71179 Monocytes (Bld) [#/Vol] 0.7 10*3/uL Normal 0-0.9 [facility] Comment on above: Performed By: #### C BCA, CMP, 3040-3, 66988-2, 30976-7, 26031- 9 #### [facility] ([id number]) [address] [place] [address] 39716 Monocytes/100 WBC (Bld) 5.9 % Normal [facility] Comment on above: Performed By: #### C BCA, CMP, 3040-3, 55179-6, 98159-0, 93792- 9 #### [facility] ([id number]) [address] [place] [address] 96555 Neutrophils/100 WBC (Bld) 66.5 % Normal [facility] Comment on above: Performed By: #### C BCA, CMP, 3040-3, 78108-3, 36955-6, 91970- 9 #### [facility] ([id number]) [address] [place] [address] 98555 Platelet mean volume (Bld) [Entitic vol] 7.5 fL Normal 7-12 [facility] Comment on above: Performed By: #### C BCA, CMP, 3040-3, 97241-7, 45335-7, 01078- 9 #### [facility] ([id number]) [address] [place] [address] 21524 Platelets (Bld) [#/Vol] 484 10*3/uL High 150-450 [facility] Comment on above: Performed By: #### C BCA, CMP, 3040-3, 31133-0, 64938-6, 00120- 9 #### [facility] ([id number]) [address] [place] [address] 60794 RBC COUNT 5.15 X10E12/L Normal 3.80-5.20 [facility] Comment on above: Performed By: #### Arnie BCA, CMP, 3040-3, 64409-2, 42243-1, 56469- 9 #### [facility] ([id number]) [address] [place] [address] 67226 WBC (Bld) [#/Vol] 12.3 10*3/uL High 4.0-11.0 [facility] Comment on above: Performed By: #### C BCA, CMP, 3040-3, 36044-5, 74632-3, 78929- 9 #### [facility] ([id number]) [address] [place] [address] 18728 COMPREHENSIVE METABOLIC PANE Sumit 12-21-2023 Albumin [Mass/Vol] 4.5 g/dL Normal 3.2-5.3 [facility] Comment on above: Performed By: #### C BCA, CMP, 3040-3, 69931-4, 52881-1, 06844- 9 #### [facility] ([id number]) [address] [place] [address] 85710 ALP [Catalytic activity/Vol] 84 U/L Normal 39-130 [facility] Comment on above: Performed By: #### C BCA, CMP, 3040-3, 51635-2, 09407-5, 23602- 9 #### [facility] ([id number]) [address] [place] [address] 30203 ALT [Catalytic activity/Vol] 56 U/L High 0-31 [facility] Comment on above: Performed By: #### C BCA, CMP, 3040-3, 43939-7, 53831-3, 79186- 9 #### [facility] ([id number]) [address] [place] [address] 40321 Anion gap [Moles/Vol] 14 mmol/L Normal 5-15 [facility] Comment on above: Performed By: #### C BCA, CMP, 3040-3, 77087-3, 30939-7, 90195- 9 #### [facility] ([id number]) [address] [place] [address] 07442 AST [Catalytic activity/Vol] 78 U/L High 0-41 [facility] Comment on above: Performed By: #### C BCA, CMP, 3040-3, 07714-8, 43910-7, 48328- 9 #### [facility] ([id number]) [address] [place] [address] 44747 Bilirubin [Mass/Vol] 0.8 mg/dL Normal 0.3-1.2 [facility] Comment on above: Performed By: #### C BCA, CMP, 3040-3, 43738-4, 85396-2, 38371- 9 #### [facility] ([id number]) [address] [place] [address] 51672 Calcium [Mass/Vol] 9.0 mg/dL Normal 8.5-10.5 [facility] Comment on above: Performed By: #### C BCA, CMP, 3040-3, 59189-2, 29914-5, 93148- 9 #### [facility] ([id number]) [address] [place] [address] 50670 Chloride [Moles/Vol] 101 mmol/L Normal 98-109 [facility] Comment on above: Performed By: #### C BCA, CMP, 3040-3, 95730-6, 27945-1, 65980- 9 #### [facility] ([id number]) [address] [place] [address] 11013 CO2 [Moles/Vol] 20 mmol/L Low 22-32 [facility] Comment on above: Performed By: #### C BCA, CMP, 3040-3, 06194-5, 31493-1, 82864- 9 #### [facility] ([id number]) [address] [place] [address] 28436 Creatinine [Mass/Vol] 0.47 mg/dL Normal 0.40-1.00 [facility] Comment on above: Result Comment: METH OD TRACEABLE TO IDMS STANDARD Performed By: #### C MAIKEL, MICAH, 3040-3, 03713-0, 67486-6, 75366-2 #### [facility] ([id number]) [address] [place] [address] 69265 eGFR (CKD-EPI) NON-RACE DEPENDENT >90 Normal >59 [facility] Comment on above: Result Comment: Reported eGFR is based on the CKD-EPI 2020 equation that does not use a race coefficient. Performed By: #### C MAIKEL, MICAH, 3040-3, 17911-6, 20291-9, 40114-7 #### [facility] ([id number]) [address] [place] [address] 88117 Glucose [Mass/Vol] 182 mg/dL High 65-99 [facility] Comment on above: Performed By: #### C MAIKEL, MICAH, 3040-3, 17208-5, 99243-4, 98765- 9 #### [facility] ([id number]) [address] [place] [address] 69241 Potassium [Moles/Vol] 3.2 mmol/L Low 3.5-5.0 [facility] Comment on above: Performed By: #### C MAIKEL, MICAH, 3040-3, 18227-2, 35957-1, 00424- 9 #### [facility] ([id number]) [address] [place] [address] 05413 Protein [Mass/Vol] 8.2 g/dL High 6.0-8.0 [facility] Comment on above: Performed By: #### C MAIKEL, CMP, 3040-3, 44866-5, 00251-1, 36507- 9 #### [facility] ([id number]) [address] [place] [address] 76959 Sodium [Moles/Vol] 135 mmol/L Normal 134-146 [facility] Comment on above: Performed By: #### C BCA, CMP, 3040-3, 71045-1, 94589-3, 71020- 9 #### [facility] ([id number]) [address] [place] [address] Urea nitrogen [Mass/Vol] 19 mg/dL Normal 5-23 [facility] Comment on above: Performed By: #### C BCA, CMP, 3040-3, 15278-4, 66454-4, 34023- 9 #### [facility] ([id number]) [address] [place] [address] CT ABDOMEN AND PELVIS W CONT on [...] Trivedi MD on 12/21/2023 6:15 AM Normal [facility] DRUG SCREEN, URINEon 024 AMPHETAMINE/METHAMP Negative Normal NEG [facility] Comment on above: Result Comment: AMPH /METH screening cut off = 1000 ng/mL Performed By: #### C BCA, CMP, 3040-3, 66605-2, 87921-1, 67203-9 #### [facility] ([id number]) [address] [place], [place] [id number] BARBITURATES Negative Normal NEG [facility] Comment on above: Result Comment: Anitra iturates screening cut off value = 200 ng/mL Performed By: #### C BCA, CMP, 3040-3, 33753-8, 88421-1, 52769-4 #### [facility] ([id number]) [address] [place] [address] 05527 BENZODIAZEPINES Negative Normal NEG [facility] Comment on above: Result Comment: Art odiazepines screening cut off value = 200 ng/mL Performed By: #### C BCA, CMP, 3040-3, 94146-8, 20867-0, 08156-3 #### [facility] ([id number]) [address] [place] [address] 99358 CANNABINOIDS Positive Abnormal NEG [facility] Comment on above: Result Comment: Conf irmation available upon request. Cannabinoids/THC screening cut off value = 50 ng/mL Performed By: #### C BCA, CMP, 3040-3, 12476-4, 09414-2, 68059-6 #### [facility] ([id number]) [address] [place] [address] 23958 COCAINE METABOLITE Negative Normal NEG [facility] Comment on above: Result Comment: Coca ine screening cut off value = 300 ng/mL Performed By: #### C BCA, CMP, 3040-3, 74421-0, 14575-0, 96338-1 #### [facility] ([id number]) [address] [place] [address] 00994 ECSTASY Negative Normal NEG [facility] Comment on above: Result Comment: Ecst asy screening cut off value = 500 ng/mL This report is intended for use in clinical monitoring or management of patients. Performed By: #### C BCA, CMP, 3040-3, 61342-2, 10475-1, 47912-2 #### [facility] ([id number]) [address] [place] [address] 57918 METHADONE Negative Normal NEG [facility] Comment on above: Result Comment: Meth adone screening cut off value = 300 ng/mL. Performed By: #### C BCA, CMP, 3040-3, 11084-9, 50913-0, 76504-8 #### [facility] ([id number]) [address] [place] [address] 26649 OPIATES Negative Normal NEG [facility] Comment on above: Result Comment: Opia gricelda screening cut off value = 300 ng/mL NOTE: This test is used for the detection of codeine, hydrocodone (>1000 ng/mL), morphine and hydromorphone (>900 ng/mL) in urine. Performed By: #### C BCA, CMP, 3040-3, 98463-0, 37199-9, 20811-5 #### [facility] ([id number]) [address] [place] [address] 98569 OXYCODONE Negative Normal NEG [facility] Comment on above: Result Comment: Oxyc odone screening cut off value = 300 ng/mL NOTE: This test is used for the detection of oxycodone and oxymorphone in urine. Performed By: #### C BCA, CMP, 3040-3, 52937-5, 74033-5, 14708-0 #### [facility] ([id number]) [address] [place] [address] 00599 PHENCYCLIDINE Negative Normal NEG [facility] Comment on above: Result Comment: Phen cyclidine screening cut off value = 25 ng/mL Performed By: #### C BCA, CMP, 3040-3, 88274-4, 96104-9, 31467-2 #### [facility] ([id number]) [address] [place] [address] 33052 Glucose Glucometer (BldC) [M ass/Vol]on 12-21-2023 Glucose [Mass/Vol] 118 mg/dL High 65-99 [facility] Glucose [Mass/Vol] 129 mg/dL High 65-99 [facility] Glucose [Mass/Vol] 138 mg/dL High 65-99 [facility] HCG ( test) Ql (U)o n 12-21-2023 Beta HCG ( test) Ql (U) Negative Normal NEG [facility] Comment on above: Performed By: #### C BCA, CMP, 3040-3, 89252-2, 79567-8, 23320- 9 #### [facility] ([id number]) [address] [place] [address] 10218 LIPASEon 12-21-2023 Lipase [Catalytic activity/Vol] 49 U/L High 17-40 [facility] Comment on above: Performed By: #### C BCA, CMP, 3040-3, 56759-1, 84255-4, 14744- 9 #### [facility] ([id number]) [address] [place] [address] 35280 MAGNESIUMon 12-21-2023 Magnesium [Mass/Vol] 2.3 mg/dL Normal 1.8-2.6 [facility] Comment on above: Performed By: #### C BCA, CMP, 3040-3, 75707-3, 47940-8, 15130- 9 #### [facility] ([id number]) [address] [place] [address] 52871 Magnesium [Mass/Vol] 1.7 mg/dL Low 1.8-2.6 [facility] Comment on above: Performed By: #### C BCA, CMP, 3040-3, 79679-2, 87429-5, 08442- 9 #### [facility] ([id number]) [address] [place] [address] 18411 POTASSIUMon 12-21-2023 Potassium [Moles/Vol] 3.6 mmol/L Normal 3.5-5.0 [facility] Comment on above: Performed By: #### C BCA, CMP, 3040-3, 48335-3, 93701-1, 67301- 9 #### [facility] ([id number]) [address] [place] [address] 11157 THYROID PROFILEon 12-21-2023 Free T4 [Mass/Vol] 1.14 ng/dL Normal 0.61-1.60 [facility] Comment on above: Performed By: #### C BCA, CMP, 3040-3, 66759-8, 26643-8, 16905- 9 #### [facility] ([id number]) [address] [place] [address] 34808 TSH 0.28 uIU/mL Low 0.49-4.67 [facility] Comment on above: Performed By: #### C BCA, CMP, 3040-3, 84260-3, 44889-7, 32499- 9 #### [facility] ([id number]) [address] [place] [address] 82558 URN MACROSCOPIC NURon 2023 BILIRUBIN TACO Small Abnormal NEG [facility] Comment on above: Performed By: #### C BCA, CMP, 3040-3, 04693-4, 81465-0, 07380- 9 #### [facility] ([id number]) [address] [place] [address] 03229 BLOOD/HGB TACO MODERATE Abnormal NEG [facility] Comment on above: Performed By: #### C BCA, CMP, 3040-3, 83867-1, 26209-1, 81645- 9 #### [facility] ([id number]) [address] [place] [address] 12612 GLUCOSE TACO Negative Normal NEG [facility] Comment on above: Performed By: #### C BCA, CMP, 3040-3, 78206-8, 82959-5, 37276- 9 #### [facility] ([id number]) [address] [place] [address] 62802 KETONES TACO >=160 Abnormal NEG [facility] Comment on above: Performed By: #### C BCA, CMP, 3040-3, 37303-5, 94194-4, 36598- 9 #### [facility] ([id number]) [address] [place] [address] 07091 LEUKOCYTE ESTERASE TACO Negative Normal NEG [facility] Comment on above: Performed By: #### C BCA, CMP, 3040-3, 59942-5, 86826-2, 69130- 9 #### [facility] ([id number]) [address] [place] [address] 59868 NITRITE TACO Negative Normal NEG [facility] Comment on above: Performed By: #### C BCA, CMP, 3040-3, 79964-8, 13069-2, 40952- 9 #### [facility] ([id number]) [address] [place] [address] 57800 PH TACO 6.0 Normal 5.0-8.5 [facility] Comment on above: Performed By: #### C BCA, CMP, 3040-3, 84192-0, 24754-9, 34660- 9 #### [facility] ([id number]) [address] [place] [address] 52721 PROTEIN TACO 100 mg/dL Abnormal NEG [facility] Comment on above: Performed By: #### C BCA, CMP, 3040-3, 48032-3, 39118-4, 97372- 9 #### [facility] ([id number]) [address] [place] [address] 55290 SPECIFIC GRAVITY TACO >=1.030 Normal 1.003-1.035 [facility] Comment on above: Performed By: #### C BCA, CMP, 3040-3, 56100-9, 64910-7, 39057- 9 #### [facility] ([id number]) [address] [place] [address] 90993 UROBILINOGEN TACO 0.2 eu/dL Normal <1.1 [facility] Comment on above: Performed By: #### C BCA, CMP, 3040-3, 85100-0, 82507-1, 66260- 9 #### [facility] ([id number]) [address] [place] [address] 20428 CBC AND AUTO DIFFon 09-26- 24 ABSOLUTE BASOPHIL 0.1 X10E9/L Normal 0.0-0.2 [facility] Comment on above: Performed By: #### C BCA, CMP, 3040-3, 27613-5, 00826-6, 90730- 9 #### [facility] ([id number]) [address] [place] [address] 58406 ABSOLUTE NEUTROPHIL 10.5 X10E9/L High 1.5-6.6 [facility] Comment on above: Performed By: #### C BCA, CMP, 3040-3, 11686-3, 75660-8, 20160- 9 #### [facility] ([id number]) [address] [place] [address] 20165 Basophils/100 WBC (Bld) 0.9 % Normal [facility] Comment on above: Performed By: #### C BCA, CMP, 3040-3, 02548-6, 96966-9, 30691- 9 #### [facility] ([id number]) [address] [place] [address] 49379 Eosinophils (Bld) [#/Vol] 0.0 10*3/uL Normal 0.0-0.4 [facility] Comment on above: Performed By: #### C BCA, CMP, 3040-3, 32685-4, 10603-6, 34886- 9 #### [facility] ([id number]) [address] [place] [address] 72938 Eosinophils/100 WBC (Bld) 0.0 % Normal [facility] Comment on above: Performed By: #### Arnie BCA, CMP, 3040-3, 79366-2, 20348-1, 94029- 9 #### [facility] ([id number]) [address] [place] [address] 45584 Erythrocyte distribution width (RBC) [Ratio] 13.0 % Normal 11.5-15.0 [facility] Comment on above: Performed By: #### Arnie BCA, CMP, 3040-3, 94656-7, 73203-6, 18912- 9 #### [facility] ([id number]) [address] [place] [address] 40452 Hematocrit (Bld) [Volume fraction] 43.4 % Normal 35-47 [facility] Comment on above: Performed By: #### C BCA, CMP, 3040-3, 68728-8, 73073-7, 98861- 9 #### [facility] ([id number]) [address] [place] [address] 23962 Hemoglobin (Bld) [Mass/Vol] 14.5 g/dL Normal 11.7-15.5 [facility] Comment on above: Performed By: #### C BCA, CMP, 3040-3, 80529-6, 04839-3, 79725- 9 #### [facility] ([id number]) [address] [place] [address] 64172 Lymphocytes (Bld) [#/Vol] 2.9 10*3/uL Normal 1.0-3.5 [facility] Comment on above: Performed By: #### C BCA, CMP, 3040-3, 60220-2, 10517-8, 45284- 9 #### [facility] ([id number]) [address] [place] [address] 60322 Lymphocytes/100 WBC (Bld) 19.6 % Normal [facility] Comment on above: Performed By: #### C BCA, CMP, 3040-3, 90351-3, 27133-3, 74050- 9 #### [facility] ([id number]) [address] [place] [address] 50661 MCH (RBC) [Entitic mass] 29.7 pg Normal 27-34 [facility] Comment on above: Performed By: #### C BCA, CMP, 3040-3, 31984-7, 81638-3, 99606- 9 #### [facility] ([id number]) [address] [place] [address] 92363 MCHC (RBC) [Mass/Vol] 33.3 g/dL Normal 32-36 [facility] Comment on above: Performed By: #### C BCA, CMP, 3040-3, 24979-4, 78021-7, 14498- 9 #### [facility] ([id number]) [address] [place] [address] 55380 MCV (RBC) [Entitic vol] 89 fL Normal 80-100 [facility] Comment on above: Performed By: #### C BCA, CMP, 3040-3, 63079-5, 78164-5, 52080- 9 #### [facility] ([id number]) [address] [place] [address] 18643 Monocytes (Bld) [#/Vol] 1.2 10*3/uL High 0-0.9 [facility] Comment on above: Performed By: #### C BCA, CMP, 3040-3, 44398-5, 24442-4, 99624- 9 #### [facility] ([id number]) [address] [place] [address] 33567 Monocytes/100 WBC (Bld) 8.4 % Normal [facility] Comment on above: Performed By: #### Arnie BCA, CMP, 3040-3, 96388-9, 81094-1, 97814- 9 #### [facility] ([id number]) [address] [place] [address] 31226 Neutrophils/100 WBC (Bld) 71.1 % Normal [facility] Comment on above: Performed By: #### Arnie BCA, CMP, 3040-3, 12696-1, 84718-0, 46122- 9 #### [facility] ([id number]) [address] [place] [address] 09615 Platelet mean volume (Bld) [Entitic vol] 8.0 fL Normal 7-12 [facility] Comment on above: Performed By: #### Arnie BCA, CMP, 3040-3, 89245-6, 77174-4, 20062- 9 #### [facility] ([id number]) [address] [place] [address] 10911 Platelets (Bld) [#/Vol] 412 10*3/uL Normal 150-450 [facility] Comment on above: Performed By: #### Arnie BCA, CMP, 3040-3, 45709-8, 34629-1, 99910- 9 #### [facility] ([id number]) [address] [place] [address] 99719 RBC COUNT 4.86 X10E12/L Normal 3.80-5.20 [facility] Comment on above: Performed By: #### C BCA, CMP, 3040-3, 60107-1, 95371-1, 38455- 9 #### [facility] ([id number]) [address] [place] [address] 72788 WBC (Bld) [#/Vol] 14.8 10*3/uL High 4.0-11.0 [facility] Comment on above: Performed By: #### C BCA, CMP, 3040-3, 82015-0, 41274-5, 72013- 9 #### [facility] ([id number]) [address] [place] [address] 99243 COMPREHENSIVE METABOLIC PANE Sumit 09-27-2023 Albumin [Mass/Vol] 4.2 g/dL Normal 3.2-5.3 [facility] Comment on above: Performed By: #### C BCA, CMP, 3040-3, 26470-8, 07447-4, 84834- 9 #### [facility] ([id number]) [address] [place] [address] 99830 ALP [Catalytic activity/Vol] 63 U/L Normal 39-130 [facility] Comment on above: Performed By: #### C BCA, CMP, 3040-3, 35827-8, 44777-7, 81345- 9 #### [facility] ([id number]) [address] [place] [address] 67044 ALT [Catalytic activity/Vol] 28 U/L Normal 0-31 [facility] Comment on above: Performed By: #### C BCA, CMP, 3040-3, 01731-4, 62002-6, 61296- 9 #### [facility] ([id number]) [address] [place] [address] 49744 Anion gap [Moles/Vol] 12 mmol/L Normal 5-15 [facility] Comment on above: Performed By: #### C BCA, CMP, 3040-3, 79890-8, 90453-1, 96982- 9 #### [facility] ([id number]) [address] [place] [address] 81911 AST [Catalytic activity/Vol] 23 U/L Normal 0-41 [facility] Comment on above: Performed By: #### C BCA, CMP, 3040-3, 16350-5, 11927-5, 47536- 9 #### [facility] ([id number]) [address] [place] [address] 81491 Bilirubin [Mass/Vol] 1.5 mg/dL High 0.3-1.2 [facility] Comment on above: Performed By: #### C BCA, CMP, 3040-3, 48504-1, 52522-7, 46365- 9 #### [facility] ([id number]) [address] [place] [address] 11074 Calcium [Mass/Vol] 8.5 mg/dL Normal 8.5-10.5 [facility] Comment on above: Performed By: #### C BCA, CMP, 3040-3, 82187-7, 50410-5, 01778- 9 #### [facility] ([id number]) [address] [place] [address] 23908 Chloride [Moles/Vol] 104 mmol/L Normal 98-109 [facility] Comment on above: Performed By: #### C BCA, CMP, 3040-3, 98172-6, 02768-8, 96864- 9 #### [facility] ([id number]) [address] [place] [address] 14585 CO2 [Moles/Vol] 21 mmol/L Low 22-32 [facility] Comment on above: Performed By: #### C BCA, CMP, 3040-3, 85929-3, 96338-9, 20810- 9 #### [facility] ([id number]) [address] [place] [address] 89931 Creatinine [Mass/Vol] 0.35 mg/dL Low 0.40-1.00 [facility] Comment on above: Result Comment: METH OD TRACEABLE TO IDMS STANDARD Performed By: #### C MAIKEL, CMP, 3040-3, 97369-7, 76620-8, 07756-3 #### [facility] ([id number]) [address] [place] [address] 17013 eGFR (CKD-EPI) NON-RACE DEPENDENT >90 Normal >59 [facility] Comment on above: Result Comment: Reported eGFR is based on the CKD-EPI 2020 equation that does not use a race coefficient. Performed By: #### C MICAH KO, 3040-3, 73962-5, 41740-6, 49159-5 #### [facility] ([id number]) [address] [place] [address] 79333 Glucose [Mass/Vol] 101 mg/dL High 65-99 [facility] Comment on above: Performed By: #### C MICAH KO, 3040-3, 43649-9, 56508-7, 24974- 9 #### [facility] ([id number]) [address] [place] [address] 61069 Potassium [Moles/Vol] 3.3 mmol/L Low 3.5-5.0 [facility] Comment on above: Performed By: #### C MAIKEL, CMP, 3040-3, 95989-1, 88058-1, 79620- 9 #### [facility] ([id number]) [address] [place] [address] 62607 Protein [Mass/Vol] 7.5 g/dL Normal 6.0-8.0 [facility] Comment on above: Performed By: #### C BCA, CMP, 3040-3, 67781-9, 12218-5, 26479- 9 #### [facility] ([id number]) [address] [place] [address] 93997 Sodium [Moles/Vol] 137 mmol/L Normal 134-146 [facility] Comment on above: Performed By: #### C BCA, CMP, 3040-3, 22683-3, 27570-5, 19667- 9 #### [facility] ([id number]) [address] [place] [address] 17579 Urea nitrogen [Mass/Vol] 9 mg/dL Normal 5-23 [facility] Comment on above: Performed By: #### C BCA, CMP, 3040-3, 96342-2, 90055-3, 59638- 9 #### [facility] ([id number]) [address] [place] [address] 81939 Glucose Glucometer (BldC) [M ass/Vol]on 09-27-2023 Glucose [Mass/Vol] 116 mg/dL High 65-99 [facility] MAGNESIUMon 09-27-2023 Magnesium [Mass/Vol] 2.2 mg/dL Normal 1.8-2.6 [facility] Comment on above: Performed By: #### C BCA, CMP, 3040-3, 47246-1, 41993-4, 31057- 9 #### [facility] ([id number]) [address] [place] [address] 13649 PHOSPHORUSon 09-27-2023 Phosphate [Mass/Vol] 2.3 mg/dL Low 2.4-4.9 [facility] Comment on above: Performed By: #### C BCA, CMP, 3040-3, 62527-3, 36143-5, 08937- 9 #### [facility] ([id number]) [address] [place] [address] 41757 Phosphate [Mass/Vol] 2.0 mg/dL Low 2.4-4.9 [facility] Comment on above: Performed By: #### C BCA, CMP, 3040-3, 89777-8, 52622-3, 57046- 9 #### [facility] ([id number]) [address] [place] [address] 42803 POTASSIUMon 09-27-2023 Potassium [Moles/Vol] 3.7 mmol/L Normal 3.5-5.0 [facility] Comment on above: Performed By: #### C BCA, CMP, 3040-3, 80358-0, 26917-7, 37999- 9 #### [facility] ([id number]) [address] [place] [address] 60026 CBC AND AUTO DIFFon 09-26-19 ABSOLUTE BASOPHIL 0.1 X10E9/L Normal 0.0-0.2 [facility] Comment on above: Performed By: #### C BCA, CMP, 3040-3, 58837-4, 95080-6, 58080- 9 #### [facility] ([id number]) [address] [place] [address] 01581 ABSOLUTE NEUTROPHIL 15.9 X10E9/L High 1.5-6.6 [facility] Comment on above: Performed By: #### C BCA, CMP, 3040-3, 63339-1, 88089-2, 94092- 9 #### [facility] ([id number]) [address] [place] [address] 78551 Basophils/100 WBC (Bld) 0.3 % Normal [facility] Comment on above: Performed By: #### C BCA, CMP, 3040-3, 19620-8, 32991-3, 87994- 9 #### [facility] ([id number]) [address] [place] [address] 34120 Eosinophils (Bld) [#/Vol] 0.0 10*3/uL Normal 0.0-0.4 [facility] Comment on above: Performed By: #### C BCA, CMP, 3040-3, 61768-1, 41562-2, 81094- 9 #### [facility] ([id number]) [address] [place] [address] 06264 Eosinophils/100 WBC (Bld) 0.0 % Normal [facility] Comment on above: Performed By: #### C BCA, CMP, 3040-3, 03083-6, 90348-6, 06948- 9 #### [facility] ([id number]) [address] [place] [address] 30529 Erythrocyte distribution width (RBC) [Ratio] 13.1 % Normal 11.5-15.0 [facility] Comment on above: Performed By: #### C MAIKEL, CMP, 3040-3, 75076-2, 87589-7, 46076- 9 #### [facility] ([id number]) [address] [place] [address] 19787 Hematocrit (Bld) [Volume fraction] 41.0 % Normal 35-47 [facility] Comment on above: Performed By: #### C BCA, CMP, 3040-3, 43169-7, 33739-2, 50996- 9 #### [facility] ([id number]) [address] [place] [address] 16119 Hemoglobin (Bld) [Mass/Vol] 13.7 g/dL Normal 11.7-15.5 [facility] Comment on above: Performed By: #### C BCA, CMP, 3040-3, 83857-0, 79862-2, 46410- 9 #### [facility] ([id number]) [address] [place] [address] 45089 Lymphocytes (Bld) [#/Vol] 2.5 10*3/uL Normal 1.0-3.5 [facility] Comment on above: Performed By: #### C BCA, CMP, 3040-3, 06819-8, 62524-9, 21749- 9 #### [facility] ([id number]) [address] [place] [address] 09423 Lymphocytes/100 WBC (Bld) 12.7 % Normal [facility] Comment on above: Performed By: #### C BCA, CMP, 3040-3, 10635-4, 89755-7, 55299- 9 #### [facility] ([id number]) [address] [place] [address] 81115 MCH (RBC) [Entitic mass] 29.7 pg Normal 27-34 [facility] Comment on above: Performed By: #### C BCA, CMP, 3040-3, 32340-7, 82501-1, 81600- 9 #### [facility] ([id number]) [address] [place] [address] 22525 MCHC (RBC) [Mass/Vol] 33.4 g/dL Normal 32-36 [facility] Comment on above: Performed By: #### C BCA, CMP, 3040-3, 82251-9, 57209-6, 82335- 9 #### [facility] ([id number]) [address] [place] [address] 46861 MCV (RBC) [Entitic vol] 89 fL Normal 80-100 [facility] Comment on above: Performed By: #### C BCA, CMP, 3040-3, 57227-0, 98103-7, 67979- 9 #### [facility] ([id number]) [address] [place] [address] 07834 Monocytes (Bld) [#/Vol] 1.4 10*3/uL High 0-0.9 [facility] Comment on above: Performed By: #### C BCA, CMP, 3040-3, 18365-9, 13955-2, 04335- 9 #### [facility] ([id number]) [address] [place] [address] 85158 Monocytes/100 WBC (Bld) 7.2 % Normal [facility] Comment on above: Performed By: #### C BCA, CMP, 3040-3, 71303-1, 67034-3, 67191- 9 #### [facility] ([id number]) [address] [place] [address] 08616 Neutrophils/100 WBC (Bld) 79.8 % Normal [facility] Comment on above: Performed By: #### C BCA, CMP, 3040-3, 60365-2, 63320-2, 99812- 9 #### [facility] ([id number]) [address] [place] [address] 92071 Platelet mean volume (Bld) [Entitic vol] 8.1 fL Normal 7-12 [facility] Comment on above: Performed By: #### C BCA, CMP, 3040-3, 70361-5, 38858-1, 52067- 9 #### [facility] ([id number]) [address] [place] [address] 34884 Platelets (Bld) [#/Vol] 372 10*3/uL Normal 150-450 [facility] Comment on above: Performed By: #### C BCA, CMP, 3040-3, 12653-8, 74624-6, 94432- 9 #### [facility] ([id number]) [address] [place] [address] 81418 RBC COUNT 4.60 X10E12/L Normal 3.80-5.20 [facility] Comment on above: Performed By: #### C BCA, CMP, 3040-3, 37731-1, 81180-5, 33863- 9 #### [facility] ([id number]) [address] [place] [address] 62775 WBC (Bld) [#/Vol] 19.9 10*3/uL High 4.0-11.0 [facility] Comment on above: Performed By: #### C BCA, CMP, 3040-3, 75171-0, 28597-9, 13117- 9 #### [facility] ([id number]) [address] [place] [address] 59838 COMPREHENSIVE METABOLIC PANE Sumit 09-26-2023 Albumin [Mass/Vol] 4.1 g/dL Normal 3.2-5.3 [facility] Comment on above: Performed By: #### C BCA, CMP, 3040-3, 96362-4, 20940-7, 63978- 9 #### [facility] ([id number]) [address] [place] [address] 68034 ALP [Catalytic activity/Vol] 63 U/L Normal 39-130 [facility] Comment on above: Performed By: #### C BCA, CMP, 3040-3, 37344-7, 82738-5, 42241- 9 #### [facility] ([id number]) [address] [place] [address] 87262 ALT [Catalytic activity/Vol] 17 U/L Normal 0-31 [facility] Comment on above: Performed By: #### C BCA, CMP, 3040-3, 11478-1, 45232-2, 90716- 9 #### [facility] ([id number]) [address] [place] [address] 42069 Anion gap [Moles/Vol] 12 mmol/L Normal 5-15 [facility] Comment on above: Performed By: #### C BCA, CMP, 3040-3, 96300-3, 98794-1, 67806- 9 #### [facility] ([id number]) [address] [place] [address] 93383 AST [Catalytic activity/Vol] 18 U/L Normal 0-41 [facility] Comment on above: Performed By: #### C BCA, CMP, 3040-3, 73004-6, 65174-3, 31589- 9 #### [facility] ([id number]) [address] [place] [address] 80005 Bilirubin [Mass/Vol] 1.4 mg/dL High 0.3-1.2 [facility] Comment on above: Performed By: #### C BCA, CMP, 3040-3, 57511-1, 16851-8, 84012- 9 #### [facility] ([id number]) [address] [place] [address] 09303 Calcium [Mass/Vol] 8.2 mg/dL Low 8.5-10.5 [facility] Comment on above: Performed By: #### C BCA, CMP, 3040-3, 30564-3, 86520-9, 74779- 9 #### [facility] ([id number]) [address] [place] [address] 70745 Chloride [Moles/Vol] 102 mmol/L Normal 98-109 [facility] Comment on above: Performed By: #### C BCA, CMP, 3040-3, 23552-3, 09096-3, 90720- 9 #### [facility] ([id number]) [address] [place] [address] 59884 CO2 [Moles/Vol] 20 mmol/L Low 22-32 [facility] Comment on above: Performed By: #### C BCA, CMP, 3040-3, 41860-1, 16611-5, 06448- 9 #### [facility] ([id number]) [address] [place] [address] 93032 Creatinine [Mass/Vol] 0.32 mg/dL Low 0.40-1.00 [facility] Comment on above: Result Comment: METH OD TRACEABLE TO IDMS STANDARD Performed By: #### C BCA, CMP, 3040-3, 15589-2, 17545-0, 91387-0 #### [facility] ([id number]) [address] [place] [address] 30500 eGFR (CKD-EPI) NON-RACE DEPENDENT >90 Normal >59 [facility] Comment on above: Result Comment: Reported eGFR is based on the CKD-EPI 2020 equation that does not use a race coefficient. Performed By: #### C BCA, CMP, 3040-3, 34214-8, 02626-2, 27636-2 #### [facility] ([id number]) [address] [place] [address] 49528 Glucose [Mass/Vol] 99 mg/dL Normal 65-99 [facility] Comment on above: Performed By: #### C BCA, CMP, 3040-3, 53787-2, 63574-7, 61899- 9 #### [facility] ([id number]) [address] [place] [address] 80402 Potassium [Moles/Vol] 3.2 mmol/L Low 3.5-5.0 [facility] Comment on above: Performed By: #### C BCA, CMP, 3040-3, 08959-0, 98660-6, 66772- 9 #### [facility] ([id number]) [address] [place] [address] 36394 Protein [Mass/Vol] 7.3 g/dL Normal 6.0-8.0 [facility] Comment on above: Performed By: #### C BCA, CMP, 3040-3, 62473-8, 85041-9, 63378- 9 #### [facility] ([id number]) [address] [place] [address] 18940 Sodium [Moles/Vol] 134 mmol/L Normal 134-146 [facility] Comment on above: Performed By: #### C BCA, CMP, 3040-3, 86048-8, 80936-0, 18256- 9 #### [facility] ([id number]) [address] [place] [address] 76620 Urea nitrogen [Mass/Vol] 10 mg/dL Normal 5-23 [facility] Comment on above: Performed By: #### C BCA, CMP, 3040-3, 60473-0, 86538-8, 55743- 9 #### [facility] ([id number]) [address] [place], [place] [address] DRUG SCREEN, URINEon 024 AMPHETAMINE/METHAMP Negative Normal NEG [facility] Comment on above: Result Comment: AMPH /METH screening cut off = 1000 ng/mL Performed By: #### C BCA, CMP, 3040-3, 21386-5, 20048-5, 79864-7 #### [facility] ([id number]) [address] [place] [address] BARBITURATES Negative Normal NEG [facility] Comment on above: Result Comment: Anitra iturates screening cut off value = 200 ng/mL Performed By: #### C BCA, CMP, 3040-3, 86130-1, 54072-5, 12878-4 #### [facility] ([id number]) [address] [place], [place] [address] BENZODIAZEPINES Negative Normal NEG [facility] Comment on above: Result Comment: Art odiazepines screening cut off value = 200 ng/mL Performed By: #### C BCA, CMP, 3040-3, 61587-6, 42605-2, 34776-7 #### [facility] ([id number]) [address] [place], [place] [address] CANNABINOIDS Positive Abnormal NEG [facility] Comment on above: Result Comment: Conf irmation available upon request. Cannabinoids/THC screening cut off value = 50 ng/mL Performed By: #### C BCA, CMP, 3040-3, 91653-3, 34706-6, 98102-3 #### [facility] ([id number]) [address] [place] [address] 35003 COCAINE METABOLITE Negative Normal NEG [facility] Comment on above: Result Comment: Coca ine screening cut off value = 300 ng/mL Performed By: #### C MICAH KO, 3040-3, 34322-8, 46188-3, 55647-3 #### [facility] ([id number]) [address] [place] [address] 07945 ECSTASY Negative Normal NEG [facility] Comment on above: Result Comment: Ecst asy screening cut off value = 500 ng/mL This report is intended for use in clinical monitoring or management of patients. Performed By: #### C MICAH KO, 3040-3, 89818-2, 06191-8, 87113-9 #### [facility] ([id number]) [address] [place] [address] 59166 METHADONE Negative Normal [facility] Comment on above: Result Comment: Meth adone screening cut off value = 300 ng/mL. Performed By: #### C MICAH KO, 3040-3, 57330-4, 40672-4, 44147-7 #### [facility] ([id number]) [address] [place] [address] 44094 OPIATES Positive Abnormal NEG [facility] Comment on above: Result Comment: Conf irmation available upon request. Opiates screening cut off value = 300 ng/mL NOTE: This test is used for the detection of codeine, hydrocodone (>1000 ng/mL), morphine and hydromorphone (>900 ng/mL) in urine. Performed By: #### C MICAH KO, 3040-3, 38050-9, 65324-7, 31434-3 #### [facility] ([id number]) [address] [place] [address] 51388 OXYCODONE Negative Normal NEG [facility] Comment on above: Result Comment: Oxyc odone screening cut off value = 300 ng/mL NOTE: This test is used for the detection of oxycodone and oxymorphone in urine. Performed By: #### C BCA, CMP, 3040-3, 51677-6, 93956-5, 62256-8 #### [facility] ([id number]) [address] [place] [address] 47898 PHENCYCLIDINE Negative Normal NEG [facility] Comment on above: Result Comment: Phen cyclidine screening cut off value = 25 ng/mL Performed By: #### C BCA, CMP, 3040-3, 69261-9, 01070-1, 61961-2 #### [facility] ([id number]) [address] [place] [address] 49662 MAGNESIUMon 09-26-2023 Magnesium [Mass/Vol] 2.1 mg/dL Normal 1.8-2.6 [facility] Comment on above: Performed By: #### C BCA, CMP, 3040-3, 14189-4, 87852-6, 42285- 9 #### [facility] ([id number]) [address] [place] [address] 45808 PHOSPHORUSon 09-26-2023 Phosphate [Mass/Vol] 1.9 mg/dL Low 2.4-4.9 [facility] Comment on above: Performed By: #### C BCA, CMP, 3040-3, 49382-9, 92119-3, 10263- 9 #### [facility] ([id number]) [address] [place] [address] 64793 BLOOD CULTUREon 09-25-2023 Bacteria identified Aer cx Nom (Bld) SPECIMEN NOTES SUBOPTIMAL VOLUME OF BLOOD COLLECTED, RESULTS MAY BE AFFECTED. CULTURE RESULTS NO GROWTH 5 DAYS Normal [facility] Comment on above: Performed By: #### C BCA, CMP, 3040-3, 74923-6, 75602-6, 95989- 9 #### [facility] ([id number]) [address] [place] [address] 75717 Bacteria identified Aer cx Nom (Bld) CULTURE RESULTS NO GROWTH 5 DAYS Normal [facility] CBC AND AUTO DIFFon 09-25-19 24 ABSOLUTE BASOPHIL 0.1 X10E9/L Normal 0.0-0.2 [facility] Comment on above: Performed By: #### C BCA, CMP, 3040-3, 73339-8, 30328-7, 35584- 9 #### [facility] ([id number]) [address] [place] [address] 93192 ABSOLUTE NEUTROPHIL 14.0 X10E9/L High 1.5-6.6 [facility] Comment on above: Performed By: #### C BCA, CMP, 3040-3, 20827-3, 55882-6, 22673- 9 #### [facility] ([id number]) [address] [place] [address] 58610 Basophils/100 WBC (Bld) 0.5 % Normal [facility] Comment on above: Performed By: #### C BCA, CMP, 3040-3, 67398-6, 10159-7, 47962- 9 #### [facility] ([id number]) [address] [place] [address] 29037 Eosinophils (Bld) [#/Vol] 0.0 10*3/uL Normal 0.0-0.4 [facility] Comment on above: Performed By: #### C BCA, CMP, 3040-3, 89921-2, 48486-4, 32160- 9 #### [facility] ([id number]) [address] [place] [address] 13689 Eosinophils/100 WBC (Bld) 0.1 % Normal [facility] Comment on above: Performed By: #### C BCA, CMP, 3040-3, 83428-7, 15575-5, 93363- 9 #### [facility] ([id number]) [address] [place] [address] 06739 Erythrocyte distribution width (RBC) [Ratio] 13.1 % Normal 11.5-15.0 [facility] Comment on above: Performed By: #### C BCA, CMP, 3040-3, 58725-5, 99189-4, 26947- 9 #### [facility] ([id number]) [address] [place] [address] 72101 Hematocrit (Bld) [Volume fraction] 45.4 % Normal 35-47 [facility] Comment on above: Performed By: #### C BCA, CMP, 3040-3, 97417-6, 39205-2, 49309- 9 #### [facility] ([id number]) [address] [place] [address] 46158 Hemoglobin (Bld) [Mass/Vol] 15.6 g/dL High 11.7-15.5 [facility] Comment on above: Performed By: #### C BCA, CMP, 3040-3, 08323-4, 82349-4, 32189- 9 #### [facility] ([id number]) [address] [place] [address] 25015 Lymphocytes (Bld) [#/Vol] 2.1 10*3/uL Normal 1.0-3.5 [facility] Comment on above: Performed By: #### C BCA, CMP, 3040-3, 66322-2, 91053-6, 11747- 9 #### [facility] ([id number]) [address] [place] [address] 74043 Lymphocytes/100 WBC (Bld) 11.9 % Normal [facility] Comment on above: Performed By: #### Arnie BCA, CMP, 3040-3, 67817-1, 26567-9, 86922- 9 #### [facility] ([id number]) [address] [place] [address] 52449 MCH (RBC) [Entitic mass] 30.3 pg Normal 27-34 [facility] Comment on above: Performed By: #### C BCA, CMP, 3040-3, 66216-8, 45051-9, 93340- 9 #### [facility] ([id number]) [address] [place] [address] 63574 MCHC (RBC) [Mass/Vol] 34.3 g/dL Normal 32-36 [facility] Comment on above: Performed By: #### C BCA, CMP, 3040-3, 28553-8, 28635-3, 50275- 9 #### [facility] ([id number]) [address] [place] [address] 89924 MCV (RBC) [Entitic vol] 88 fL Normal 80-100 [facility] Comment on above: Performed By: #### C BCA, CMP, 3040-3, 44999-9, 48559-5, 22174- 9 #### [facility] ([id number]) [address] [place] [address] 27913 Monocytes (Bld) [#/Vol] 1.3 10*3/uL High 0-0.9 [facility] Comment on above: Performed By: #### C BCA, CMP, 3040-3, 20850-8, 43340-5, 12929- 9 #### [facility] ([id number]) [address] [place] [address] 26489 Monocytes/100 WBC (Bld) 7.3 % Normal [facility] Comment on above: Performed By: #### C BCA, CMP, 3040-3, 70004-9, 97274-2, 86440- 9 #### [facility] ([id number]) [address] [place] [address] 91731 Neutrophils/100 WBC (Bld) 80.2 % Normal [facility] Comment on above: Performed By: #### C BCA, CMP, 3040-3, 90054-5, 67465-3, 48854- 9 #### [facility] ([id number]) [address] [place] [address] 69335 Platelet mean volume (Bld) [Entitic vol] 7.7 fL Normal 7-12 [facility] Comment on above: Performed By: #### C BCA, CMP, 3040-3, 88352-1, 62598-6, 36859- 9 #### [facility] ([id number]) [address] [place] [address] 51954 Platelets (Bld) [#/Vol] 440 10*3/uL Normal 150-450 [facility] Comment on above: Performed By: #### Arnie BCA, CMP, 3040-3, 80722-6, 97517-0, 29906- 9 #### [facility] ([id number]) [address] [place] [address] 42930 RBC COUNT 5.14 X10E12/L Normal 3.80-5.20 [facility] Comment on above: Performed By: #### C BCA, CMP, 3040-3, 64633-6, 96851-5, 03322- 9 #### [facility] ([id number]) [address] [place] [address] 04143 WBC (Bld) [#/Vol] 17.4 10*3/uL High 4.0-11.0 [facility] Comment on above: Performed By: #### C BCA, CMP, 3040-3, 05926-3, 59260-7, 81853- 9 #### [facility] ([id number]) [address] [place] [address] 11164 COMPREHENSIVE METABOLIC PANE Sumit 09-25-2023 Albumin [Mass/Vol] 4.8 g/dL Normal 3.2-5.3 [facility] Comment on above: Performed By: #### C BCA, CMP, 3040-3, 99992-2, 27828-1, 13572- 9 #### [facility] ([id number]) [address] [place] [address] 03882 ALP [Catalytic activity/Vol] 80 U/L Normal 39-130 [facility] Comment on above: Performed By: #### C BCA, CMP, 3040-3, 72177-0, 07370-9, 18950- 9 #### [facility] ([id number]) [address] [place] [address] 32761 ALT [Catalytic activity/Vol] 23 U/L Normal 0-31 [facility] Comment on above: Performed By: #### C BCA, CMP, 3040-3, 93034-4, 92278-4, 23891- 9 #### [facility] ([id number]) [address] [place] [address] 87175 Anion gap [Moles/Vol] 15 mmol/L Normal 5-15 [facility] Comment on above: Performed By: #### C BCA, CMP, 3040-3, 11977-4, 85279-7, 78369- 9 #### [facility] ([id number]) [address] [place] [address] 68409 AST [Catalytic activity/Vol] 22 U/L Normal 0-41 [facility] Comment on above: Performed By: #### C BCA, CMP, 3040-3, 41634-3, 29677-2, 98784- 9 #### [facility] ([id number]) [address] [place] [address] 81384 Bilirubin [Mass/Vol] 1.0 mg/dL Normal 0.3-1.2 [facility] Comment on above: Performed By: #### C BCA, CMP, 3040-3, 35370-9, 03034-6, 56698- 9 #### [facility] ([id number]) [address] [place] [address] 10375 Calcium [Mass/Vol] 9.0 mg/dL Normal 8.5-10.5 [facility] Comment on above: Performed By: #### C BCA, CMP, 3040-3, 27576-1, 67208-7, 17466- 9 #### [facility] ([id number]) [address] [place] [address] 73175 Chloride [Moles/Vol] 92 mmol/L Low 98-109 [facility] Comment on above: Performed By: #### C BCA, CMP, 3040-3, 23172-8, 31847-2, 29344- 9 #### [facility] ([id number]) [address] [place] [address] 78592 CO2 [Moles/Vol] 23 mmol/L Normal 22-32 [facility] Comment on above: Performed By: #### C BCA, CMP, 3040-3, 35578-3, 60613-3, 78341- 9 #### [facility] ([id number]) [address] [place] [address] 05556 Creatinine [Mass/Vol] 0.45 mg/dL Normal 0.40-1.00 [facility] Comment on above: Result Comment: METH OD TRACEABLE TO IDMS STANDARD Performed By: #### C BCA, CMP, 3040-3, 56579-5, 94711-2, 42976-2 #### [facility] ([id number]) [address] [place] [address] 45944 eGFR (CKD-EPI) NON-RACE DEPENDENT >90 Normal >59 [facility] Comment on above: Result Comment: Reported eGFR is based on the CKD-EPI 2020 equation that does not use a race coefficient. Performed By: #### C BCA, CMP, 3040-3, 19771-9, 75827-2, 50460-9 #### [facility] ([id number]) [address] [place] [address] 68600 Glucose [Mass/Vol] 151 mg/dL High 65-99 [facility] Comment on above: Performed By: #### C BCA, CMP, 3040-3, 45244-7, 34152-1, 23086- 9 #### [facility] ([id number]) [address] [place] [address] 47060 Potassium [Moles/Vol] 2.6 mmol/L Critically low 3.5-5.0 [facility] Comment on above: Performed By: #### C BCA, CMP, 3040-3, 41390-8, 68451-6, 36922- 9 #### [facility] ([id number]) [address] [place] [address] 97312 Protein [Mass/Vol] 8.7 g/dL High 6.0-8.0 [facility] Comment on above: Performed By: #### C BCA, CMP, 3040-3, 89352-7, 54116-0, 86701- 9 #### [facility] ([id number]) [address] [place] [address] 82736 Sodium [Moles/Vol] 130 mmol/L Low 134-146 [facility] Comment on above: Performed By: #### C BCA, CMP, 3040-3, 01357-7, 18162-5, 81550- 9 #### [facility] ([id number]) [address] [place] [address] 41360 Urea nitrogen [Mass/Vol] 17 mg/dL Normal 5-23 [facility] Comment on above: Performed By: #### C BCA, CMP, 3040-3, 90273-1, 95942-6, 01078- 9 #### [facility] ([id number]) [address] [place] [address] [place] [address] [address] ABDOMEN AND PELVIS WO CON Ton [...] Ramsay MD on 09/25/2023 6:01 PM Normal [facility] DRUG SCREEN, URINEon 024 AMPHETAMINE/METHAMP Negative Normal NEG [facility] Comment on above: Result Comment: AMPH /METH screening cut off = 1000 ng/mL Performed By: #### C BCA CMP, 3040-3, 42733-1, 17070-3, 91006-5 #### [facility] ([id number]) [address] [place] [address] [place] [address] BARBITURATES Negative Normal NEG [facility] Comment on above: Result Comment: Anitra iturates screening cut off value = 200 ng/mL Performed By: #### C BCA, CMP, 3040-3, 02816-6, 72568-5, 64010-3 #### [facility] ([id number]) [address] [place] [address] BENZODIAZEPINES Negative Normal NEG [facility] Comment on above: Result Comment: Art odiazepines screening cut off value = 200 ng/mL Performed By: #### C BCA, CMP, 3040-3, 92969-2, 86268-2, 22712-6 #### [facility] ([id number]) [address] [place] [address] CANNABINOIDS Positive Abnormal NEG [facility] Comment on above: Result Comment: Conf irmation available upon request. Cannabinoids/THC screening cut off value = 50 ng/mL Performed By: #### C BCA, CMP, 3040-3, 76225-3, 28701-7, 54344-1 #### [facility] ([id number]) [address] [place] [address] COCAINE METABOLITE Negative Normal NEG [facility] Comment on above: Result Comment: Coca ine screening cut off value = 300 ng/mL Performed By: #### C BCA, CMP, 3040-3, 71567-5, 26039-7, 95526-2 #### [facility] ([id number]) [address] [place] [address] ECSTASY Negative Normal NEG [facility] Comment on above: Result Comment: Ecst asy screening cut off value = 500 ng/mL This report is intended for use in clinical monitoring or management of patients. Performed By: #### C BCA, CMP, 3040-3, 66886-5, 36854-0, 13990-5 #### [facility] ([id number]) [address] [place] [address] METHADONE Negative Normal NEG [facility] Comment on above: Result Comment: Meth adone screening cut off value = 300 ng/mL. Performed By: #### C BCA, CMP, 3040-3, 68906-5, 95933-1, 25909-0 #### [facility] ([id number]) [address] [place] [address]65[address] OPIATES Negative Normal NEG [facility] Comment on above: Result Comment: Opia gricelda screening cut off value = 300 ng/mL NOTE: This test is used for the detection of codeine, hydrocodone (>1000 ng/mL), morphine and hydromorphone (>900 ng/mL) in urine. Performed By: #### C BCA, CMP, 3040-3, 53914-9, 18404-8, 08411-3 #### [facility] ([id number]) [address] [place] [address]205 OXYCODONE Negative Normal NEG [facility] Comment on above: Result Comment: Oxyc odone screening cut off value = 300 ng/mL NOTE: This test is used for the detection of oxycodone and oxymorphone in urine. Performed By: #### C MAIKEL, CMP, 3040-3, 59241-4, 24943-7, 82996-9 #### [facility] ([id number]) [address] [place] [address] 91260 PHENCYCLIDINE Negative Normal NEG [facility] Comment on above: Result Comment: Phen cyclidine screening cut off value = 25 ng/mL Performed By: #### C MAIKEL, CMP, 3040-3, 83026-0, 49140-9, 65616-1 #### [facility] ([id number]) [address] [place] [address] 68883 LIPASEon 09-25-2023 Lipase [Catalytic activity/Vol] 22 U/L Normal 17-40 [facility] Comment on above: Performed By: #### C BCA, CMP, 3040-3, 79124-8, 72101-1, 37468- 9 #### [facility] ([id number]) [address] [place] [address] 99567 Lactate (P cheryle) [Moles/Vol]o n 09-25-2023 LACTATE W/REFLEX 1.2 mmol/L Normal 0.4-2.0 [facility] Comment on above: Result Comment: Result did not trigger repeat Lactate, re-order if needed. Performed By: #### C MAIKEL, MICAH, 3040-3, 34487-8, 53638-1, 99692-3 #### [facility] ([id number]) [address] [place] [address] 59122 PHOSPHORUSon 09-25-2023 Phosphate [Mass/Vol] 2.0 mg/dL Low 2.4-4.9 [facility] Comment on above: Performed By: #### C MAIKEL, MICAH, 3040-3, 87220-4, 41532-8, 61361- 9 #### [facility] ([id number]) [address] [place] [address] 21110 POTASSIUMon 09-25-2023 Potassium [Moles/Vol] 3.1 mmol/L Low 3.5-5.0 [facility] Comment on above: Performed By: #### C MAIKEL, MICAH, 3040-3, 95674-0, 46257-4, 53440- 9 #### [facility] ([id number]) [address] [place] [address] 01815 Potassium [Moles/Vol] 2.8 mmol/L Low 3.5-5.0 [facility] Comment on above: Performed By: #### C MAIKEL, CMP, 3040-3, 22448-3, 01241-6, 91094- 9 #### [facility] ([id number]) [address] [place] [address] 49540 Procalcitonin IA [Mass/Vol]o n 09-25-2023 PROCALCITONIN <0.05 Normal <0.05 [facility] Comment on above: Result Comment: NOTE <0.50 ng/mL - Low risk of severe sepsis and/or septic shock. <2.00 ng/mL - Recommend retesting within 6-24 hours. >2.00 ng/mL - High risk of sepsis and/or septic shock. Performed By: #### C BCA, CMP, 3040-3, 52300-1, 07892-3, 80662-7 #### [facility] ([id number]) [address] [place] [address] 78396 URINALYSISon 09-25-2023 Bilirubin Ql (U) Negative Normal NEG [facility] Comment on above: Performed By: #### C BCA, CMP, 3040-3, 73387-5, 60535-5, 23346- 9 #### [facility] ([id number]) [address] [place] [address] 88036 BLOOD/HGB MODERATE Abnormal NEG [facility] Comment on above: Performed By: #### C BCA, CMP, 3040-3, 91083-4, 48864-4, 89600- 9 #### [facility] ([id number]) [address] [place] [address] 87651 Color (U) YELLOW Normal YELLOW [facility] Comment on above: Performed By: #### C BCA, CMP, 3040-3, 92438-8, 42612-0, 36985- 9 #### [facility] ([id number]) [address] [place] [address] 71353 Glucose Ql (U) Negative Normal [facility] Comment on above: Performed By: #### C BCA, CMP, 3040-3, 47439-5, 81064-6, 93955- 9 #### [facility] ([id number]) [address] [place] [address] 73333 Ketones Ql (U) >80 Abnormal NEG [facility] Comment on above: Performed By: #### C BCA, CMP, 3040-3, 70243-6, 60353-5, 91645- 9 #### [facility] ([id number]) [address] [place] [address] 99317 Leukocyte esterase Test strip Ql (U) Negative Normal NEG [facility] Comment on above: Performed By: #### C BCA, CMP, 3040-3, 14679-4, 45841-9, 49835- 9 #### [facility] ([id number]) [address] [place] [address] 29022 Nitrite Ql (U) Negative Normal NEG [facility] Comment on above: Performed By: #### C BCA, CMP, 3040-3, 73750-9, 67418-4, 01380- 9 #### [facility] ([id number]) [address] [place] [address] 56475 pH (U) 6.5 [pH] Normal 5.0-8.5 [facility] Comment on above: Performed By: #### C BCA, CMP, 3040-3, 34676-0, 57556-3, 86491- 9 #### [facility] ([id number]) [address] [place] [address] 20861 Protein Ql (U) Negative Normal NEG [facility] Comment on above: Performed By: #### C BCA, CMP, 3040-3, 01816-2, 40435-2, 40056- 9 #### [facility] ([id number]) [address] [place] [address] 19125 R.B.CELLS 5 to 10 Normal 0-5 [facility] Comment on above: Performed By: #### C BCA, CMP, 3040-3, 34767-1, 46709-6, 95569- 9 #### [facility] ([id number]) [address] [place] [address] 86920 Specific gravity (U) [Rel density] 1.010 Normal 1.003-1.035 [facility] Comment on above: Performed By: #### C BCA, CMP, 3040-3, 49712-1, 14845-2, 87501- 9 #### [facility] ([id number]) [address] [place] [address] [place] [address] SQUAMOUS EPITHELIUM 2 to 5 Normal 0-5 [facility] Comment on above: Performed By: #### C BCA, CMP, 3040-3, 59786-3, 00152-2, 59134- 9 #### [facility] ([id number]) [address] [place] [address] [place] [address] TURBIDITY CLEAR Normal CLEAR [facility] Comment on above: Performed By: #### C BCA, CMP, 3040-3, 46912-3, 17724-1, 03977- 9 #### [facility] ([id number]) [address] [place] [address] 08347 Urobilinogen Qn (U) 0.2 {Kingsley'U}/dL Normal <1.1 [facility] Comment on above: Performed By: #### C BCA, CMP, 3040-3, 26538-2, 90052-6, 89320- 9 #### [facility] ([id number]) [address] [place] [address] [place] [address] W.B.CELLS 0 /hpf Normal 0-5 [facility] Comment on above: Performed By: #### C BCA, CMP, 3040-3, 52659-2, 57771-4, 55610- 9 #### [facility] ([id number]) [address] [place] [address] [place] [address] URINE CULTUREon 09-25-2023 Bacteria identified Cx Nom (U) CULTURE RESULTS 50-100,000 ORGANISMS/ML NORMAL UROGENITAL MINOR Normal [facility] Comment on above: Performed By: #### C BCA, CMP, 3040-3, 74134-3, 97431-9, 06088- 9 #### [facility] ([id number]) [address] [place] [address] 14401 CBC AND AUTO DIFFon 07-26-19 ABSOLUTE BASOPHIL 0.1 X10E9/L Normal 0.0-0.2 [facility] Comment on above: Performed By: #### C BCA, CMP, 3040-3, 87966-0, 89910-4, 37050- 9 #### [facility] ([id number]) [address] [place] [address] 67550 ABSOLUTE NEUTROPHIL 9.8 X10E9/L High 1.5-6.6 [facility] Comment on above: Performed By: #### C BCA, CMP, 3040-3, 26804-0, 19673-4, 69794- 9 #### [facility] ([id number]) [address] [place] [address] 33494 Basophils/100 WBC (Bld) 0.6 % Normal [facility] Comment on above: Performed By: #### C BCA, CMP, 3040-3, 18178-3, 39742-7, 14907- 9 #### [facility] ([id number]) [address] [place] [address] 51504 Eosinophils (Bld) [#/Vol] 0.0 10*3/uL Normal 0.0-0.4 [facility] Comment on above: Performed By: #### C BCA, CMP, 3040-3, 41279-0, 74220-0, 87351- 9 #### [facility] ([id number]) [address] [place] [address] 21129 Eosinophils/100 WBC (Bld) 0.1 % Normal [facility] Comment on above: Performed By: #### C BCA, CMP, 3040-3, 21789-6, 84531-0, 17452- 9 #### [facility] ([id number]) [address] [place] [address] 98621 Erythrocyte distribution width (RBC) [Ratio] 13.4 % Normal 11.5-15.0 [facility] Comment on above: Performed By: #### C BCA, CMP, 3040-3, 30598-0, 87551-9, 12918- 9 #### [facility] ([id number]) [address] [place] [address] 70327 Hematocrit (Bld) [Volume fraction] 44.6 % Normal 35-47 [facility] Comment on above: Performed By: #### C BCA, CMP, 3040-3, 89782-9, 90401-8, 03124- 9 #### [facility] ([id number]) [address] [place] [address] 58038 Hemoglobin (Bld) [Mass/Vol] 15.0 g/dL Normal 11.7-15.5 [facility] Comment on above: Performed By: #### C BCA, CMP, 3040-3, 38993-1, 11094-2, 31594- 9 #### [facility] ([id number]) [address] [place] [address] 35243 Lymphocytes (Bld) [#/Vol] 1.4 10*3/uL Normal 1.0-3.5 [facility] Comment on above: Performed By: #### C BCA, CMP, 3040-3, 76672-0, 14966-8, 67783- 9 #### [facility] ([id number]) [address] [place] [address] 35848 Lymphocytes/100 WBC (Bld) 11.9 % Normal [facility] Comment on above: Performed By: #### C BCA, CMP, 3040-3, 23922-2, 16627-5, 15943- 9 #### [facility] ([id number]) [address] [place] [address] 02989 MCH (RBC) [Entitic mass] 30.2 pg Normal 27-34 [facility] Comment on above: Performed By: #### C BCA, CMP, 3040-3, 93778-7, 97118-6, 81636- 9 #### [facility] ([id number]) [address] [place] [address] 41234 MCHC (RBC) [Mass/Vol] 33.7 g/dL Normal 32-36 [facility] Comment on above: Performed By: #### C BCA, CMP, 3040-3, 06741-7, 05177-3, 85418- 9 #### [facility] ([id number]) [address] [place] [address] 21515 MCV (RBC) [Entitic vol] 90 fL Normal 80-100 [facility] Comment on above: Performed By: #### C BCA, CMP, 3040-3, 65754-2, 29668-9, 61249- 9 #### [facility] ([id number]) [address] [place] [address] 82416 Monocytes (Bld) [#/Vol] 0.3 10*3/uL Normal 0-0.9 [facility] Comment on above: Performed By: #### C BCA, CMP, 3040-3, 36682-7, 90562-8, 98732- 9 #### [facility] ([id number]) [address] [place] [address] 70409 Monocytes/100 WBC (Bld) 2.3 % Normal [facility] Comment on above: Performed By: #### C BCA, CMP, 3040-3, 01047-6, 47416-0, 94914- 9 #### [facility] ([id number]) [address] [place] [address] 54903 Neutrophils/100 WBC (Bld) 85.1 % Normal [facility] Comment on above: Performed By: #### C BCA, CMP, 3040-3, 62960-8, 24392-8, 08850- 9 #### [facility] ([id number]) [address] [place] [address] 39545 Platelet mean volume (Bld) [Entitic vol] 7.4 fL Normal 7-12 [facility] Comment on above: Performed By: #### C BCA, CMP, 3040-3, 36244-0, 91381-5, 10835- 9 #### [facility] ([id number]) [address] [place] [address] 84401 Platelets (Bld) [#/Vol] 399 10*3/uL Normal 150-450 [facility] Comment on above: Performed By: #### C BCA, CMP, 3040-3, 56198-6, 53712-6, 52014- 9 #### [facility] ([id number]) [address] [place] [address] 90193 RBC COUNT 4.97 X10E12/L Normal 3.80-5.20 [facility] Comment on above: Performed By: #### C BCA, CMP, 3040-3, 95378-8, 44017-2, 15076- 9 #### [facility] ([id number]) [address] [place] [address] 17758 WBC (Bld) [#/Vol] 11.5 10*3/uL High 4.0-11.0 [facility] Comment on above: Performed By: #### C BCA, CMP, 3040-3, 15390-3, 54499-4, 32179- 9 #### [facility] ([id number]) [address] [place] [address] 82343 COMPREHENSIVE METABOLIC PANE Sumit 07-26-2023 Albumin [Mass/Vol] 4.1 g/dL Normal 3.2-5.3 [facility] Comment on above: Performed By: #### C BCA, CMP, 3040-3, 42481-5, 44290-6, 20866- 9 #### [facility] ([id number]) [address] [place] [address] 49866 ALP [Catalytic activity/Vol] 62 U/L Normal 39-130 [facility] Comment on above: Performed By: #### C BCA, CMP, 3040-3, 42790-4, 79685-5, 95546- 9 #### [facility] ([id number]) [address] [place] [address] 55356 ALT [Catalytic activity/Vol] 12 U/L Normal 0-31 [facility] Comment on above: Performed By: #### C BCA, CMP, 3040-3, 90987-0, 72940-4, 73244- 9 #### [facility] ([id number]) [address] [place] [address] 14667 Anion gap [Moles/Vol] 10 mmol/L Normal 5-15 [facility] Comment on above: Performed By: #### C BCA, CMP, 3040-3, 70857-0, 29695-1, 68397- 9 #### [facility] ([id number]) [address] [place] [address] 86781 AST [Catalytic activity/Vol] 16 U/L Normal 0-41 [facility] Comment on above: Performed By: #### C BCA, CMP, 3040-3, 62955-5, 46421-5, 57635- 9 #### [facility] ([id number]) [address] [place] [address] 82009 Bilirubin [Mass/Vol] 0.9 mg/dL Normal 0.3-1.2 [facility] Comment on above: Performed By: #### C BCA, CMP, 3040-3, 18358-0, 44556-4, 81131- 9 #### [facility] ([id number]) [address] [place] [address] 47869 Calcium [Mass/Vol] 8.1 mg/dL Low 8.5-10.5 [facility] Comment on above: Performed By: #### C BCA, CMP, 3040-3, 51825-8, 47226-8, 45541- 9 #### [facility] ([id number]) [address] [place] [address] 64959 Chloride [Moles/Vol] 101 mmol/L Normal 98-109 [facility] Comment on above: Performed By: #### C MAIKEL, CMP, 3040-3, 53768-6, 02230-0, 21479- 9 #### [facility] ([id number]) [address] [place] [address] 18428 CO2 [Moles/Vol] 20 mmol/L Low 22-32 [facility] Comment on above: Performed By: #### C MAIKEL, MICAH, 3040-3, 24573-4, 71963-5, 74740- 9 #### [facility] ([id number]) [address] [place] [address] 46802 Creatinine [Mass/Vol] 0.42 mg/dL Normal 0.40-1.00 [facility] Comment on above: Result Comment: METH OD TRACEABLE TO IDMS STANDARD Performed By: #### C MAIKEL, MICAH, 3040-3, 49178-2, 70455-0, 91770-8 #### [facility] ([id number]) [address] [place] [address] 29870 eGFR (CKD-EPI) NON-RACE DEPENDENT >90 Normal >59 [facility] Comment on above: Result Comment: Reported eGFR is based on the CKD-EPI 2020 equation that does not use a race coefficient. Performed By: #### C MAIKEL, CMP, 3040-3, 05637-7, 71866-5, 16592-7 #### [facility] ([id number]) [address] [place] [address] 21152 Glucose [Mass/Vol] 140 mg/dL High 65-99 [facility] Comment on above: Performed By: #### C BCA, CMP, 3040-3, 60283-8, 40974-4, 42899- 9 #### [facility] ([id number]) [address] [place] [address] 70748 Potassium [Moles/Vol] 3.2 mmol/L Low 3.5-5.0 [facility] Comment on above: Performed By: #### C BCA, CMP, 3040-3, 15981-4, 54276-6, 36201- 9 #### [facility] ([id number]) [address] [place] [address] 47226 Protein [Mass/Vol] 7.3 g/dL Normal 6.0-8.0 [facility] Comment on above: Performed By: #### C BCA, CMP, 3040-3, 57378-1, 97472-9, 44665- 9 #### [facility] ([id number]) [address] [place] [address] 71186 Sodium [Moles/Vol] 131 mmol/L Low 134-146 [facility] Comment on above: Performed By: #### C BCA, CMP, 3040-3, 36899-7, 41507-1, 35746- 9 #### [facility] ([id number]) [address] [place] [address] 06510 Urea nitrogen [Mass/Vol] 12 mg/dL Normal 5-23 [facility] Comment on above: Performed By: #### C BCA, CMP, 3040-3, 39461-1, 24104-5, 98548- 9 #### [facility] ([id number]) [address] [place] [address] 69473 LIPASEon 07-26-2023 Lipase [Catalytic activity/Vol] 19 U/L Normal 17-40 [facility] Comment on above: Performed By: #### C BCA, CMP, 3040-3, 11200-9, 83531-9, 78200- 9 #### [facility] ([id number]) [address] [place] [address] 99950 Lactate (P cheryle) [Moles/Vol]o n 07-26-2023 LACTATE W/REFLEX 1.3 mmol/L Normal 0.4-2.0 [facility] Comment on above: Result Comment: Result did not trigger repeat Lactate, re-order if needed. Performed By: #### C BCA, CMP, 3040-3, 90579-4, 77193-3, 32449-1 #### [facility] ([id number]) [address] [place] [address] 39131 URN MACROSCOPIC NURon 2023 BILIRUBIN TACO Negative Normal NEG [facility] Comment on above: Performed By: #### C BCA, CMP, 3040-3, 70085-1, 12579-5, 44800- 9 #### [facility] ([id number]) [address] [place] [address] 46430 BLOOD/HGB TACO MODERATE Abnormal NEG [facility] Comment on above: Performed By: #### C BCA, CMP, 3040-3, 08227-7, 13966-1, 39633- 9 #### [facility] ([id number]) [address] [place] [address] 51029 GLUCOSE TACO Negative Normal NEG [facility] Comment on above: Performed By: #### C BCA, CMP, 3040-3, 18181-8, 16121-1, 14696- 9 #### [facility] ([id number]) [address] [place] [address] 71579 KETONES TACO >=160 Abnormal NEG [facility] Comment on above: Performed By: #### C BCA, CMP, 3040-3, 05242-8, 41614-3, 84433- 9 #### [facility] ([id number]) [address] [place] [address] 41118 LEUKOCYTE ESTERASE TACO Negative Normal NEG [facility] Comment on above: Performed By: #### C BCA, CMP, 3040-3, 83824-1, 18065-7, 51688- 9 #### [facility] ([id number]) [address] [place] [address] 33254 NITRITE TACO Negative Normal NEG [facility] Comment on above: Performed By: #### C BCA, CMP, 3040-3, 26050-7, 32007-9, 11021- 9 #### [facility] ([id number]) [address] [place] [address] 31876 PH TACO 6.0 Normal 5.0-8.5 [facility] Comment on above: Performed By: #### C BCA, CMP, 3040-3, 38061-9, 15111-6, 59902- 9 #### [facility] ([id number]) [address] [place] [address] 84489 PROTEIN TACO 30 mg/dL Abnormal NEG [facility] Comment on above: Performed By: #### C BCA, CMP, 3040-3, 22958-6, 90345-1, 42406- 9 #### [facility] ([id number]) [address] [place] [address] 45076 SPECIFIC GRAVITY TACO >=1.030 Normal 1.003-1.035 [facility] Comment on above: Performed By: #### C BCA, CMP, 3040-3, 34925-1, 43234-8, 36794- 9 #### [facility] ([id number]) [address] [place] [address] 15536 UROBILINOGEN TACO 0.2 eu/dL Normal <1.1 [facility] Comment on above: Performed By: #### C BCA, CMP, 3040-3, 16356-4, 73593-9, 77482- 9 #### [facility] ([id number]) [address] [place] [address] 68888 CBC AND AUTO DIFFon 05-02-19 ABSOLUTE BASOPHIL 0.0 X10E9/L Normal 0.0-0.2 [facility] Comment on above: Performed By: #### C BCA, CMP, 3040-3, 50277-0, 94227-0, 95834- 9 #### [facility] ([id number]) [address] [place] [address] 14312 ABSOLUTE NEUTROPHIL 11.9 X10E9/L High 1.5-6.6 [facility] Comment on above: Performed By: #### C BCA, CMP, 3040-3, 67383-2, 22620-8, 74369- 9 #### [facility] ([id number]) [address] [place] [address] 22648 Basophils/100 WBC (Bld) 0.2 % Normal [facility] Comment on above: Performed By: #### C BCA, CMP, 3040-3, 42508-3, 82017-6, 93078- 9 #### [facility] ([id number]) [address] [place] [address] 70936 Eosinophils (Bld) [#/Vol] 0.0 10*3/uL Normal 0.0-0.4 [facility] Comment on above: Performed By: #### C BCA, CMP, 3040-3, 43788-8, 56825-8, 98041- 9 #### [facility] ([id number]) [address] [place] [address] 42698 Eosinophils/100 WBC (Bld) 0.3 % Normal [facility] Comment on above: Performed By: #### C BCA, CMP, 3040-3, 20357-1, 10540-8, 74723- 9 #### [facility] ([id number]) [address] [place] [address] 15072 Erythrocyte distribution width (RBC) [Ratio] 13.1 % Normal 11.5-15.0 [facility] Comment on above: Performed By: #### C MAIKEL, MICAH, 3040-3, 03141-7, 97717-9, 30954- 9 #### [facility] ([id number]) [address] [place] [address] 23821 Hematocrit (Bld) [Volume fraction] 44.1 % Normal 35-47 [facility] Comment on above: Performed By: #### C MAIKEL, MICAH, 3040-3, 89852-4, 33459-6, 52710- 9 #### [facility] ([id number]) [address] [place] [address] 22362 Hemoglobin (Bld) [Mass/Vol] 15.0 g/dL Normal 11.7-15.5 [facility] Comment on above: Performed By: #### C MAIKEL, MICAH, 3040-3, 30859-0, 69768-1, 31630- 9 #### [facility] ([id number]) [address] [place] [address] 69589 Lymphocytes (Bld) [#/Vol] 1.4 10*3/uL Normal 1.0-3.5 [facility] Comment on above: Performed By: #### C MAIKEL, CMP, 3040-3, 20915-2, 05738-5, 67471- 9 #### [facility] ([id number]) [address] [place] [address] 48808 Lymphocytes/100 WBC (Bld) 9.8 % Normal [facility] Comment on above: Performed By: #### C MAIKEL, CMP, 3040-3, 14909-4, 34696-2, 22856- 9 #### [facility] ([id number]) [address] [place] [address] 83347 MCH (RBC) [Entitic mass] 30.3 pg Normal 27-34 [facility] Comment on above: Performed By: #### C BCA, CMP, 3040-3, 42546-4, 63756-0, 42672- 9 #### [facility] ([id number]) [address] [place] [address] 08774 MCHC (RBC) [Mass/Vol] 34.0 g/dL Normal 32-36 [facility] Comment on above: Performed By: #### C BCA, CMP, 3040-3, 02113-8, 53776-6, 77987- 9 #### [facility] ([id number]) [address] [place] [address] 29017 MCV (RBC) [Entitic vol] 89 fL Normal 80-100 [facility] Comment on above: Performed By: #### C BCA, CMP, 3040-3, 30510-4, 54235-2, 63709- 9 #### [facility] ([id number]) [address] [place] [address] 90023 Monocytes (Bld) [#/Vol] 0.8 10*3/uL Normal 0-0.9 [facility] Comment on above: Performed By: #### C BCA, CMP, 3040-3, 42700-5, 25393-1, 63723- 9 #### [facility] ([id number]) [address] [place] [address] 00049 Monocytes/100 WBC (Bld) 5.4 % Normal [facility] Comment on above: Performed By: #### C BCA, CMP, 3040-3, 13441-3, 95663-6, 64260- 9 #### [facility] ([id number]) [address] [place] [address] 98414 Neutrophils/100 WBC (Bld) 84.3 % Normal [facility] Comment on above: Performed By: #### C BCA, CMP, 3040-3, 36828-7, 13136-1, 98600- 9 #### [facility] ([id number]) [address] [place] [address] 43831 Platelet mean volume (Bld) [Entitic vol] 6.9 fL Low 7-12 [facility] Comment on above: Performed By: #### C BCA, CMP, 3040-3, 45998-0, 65282-6, 77644- 9 #### [facility] ([id number]) [address] [place] [address] 88486 Platelets (Bld) [#/Vol] 433 10*3/uL Normal 150-450 [facility] Comment on above: Performed By: #### C BCA, CMP, 3040-3, 99623-6, 74286-0, 80654- 9 #### [facility] ([id number]) [address] [place] [address] 35190 RBC COUNT 4.95 X10E12/L Normal 3.80-5.20 [facility] Comment on above: Performed By: #### C BCA, CMP, 3040-3, 71737-3, 98796-9, 35780- 9 #### [facility] ([id number]) [address] [place] [address] 68107 WBC (Bld) [#/Vol] 14.2 10*3/uL High 4.0-11.0 [facility] Comment on above: Performed By: #### C BCA, CMP, 3040-3, 69411-2, 82822-4, 42179- 9 #### [facility] ([id number]) [address] [place] [address] 72257 COMPREHENSIVE METABOLIC PANE Sumit 05-02-2023 Albumin [Mass/Vol] 4.5 g/dL Normal 3.2-5.3 [facility] Comment on above: Performed By: #### C BCA, CMP, 3040-3, 37427-1, 39794-1, 52237- 9 #### [facility] ([id number]) [address] [place] [address] 90096 ALP [Catalytic activity/Vol] 61 U/L Normal 39-130 [facility] Comment on above: Performed By: #### C BCA, CMP, 3040-3, 46226-6, 17396-1, 96999- 9 #### [facility] ([id number]) [address] [place] [address] 11955 ALT [Catalytic activity/Vol] 17 U/L Normal 0-31 [facility] Comment on above: Performed By: #### C BCA, CMP, 3040-3, 97423-6, 05921-7, 59966- 9 #### [facility] ([id number]) [address] [place] [address] 13275 Anion gap [Moles/Vol] 12 mmol/L Normal 5-15 [facility] Comment on above: Performed By: #### C BCA, CMP, 3040-3, 70847-2, 04916-0, 24043- 9 #### [facility] ([id number]) [address] [place] [address] 27286 AST [Catalytic activity/Vol] 21 U/L Normal 0-41 [facility] Comment on above: Performed By: #### C BCA, CMP, 3040-3, 45770-2, 70991-0, 54919- 9 #### [facility] ([id number]) [address] [place] [address] 08012 Bilirubin [Mass/Vol] 0.9 mg/dL Normal 0.3-1.2 [facility] Comment on above: Performed By: #### C BCA, CMP, 3040-3, 75114-7, 96246-5, 40639- 9 #### [facility] ([id number]) [address] [place] [address] 68691 Calcium [Mass/Vol] 8.9 mg/dL Normal 8.5-10.5 [facility] Comment on above: Performed By: #### C BCA, CMP, 3040-3, 03558-9, 34491-4, 46468- 9 #### [facility] ([id number]) [address] [place] [address] 21561 Chloride [Moles/Vol] 99 mmol/L Normal 98-109 [facility] Comment on above: Performed By: #### C BCA, CMP, 3040-3, 60667-0, 26001-1, 74983- 9 #### [facility] ([id number]) [address] [place] [address] 92247 CO2 [Moles/Vol] 23 mmol/L Normal 22-32 [facility] Comment on above: Performed By: #### C BCA, CMP, 3040-3, 49947-2, 42410-1, 03914- 9 #### [facility] ([id number]) [address] [place] [address] 02555 Creatinine [Mass/Vol] 0.46 mg/dL Normal 0.40-1.00 [facility] Comment on above: Result Comment: METH OD TRACEABLE TO IDMS STANDARD Performed By: #### C BCA, CMP, 3040-3, 19899-1, 73036-3, 78418-4 #### [facility] ([id number]) [address] [place] [address] 78476 eGFR (CKD-EPI) NON-RACE DEPENDENT >90 Normal >59 [facility] Comment on above: Result Comment: Reported eGFR is based on the CKD-EPI 2020 equation that does not use a race coefficient. Performed By: #### C BCA, CMP, 3040-3, 40027-8, 53671-9, 02592-4 #### [facility] ([id number]) [address] [place] [address] Glucose [Mass/Vol] 141 mg/dL High 65-99 [facility] Comment on above: Performed By: #### C BCA, CMP, 3040-3, 47990-1, 77282-6, 39009- 9 #### [facility] ([id number]) [address] [place] [address] 44297 Potassium [Moles/Vol] 3.0 mmol/L Low 3.5-5.0 [facility] Comment on above: Performed By: #### C MAIKEL, CMP, 3040-3, 77992-2, 30208-9, 52493- 9 #### [facility] ([id number]) [address] [place] [address] 28961 Protein [Mass/Vol] 8.2 g/dL High 6.0-8.0 [facility] Comment on above: Performed By: #### C BCA, CMP, 3040-3, 41638-6, 68494-9, 52930- 9 #### [facility] ([id number]) [address] [place] [address] 35234 Sodium [Moles/Vol] 134 mmol/L Normal 134-146 [facility] Comment on above: Performed By: #### C BCA, CMP, 3040-3, 97686-0, 92316-2, 69659- 9 #### [facility] ([id number]) [address] [place] [address] 41018 Urea nitrogen [Mass/Vol] 14 mg/dL Normal 5-23 [facility] Comment on above: Performed By: #### C BCA, CMP, 3040-3, 80483-0, 54871-0, 08188- 9 #### [facility] ([id number]) [address] [place] [address] ABDOMEN AND PELVIS W CONT on [...] Morales MD on 05/02/2023 12:53 PM Normal [facility] HCG ( test) IA.rapi d Ql (S)on 05-02-2023 SERUM Negative Normal NEG [facility] Comment on above: Performed By: #### C MICAH KO, 3040-3, 26555-8, 33732-6, 98934- 9 #### [facility] ([id number]) [address] [place] [address] 96618 HCG ( test) Ql (U)o n 05-02-2023 Beta HCG ( test) Ql (U) Negative Normal NEG [facility] Comment on above: Performed By: #### 2 106-3 #### [facility] ([id number]) [address] [place] [address] 13888 LIPASEon 05-02-2023 Lipase [Catalytic activity/Vol] 22 U/L Normal 17-40 [facility] Comment on above: Performed By: #### C MICAH KO, 3040-3, 60431-2, 32542-7, 65765- 9 #### [facility] ([id number]) [address] [place] [address] 45127 MAGNESIUMon 05-02-2023 Magnesium [Mass/Vol] 1.8 mg/dL Normal 1.8-2.6 [facility] Comment on above: Performed By: #### C MAIKEL, CMP, 3040-3, 77110-4, 25140-5, 39239- 9 #### [facility] ([id number]) [address] [place] [address] 86860 TROPONIN Ion 05-02-2023 Troponin I.cardiac [Mass/Vol] 0.01 ng/mL Normal 0.00-0.04 [facility] Comment on above: Performed By: #### C BCA, CMP, 3040-3, 67336-8, 43859-8, 67741- 9 #### [facility] ([id number]) [address] [place] [address] 24576 URN MACROSCOPIC NURon 2023 BILIRUBIN TACO Negative Normal NEG [facility] Comment on above: Performed By: #### N UM #### [facility] ([id number]) [address] [place] [address] 33216 BLOOD/HGB TACO Small Abnormal NEG [facility] Comment on above: Performed By: #### N UM #### [facility] ([id number]) [address] [place] [address] 01364 GLUCOSE TACO Negative Normal NEG [facility] Comment on above: Performed By: #### N UM #### [facility] ([id number]) [address] [place] [address] [place] [address] KETONES TACO >=160 Abnormal NEG [facility] Comment on above: Performed By: #### N UM #### [facility] ([id number]) [address] [place] [address] 35848 LEUKOCYTE ESTERASE TACO Negative Normal NEG [facility] Comment on above: Performed By: #### N UM #### [facility] ([id number]) [address] [place] [address] 46318 NITRITE TACO Negative Normal NEG [facility] Comment on above: Performed By: #### N UM #### [facility] ([id number]) [address] [place] [address] 94424 PH TACO 6.0 Normal 5.0-8.5 [facility] Comment on above: Performed By: #### N UM #### [facility] ([id number]) [address] [place] [address] 99984 PROTEIN TACO Negative Normal NEG [facility] Comment on above: Performed By: #### N UM #### [facility] ([id number]) [address] [place] [address] 37533 SPECIFIC GRAVITY TACO <=1.005 Normal 1.003-1.035 [facility] Comment on above: Performed By: #### N UM #### [facility] ([id number]) [address] [place] [address] 96235 UROBILINOGEN TACO 0.2 eu/dL Normal <1.1 [facility] Comment on above: Performed By: #### N UM #### [facility] ([id number]) [address] [place] [address] 40272 XR CHEST 1 VWon 05-02-2023 XR CHEST 1 VW XR CHEST 1 VW Portable chest: HISTORY: Cough and nausea. Single view of the chest was obtained. Cardiac and mediastinal contours are stable. There is no consolidation or effusion. No pneumothorax is seen. The osseous structures appear intact. IMPRESSION: No acute findings Finalized by Wolfgang Mcbride MD on 05/02/2023 11:43 AM Normal [facility] ASYMPTOMATIC COVID-19 ANTIGE Non 10-30-2020 EUA Statement SEE BELOW Normal [facility] Comment on above: Result Comment: This [...] sooner. Performed By: #### C VDAGA #### [facility] [address] [place] [address] Ligia Burdick SARS-CoV-2 (COVID-19) RNA SHOAIB+probe Ql (Unsp spec) Negative Normal NEGATIVE [facility] Comment on above: Result Comment: Nega tive results are presumptive. They do not preclude infection and should not be used as the sole basis for treatment decisions. Additional confirmatory testing by a molecular method should be considered. Performed By: #### C VDAGA #### [facility] [address] [place] [address] Ligia Burdick CBC AUTO DIFFon 10-30-2020 BASO # 0.1 103/ul Normal 0.0-0.1 [facility] Comment on above: Performed By: #### C BC #### [facility] [address] [place], [place] [address] Ligia Heavenly Basophils/100 WBC (Bld) 0.5 % Normal 0.2-2.0 [facility] Comment on above: Performed By: #### C BC #### [facility] [address] [place] [address] Ligia Heavenly EO # 0.5 103/ul Normal 0.0-0.7 [facility] Comment on above: Performed By: #### C BC #### [facility] [address] [place] [address] Ligia Heavenly Eosinophils/100 WBC (Bld) 5.2 % Normal 0.9-7.0 [facility] Comment on above: Performed By: #### C BC #### [facility] [address] [place] [address] Ligia Heavenly Erythrocyte distribution width (RBC) [Ratio] 13.5 % Normal 11.0-15.0 [facility] Comment on above: Performed By: #### C BC #### [facility] [address] [place] [address] Ligia Heavenly Hematocrit (Bld) [Volume fraction] 45.6 % Normal 36.0-48.0 [facility] Comment on above: Performed By: #### C BC #### [facility] [address] [place] [address] Ligia Heavenly Hemoglobin (Bld) [Mass/Vol] 15.0 g/dL Normal 12.0-16.0 [facility] Comment on above: Performed By: #### C BC #### [facility] [address] [place] [address] Lgiia Heavenly IG # 0.03 10e3/ul Normal 0.00-0.03 [facility] Comment on above: Performed By: #### C BC #### [facility] [address] [place] [address] Ligia Heavenly IG % 0.3 % Normal 0.0-0.5 [facility] Comment on above: Performed By: #### C BC #### [facility] [address] [place] [address] Ligia Heavenly LYMPH # 2.4 103/ul Normal 1.2-3.8 [facility] Comment on above: Performed By: #### C BC #### [facility] [address] [place], [place] [address] Ligia Heavenly Lymphocytes/100 WBC (Bld) 23.5 % Normal 20.5-60.0 [facility] Comment on above: Performed By: #### C BC #### [facility] [address] [place] [address] Ligia Heavenly MANUAL DIFF REQ NO Normal [facility] Comment on above: Performed By: #### C BC #### [facility] [address] [place], [place] [address] Ligia Burdick MCH (RBC) [Entitic mass] 29.6 pg Normal 26.7-34.0 [facility] Comment on above: Performed By: #### C BC #### [facility] [address] [place], [place] [address] Ligia Burdick MCHC (RBC) [Mass/Vol] 32.9 g/dL Normal 29.9-35.2 [facility] Comment on above: Performed By: #### C BC #### [facility] [address] [place], [place] [address] Ligia Burdick MCV (RBC) [Entitic vol] 90.1 fL Normal 81.0-99.0 [facility] Comment on above: Performed By: #### C BC #### [facility] [address] [place] [address] Ligia Burdick MONO # 1.2 103/ul Critically high 0.3-0.8 [facility] Comment on above: Performed By: #### C BC #### [facility] [address] [place] [address] Ligia Burdick Monocytes/100 WBC (Bld) 11.9 % Normal 1.7-12.0 [facility] Comment on above: Performed By: #### C BC #### [facility] [address] [place], [place] [address] Ligia Burdick NEUT # 6.0 103/ul Normal 1.4-6.5 [facility] Comment on above: Performed By: #### C BC #### [facility] [address] [place], [place] [address] Ligia Heavenly Neutrophils/100 WBC (Bld) 58.6 % Normal 43.0-75.0 [facility] Comment on above: Performed By: #### C BC #### [facility] [address] [place], [place] [address] Ligia Heavenly Platelet mean volume (Bld) [Entitic vol] 9.4 fL Critically low 9.5-13.5 [facility] Comment on above: Performed By: #### C BC #### [facility] [address] [place] [address] Ligia Joen PLT 283 103/ul Normal 150-450 [facility] Comment on above: Performed By: #### C BC #### [facility] [address] [place], [place] [address] Ligia Heavenly RBC 5.06 106/ul Normal 4.20-5.40 [facility] Comment on above: Performed By: #### C BC #### [facility] [address] [place] [address] Ligiaana Joen WBC 10.2 103/ul Normal 4.0-11.0 [facility] Comment on above: Performed By: #### C BC #### [facility] [address] [place] [address] Ligia Burdick D-DIMERon 10-30-2020 D-DIMER 0.32 mg/L FEU Normal 0.19-0.50 [facility] Comment on above: Performed By: #### D DIM #### [facility] [address] [place], [place] [address] Ligiaana Burdick D-DIMER COMMENTS SEE BELOW Normal [facility] Comment on above: Result Comment: [...] hospitalization. Performed By: #### D DIM #### [facility] [address] [place], [place] [address] Ligia Burdick LACTATE/LACTIC ACIDon 2020 Lactate [Moles/Vol] 1.6 mmol/L Normal 0.7-2.0 [facility] Comment on above: Performed By: #### L ACT #### [facility] [address] [id number] Ligia Heavenly PROF 14(COMP METB)on 021 Albumin [Mass/Vol] 3.9 g/dL Normal 3.5-5.0 [facility] Comment on above: Performed By: #### H HONEY, CMP #### [facility] [address] [address] Ligia Heavenly Albumin/Globulin [Mass ratio] 1.0 {ratio} Normal [facility] Comment on above: Performed By: #### H HONEY, CMP #### [facility] [address] [address] Ligia Heavenly ALP [Catalytic activity/Vol] 90 U/L Normal 38-126 [facility] Comment on above: Performed By: #### H HONEY, CMP #### [facility] [address] [place] [address] Ligia Heavenly ALT [Catalytic activity/Vol] 75 U/L Critically high 9-52 [facility] Comment on above: Performed By: #### H HONEY, CMP #### [facility] [address] [address] Ligia Heavenly Anion gap [Moles/Vol] 13.1 mmol/L Normal [facility] Comment on above: Performed By: #### H HONEY, CMP #### [facility] [address] [address] Ligia Heavenly AST [Catalytic activity/Vol] 43 U/L Critically high 14-36 [facility] Comment on above: Performed By: #### H HONEY, CMP #### [facility] [address] [place], [place] [address] Ligia Heavenly Bilirubin [Mass/Vol] 0.5 mg/dL Normal 0.2-1.3 [facility] Comment on above: Performed By: #### H HONEY, CMP #### [facility] [address] [address] Ligia Heavenly Calcium [Mass/Vol] 8.7 mg/dL Normal 8.4-10.2 [facility] Comment on above: Performed By: #### H HONEY, CMP #### [facility] [address] [address] Ligia Heavenly Chloride [Moles/Vol] 97 mmol/L Critically low 98-107 [facility] Comment on above: Performed By: #### H HONEY, CMP #### [facility] [address] [address] Ligia Heavenly CO2 [Moles/Vol] 28.2 mmol/L Normal 22.0-30.0 [facility] Comment on above: Performed By: #### H HONEY, CMP #### [facility] [address] [address] Ligia Heavenly Creatinine [Mass/Vol] 0.54 mg/dL Normal 0.52-1.04 [facility] Comment on above: Performed By: #### H HONEY, CMP #### [facility] [address] [place] [address] Ligia Heavenly EGFR-AF ALBANIAN Normal >=60 [facility] Comment on above: Performed By: #### H HONEY, CMP #### [facility] [address] [place] [address] Ligia Heavenly EGFR-NON AF ALBANIAN Normal >=60 [facility] Comment on above: Performed By: #### H HONEY, CMP #### [facility] [address] [place] [address] Ligia Heavenly Globulin (S) [Mass/Vol] 4.0 g/dL Normal [facility] Comment on above: Performed By: #### H HONEY, CMP #### [facility] [address] [place] [address] Ligia Heavenly Glucose [Mass/Vol] 113 mg/dL Critically high 74-106 [facility] Comment on above: Performed By: #### H HONEY, CMP #### [facility] [address] [place] [address] Ligia Heavenly Potassium [Moles/Vol] 4.3 mmol/L Normal 3.4-5.0 [facility] Comment on above: Performed By: #### H STROROE, CMP #### [facility] [address] [place], [place] [address] Ligia Heavenly Protein [Mass/Vol] 7.9 g/dL Normal 6.1-8.2 [facility] Comment on above: Performed By: #### H HONEY, CMP #### [facility] [address] [place], [place] [address] Ligia Heavenly Sodium [Moles/Vol] 134 mmol/L Critically low 137-145 [facility] Comment on above: Performed By: #### H HONEY, CMP #### [facility] [address] [place], [place] [address] Ligia Heavenly Urea nitrogen [Mass/Vol] 10.0 mg/dL Normal 7.0-17.0 [facility] Comment on above: Performed By: #### H HONEY, CMP #### [facility] [address] [place], [place] [address] Ligia Heavenly Urea nitrogen/Creatinine [Mass ratio] 18.5 mg/mg Normal [facility] Comment on above: Performed By: #### H HONEY, CMP #### [facility] [address] [place], [place] [address] Ligia Heavenly TROPONIN, HIGH SENSITIVITYon 10-30-2020 HSTROP >4.0 Normal 4.0-35.5 [facility] Comment on above: Result Comment: CUT- OFF POINTS HAVE BEEN ESTABLISHED BASED ON THE FOURTH UNIVERSAL DEFINITIONS OF MYOCARDIAL INFARCTION. THE UPPER REFERENCE LIMIT (URL) OF TROPONIN, DEFINED THE 99TH PERCENTILE OF cTnI DISTRIBUTION IN A REFERENCE POPULATION, HAS BEEN CONFIRMED THE DECISION THRESHOLD FOR PR DIAGNOSIS. Performed By: #### H HONEY, CMP #### [facility] [address] [place], [place] [address] Ligia Heavenly XR CHEST 2 Von 10-30-2020 [...] MAKENZIE ARREDONDO Date: 2020-10-29 23:52 Normal [facility] CULTURE WOUNDon 03-06-2020 CULTURE WOUND Specimen Comments: R HIP SWAB Culture Observations: Anaerobe present. Culture Observations: Evidence based practice by [facility] has demonstrated that Culture Observations: Finegoldia species are routinely susceptible to Piperacillin-Tazobac mireles, Culture Observations: Cefoxitin,Ertapenem, Imipenem,Metronidazo le and Culture Observations: variably resistant to Clindamycin. Isolate 1 Farhatia magna Moderate growth of Normal [facility] Comment on above: Performed By: #### W OUNDCX #### [facility] [address] [place], [place] [address] Ligia Burdick Encounters Encounter Date Encounter Type Care Provider Facility Start: 12-21-2023 End: 12-24-2023 Emergency department patient visit [facility] Start: 12-21-2023 End: 12-23-2023 [facility] Start: 09-25-2023 End: 09-27-2023 ambulatory [facility] Start: 07-26-2023 End: 07-26-2023 Emergency department patient visit [facility] Start: 05-02-2023 End: 05-03-2023 Emergency department patient visit YOONMark BHARGAVI [facility] Start: 05-02-2023 End: 05-02-2023 Emergency department patient visit [facility] Start: 10-30-2020 End: 10-30-[address] FUENTES MARKER Facility:[facility] Start: 04-19-[address] JUNG KEEN [facility] Start: 03-06-2020 End: 03-06-[address] TEIXEIRA PAY Facility:[facility] Payers Date Payer Category Payer Unknown [id number] 2.16.84 [id number] 1982 Unknown [id number] 2.16.84 [id number] 1982 Unknown [id number] 2.16.84 [id number] 1982 Unknown [id number] 2.16.8 [id number] 1982 Unknown [id number] 2.16.8 [id number] 1982 Unknown [id number] 2.16.8 [id number] 1982 Unknown [id number] 2.16.84 [id number] 1982 Unknown [id number] 2.16.84 [id number] 1982 Unknown [id number] 2.16.84 [id number] 1959 Self-pay [id number] 1957 Unknown [id number] Summary Purpose Family History No Family History Records FoundNo Family History Records Found Advance Directives No Advanced Directives Records FoundNo Advanced Directives Records Found Additional Source Comments INFORMATION SOURCE (unrecogn ized section and content) DATE CREATED AUTHOR 11/02/2020 [facility] DATE CREATED AUTHOR AUTHOR'S VANESSA ATDAGOBERTO 12/24/2023 [facility] FOR RECORDS PERTAINING TO PATIENTS WHO [...] BE BASED ON THE PRIMARY CLINICAL RECORDS. [employer] provides no warranty or guarantee of the accuracy or completeness of information in this document.
--- NOTE | 2024-02-01 20:30 | PC.NURSE ---
Patient presented from ER, Patient flopping around bed moaning that her stomach hurts. Answers question on where she is, told me she had not eaten all day and had a BM yesterday. 2 emesis and fell back asleep. Unable to obtain history d/t patient falling back asleep and uncooperative.
--- NOTE | 2024-02-01 20:31 | PC.NURSE ---
Called patient friend Amadeo at [phone] who is on her contact list to provide update. He is aware of her admission and will be in in the morning to see her.
[2024-02-01] MEDS: HYOSCYAMINE SULFATE 0.125 MG TAB.SUBL SL (21:37)
[2024-02-01] MEDS: PROMETHAZINE HCL 25 MG TABLET PO (21:37)
[2024-02-01] MEDS: KETOROLAC TROMETHAMINE 30 MG/ML VIAL IVP (21:43)
--- NOTE | 2024-02-01 21:45 | PC.NURSE ---
Patient heard moaning. PRN meds given ad patient vomited them up immediately. Attempted to ask patient if she had taken anything. Patient shook head no, this RN asked is se smoked marijuana recently and patient shook yes. Attempted to ask patient about any daily medications she took and patient fell back asleep.
[2024-02-01] MEDS: LORAZEPAM 2 MG/ML VIAL 1 MG IV (22:58)
[2024-02-02] VITALS (8 sets, daily range): BP systolic 133–157; BP diastolic 78–94; PULSE 37–92; TEMP 36.4–36.6; O2SAT 94–95
[2024-02-02] MEDS: KETOROLAC TROMETHAMINE 30 MG/ML VIAL IVP ×2 (04:17→11:17)
[2024-02-02] MEDS: ONDANSETRON PF 4 MG/2 ML VIAL IV ×2 (04:43→13:10)
--- NOTE | 2024-02-02 05:03 | PC.NURSE ---
Patient had 2 emesis. Small specks of blod tinge noticed. Physician notified
[2024-02-02 05:19] LABS: Internal Control Within Normal Limits; Occult Blood Gastric Fluid POSTIVE; pH Gastric Fluid 1
[2024-02-02 05:55] LABS: Basophils Absolute Auto 0.1 10^3/uL (0.0-0.1); Basophils Percent Auto 0.3 % (0.2-2.0); Hematocrit 42.7 % (36.0-48.0); Hemoglobin 14.4 g/dL (12.0-16.0); Immature Granulocytes Abs Auto 0.06 10^3/uL (0.00-0.03); Immature Granulocytes Pct Auto 0.3 % (0.0-0.5); Lymphocytes Absolute Auto 2.2 10^3/uL (1.2-3.8); Lymphocytes Percent Auto 12.9 % (20.5-60.0); Mean Corpuscular HGB Conc 33.7 g/dL (29.9-35.2); Mean Corpuscular Hemoglobin 29.7 pg (26.7-34.0); Mean Platelet Volume 9.1 fL (9.5-13.5); Monocytes Absolute Auto 1.1 10^3/uL (0.3-0.8); Monocytes Percent Auto 6.3 % (1.7-12.0); Neutrophils Percent Auto 80.2 % (43.0-75.0); Platelet Count 434 10^3/uL (150-450); Red Blood Count 4.85 10^6/uL (4.20-5.40); Red Cell Distribution Width 12.9 % (11.0-15.0); White Blood Count 17.4 10^3/uL (4.0-11.0)
[2024-02-02] MEDS: PROCHLORPERAZINE 10 MG/2 ML VIAL IV (06:11)
[2024-02-02] MEDS: FAMOTIDINE/PF 20 MG/2 ML VIAL IV (06:11)
[2024-02-02] MEDS: LACTATED RINGER'S SOLUTION 1,000 ML 125 ML IV (06:11)
[2024-02-02 06:12] LABS: Alanine Aminotransferase 19 U/L (14-59); Albumin Globulin Ratio 0.9; Albumin Level 3.7 g/dL (3.4-5.0); Alkaline Phosphatase 80 U/L (46-116); Anion Gap 14.7; Aspartate Amino Transferase 16 U/L (15-37); BUN Creatinine Ratio 25.5; Bilirubin Total 0.5 mg/dL (0.2-1.0); Calcium 8.9 mg/dL (8.5-10.1); Carbon Dioxide 24.6 mmol/L (21.0-32.0); Chloride 99 mmol/L (98-107); Estimated GFR (African America >60 (>=60 mL/min/1.73m^2); Estimated GFR (Non-African Ame >60 (>=60 mL/min/1.73m^2); Globulin 3.9 g/dL; Glucose 134 mg/dL (74-106); Magnesium 2.1 mg/dL (1.8-2.4); Potassium 3.3 mmol/L (3.5-5.1); Sodium 135 mmol/L (136-145); Total Protein 7.6 g/dL (6.4-8.2)
[2024-02-02] MEDS: POTASSIUM CHLORIDE 40 MEQ in 0.9 % SODIUM CHLORIDE 250 ML 67.5 MEQ IV (08:42)
--- NOTE | 2024-02-02 10:18 | CM.NOTE ---
Rounds made with Dr. Shell, discussed with pt Cyclic vomiting syndrome and plan of care. If pt able to tolerate P.O can discharge this afternoon. No discharge needs identified.
--- NOTE | 2024-02-02 10:47 | CM.NOTE ---
Clarified with billing that [facility] has terminated and e-mail sent to billers to talk with pt and provide HCAP form.
[2024-02-02] MEDS: HYOSCYAMINE SULFATE 0.125 MG TAB.SUBL SL (11:32)
[2024-02-02] MEDS: CAPSAICIN 0.025% CREAM 60 GM TUBE 1 APPLIC TOPICAL (11:33)
[2024-02-02 12:12] LABS: Basophils Absolute Auto 0.1 10^3/uL (0.0-0.1); Basophils Percent Auto 0.3 % (0.2-2.0); Hematocrit 40.7 % (36.0-48.0); Hemoglobin 13.7 g/dL (12.0-16.0); Immature Granulocytes Abs Auto 0.08 10^3/uL (0.00-0.03); Immature Granulocytes Pct Auto 0.5 % (0.0-0.5); Lymphocytes Absolute Auto 2.4 10^3/uL (1.2-3.8); Lymphocytes Percent Auto 13.3 % (20.5-60.0); Mean Corpuscular HGB Conc 33.7 g/dL (29.9-35.2); Mean Corpuscular Volume 89.1 fL (81.0-99.0); Mean Platelet Volume 9.2 fL (9.5-13.5); Monocytes Absolute Auto 1.2 10^3/uL (0.3-0.8); Neutrophils Percent Auto 78.9 % (43.0-75.0); Platelet Count 382 10^3/uL (150-450); Red Blood Count 4.57 10^6/uL (4.20-5.40); Red Cell Distribution Width 12.9 % (11.0-15.0); White Blood Count 17.7 10^3/uL (4.0-11.0)
--- NOTE | 2024-02-02 13:07 | PM.HP ---
HPI H&P: HPI History of Present Illness Chief complaint: Intractable Abdominal Pain, Nausea/Vomit, Low K mg Narrative: HPI and Hospital Course: 43 y o female w hx of cyclic vomiting syndrome/cannabis hyperemesis syndrome presented to ED last night intractable nausea, vomiting associated with generalized abdominal pain x 3-5 days. Patient denies diarrhea, seeing blood in his stool or vomit, fever, chills, urinary complaints. Workup in ER revealed mild hypokalemia, leukocytosis but otherwise no significant finding was noted on CBC/CMP. She also had a CT abdomen pelvis that did not reveal any significant intra-abdominal pathology. Patient reports that her abdominal pain is intermittent, spasmodic and last for a few minutes. She was previously admitted to [facility] about 6 weeks ago for similar complaint. She continues to smoke marijuana daily and has had multiple admissions to the hospital with similar complaints and symptoms. Patient was treated with supportive measures including IV fluids and antiemetics. I also ordered capsaicin cream for her to be used for cyclic vomiting syndrome. Her symptoms gradually improved she was able to tolerate full liquid diet. Patient was educated and counseled on marijuana abuse. She is medically stable for discharge. She was educated on worrisome signs and symptoms to return to ED if she develop intractable nausea or vomiting. Opioid HPI Opioid Management Most Recent Pain and Opioid Data: Last Pain Scale 10 02/01/24 17:02 02/01/24 Last Pain Assessment 02/02/24 12:50 Last MAR Pain Assessment 02/02/24 12:49 Last ORT Total Score 1 02/01/24 20:24 02/01/24 Last ORT Risk Category Low Risk 02/01/24 20:24 02/01/24 Ur Phencyclidine Scrn Negative (NEGATIVE) 02/01/24 18:45 02/01/24 Review of Systems ROS Status of ROS 10 or more systems reviewed and unremarkable except as noted in history and below [facility] Medical History (Updated 02/02/24 @ 13:14 by Shaikh Sumaya MD) Embolus ?I74.9 - Embolism and thrombosis of unspecified artery (ICD-10) Surgical History (Updated 05/03/23 @ 05:55 by Nona Enciso) History of cholecystectomy ?Z90.49 - Acquired absence of other specified parts of digestive tract (ICD-10) Social History (Updated 02/02/24 @ 13:13 by Shaikh Sumaya MD) Within the past year, how often did you have a drink containing alcohol: monthly or less Within the past year, how many standard drinks containing alcohol did you have on a typical day: 1 or 2 Within the past year, how often did you have six or more drinks on one occasion: never Total score: 0 Score interpretation: A score less than 3 is consistent with normal alcohol consumption. Smoking status: Current every day smoker Non-prescribed substance use: cannabis (any form) Highest level of school completed/degree received: 9th grade Meds Home Medications and Allergies Home Medications ?Medication ?Instructions ?Recorded ?Confirmed ?Type No Known Home Medications 02/02/24 02/02/24 History Allergies Allergy/AdvReac Type Severity Reaction Status Date / Time codeine Allergy Intermediate Verified 06/09/23 23:26 ibuprofen Allergy Intermediate Verified 06/09/23 23:26 Exam Constitutional Vital Signs, click to edit/add: Last Vital Signs Temp 97.9 F 02/02/24 12:52 Pulse 62 02/02/24 12:52 Resp 20 02/02/24 12:52 BP 133/78 02/02/24 12:52 Pulse Ox 95 02/02/24 12:52 O2 Del Method Room Air 02/02/24 12:52 Documenting provider has reviewed patient's vital signs: yes Common normals: oriented x3 General appearance: lethargic Other: During exam, patient suddenly started to moan and cry due to abdominal cramps. Respiratory Common normals: normal respiratory effort and clear to auscultation bilaterally Effort & inspection: able to speak in complete sentences Auscultation: clear to auscultation bilaterally Cardio Common normals: regular rate, S1 normal heart sound and S2 normal heart sound Rate: regular rate Heart sounds: S1 normal and S2 normal GI Common normals: Normal to inspection, nondistended, normoactive bowel sounds present, soft to palpation, non-tender and no hepatosplenomegaly Palpation: soft and no hepatosplenomegaly Extremity Common normals: no clubbing, cyanosis or edema Neuro Common normals: oriented x3, moves all extremities and no focal motor deficits Psych Common normals: mental status grossly normal, denies hallucinations, denies homicidal ideation and denies suicidal ideation Results Labs Labs: Short CBC 10/02/02/24 02/02/24 Range/Units 16:32 05:39 11:50 WBC 12.4 H 17.4 H 17.7 H (4.0-11.0) 10^3/uL Hgb 13.6 14.4 13.7 (12.0-16.0) g/dL Hct 40.7 42.7 40.7 (36.0-48.0) % Plt Count 411 434 382 (150-450) 10^3/uL BMP 02/01/24 02/02/24 16:32 05:39 Sodium 137 135 L Potassium 3.4 L 3.3 L Chloride 101 99 Carbon Dioxide 24.1 24.6 BUN 10.0 12.0 Creatinine 0.38 L 0.47 L Glucose 141 H 134 H Calcium 8.6 8.9 Liver Function 02/01/24 02/02/24 Range/Units 16:32 05:39 Total Bilirubin 0.4 0.5 (0.2-1.0) mg/dL AST 17 16 (15-37) U/L ALT 26 19 (14-59) U/L Alkaline Phosphatase 75 80 (46-116) U/L Albumin 3.5 3.7 (3.4-5.0) g/dL ABG ABG results: 02/01/24 16:32 VBG pH 7.442 H VBG pCO2 37.5 L Assessment and Plan Assessment and Plan (1) Cyclic vomiting syndrome: (2) Cannabis hyperemesis syndrome concurrent with and due to cannabis abuse: (3) Leukocytosis: Qualifiers: Leukocytosis type: leukemoid reaction Qualified Code(s): D72.823 - Leukemoid reaction (4) Intractable nausea and vomiting: (5) Hypokalemia: (6) Marijuana abuse, continuous: Plan Patient admitted for intractable nausea and vomiting secondary to cyclic vomiting syndrome/cannabis hyperemesis syndrome. She was also noted to have mild hypokalemia and leukocytosis. Patient's symptoms improved with conservative measures and she is now able to tolerate full liquid diet. Her potassium was repleted with IV potassium. Her abdominal pain responded well to Levsin as needed. While she has a leukocytosis of 17,000, she has no evidence of ongoing infection. Her leukocyte count was abnormal previously also and this could be chronic in nature. Discussed marijuana abuse and risk associated with this. Patient medically stable for discharge on oral Zofran as needed and Levsin as needed
--- NOTE | 2024-02-02 14:58 | NUTR.NU ---
Pt was admitted to [facility] 02/01/24 w/abdominal pain, cyclic vomiting syndrome, gastroenteritis, et al. She uses marijuana daily which may contribute to GI distress. She has been able to tolerate liquids, but ate little of the bland, regular diet ordered today. Low PO intakes may be expected until GI symptoms resolve. Will continue to follow PRN.
--- NOTE | 2024-02-03 14:47 | CM.DCFOLLOWU ---
02/02- 1st attempt. No answer
--- NOTE | 2024-02-04 11:32 | CM.DCFOLLOWU ---
Person spoke with:patient How are you feeling? a little bit better, just got released from [facility] How is your pain? limited Did you understand your discharge instructions?yes Do you have any questions about your discharge instructions?no Were you given any prescriptions at discharge? yes Were you able to get your prescriptions filled?yes Do you understand how to take your medications as ordered?yes Do you have any questions about your follow up appointment and do you plan to keep your follow up appointment? no questions,reviewed follow up Is there anything else that you would like to discuss?no Questions/Comments/Concerns/Other:none
== END 2024-02-02 13:35 | disposition home health service (06) ==
LOC: ER 18:02 → MS 20:12
PROVIDERS: Internal Medicine; Registered Nurse; Admitting Provider Internal Medicine; Emergency Provider Emergency Medicine; Visit Provider Internal Medicine
DX: R11.15 Cyclical vomiting syndrome unrelated to migraine (principal); F12.10 Cannabis abuse, uncomplicated; E87.6 Hypokalemia; R11.2 Nausea with vomiting, unspecified; D72.823 Leukemoid reaction; F17.200 Nicotine dependence, unspecified, uncomplicated
CPT/HCPCS: 36415; 74177; 80053; 80307; 82271; 82800; 83605; 83690; 83735; 84484; 84703; 85025; 85610; 85730; 87040; 93005; 94761; 96361; 96365; 96366; 96367; 96372; 96375; 96376; 99285; G0378; J0500; J0780; J1171; J1885; J2060; J2405; J3360; J3475; J3480; Q0169; Q9967